=== PATIENT | male | born 1935 | race Caucasian/White ===

== ENCOUNTER 2017-02-28 10:41 | Emergency (ER) | payer MEDICARE, BC ==
--- NOTE | 2017-02-28 11:12 | EDM.PDOC ---
ED HPI Skin/Rash - General Chief Complaint: Skin Complaint Stated Complaint: COLOSTOMY Time Seen by Provider: 02/28/17 10:51 - History of Present Illness INITIAL COMMENTS - FREE TEXT/NARRATIVE: HISTORY AND PHYSICAL: History of present illness: The patient is a 81-year-old man who had a colostomy performed 15 years ago at [facility] for colorectal cancer which has since been in remission and has had no issues with his colostomy; patient presents with some concerns about discoloration of the stoma which was noticed today when home health changed his appliance. According to the patient and he has had no systemic complaints of fever chills nausea vomiting or any abdominal discomfort. He has had normal stool output from the stoma without any decrease in volume or change in character or color of the stool. The patient has no pain at the stoma and is only concerned about the way it looks. Patient follows at [facility] with Dr. Beckman and did not see him for this. Review of systems: As per history of present illness and below otherwise all systems reviewed and negative. Past medical history: As per history of present illness and as reviewed below otherwise noncontributory. Surgical history: As per history of present illness and as reviewed below otherwise noncontributory. Social history: No reported history of drug or alcohol abuse. Family history: As per history of present illness and as reviewed below otherwise noncontributory. Physical exam: General: Well-developed well-nourished male who is nontoxic and speaking clearly. Vital signs of been reviewed by me. HEENT: Atraumatic, normocephalic, negative for conjunctival pallor or scleral icterus, mucous membranes moist, throat clear, neck supple, nontender, trachea midline. Lungs: Clear to auscultation, breath sounds equal bilaterally, chest nontender. No work or breathing Heart: S1S2, regular, negative for clicks, rubs, or JVD. Abdomen: Soft, nondistended, nontender. Negative for masses or hepatosplenomegaly. Negative for costovertebral tenderness. Colostomy is seen in the left mid abdominal area with pink stoma which is small and there is no overt tenderness in the region or parastomal hernia. There is light brown stool in the vault. There are multiple abdominal scars which are well-healed on the abdomen and bowel sounds are normoactive. Active from approximate 6:00 to 11:00 position on the stoma there is granulation tissue that is seen that is not friable and cannot be removed and is nontender. The stoma is very viable pink Pelvis: Stable nontender. Genitourinary: Deferred. Rectal: Deferred. Extremities: Atraumatic, negative for cords or calf pain. Neurovascular unremarkable. Neuro: Awake, alert, oriented. Cranial nerves II through XII unremarkable. Cerebellum unremarkable. Motor and sensory unremarkable throughout. Exam nonfocal. Diagnostics: [] Therapeutics: Silver nitrate was gently placed on the area of the granulation tissue on the stoma and I advised and patient to monitor this closely and to follow up with primary care. I will attempt to notify Dr. Garrison of today's events (Please note that nursing tried to find a similar appliance for the patient so that I could do a thorough evaluation before removing the appliance. We were unable to find one on a [facility] floor or in the clinic. The has left him to go get one and was deleted in returning) Impression: Colostomy evaluation Definitive disposition and diagnosis as appropriate pending reevaluation and review of above. - Related Data Allergies Allergy/AdvReac Type Severity Reaction Status Date / Time Medication used during Allergy Hallucinati Uncoded 02/28/17 10:55 Surgery ons Home Meds: Ambulatory Orders Medication Instructions Recorded Confirmed Aspirin 81 mg PO ONETIME 01/03/17 02/28/17 QUEtiapine [SEROquel] 25 mg PO BEDTIME #20 tablet 01/03/17 02/28/17 amLODIPine [Norvasc] 5 mg PO DAILY 01/03/17 02/28/17 atorvaSTATin [Lipitor] 40 mg PO BEDTIME 01/03/17 02/28/17 Donepezil HCl [Aricept] 5 mg PO BEDTIME 02/28/17 02/28/17 Propranolol HCl [Inderal LA] 160 mg PO BEDTIME 02/28/17 02/28/17 Past Medical History HEENT History: Reports: Impaired vision Cardiovascular History: Reports: High cholesterol, Hypertension Genitourinary History: Reports: Other (see below) Other Genitourinary History: hx of prostate surgery Neurological History: Reports: Other (see below) Other Neuro History: "According to recent MRI results, 4 small areas of past stroke" and mild cognitive impairment. Psychiatric History: Reports: Dementia Social & Family History - Family History Family Medical History: Unobtainable - Tobacco Use Smoking Status *Q: Never Smoker Second Hand Smoke Exposure: No - Caffeine Use Caffeine Use: Reports: Coffee, Soda - Recreational Drug Use Recreational Drug Use: No ED ROS GENERAL - Review of Systems Review Of Systems: ROS reveals no pertinent complaints other than HPI. ED EXAM, SKIN/RASH Exam: See Below (See dictation) Course - Vital Signs Last Recorded V/S: Last Vital Signs Temp 35.9 C 02/28/17 10:52 Pulse 67 02/28/17 10:52 Resp 18 02/28/17 10:52 BP 165/81 H 02/28/17 10:52 Pulse Ox 94 L 02/28/17 10:52 Departure - Departure Time of Disposition: 12:20 Disposition: Home, Self-Care 01 Condition: good Clinical Impression: Colostomy complication, unspecified Forms: ED Department Discharge Additional Instructions: The following information is given to patients seen in the emergency department who are being discharged to home. This information is to outline your options for follow-up care. We provide all patients seen in our emergency department with a follow-up referral. The need for follow-up, as well as the timing and circumstances, are variable depending upon the specifics of your emergency department visit. If you don't have a primary care physician on staff, we will provide you with a referral. We always advise you to contact your personal physician following an emergency department visit to inform them of the circumstance of the visit and for follow-up with them and/or the need for any referrals to a consulting specialist. The emergency department will also refer you to a specialist when appropriate. This referral assures that you have the opportunity for followup care with a specialist. All of these measure are taken in an effort to provide you with optimal care, which includes your followup. Under all circumstances we always encourage you to contact your private physician who remains a resource for coordinating your care. When calling for followup care, please make the office aware that this follow-up is from your recent emergency room visit. If for any reason you are refused follow-up, please contact the [facility] emergency department at and ask to speak to the emergency department charge nurse. [address] [place] [address] Please continue with all colostomy care as previously and return to ER as needed and as discussed. Please call and followup with your provider at [facility] on Saturday.
== END 2017-02-28 12:43 | disposition home or self-care (01) ==
LOC: MW.ED 10:41
CPT/HCPCS: 99282

== ENCOUNTER → 2017-03-12 | Outpatient (CLI) | payer MEDICARE, BC | LOC: MW.CHNEURO 08:00 | PROVIDERS: ATTEND Psychiatry & Neurology Neuromuscular Medicine | DX: G31.84 Mild cognitive impairment of uncertain or unknown etiology (principal); R44.3 Hallucinations, unspecified; F22 Delusional disorders | CPT/HCPCS: 99204 ==

== ENCOUNTER 2018-06-11 18:27 | Observation (INO) | payer MEDICARE, BC ==
[~2018-06-11 18:27] MED LIST: Piperacillin/Tazobactam 3.375 GM in Sodium Chloride 0.9% 50 ML IV SCH
--- NOTE | 2018-06-11 18:51 | EDM.PDOC ---
ED HPI GENERAL MEDICAL PROBLEM - General Chief Complaint: Respiratory Problem Stated Complaint: [place] PT Time Seen by Provider: 06/11/18 19:17 Source of Information: Reports: Patient History Limitations: Reports: No Limitations - History of Present Illness INITIAL COMMENTS - FREE TEXT/NARRATIVE: HISTORY AND PHYSICAL: History of present illness: Yobani is an 83-year-old male patient of [facility] accompanied by his here for vomiting. Patient states he had 1 episode of vomiting this morning. reports that they nursing staff at [facility] was concerned about an aspiration pneumonia because his oxygen levels dropped following this to high 80s. Patient states he has had a little but of abdominal discomfort and a cough. He denies feeling short of breath, fevers, chills. Patient is making normal bowel movements via colostomy. Patient not normally on oxygen at intermediate. also notes he has a pressure ulcer that is being cared for at the intermediate. Review of systems: As per history of present illness and below otherwise all systems reviewed and negative. Past medical history: As per history of present illness and as reviewed below otherwise noncontributory. Surgical history: As per history of present illness and as reviewed below otherwise noncontributory. Social history: No reported history of drug or alcohol abuse. Family history: As per history of present illness and as reviewed below otherwise noncontributory. Physical exam: General: Patient lying comfortably in no acute distress HEENT: Atraumatic, normocephalic, pupils reactive, negative for conjunctival pallor or scleral icterus, mucous membranes moist, throat clear, neck supple, nontender, trachea midline. Lungs: Clear to auscultation, breath sounds equal bilaterally, chest nontender. Heart: S1S2, regular, negative for clicks, rubs Abdomen: Soft, nondistended, nondistended. Colostomy bag present. Negative for masses or hepatosplenomegaly. Negative for costovertebral tenderness. Pelvis: Stable nontender. Genitourinary: Deferred. Rectal: Deferred. Skin: there is a 1.5cm pressure sore to the gluteal cleft with a clean base. No purulent discharge. Extremities: Atraumatic, negative for cords or calf pain. Neurovascular unremarkable. Neuro: Awake, alert, oriented. Cranial nerves II through XII unremarkable. Cerebellum unremarkable. Motor and sensory unremarkable throughout. Exam nonfocal. Notes: 2000 - patient complaining of pain at site of pressure ulcer, toradol given for pain. Diagnostics: CBC, CMP, UA CXR Therapeutics: Oxygen 3L 500mL Normal Saline IV 30mg Toradol IV Impression: Aspiration pneumonia Pressure ulcer Plan: [address] Rivero, patient will be admitted for observation on IV antibiotics. Definitive disposition and diagnosis as appropriate pending reevaluation and review of above. - Related Data Allergies Allergy/AdvReac Type Severity Reaction Status Date / Time fentanyl Allergy Hallucinati Verified 06/11/18 18:47 ons Home Meds: Home Meds Aspirin 81 mg PO ONETIME 01/03/17 [History] QUEtiapine [SEROquel] 25 mg PO BEDTIME #20 tablet 01/03/17 [Rx] amLODIPine [Norvasc] 5 mg PO DAILY 01/03/17 [History] atorvaSTATin [Lipitor] 40 mg PO BEDTIME 01/03/17 [History] Donepezil HCl [Aricept] 5 mg PO BEDTIME 02/28/17 [History] Propranolol HCl [Inderal LA] 160 mg PO BEDTIME 02/28/17 [History] Acetaminophen [Acetaminophen 8 Hour] 650 mg PO 06/11/18 [History] Insulin Glarg,Human.Rec.Analog [Lantus] 06/11/18 [History] Insulin Lispro [Humalog] 06/11/18 [History] Levothyroxine Sodium [Levo-T] 25 mcg PO 06/11/18 [History] Prednisolone Acetate/Pf [Prednisolone Acet 1% Eye Drop] 06/11/18 [History] Propranolol HCl [Inderal LA] 06/11/18 [History] QUEtiapine Fumarate [Quetiapine Fumarate] 100 mg PO 06/11/18 [History] Rivastigmine [Exelon] 13.3 mg DAILY 06/11/18 [History] metFORMIN [Glucophage XR] 500 mg PO 06/11/18 [History] valACYclovir HCl [Valtrex] 500 mg 06/11/18 [History] Past Medical History HEENT History: Reports: Impaired Vision Cardiovascular History: Reports: High Cholesterol, Hypertension Genitourinary History: Reports: Other (See Below) Other Genitourinary History: hx of prostate surgery Neurological History: Reports: Other (See Below) Other Neuro History: "According to recent MRI results, 4 small areas of past stroke" and mild cognitive impairment. Psychiatric History: Reports: Dementia Social & Family History - Family History Family Medical History: Unobtainable - Caffeine Use Caffeine Use: Reports: Coffee, Soda ED ROS GENERAL - Review of Systems Review Of Systems: ROS reveals no pertinent complaints other than HPI. ED EXAM, GENERAL - Physical Exam Exam: See Below (see dictation) Course - Vital Signs Last Recorded V/S: Last Vital Signs Temp 37.1 C 06/11/18 18:30 Pulse 84 06/11/18 18:30 Resp 18 06/11/18 18:30 BP 112/61 06/11/18 18:30 Pulse Ox 92 L 06/11/18 18:30 - Orders/Labs/Meds Orders: Active Orders 24 hr Category Date Time Status Oxygen Therapy, ED [RC] ASDIRECTED Care 06/11/18 19:01 Active Pulse Oximetry [RC] ASDIRECTED Care 06/11/18 19:01 Active Chest 2V [CR] Stat Exams 06/11/18 20:02 Taken CULTURE BLOOD [BC] Stat Lab 06/11/18 20:59 Ordered CULTURE BLOOD [BC] Stat Lab 06/11/18 20:59 Ordered LACTATE WITH REFLEX [BG] Stat Lab 06/11/18 20:59 Ordered UA W/MICROSCOPIC [URIN] Stat Lab 06/11/18 19:01 Ordered Sodium Chloride 0.9% [Normal Saline] 500 ml Med 06/11/18 19:15 Active IV STAT Sodium Chloride 0.9% [Saline Flush] Med 06/11/18 19:01 Active 10 ml FLUSH ASDIRECTED PRN Sodium Chloride 0.9% [Saline Flush] Med 06/11/18 19:01 Active 2.5 ml FLUSH ASDIRECTED PRN Blood Culture x2 Reflex Set [OM.PC] Stat Oth 06/11/18 20:59 Ordered Saline Lock Insert [OM.PC] Stat Oth 06/11/18 19:01 Ordered Medication Orders Sodium Chloride (Normal Saline) 500 mls @ 500 mls/hr IV STAT [facility] Last Admin: 06/11/18 19:18 Dose: 500 mls/hr Sodium Chloride (Saline Flush) 10 ml FLUSH ASDIRECTED PRN PRN Reason: Keep Vein Open Sodium Chloride (Saline Flush) 2.5 ml FLUSH ASDIRECTED PRN PRN Reason: Keep Vein Open Labs: Laboratory Tests 06/11/18 06/11/18 Range/Units 19:30 19:30 WBC 17.48 H (4.0-11.0) K/uL RBC 4.24 L (4.50-5.90) M/uL Hgb 12.8 L (13.0-17.0) g/dL Hct 37.7 L (38.0-50.0) % MCV 88.9 (80.0-98.0) fL MCH 30.2 (27.0-32.0) pg MCHC 34.0 (31.0-37.0) g/dL RDW Std Deviation 46.5 (28.0-62.0) fl RDW Coeff of Danilo 14 (11.0-15.0) % Plt Count 333 (150-400) K/uL MPV 9.90 (7.40-12.00) fL Neut % (Auto) 83.1 H (48.0-80.0) % Lymph % (Auto) 7.4 L (16.0-40.0) % [place] % (Auto) 9.2 (0.0-15.0) % Eos % (Auto) 0.2 (0.0-7.0) % Baso % (Auto) 0.1 (0.0-1.5) % Neut # (Auto) 14.5 H (1.4-5.7) K/uL Lymph # (Auto) 1.3 (0.6-2.4) K/uL [place] # (Auto) 1.6 H (0.0-0.8) K/uL Eos # (Auto) 0.0 (0.0-0.7) K/uL Baso # (Auto) 0.0 (0.0-0.1) K/uL Nucleated RBC % 0.0 /100WBC Nucleated RBCs # 0 K/uL Sodium 138 (136-148) mmol/L Potassium 4.1 (3.5-5.1) mmol/L Chloride 100 (98-107) mmol/L Carbon Dioxide 28.8 (21.0-32.0) mmol/L BUN 42 H (7.0-18.0) mg/dL Creatinine 1.8 H (0.8-1.3) mg/dL Est Cr Clr Drug Dosing TNP Estimated GFR (MDRD) 36.4 ml/min Glucose 137 H (74-106) mg/dL Calcium 9.4 (8.5-10.1) mg/dL Total Bilirubin 0.6 (0.2-1.0) mg/dL AST 35 (15-37) IU/L ALT 63 (14-63) IU/L Alkaline Phosphatase 102 (46-116) U/L Troponin I < 0.050 (0.000-0.056) ng/mL Total Protein 7.1 (6.4-8.2) g/dL Albumin 2.7 L (3.4-5.0) g/dL Globulin 4.4 H (2.0-3.5) g/dL Albumin/Globulin Ratio 0.6 L (1.3-2.8) Lipase 74 (73-393) U/L Meds: Medications Generic Name Dose Route Start Last Admin Trade Name Freq PRN Reason Stop Dose Admin Sodium Chloride 500 mls @ 500 mls/hr 06/11/18 19:15 06/11/18 19:18 Normal Saline IV 500 mls/hr STAT ELVIS Administration Sodium Chloride 10 ml 06/11/18 19:01 Saline Flush FLUSH ASDIRECTED PRN Keep Vein Open Sodium Chloride 2.5 ml 06/11/18 19:01 Saline Flush FLUSH ASDIRECTED PRN Keep Vein Open Discontinued Medications Generic Name Dose Route Start Last Admin Trade Name [place] PRN Reason Stop Dose Admin Ketorolac Tromethamine 30 mg 06/11/18 20:11 06/11/18 20:18 Toradol IVPUSH 06/11/18 20:12 30 mg ONETIME ONE Administration Departure - Departure Time of Disposition: 21:15 Disposition: Refer to Observation Condition: Good Clinical Impression: Pneumonia - Discharge Information Referrals: Adama Torres MD [Primary Care Provider] - Forms: ED Department Discharge - My Orders Last 24 Hours: My Active Orders 06/11/18 19:01 Oxygen Therapy, ED [RC] ASDIRECTED Pulse Oximetry [RC] ASDIRECTED UA W/MICROSCOPIC [URIN] Stat Sodium Chloride 0.9% [Saline Flush] 10 ml FLUSH ASDIRECTED PRN Sodium Chloride 0.9% [Saline Flush] 2.5 ml FLUSH ASDIRECTED PRN Saline Lock Insert [OM.PC] Stat 06/11/18 19:15 Sodium Chloride 0.9% [Normal Saline] 500 ml IV STAT 06/11/18 20:02 Chest 2V [CR] Stat - Assessment/Plan Last 24 Hours: My Active Orders 06/11/18 19:01 Oxygen Therapy, ED [RC] ASDIRECTED Pulse Oximetry [RC] ASDIRECTED UA W/MICROSCOPIC [URIN] Stat Sodium Chloride 0.9% [Saline Flush] 10 ml FLUSH ASDIRECTED PRN Sodium Chloride 0.9% [Saline Flush] 2.5 ml FLUSH ASDIRECTED PRN Saline Lock Insert [OM.PC] Stat 06/11/18 19:15 Sodium Chloride 0.9% [Normal Saline] 500 ml IV STAT 06/11/18 20:02 Chest 2V [CR] Stat
[2018-06-11] MEDS ORDERED: Sodium Chloride 0.9% 2.5 ML Syringe FLUSH PRN (19:01)
[2018-06-11] MEDS ORDERED: Sodium Chloride 0.9% 10 ML Syringe FLUSH PRN (19:01)
[2018-06-11] MEDS ORDERED: Sodium Chloride 0.9% 500 ML IV SCH (19:15)
[2018-06-11 19:59] LABS: CHLORIDE,CL 100 mmol/L (98-107); SODIUM,NA 138 mmol/L (136-148)
[2018-06-11] MEDS ORDERED: Ketorolac 30 MG/ML SDV IVPUSH ONE (20:11)
[2018-06-11] MEDS ORDERED: Piperacillin/Tazobactam 3.375 GM in Sodium Chloride 0.9% 50 ML IV ONE (21:14)
[2018-06-11] MEDS ORDERED: Sodium Chloride 0.45% 1,000 ML IV SCH (23:00)
[2018-06-12] MEDS: Piperacillin/Tazobactam 3.375 GM in Sodium Chloride 0.9% 50 ML IV SCH ×4 (03:14→21:01)
[2018-06-12] MEDS ORDERED: Piperacillin/Tazobactam 3.375 GM in Sodium Chloride 0.9% 50 ML IV SCH (05:00)
[2018-06-12] MEDS: Insulin Aspart 100 Units/ML 3 ML Pen SUBCUT SCH ×3 (06:32→17:16)
[2018-06-12] MEDS: Levothyroxine 25 MCG Tab PO SCH (06:39)
[2018-06-12] MEDS ORDERED: Insulin Aspart 100 Units/ML 3 ML Pen SUBCUT SCH (07:30)
--- NOTE | 2018-06-12 09:45 | CR ---
EXAM DATE: 06/11/18 PATIENT'S AGE: 83 Patient: DO ELIZONDO Facility: [place], [place] Site . Site : [id number] Study: XRay Chest [id number]/18/2018 8:50:50 PM Ordering Physician: Doctor Jackson Final Report: INDICATION: Low oxygen saturation TECHNIQUE: Chest 2 views. COMPARISON: None FINDINGS: Normal cardiomediastinal silhouette. Lung volumes are low. Linear atelectasis at both lung bases. No effusion, focal consolidation, or pneumothorax. Surgical roman noted in the upper abdomen. Degenerative changes in the thoracic spine. IMPRESSION: Low lung volumes with linear atelectasis at both lung bases. Dictated by Ludivina Moss MD @ Jun 11 2018 8:54PM (Electronic Signature) Report Signed by Proxy. [facility]endall
[2018-06-12] MEDS ORDERED: Aspirin 81 MG Tab.Chew PO SCH (10:45)
[2018-06-12] MEDS ORDERED: Iopamidol 755 MG/ML 200 ML Multipack Bottle IVPUSH ONE (15:07)
[2018-06-12] MEDS: RIVASTIGMINE 13.3 MG TRDERM SCH (15:10)
--- NOTE | 2018-06-12 20:06 | PCM.HP ---
H&P History of Present Illness - General Admit Problem/Dx: Admission Diagnosis/Problem Admission Diagnosis/Problem Pneumonia - Related Data Allergies/Adverse Reactions: Allergies Allergy/AdvReac Type Severity Reaction Status Date / Time fentanyl Allergy Hallucinati Verified 06/11/18 18:47 ons Home Medications: Home Meds Aspirin 81 mg PO ONETIME 01/03/17 [History] QUEtiapine [SEROquel] 25 mg PO BEDTIME #20 tablet 01/03/17 [Rx] amLODIPine [Norvasc] 5 mg PO DAILY 01/03/17 [History] atorvaSTATin [Lipitor] 40 mg PO BEDTIME 01/03/17 [History] Donepezil HCl [Aricept] 5 mg PO BEDTIME 02/28/17 [History] Propranolol HCl [Inderal LA] 160 mg PO BEDTIME 02/28/17 [History] Acetaminophen [Acetaminophen 8 Hour] 650 mg PO 06/11/18 [History] Insulin Glarg,Human.Rec.Analog [Lantus] 15 units SQ BEDTIME 06/11/18 [History] Insulin Lispro [Humalog] 0 units SQ TIDAC 06/11/18 [History] Insulin Lispro [Humalog] 8 units SQ TIDAC 06/11/18 [History] Levothyroxine Sodium [Levo-T] 25 mcg PO ACBREAKFAST 06/11/18 [History] Prednisolone Acetate/Pf [Prednisolone Acet 1% Eye Drop] 06/11/18 [History] Propranolol HCl [Inderal LA] 06/11/18 [History] QUEtiapine Fumarate [Quetiapine Fumarate] 100 mg PO 06/11/18 [History] Rivastigmine [Exelon] 13.3 mg DAILY 06/11/18 [History] metFORMIN [Glucophage XR] 500 mg PO 06/11/18 [History] valACYclovir HCl [Valtrex] 500 mg 06/11/18 [History] Past Medical History HEENT History: Reports: Impaired Vision Cardiovascular History: Reports: High Cholesterol, Hypertension Respiratory History: Reports: None Gastrointestinal History: Reports: Other (See Below) Other Gastrointestinal History: ostomy bag Genitourinary History: Reports: Other (See Below) Other Genitourinary History: hx of prostate surgery Musculoskeletal History: Reports: None Neurological History: Reports: Other (See Below) Other Neuro History: "According to recent MRI results, 4 small areas of past stroke" and mild cognitive impairment. Psychiatric History: Reports: Dementia Other Psychiatric History: wandering disease, delusional disorder, auditory hallucinations, visual hallucinations Endocrine/Metabolic History: Reports: Diabetes, Type II Hematologic History: Reports: None Immunologic History: Reports: None Oncologic (Cancer) History: Reports: None Dermatologic History: Reports: None - Past Surgical History Head Surgeries/Procedures: Reports: None Respiratory Surgical History: Reports: None GI Surgical History: Reports: Colostomy Endocrine Surgical History: Reports: None Musculoskeletal Surgical History: Reports: None Oncologic Surgical History: Reports: None Dermatological Surgical History: Reports: None Social & Family History - Family History Family Medical History: Unobtainable - Tobacco Use Smoking Status *Q: Never Smoker Second Hand Smoke Exposure: No - Caffeine Use Caffeine Use: Reports: Coffee - Recreational Drug Use Recreational Drug Use: No Exam - Vital Signs Vital Signs: Last Vital Signs Temp 99.2 F 06/12/18 16:00 Pulse 82 06/12/18 16:00 Resp 22 H 06/12/18 16:00 BP 140/67 06/12/18 16:00 Pulse Ox 92 L 06/12/18 16:00 Weight: 213 lb 13.574 oz - Patient Data Lab Results Last 24 hrs: Laboratory Results - last 24 hr 06/11/18 06/11/18 06/11/18 Range/Units 19:30 21:08 22:31 WBC (4.0-11.0) K/uL RBC (4.50-5.90) M/uL Hgb (13.0-17.0) g/dL Hct (38.0-50.0) % MCV (80.0-98.0) fL MCH (27.0-32.0) pg MCHC (31.0-37.0) g/dL RDW Std Deviation (28.0-62.0) fl RDW Coeff of Danilo (11.0-15.0) % Plt Count (150-400) K/uL MPV (7.40-12.00) fL Neut % (Auto) (48.0-80.0) % Lymph % (Auto) (16.0-40.0) % [place] % (Auto) (0.0-15.0) % Eos % (Auto) (0.0-7.0) % Baso % (Auto) (0.0-1.5) % Neut # (Auto) (1.4-5.7) K/uL Lymph # (Auto) (0.6-2.4) K/uL [place] # (Auto) (0.0-0.8) K/uL Eos # (Auto) (0.0-0.7) K/uL Baso # (Auto) (0.0-0.1) K/uL Nucleated RBC % /100WBC Nucleated RBCs # K/uL Lactate 1.8 (0.20-2.00) mmol/L Sodium 138 (136-148) mmol/L Potassium 4.1 (3.5-5.1) mmol/L Chloride 100 (98-107) mmol/L Carbon Dioxide 28.8 (21.0-32.0) mmol/L BUN 42 H (7.0-18.0) mg/dL Creatinine 1.8 H (0.8-1.3) mg/dL Est Cr Clr Drug Dosing TNP Estimated GFR (MDRD) 36.4 ml/min Glucose 137 H (74-106) mg/dL POC Glucose 112 H (60-110) mg/dL Calcium 9.4 (8.5-10.1) mg/dL Total Bilirubin 0.6 (0.2-1.0) mg/dL AST 35 (15-37) IU/L ALT 63 (14-63) IU/L Alkaline Phosphatase 102 (46-116) U/L Troponin I < 0.050 (0.000-0.056) ng/mL Total Protein 7.1 (6.4-8.2) g/dL Albumin 2.7 L (3.4-5.0) g/dL Globulin 4.4 H (2.0-3.5) g/dL Albumin/Globulin Ratio 0.6 L (1.3-2.8) Lipase 74 (73-393) U/L 06/12/18 06/12/18 06/12/18 Range/Units 05:13 06:19 06:30 WBC 12.37 H (4.0-11.0) K/uL RBC 4.01 L (4.50-5.90) M/uL Hgb 11.8 L (13.0-17.0) g/dL Hct 35.9 L (38.0-50.0) % MCV 89.5 (80.0-98.0) fL MCH 29.4 (27.0-32.0) pg MCHC 32.9 (31.0-37.0) g/dL RDW Std Deviation 46.6 (28.0-62.0) fl RDW Coeff of Danilo 14 (11.0-15.0) % Plt Count 324 (150-400) K/uL MPV 9.80 (7.40-12.00) fL Neut % (Auto) 81.6 H (48.0-80.0) % Lymph % (Auto) 7.1 L (16.0-40.0) % [place] % (Auto) 10.1 (0.0-15.0) % Eos % (Auto) 1.0 (0.0-7.0) % Baso % (Auto) 0.2 (0.0-1.5) % Neut # (Auto) 10.1 H (1.4-5.7) K/uL Lymph # (Auto) 0.9 (0.6-2.4) K/uL [place] # (Auto) 1.3 H (0.0-0.8) K/uL Eos # (Auto) 0.1 (0.0-0.7) K/uL Baso # (Auto) 0.0 (0.0-0.1) K/uL Nucleated RBC % 0.0 /100WBC Nucleated RBCs # 0 K/uL Lactate (0.20-2.00) mmol/L Sodium (136-148) mmol/L Potassium (3.5-5.1) mmol/L Chloride (98-107) mmol/L Carbon Dioxide (21.0-32.0) mmol/L BUN (7.0-18.0) mg/dL Creatinine (0.8-1.3) mg/dL Est Cr Clr Drug Dosing Estimated GFR (MDRD) ml/min Glucose (74-106) mg/dL POC Glucose 122 H 124 H (60-110) mg/dL Calcium (8.5-10.1) mg/dL Total Bilirubin (0.2-1.0) mg/dL AST (15-37) IU/L ALT (14-63) IU/L Alkaline Phosphatase (46-116) U/L Troponin I (0.000-0.056) ng/mL Total Protein (6.4-8.2) g/dL Albumin (3.4-5.0) g/dL Globulin (2.0-3.5) g/dL Albumin/Globulin Ratio (1.3-2.8) Lipase (73-393) U/L 06/12/18 06/12/18 06/12/18 Range/Units 06:30 11:55 16:38 WBC (4.0-11.0) K/uL RBC (4.50-5.90) M/uL Hgb (13.0-17.0) g/dL Hct (38.0-50.0) % MCV (80.0-98.0) fL MCH (27.0-32.0) pg MCHC (31.0-37.0) g/dL RDW Std Deviation (28.0-62.0) fl RDW Coeff of Danilo (11.0-15.0) % Plt Count (150-400) K/uL MPV (7.40-12.00) fL Neut % (Auto) (48.0-80.0) % Lymph % (Auto) (16.0-40.0) % [place] % (Auto) (0.0-15.0) % Eos % (Auto) (0.0-7.0) % Baso % (Auto) (0.0-1.5) % Neut # (Auto) (1.4-5.7) K/uL Lymph # (Auto) (0.6-2.4) K/uL [place] # (Auto) (0.0-0.8) K/uL Eos # (Auto) (0.0-0.7) K/uL Baso # (Auto) (0.0-0.1) K/uL Nucleated RBC % /100WBC Nucleated RBCs # K/uL Lactate (0.20-2.00) mmol/L Sodium 138 (136-148) mmol/L Potassium 4.0 (3.5-5.1) mmol/L Chloride 102 (98-107) mmol/L Carbon Dioxide 28.8 (21.0-32.0) mmol/L BUN 44 H (7.0-18.0) mg/dL Creatinine 1.5 H (0.8-1.3) mg/dL Est Cr Clr Drug Dosing 42.39 Estimated GFR (MDRD) 44.9 ml/min Glucose 125 H (74-106) mg/dL POC Glucose 192 H 158 H (60-110) mg/dL Calcium 8.9 (8.5-10.1) mg/dL Total Bilirubin (0.2-1.0) mg/dL AST (15-37) IU/L ALT (14-63) IU/L Alkaline Phosphatase (46-116) U/L Troponin I (0.000-0.056) ng/mL Total Protein (6.4-8.2) g/dL Albumin (3.4-5.0) g/dL Globulin (2.0-3.5) g/dL Albumin/Globulin Ratio (1.3-2.8) Lipase (73-393) U/L Result Diagrams: 06/12/18 06:30 06/12/18 06:30 Orders Last 24hrs: Active Orders 24 hr Category Date Time Status Admission Status [Patient Status] [ADT] Stat ADT 06/11/18 21:12 Active Communication Order [RC] DAILY Care 06/12/18 17:00 Active Consult to Physical Therapy [PT Evaluation and Cons 06/12/18 13:00 Active Treatment] [CONS] Routine Consult to Wound Care Services [CONS] Routine Cons 06/12/18 12:58 Active NPO Now [Nothing per Oral Now Diet] [DIET] Diet 06/13/18 Breakfast Active Abdomen Pelvis w wo Cont [CT] Routine Exams 06/12/18 10:37 Taken BASIC METABOLIC PANEL,BMP [CHEM] DAILY Lab 06/13/18 05:00 Ordered BASIC METABOLIC PANEL,BMP [CHEM] DAILY Lab 06/14/18 05:00 Ordered BASIC METABOLIC PANEL,BMP [CHEM] DAILY Lab 06/15/18 05:00 Ordered CBC WITH AUTO DIFF [HEME] DAILY Lab 06/13/18 05:00 Ordered CBC WITH AUTO DIFF [HEME] DAILY Lab 06/14/18 05:00 Ordered CBC WITH AUTO DIFF [HEME] DAILY Lab 06/15/18 05:00 Ordered CULTURE BLOOD [BC] Stat Lab 06/11/18 21:13 Received CULTURE BLOOD [BC] Stat Lab 06/11/18 21:26 Received CULTURE WOUND [RM] Routine Lab 06/12/18 18:15 Received Aspirin Med 06/12/18 10:45 Active 81 mg PO ONETIME Donepezil [Aricept] Med 06/12/18 21:00 Active 5 mg PO BEDTIME Insulin Aspart [NovoLOG] Med 06/12/18 07:30 Active See Dose Instructions SUBCUT TIDAC Insulin Glarg,Human.Rec.Analog [LantUS Solostar] Med 06/12/18 21:00 Active 15 units SUBCUT BEDTIME Levothyroxine Med 06/12/18 07:30 Active 25 mcg PO ACBREAKFAST Patient's Own Medication [Ptom] Med 06/12/18 12:15 Active 1 each TRDERM DAILY Piperacillin/Tazobactam [Piperacil-Tazobact] 3.375 gm Med 06/12/18 04:00 Active Sodium Chloride 0.9% [Normal Saline] 50 ml IV Q6H Sodium Chloride 0.9% [Saline Flush] Med 06/11/18 19:01 Active 10 ml FLUSH ASDIRECTED PRN Sodium Chloride 0.9% [Saline Flush] Med 06/11/18 19:01 Active 2.5 ml FLUSH ASDIRECTED PRN amLODIPine [Norvasc] Med 06/13/18 09:00 Active 5 mg PO DAILY atorvaSTATin [Lipitor] Med 06/12/18 21:00 Active 40 mg PO BEDTIME Blood Culture x2 Reflex Set [OM.PC] Stat Oth 06/11/18 20:59 Ordered Saline Lock Insert [OM.PC] Stat Oth 06/11/18 19:01 Ordered Code Status [Resuscitation Status] Routine Resus Stat 06/12/18 19:50 Ordered Medication Orders Amlodipine Besylate (Norvasc) 5 mg PO DAILY [facility] Aspirin (Aspirin) 81 mg PO ONETIME [facility] Atorvastatin Calcium (Lipitor) 40 mg PO BEDTIME [facility] Donepezil HCl (Aricept) 5 mg PO BEDTIME [facility] Piperacillin Sod/Tazobactam (Sod 3.375 gm/ Sodium Chloride) 50 mls @ 100 mls/ hr IV Q6H [facility] Last Admin: 06/12/18 16:24 Dose: 100 mls/hr Infusion: 06/12/18 10:47 Dose: 100 mls/hr Admin: 06/12/18 10:17 Dose: 100 mls/hr Infusion: 06/12/18 03:44 Dose: 100 mls/hr Admin: 06/12/18 03:14 Dose: 100 mls/hr Insulin Aspart (Novolog) 0 unit SUBCUT TIDAC [facility] Last Admin: 06/12/18 17:16 Dose: 1 unit Admin: 06/12/18 12:13 Dose: 1 unit Admin: 06/12/18 06:32 Dose: Not Given Insulin Glargine (Lantus Solostar) 15 units SUBCUT BEDTIME [facility] Levothyroxine Sodium (Levothyroxine) 25 mcg PO ACBREAKFAST [facility] Last Admin: 06/12/18 06:39 Dose: 25 mcg Rivastigmine [Exelon (] 13.3 Mg) 1 each TRDERM DAILY [facility] Last Admin: 06/12/18 15:10 Dose: 1 each Sodium Chloride (Saline Flush) 10 ml FLUSH ASDIRECTED PRN PRN Reason: Keep Vein Open Sodium Chloride (Saline Flush) 2.5 ml FLUSH ASDIRECTED PRN PRN Reason: Keep Vein Open
--- NOTE | 2018-06-12 20:12 | PCM.SN ---
- Free Text/Narrative Note: [id number]
[2018-06-12] MEDS: Pantoprazole 40 MG Vial IVPUSH SCH (20:53)
[2018-06-12] MEDS: Enoxaparin 40 MG/0.4 ML Syringe SUBCUT SCH (20:53)
[2018-06-12] MEDS: atorvaSTATin 40 MG Tab PO SCH (20:54)
[2018-06-12] MEDS: Lactated Ringers 1,000 ML IV SCH (20:56)
[2018-06-12] MEDS: Donepezil 5 MG Tab PO SCH (20:56)
[2018-06-12] MEDS ORDERED: Insulin Glargine,Human Rec. Analog 100 Units/ML 3 ML Pen SUBCUT SCH (21:00)
--- NOTE | 2018-06-12 21:39 | HP ---
DATE OF : 1935 PRIMARY CARE PHYSICIAN: Adama Torres MD HISTORY OF PRESENT ILLNESS: The patient is an 83-year-old male, [facility] resident, presented to emergency room because of vomiting after he had breakfast in the morning and his O2 dropped down to 80'. Patient is not on O2 in the [facility] and there was concern of aspiration pneumonia As per the patient, he was vomiting for 2days prior to arriving to ER. He vomited after he ate the meal and the patient denies abdominal pain at rest but his abdomen is very tender to palpation He denies diarrhea or constipation. The patient has multiple abdominal surgeries. He had cholecystectomy and he has history of colon resection and he has a colostomy bag secondary to colon resection for cancer at about 16 years ago. REVIEW OF SYSTEMS: 12-point review of system is negative except as in history of present illness. ALLERGIES: The patient is allergic to fentanyl. PAST SURGICAL HISTORY: He is status post colostomy and status post partial colon resection for colon cancer. He is status post chemotherapy and radiation therapy. PAST MEDICAL HISTORY: He has impaired vision, high cholesterol, hypertension, has dementia with loose body, diabetes type 2, history of TIA three years ago, and he is status post chemotherapy and radiation therapy. SOCIAL HISTORY: He never smoked. No alcohol use. Used to work as a [employer]. FAMILY HISTORY: Noncontributory. VITAL SIGNS: At admission, the patient's temperature was 98.8, pulse rate 84, blood pressure 112/61, respiratory rate 18, pulse oxygen by oximetry is 92, on 2 L oxygen. PHYSICAL EXAMINATION: HEENT: Head is atraumatic and normocephalic. Pupils are equally reactive to light. NECK: Supple. No thyromegaly. No lymphadenopathy. HEART: S1, S2. Regular rhythm and rate. No murmur. LUNGS: Clear to auscultation bilaterally. ABDOMEN: There is a colostomy bag in the left upper quadrant, and abdomen is diffusely tender to palpation, and distended. Positive bowel sounds in all four quadrants. The patient has decubitus ulcer stage IV, sacral with tunnelling. No drainage. EXTREMITIES: No edema. NEUROLOGIC: The patient is alert and oriented x3. No gross focal neurological deficits. LABORATORY DATA: At admission, WBC 17.48, hemoglobin 12.8, hematocrit 37.7, and platelet count 333. Lactate 1.8. Sodium 138, potassium 4.1, chloride 100, CO2 of 28.8, BUN 42, creatinine 1.8, glucose 137, AST 35, ALT 63, alkaline phosphatase 102. Troponin less than 0.050. Total protein 7.1, albumin 2.7, globulin 4.4, and lipase 74. Chest x-ray show low lung volume with linear atelectasis at both lung bases. ASSESSMENT: 1. Hypoxia. 2. Possible aspiration pneumonia. 3. Nausea and vomiting. 4. Abdominal distention and tenderness to palpation r/o SBO 5. Diabetes mellitus. 6. Hypertension. 7. Dementia with Lewy body. 8. Sacral decubitus ulcers, stage IV. 9. History of colon cancer, status post colostomy. PLAN: 1. We will admit the patient to medical surgical floor and will put the patient n.p.o., and we will start the patient on Zosyn 3.375 IV q.6 hours and vancomycin as per pharmacy dosing for pneumonia, and we will do blood cultures prior to antibiotic administration. 2. For abdominal pain, nausea, vomiting, and abdominal distention, we will order CT with and without contrast of abdomen and pelvis and will continue the patient with IV fluids and will put the patient n.p.o., antinausea medications. 3. For diabetes mellitus, we will discontinue insulin with meals and we will put the patient on insulin sliding scale q6 h coverage , also will hold insulin glargine as he is not eating 4. For hypothyroidism, we will continue patient with levothyroxine 25 mcg p.o. with breakfast. 5. For dementia, we will continue the patient with Rivastigmine (Exelon) 13.3 mg transdermally daily and benazepril 5 mg p.o. at bedtime. 6. For hyperlipidemia, we will hold Lipitor and for coronary artery disease and history of stroke, we will hold aspirin right now. 7. Deep venous thrombosis prophylaxis, we will give the patient Lovenox 40 mg subcu and for gastrointestinal prophylaxis, we will give the patient Protonix 40 mg IV daily. 8. The patient's code status is DNR and DNI. 9. For sacral decubitus ulcer, we will follow up Wound Care as per [facility], and Physical Therapy consult for wound care. ANTOPET / MODL /[id number] MTDD
--- NOTE | 2018-06-12 22:22 | PCM.CONS ---
H&P History of Present Illness - General Date of Service: 06/12/18 Admit Problem/Dx: Admission Diagnosis/Problem Admission Diagnosis/Problem Pneumonia Source of Information: Patient History Limitations: Reports: Other (Not a good behavioral medical director ) - History of Present Illness Initial Comments - Free Text/Narative: Patient is an 83 year old male who was admitted with aspiration pneumonia. He was originally brought in due to two episodes of vomiting. He complained of some abdominal discomfort and nausea. He was given a clear liquid diet which he tolerated. He feels mildly bloated. He denies severe abdominal pain. 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 He has a history of colon resection for colon cancer 16 years ago. He has a stoma. He had WBC of 17K on admission. It is 12K this evening. His vitals have been stable. He had been having stools yesterday and on admission. This evening there is gas in the bag but no stool. - Related Data Allergies/Adverse Reactions: Allergies Allergy/AdvReac Type Severity Reaction Status Date / Time fentanyl Allergy Hallucinati Verified 06/11/18 18:47 ons Home Medications: Home Meds Aspirin 81 mg PO ONETIME 01/03/17 [History] QUEtiapine [SEROquel] 25 mg PO BEDTIME #20 tablet 01/03/17 [Rx] amLODIPine [Norvasc] 5 mg PO DAILY 01/03/17 [History] atorvaSTATin [Lipitor] 40 mg PO BEDTIME 01/03/17 [History] Donepezil HCl [Aricept] 5 mg PO BEDTIME 02/28/17 [History] Propranolol HCl [Inderal LA] 160 mg PO BEDTIME 02/28/17 [History] Acetaminophen [Acetaminophen 8 Hour] 650 mg PO 06/11/18 [History] Insulin Glarg,Human.Rec.Analog [Lantus] 15 units SQ BEDTIME 06/11/18 [History] Insulin Lispro [Humalog] 0 units SQ TIDAC 06/11/18 [History] Insulin Lispro [Humalog] 8 units SQ TIDAC 06/11/18 [History] Levothyroxine Sodium [Levo-T] 25 mcg PO ACBREAKFAST 06/11/18 [History] Prednisolone Acetate/Pf [Prednisolone Acet 1% Eye Drop] 06/11/18 [History] Propranolol HCl [Inderal LA] 06/11/18 [History] QUEtiapine Fumarate [Quetiapine Fumarate] 100 mg PO 06/11/18 [History] Rivastigmine [Exelon] 13.3 mg DAILY 06/11/18 [History] metFORMIN [Glucophage XR] 500 mg PO 06/11/18 [History] valACYclovir HCl [Valtrex] 500 mg 06/11/18 [History] Past Medical History HEENT History: Reports: Impaired Vision Cardiovascular History: Reports: High Cholesterol, Hypertension Respiratory History: Reports: None Gastrointestinal History: Reports: Other (See Below) Other Gastrointestinal History: ostomy bag Genitourinary History: Reports: Other (See Below) Other Genitourinary History: hx of prostate surgery Musculoskeletal History: Reports: None Neurological History: Reports: Other (See Below) Other Neuro History: "According to recent MRI results, 4 small areas of past stroke" and mild cognitive impairment. Psychiatric History: Reports: Dementia Other Psychiatric History: wandering disease, delusional disorder, auditory hallucinations, visual hallucinations Endocrine/Metabolic History: Reports: Diabetes, Type II Hematologic History: Reports: None Immunologic History: Reports: None Oncologic (Cancer) History: Reports: None Dermatologic History: Reports: None - Past Surgical History Head Surgeries/Procedures: Reports: None Respiratory Surgical History: Reports: None GI Surgical History: Reports: Colostomy Endocrine Surgical History: Reports: None Musculoskeletal Surgical History: Reports: None Oncologic Surgical History: Reports: None Dermatological Surgical History: Reports: None Social & Family History - Family History Family Medical History: Unobtainable - Tobacco Use Smoking Status *Q: Never Smoker Second Hand Smoke Exposure: No - Caffeine Use Caffeine Use: Reports: Coffee - Recreational Drug Use Recreational Drug Use: No H&P Review of Systems - Review of Systems: Review Of Systems: ROS reveals no pertinent complaints other than HPI. Exam - Exam Exam: See Below - Vital Signs Vital Signs: Last Vital Signs Temp 37.3 C 06/12/18 16:00 Pulse 82 06/12/18 16:00 Resp 22 H 06/12/18 16:00 BP 140/67 06/12/18 16:00 Pulse Ox 92 L 06/12/18 16:00 Weight: 97 kg - Exam General: Alert, Oriented, Cooperative Lungs: Normal Respiratory Effort GI/Abdominal Exam: Soft, Non-Tender, No Mass, Distended (mild distension ), Other (Stoma is pink healthy and patent through the fascia. Normal appearing stool around the stoma. No evidence of melena. Gas in bag. ). No: Guarding, Rigid, Rebound Back Exam: Other (Deep tunneling pressure sore along buttocks crease. No evidence of cellulitis or purulent drainage. ) - Patient Data Lab Results Last 24 hrs: Laboratory Results - last 24 hr 06/11/18 06/12/18 06/12/18 Range/Units 22:31 05:13 06:19 WBC (4.0-11.0) K/uL RBC (4.50-5.90) M/uL Hgb (13.0-17.0) g/dL Hct (38.0-50.0) % MCV (80.0-98.0) fL MCH (27.0-32.0) pg MCHC (31.0-37.0) g/dL RDW Std Deviation (28.0-62.0) fl RDW Coeff of Danilo (11.0-15.0) % Plt Count (150-400) K/uL MPV (7.40-12.00) fL Neut % (Auto) (48.0-80.0) % Lymph % (Auto) (16.0-40.0) % Yates % (Auto) (0.0-15.0) % Eos % (Auto) (0.0-7.0) % Baso % (Auto) (0.0-1.5) % Neut # (Auto) (1.4-5.7) K/uL Lymph # (Auto) (0.6-2.4) K/uL [place] # (Auto) (0.0-0.8) K/uL Eos # (Auto) (0.0-0.7) K/uL Baso # (Auto) (0.0-0.1) K/uL Nucleated RBC % /100WBC Nucleated RBCs # K/uL Sodium (136-148) mmol/L Potassium (3.5-5.1) mmol/L Chloride (98-107) mmol/L Carbon Dioxide (21.0-32.0) mmol/L BUN (7.0-18.0) mg/dL Creatinine (0.8-1.3) mg/dL Est Cr Clr Drug Dosing mL/min Estimated GFR (MDRD) ml/min Glucose (74-106) mg/dL POC Glucose 112 H 122 H 124 H (60-110) mg/dL Calcium (8.5-10.1) mg/dL 06/12/18 06/12/18 06/12/18 Range/Units 06:30 06:30 11:55 WBC 12.37 H (4.0-11.0) K/uL RBC 4.01 L (4.50-5.90) M/uL Hgb 11.8 L (13.0-17.0) g/dL Hct 35.9 L (38.0-50.0) % MCV 89.5 (80.0-98.0) fL MCH 29.4 (27.0-32.0) pg MCHC 32.9 (31.0-37.0) g/dL RDW Std Deviation 46.6 (28.0-62.0) fl RDW Coeff of Danilo 14 (11.0-15.0) % Plt Count 324 (150-400) K/uL MPV 9.80 (7.40-12.00) fL Neut % (Auto) 81.6 H (48.0-80.0) % Lymph % (Auto) 7.1 L (16.0-40.0) % Yates % (Auto) 10.1 (0.0-15.0) % Eos % (Auto) 1.0 (0.0-7.0) % Baso % (Auto) 0.2 (0.0-1.5) % Neut # (Auto) 10.1 H (1.4-5.7) K/uL Lymph # (Auto) 0.9 (0.6-2.4) K/uL [place]ates # (Auto) 1.3 H (0.0-0.8) K/uL Eos # (Auto) 0.1 (0.0-0.7) K/uL Baso # (Auto) 0.0 (0.0-0.1) K/uL Nucleated RBC % 0.0 /100WBC Nucleated RBCs # 0 K/uL Sodium 138 (136-148) mmol/L Potassium 4.0 (3.5-5.1) mmol/L Chloride 102 (98-107) mmol/L Carbon Dioxide 28.8 (21.0-32.0) mmol/L BUN 44 H (7.0-18.0) mg/dL Creatinine 1.5 H (0.8-1.3) mg/dL Est Cr Clr Drug Dosing 42.39 mL/min Estimated GFR (MDRD) 44.9 ml/min Glucose 125 H (74-106) mg/dL POC Glucose 192 H (60-110) mg/dL Calcium 8.9 (8.5-10.1) mg/dL 06/12/18 Range/Units 16:38 WBC (4.0-11.0) K/uL RBC (4.50-5.90) M/uL Hgb (13.0-17.0) g/dL Hct (38.0-50.0) % MCV (80.0-98.0) fL MCH (27.0-32.0) pg MCHC (31.0-37.0) g/dL RDW Std Deviation (28.0-62.0) fl RDW Coeff of Danilo (11.0-15.0) % Plt Count (150-400) K/uL MPV (7.40-12.00) fL Neut % (Auto) (48.0-80.0) % Lymph % (Auto) (16.0-40.0) % [place]ates % (Auto) (0.0-15.0) % Eos % (Auto) (0.0-7.0) % Baso % (Auto) (0.0-1.5) % Neut # (Auto) (1.4-5.7) K/uL Lymph # (Auto) (0.6-2.4) K/uL [place] # (Auto) (0.0-0.8) K/uL Eos # (Auto) (0.0-0.7) K/uL Baso # (Auto) (0.0-0.1) K/uL Nucleated RBC % /100WBC Nucleated RBCs # K/uL Sodium (136-148) mmol/L Potassium (3.5-5.1) mmol/L Chloride (98-107) mmol/L Carbon Dioxide (21.0-32.0) mmol/L BUN (7.0-18.0) mg/dL Creatinine (0.8-1.3) mg/dL Est Cr Clr Drug Dosing mL/min Estimated GFR (MDRD) ml/min Glucose (74-106) mg/dL POC Glucose 158 H (60-110) mg/dL Calcium (8.5-10.1) mg/dL Result Diagrams: 06/12/18 06:30 06/12/18 06:30 De Results Last 24 hrs: Microbiology 06/11/18 21:26 Aerobic Blood Culture - Preliminary Blood - Venous - Lab Draw NO GROWTH AFTER 1 DAY Anaerobic Blood Culture - Preliminary NO GROWTH AFTER 1 DAY 06/11/18 21:13 Aerobic Blood Culture - Preliminary Blood - Venous NO GROWTH AFTER 1 DAY Anaerobic Blood Culture - Preliminary NO GROWTH AFTER 1 DAY Consult PN Assessment/Plan Procedures: Procedures ASSAY OF MAGNESIUM (01/03/17) ASSAY THYROID STIM HORMONE (01/03/17) COMPLETE CBC W/AUTO DIFF WBC (01/03/17) COMPREHEN METABOLIC PANEL (01/03/17) CT HEAD/BRAIN W/O DYE (01/03/17) DRUG TEST PRSMV DIR OPT OBS (01/03/17) EMERGENCY DEPT VISIT (02/28/17) EMERGENCY DEPT VISIT (01/03/17) FREE ASSAY (FT-3) (01/03/17) ROUTINE VENIPUNCTURE (01/03/17) X-RAY EXAM OF SHOULDER (07/02/17) (1) Pressure sore SNOMED Code(s): 212933758 Code(s): L89.90 - PRESSURE ULCER OF UNSPECIFIED SITE, UNSPECIFIED STAGE Current Visit: Yes (2) Partial small bowel obstruction SNOMED Code(s): 748326243 Code(s): K56.600 - PARTIAL INTESTINAL OBSTRUCTION, UNSPECIFIED TO CAUSE Current Visit: Yes Problem List Initiated/Reviewed/Updated: Yes Plan: I reviewed the patient's CT. He appears to have some slightly dilated loops of small bowel along his lower abdomen and the stoma. There is no transition point. His abdomen feels relatively beneign. I would recommend NPO, IVF, and continued IV antibiotics at least overnight. If his abdomen is less distended tomorrow and his stoma is having output will revisit starting his diet again. If he progressively worsens or starts developing abdominal pain, he would need to have surgery in a larger center given his medical co-morbidities and his previous abdominal surgeries.
[2018-06-13] MEDS: Piperacillin/Tazobactam 3.375 GM in Sodium Chloride 0.9% 50 ML IV SCH ×4 (02:59→21:24)
[2018-06-13 05:47] LABS: CHLORIDE,CL 101 mmol/L (98-107); SODIUM,NA 139 mmol/L (136-148)
[2018-06-13] MEDS: Levothyroxine 25 MCG Tab PO SCH (06:53)
[2018-06-13] MEDS: Insulin Aspart 100 Units/ML 3 ML Pen SUBCUT SCH ×3 (06:54→18:00)
[2018-06-13] MEDS: Lactated Ringers 1,000 ML IV SCH ×2 (08:48→21:09)
[2018-06-13] MEDS: amLODIPine 5 MG Tab PO SCH (09:18)
[2018-06-13] MEDS: Pantoprazole 40 MG Vial IVPUSH SCH (09:18)
[2018-06-13] MEDS: RIVASTIGMINE 13.3 MG TRDERM SCH ×2 (09:19→15:52)
--- NOTE | 2018-06-13 12:03 | PCM.SN ---
- Free Text/Narrative Note: Patient is an 83-year-old male who presented from his [facility] with nausea and vomiting. He is unable aspiration pneumonia and CT scan of the abdomen suggested a possible small bowel obstruction. He was made nothing by mouth and given IV fluids overnight. This morning there is gas in his ostomy bag but no fecal output. He feels better overall. On palpation he seems less distended. Patient can have ice chips and sips with meds but I would hold off advancing his diet until he is having output from his ostomy again. Continue IV antibiotics for the aspiration pneumonia.
--- NOTE | 2018-06-13 14:21 | PCM.PN ---
- General Info Date of Service: 06/13/18 Admission Dx/Problem (Free Text): Admission Diagnosis/Problem Admission Diagnosis/Problem Pneumonia Subjective Update: Patient feels better today. No abdominal tenderness to palpation. Tolerated clear liquid diet. Surgery recommended in am to be started on clear liquid diet. O2 sat [address] of the abdomen and pelvis done last night showed sbo , patient seen by surgery , recommended bowel rest and NPO , no need for ngt last night. - Review of Systems General: Reports: No Symptoms HEENT: Reports: No Symptoms Pulmonary: Reports: No Symptoms Cardiovascular: Reports: No Symptoms Gastrointestinal: Reports: No Symptoms Genitourinary: Reports: No Symptoms Musculoskeletal: Reports: No Symptoms Skin: Reports: No Symptoms Neurological: Reports: No Symptoms Psychiatric: Reports: No Symptoms - Patient Data Vitals - Most Recent: Last Vital Signs Temp 98.7 F 06/13/18 11:33 Pulse 88 06/13/18 11:33 Resp 16 06/13/18 11:33 BP 138/72 06/13/18 11:33 Pulse Ox 92 L 06/13/18 11:33 Weight - Most Recent: 213 lb 13.574 oz I&O - Last 24 Hours: Intake & Output 06/12/18 06/13/18 06/13/18 22:59 06:59 14:59 Intake Total 370 1250 50 Output Total 805 Balance 370 445 50 Lab Results Last 24 Hours: Laboratory Results - last 24 hr 06/12/18 06/13/18 06/13/18 Range/Units 16:38 01:00 04:58 WBC 10.95 (4.0-11.0) K/uL RBC 3.96 L (4.50-5.90) M/uL Hgb 11.4 L (13.0-17.0) g/dL Hct 35.2 L (38.0-50.0) % MCV 88.9 (80.0-98.0) fL MCH 28.8 (27.0-32.0) pg MCHC 32.4 (31.0-37.0) g/dL RDW Std Deviation 46.2 (28.0-62.0) fl RDW Coeff of Danilo 14 (11.0-15.0) % Plt Count 369 (150-400) K/uL MPV 10.00 (7.40-12.00) fL Neut % (Auto) 78.3 (48.0-80.0) % Lymph % (Auto) 9.6 L (16.0-40.0) % [place] % (Auto) 10.0 (0.0-15.0) % Eos % (Auto) 1.9 (0.0-7.0) % Baso % (Auto) 0.2 (0.0-1.5) % Neut # (Auto) 8.6 H (1.4-5.7) K/uL Lymph # (Auto) 1.1 (0.6-2.4) K/uL [place] # (Auto) 1.1 H (0.0-0.8) K/uL Eos # (Auto) 0.2 (0.0-0.7) K/uL Baso # (Auto) 0.0 (0.0-0.1) K/uL Nucleated RBC % 0.0 /100WBC Nucleated RBCs # 0 K/uL Sodium (136-148) mmol/L Potassium (3.5-5.1) mmol/L Chloride (98-107) mmol/L Carbon Dioxide (21.0-32.0) mmol/L BUN (7.0-18.0) mg/dL Creatinine (0.8-1.3) mg/dL Est Cr Clr Drug Dosing mL/min Estimated GFR (MDRD) ml/min Glucose (74-106) mg/dL POC Glucose 158 H 154 H (60-110) mg/dL Calcium (8.5-10.1) mg/dL 06/13/18 06/13/18 06/13/18 Range/Units 04:58 06:42 11:44 WBC (4.0-11.0) K/uL RBC (4.50-5.90) M/uL Hgb (13.0-17.0) g/dL Hct (38.0-50.0) % MCV (80.0-98.0) fL MCH (27.0-32.0) pg MCHC (31.0-37.0) g/dL RDW Std Deviation (28.0-62.0) fl RDW Coeff of Danilo (11.0-15.0) % Plt Count (150-400) K/uL MPV (7.40-12.00) fL Neut % (Auto) (48.0-80.0) % Lymph % (Auto) (16.0-40.0) % [place] % (Auto) (0.0-15.0) % Eos % (Auto) (0.0-7.0) % Baso % (Auto) (0.0-1.5) % Neut # (Auto) (1.4-5.7) K/uL Lymph # (Auto) (0.6-2.4) K/uL [place] # (Auto) (0.0-0.8) K/uL Eos # (Auto) (0.0-0.7) K/uL Baso # (Auto) (0.0-0.1) K/uL Nucleated RBC % /100WBC Nucleated RBCs # K/uL Sodium 139 (136-148) mmol/L Potassium 3.3 L (3.5-5.1) mmol/L Chloride 101 (98-107) mmol/L Carbon Dioxide 28.7 (21.0-32.0) mmol/L BUN 27 H (7.0-18.0) mg/dL Creatinine 1.1 (0.8-1.3) mg/dL Est Cr Clr Drug Dosing 57.81 mL/min Estimated GFR (MDRD) > 60.0 ml/min Glucose 164 H (74-106) mg/dL POC Glucose 155 H 163 H (60-110) mg/dL Calcium 9.1 (8.5-10.1) mg/dL De Results Last 24 Hours: Microbiology 06/11/18 21:26 Aerobic Blood Culture - Preliminary Blood - Venous - Lab Draw NO GROWTH AFTER 1 DAY Anaerobic Blood Culture - Preliminary NO GROWTH AFTER 1 DAY 06/11/18 21:13 Aerobic Blood Culture - Preliminary Blood - Venous NO GROWTH AFTER 1 DAY Anaerobic Blood Culture - Preliminary NO GROWTH AFTER 1 DAY Med Orders - Current: Current Medications Amlodipine Besylate (Norvasc) 5 mg PO DAILY [facility] Last Admin: 06/13/18 09:18 Dose: 5 mg Aspirin (Aspirin) 81 mg PO ONETIME [facility] Atorvastatin Calcium (Lipitor) 40 mg PO BEDTIME [facility] Last Admin: 06/12/18 20:54 Dose: 40 mg Donepezil HCl (Aricept) 5 mg PO BEDTIME [facility] Last Admin: 06/12/18 20:56 Dose: 5 mg Enoxaparin Sodium (Lovenox) 40 mg SUBCUT Q24H [facility] Last Admin: 06/12/18 20:53 Dose: 40 mg Piperacillin Sod/Tazobactam (Sod 3.375 gm/ Sodium Chloride) 50 mls @ 100 mls/ hr IV Q6H [facility] Last Admin: 06/13/18 09:18 Dose: 100 mls/hr Lactated Ringer's (Ringers, Lactated) 1,000 mls @ 100 mls/hr IV ASDIRECTED [facility] Last Admin: 06/13/18 08:48 Dose: 100 mls/hr Insulin Aspart (Novolog) 0 unit SUBCUT TIDAC [facility] Last Admin: 06/13/18 12:26 Dose: 1 unit Levothyroxine Sodium (Levothyroxine) 25 mcg PO ACBREAKFAST [facility] Last Admin: 06/13/18 06:53 Dose: 25 mcg Pantoprazole Sodium (Protonix Iv) 40 mg IVPUSH DAILY [facility] Last Admin: 06/13/18 09:18 Dose: 40 mg Rivastigmine [Exelon (] 13.3 Mg) 1 each TRDERM DAILY [facility] Last Admin: 06/13/18 09:19 Dose: Not Given Sodium Chloride (Saline Flush) 10 ml FLUSH ASDIRECTED PRN PRN Reason: Keep Vein Open Sodium Chloride (Saline Flush) 2.5 ml FLUSH ASDIRECTED PRN PRN Reason: Keep Vein Open Discontinued Medications Sodium Chloride (Normal Saline) 500 mls @ 500 mls/hr IV STAT [facility] Last Admin: 06/11/18 19:18 Dose: 500 mls/hr Piperacillin Sod/Tazobactam (Sod 3.375 gm/ Sodium Chloride) 50 mls @ 100 mls/ hr IV ONETIME ONE Stop: 06/11/18 21:43 Last Admin: 06/11/18 21:47 Dose: 100 mls/hr Vancomycin HCl 1 gm/ Sodium (Chloride) 250 mls @ 250 mls/hr IV ONETIME ONE Stop: 06/11/18 22:13 Last Admin: 06/11/18 22:29 Dose: 250 mls/hr Sodium Chloride (Sodium Chloride 0.45%) 1,000 mls @ 100 mls/hr IV ASDIRECTED [facility] Last Admin: 06/12/18 00:26 Dose: 100 mls/hr Insulin Aspart (Novolog) 8 unit SUBCUT TIDAC [facility] Last Admin: 06/12/18 06:33 Dose: Not Given Insulin Glargine (Lantus Solostar) 15 units SUBCUT BEDTIME [facility] Iopamidol (Isovue Multipack-370 (76%)) 100 ml IVPUSH ONETIME ONE Stop: 06/12/18 15:08 Last Admin: 06/12/18 15:08 Dose: 100 ml Ketorolac Tromethamine (Toradol) 30 mg IVPUSH ONETIME ONE Stop: 06/11/18 20:12 Last Admin: 06/11/18 20:18 Dose: 30 mg - Exam General: Alert, Oriented HEENT: Pupils Equal Neck: Supple, No JVD, No Thyromegaly Lungs: Decreased Breath Sounds GI/Abdominal Exam: Normal Bowel Sounds, Soft, Non-Tender, Other (colostomy bag , RUQ with fecal material , gas) Extremities: Normal Inspection Skin: Warm, Dry Neurological: No New Focal Deficit Psy/Mental Status: Alert - Problem List & Annotations (1) SBO (small bowel obstruction) SNOMED Code(s): 246227415 Code(s): K56.609 - UNSP INTESTNL OBST, UNSP TO PARTIAL VERSUS COMPLETE OBST Status: Acute Current Visit: Yes (2) Lewy body disease SNOMED Code(s): 492791283 Code(s): G31.83 - DEMENTIA WITH LEWY BODIES; F02.80 - DEMENTIA IN OTH DISEASES CLASSD ELSWHR W/O BEHAVRL DISTURB Status: Acute Current Visit: Yes (3) Pneumonia SNOMED Code(s): 676843198 Code(s): J18.9 - PNEUMONIA, UNSPECIFIED ORGANISM Status: Acute Current Visit: Yes (4) Pressure sore SNOMED Code(s): 915963386 Code(s): L89.90 - PRESSURE ULCER OF UNSPECIFIED SITE, UNSPECIFIED STAGE Status: Acute Current Visit: Yes - Problem List Review Problem List Initiated/Reviewed/Updated: Yes - My Orders Last 24 Hours: My Active Orders 06/12/18 17:00 Communication Order [RC] DAILY 06/12/18 18:15 CULTURE WOUND [RM] Routine 06/12/18 19:50 Code Status [Resuscitation Status] Routine 06/12/18 20:15 Lactated Ringers [Ringers, Lactated] 1,000 ml IV ASDIRECTED Pantoprazole [ProTONIX IV] 40 mg IVPUSH DAILY 06/12/18 21:00 Donepezil [Aricept] 5 mg PO BEDTIME Enoxaparin [Lovenox] 40 mg SUBCUT Q24H atorvaSTATin [Lipitor] 40 mg PO BEDTIME 06/12/18 21:57 Consult to Physician [CONS] Urgent 06/12/18 21:58 Notify Provider Consults [RC] ASDIRECTED 06/12/18 21:59 Communication Order [RC] DAILY NG [Nasogastric Orogastric Tube Insertion] [OM.PC] Routine 06/13/18 09:00 amLODIPine [Norvasc] 5 mg PO DAILY 06/13/18 Breakfast NPO Now [Nothing per Oral Now Diet] [DIET] 06/13/18 Dinner Clear Liquid Diet [DIET] 06/14/18 05:00 BASIC METABOLIC PANEL,BMP [CHEM] DAILY CBC WITH AUTO DIFF [HEME] DAILY 06/15/18 05:00 BASIC METABOLIC PANEL,BMP [CHEM] DAILY CBC WITH AUTO DIFF [HEME] DAILY - Assessment Assessment:: Aspiration Pneumonia- improving ,saturating 92 percent at room air.Continue Zosyn 3.375 grams iv q 6 h , BC no growth day 2. SBO- resolved - started on clear liquid diet , tolerating diet well , no vomiting , no abdominal pain , advance diet. Comorbidities- will continue [facility] medications as per reconciliation. DVT prof - lovenox sq
[2018-06-13] MEDS ORDERED: Potassium Chloride 20 MEQ Tab.ER PO ONE (16:10)
[2018-06-13] MEDS: atorvaSTATin 40 MG Tab PO SCH (21:21)
[2018-06-13] MEDS: Enoxaparin 40 MG/0.4 ML Syringe SUBCUT SCH (21:21)
[2018-06-13] MEDS: Donepezil 5 MG Tab PO SCH (21:22)
[2018-06-14] MEDS: Piperacillin/Tazobactam 3.375 GM in Sodium Chloride 0.9% 50 ML IV SCH ×2 (03:32→10:03)
[2018-06-14 06:26] LABS: CHLORIDE,CL 103 mmol/L (98-107); SODIUM,NA 141 mmol/L (136-148)
[2018-06-14] MEDS: Insulin Aspart 100 Units/ML 3 ML Pen SUBCUT SCH ×2 (06:38→13:10)
[2018-06-14] MEDS: Levothyroxine 25 MCG Tab PO SCH (06:38)
[2018-06-14] MEDS: amLODIPine 5 MG Tab PO SCH (08:32)
[2018-06-14 08:33] VITALS: BP 161/75
[2018-06-14] MEDS: Pantoprazole 40 MG Vial IVPUSH SCH (08:33)
[2018-06-14] MEDS: Lactated Ringers 1,000 ML IV SCH (08:45)
[2018-06-14] MEDS ORDERED: Potassium Chloride 20 MEQ Tab.ER PO ONE (09:00)
--- NOTE | 2018-06-14 11:29 | PCM.DCSUM1 ---
Discharge Summary - Hospital Course Diagnosis: Stroke: No - Discharge Data Discharge Disposition: DC/Tfer to SNF 03 Condition: Fair - Discharge Diagnosis/Problem(s) (1) SBO (small bowel obstruction) SNOMED Code(s): 353067804 ICD Code: K56.609 - UNSP INTESTNL OBST, UNSP TO PARTIAL VERSUS COMPLETE OBST Status: Acute Current Visit: Yes (2) Lewy body disease SNOMED Code(s): 871195276 ICD Code: G31.83 - DEMENTIA WITH LEWY BODIES; F02.80 - DEMENTIA IN OTH DISEASES CLASSD ELSWHR W/O BEHAVRL DISTURB Status: Acute Current Visit: Yes (3) Pneumonia SNOMED Code(s): 312873928 ICD Code: J18.9 - PNEUMONIA, UNSPECIFIED ORGANISM Status: Acute Current Visit: Yes Qualifiers: Pneumonia type: aspiration pneumonia (4) Pressure sore SNOMED Code(s): 854178096 ICD Code: L89.90 - PRESSURE ULCER OF UNSPECIFIED SITE, UNSPECIFIED STAGE Status: Acute Current Visit: Yes - Patient Summary/Data Consults: Consultations 06/12/18 12:58 Consult to Wound Care Services [CONS] Routine 06/12/18 13:00 Consult to Physical Therapy [PT Evaluation and Treatment] [CONS] Routine 06/12/18 21:57 Consult to Physician [CONS] Urgent - Patient Instructions Diet: Usual Diet as Tolerated Activity: As Tolerated Showering/Bathing: May Shower - Discharge Plan Prescriptions/Med Rec: Amoxicillin/Clavulanate K [Augmentin 875-125 MG] 1 tab PO BID #14 tablet Home Medications: Home Meds Aspirin 81 mg PO ONETIME 01/03/17 [History] QUEtiapine [SEROquel] 25 mg PO BEDTIME #20 tablet 01/03/17 [Rx] amLODIPine [Norvasc] 5 mg PO DAILY 01/03/17 [History] atorvaSTATin [Lipitor] 40 mg PO BEDTIME 01/03/17 [History] Donepezil HCl [Aricept] 5 mg PO BEDTIME 02/28/17 [History] Propranolol HCl [Inderal LA] 160 mg PO BEDTIME 02/28/17 [History] Acetaminophen [Acetaminophen 8 Hour] 650 mg PO 06/11/18 [History] Insulin Glarg,Human.Rec.Analog [Lantus] 15 units SQ BEDTIME 06/11/18 [History] Levothyroxine Sodium [Levo-T] 25 mcg PO ACBREAKFAST 06/11/18 [History] Prednisolone Acetate/Pf [Prednisolone Acet 1% Eye Drop] 06/11/18 [History] Propranolol HCl [Inderal LA] 06/11/18 [History] QUEtiapine Fumarate [Quetiapine Fumarate] 100 mg PO 06/11/18 [History] Rivastigmine [Exelon] 13.3 mg DAILY 06/11/18 [History] metFORMIN [Glucophage XR] 500 mg PO 06/11/18 [History] valACYclovir HCl [Valtrex] 500 mg 06/11/18 [History] Amoxicillin/Clavulanate K [Augmentin 875-125 MG] 1 tab PO BID #14 tablet [Rx] Forms: ED Department Discharge Referrals: Angela Bailey MD [Physician] - Adama Torres MD [Primary Care Provider] - (Next [place] rounds.) - Patient Data Vitals - Most Recent: Last Vital Signs Temp 98.1 F 06/14/18 04:00 Pulse 83 06/14/18 04:00 Resp 20 06/14/18 04:00 BP 161/75 H 06/14/18 08:32 Pulse Ox 91 L 06/14/18 04:00 Weight - Most Recent: 213 lb 13.574 oz I&O - Last 24 hours: Intake & Output 06/13/18 06/14/18 06/14/18 22:59 06:59 14:59 Intake Total 1209 1937 Output Total 1029 Balance 1209 908 Lab Results - Last 24 hrs: Laboratory Results - last 24 hr 06/13/18 06/13/18 06/14/18 Range/Units 11:44 16:55 05:39 WBC 8.72 (4.0-11.0) K/uL RBC 4.04 L (4.50-5.90) M/uL Hgb 11.9 L (13.0-17.0) g/dL Hct 35.9 L (38.0-50.0) % MCV 88.9 (80.0-98.0) fL MCH 29.5 (27.0-32.0) pg MCHC 33.1 (31.0-37.0) g/dL RDW Std Deviation 46.1 (28.0-62.0) fl RDW Coeff of Danilo 14 (11.0-15.0) % Plt Count 342 (150-400) K/uL MPV 9.70 (7.40-12.00) fL Neut % (Auto) 73.2 (48.0-80.0) % Lymph % (Auto) 13.3 L (16.0-40.0) % [place] % (Auto) 9.9 (0.0-15.0) % Eos % (Auto) 3.0 (0.0-7.0) % Baso % (Auto) 0.6 (0.0-1.5) % Neut # (Auto) 6.4 H (1.4-5.7) K/uL Lymph # (Auto) 1.2 (0.6-2.4) K/uL [place] # (Auto) 0.9 H (0.0-0.8) K/uL Eos # (Auto) 0.3 (0.0-0.7) K/uL Baso # (Auto) 0.1 (0.0-0.1) K/uL Nucleated RBC % 0.0 /100WBC Nucleated RBCs # 0 K/uL Sodium (136-148) mmol/L Potassium (3.5-5.1) mmol/L Chloride (98-107) mmol/L Carbon Dioxide (21.0-32.0) mmol/L BUN (7.0-18.0) mg/dL Creatinine (0.8-1.3) mg/dL Est Cr Clr Drug Dosing mL/min Estimated GFR (MDRD) ml/min Glucose (74-106) mg/dL POC Glucose 163 H 131 H (60-110) mg/dL Calcium (8.5-10.1) mg/dL 06/14/18 Range/Units 05:39 WBC (4.0-11.0) K/uL RBC (4.50-5.90) M/uL Hgb (13.0-17.0) g/dL Hct (38.0-50.0) % MCV (80.0-98.0) fL MCH (27.0-32.0) pg MCHC (31.0-37.0) g/dL RDW Std Deviation (28.0-62.0) fl RDW Coeff of Danilo (11.0-15.0) % Plt Count (150-400) K/uL MPV (7.40-12.00) fL Neut % (Auto) (48.0-80.0) % Lymph % (Auto) (16.0-40.0) % [place] % (Auto) (0.0-15.0) % Eos % (Auto) (0.0-7.0) % Baso % (Auto) (0.0-1.5) % Neut # (Auto) (1.4-5.7) K/uL Lymph # (Auto) (0.6-2.4) K/uL [place] # (Auto) (0.0-0.8) K/uL Eos # (Auto) (0.0-0.7) K/uL Baso # (Auto) (0.0-0.1) K/uL Nucleated RBC % /100WBC Nucleated RBCs # K/uL Sodium 141 (136-148) mmol/L Potassium 3.4 L (3.5-5.1) mmol/L Chloride 103 (98-107) mmol/L Carbon Dioxide 30.9 (21.0-32.0) mmol/L BUN 13 (7.0-18.0) mg/dL Creatinine 0.8 (0.8-1.3) mg/dL Est Cr Clr Drug Dosing 79.49 mL/min Estimated GFR (MDRD) > 60.0 ml/min Glucose 147 H (74-106) mg/dL POC Glucose (60-110) mg/dL Calcium 8.8 (8.5-10.1) mg/dL KIARA Results - Last 24 hrs: Microbiology 06/11/18 21:26 Aerobic Blood Culture - Preliminary Blood - Venous - Lab Draw NO GROWTH AFTER 2 DAYS Anaerobic Blood Culture - Preliminary NO GROWTH AFTER 2 DAYS 06/11/18 21:13 Aerobic Blood Culture - Preliminary Blood - Venous NO GROWTH AFTER 2 DAYS Anaerobic Blood Culture - Preliminary NO GROWTH AFTER 2 DAYS Med Orders - Current: Current Medications Amlodipine Besylate (Norvasc) 5 mg PO DAILY [facility] Last Admin: 06/14/18 08:32 Dose: 5 mg Aspirin (Aspirin) 81 mg PO ONETIME [facility] Atorvastatin Calcium (Lipitor) 40 mg PO BEDTIME [facility] Last Admin: 06/13/18 21:21 Dose: 40 mg Donepezil HCl (Aricept) 5 mg PO BEDTIME [facility] Last Admin: 06/13/18 21:22 Dose: 5 mg Enoxaparin Sodium (Lovenox) 40 mg SUBCUT Q24H [facility] Last Admin: 06/13/18 21:21 Dose: 40 mg Piperacillin Sod/Tazobactam (Sod 3.375 gm/ Sodium Chloride) 50 mls @ 100 mls/ hr IV Q6H [facility] Last Admin: 06/14/18 10:03 Dose: 100 mls/hr Lactated Ringer's (Ringers, Lactated) 1,000 mls @ 100 mls/hr IV ASDIRECTED [facility] Last Admin: 06/14/18 08:45 Dose: 100 mls/hr Insulin Aspart (Novolog) 0 unit SUBCUT TIDAC [facility] Last Admin: 06/14/18 06:38 Dose: Not Given Levothyroxine Sodium (Levothyroxine) 25 mcg PO ACBREAKFAST [facility] Last Admin: 06/14/18 06:38 Dose: 25 mcg Pantoprazole Sodium (Protonix Iv) 40 mg IVPUSH DAILY [facility] Last Admin: 06/14/18 08:33 Dose: 40 mg Rivastigmine [Exelon (] 13.3 Mg) 1 each TRDERM DAILY [facility] Last Admin: 06/13/18 15:52 Dose: 1 each Sodium Chloride (Saline Flush) 10 ml FLUSH ASDIRECTED PRN PRN Reason: Keep Vein Open Sodium Chloride (Saline Flush) 2.5 ml FLUSH ASDIRECTED PRN PRN Reason: Keep Vein Open Discontinued Medications Sodium Chloride (Normal Saline) 500 mls @ 500 mls/hr IV STAT [facility] Last Admin: 06/11/18 19:18 Dose: 500 mls/hr Piperacillin Sod/Tazobactam (Sod 3.375 gm/ Sodium Chloride) 50 mls @ 100 mls/ hr IV ONETIME ONE Stop: 06/11/18 21:43 Last Admin: 06/11/18 21:47 Dose: 100 mls/hr Vancomycin HCl 1 gm/ Sodium (Chloride) 250 mls @ 250 mls/hr IV ONETIME ONE Stop: 06/11/18 22:13 Last Admin: 06/11/18 22:29 Dose: 250 mls/hr Sodium Chloride (Sodium Chloride 0.45%) 1,000 mls @ 100 mls/hr IV ASDIRECTED [facility] [place] Last Admin: 06/12/18 00:26 Dose: 100 mls/hr Insulin Aspart (Novolog) 8 unit SUBCUT TIDAC [facility] Last Admin: 06/12/18 06:33 Dose: Not Given Insulin Glargine (Lantus Solostar) 15 units SUBCUT BEDTIME [facility] Iopamidol (Isovue Multipack-370 (76%)) 100 ml IVPUSH ONETIME ONE Stop: 06/12/18 15:08 Last Admin: 06/12/18 15:08 Dose: 100 ml Ketorolac Tromethamine (Toradol) 30 mg IVPUSH ONETIME ONE Stop: 06/11/18 20:12 Last Admin: 06/11/18 20:18 Dose: 30 mg Potassium Chloride (Klor-Con M20) 40 meq PO ONETIME ONE Stop: 06/13/18 16:11 Last Admin: 06/13/18 17:56 Dose: 40 meq Potassium Chloride (Klor-Con M20) 40 meq PO ONETIME ONE Stop: 06/14/18 09:01 Last Admin: 06/14/18 10:04 Dose: 40 meq
[2018-06-14] MEDS: RIVASTIGMINE 13.3 MG TRDERM SCH (11:37)
--- NOTE | 2018-06-16 08:50 | CT ---
EXAM DATE: 06/11/18 PATIENT'S AGE: 83 Patient: DO ELIZONDO Facility: [facility] Site . Site : [id number] Study: CT-Abdomen/Pelvis W/ and W/O Cont [id number]/19/2018 4:37:33 PM Ordering Physician: Josefa Ingram Final Report: INDICATION: Abdominal pain; abdominal distention; vomiting. COMPARISON: None. TECHNIQUE: CT abdomen and pelvis without and then with intravenous contrast; no oral contrast; coronal and sagittal reformats. FINDINGS: Significant respiratory motion through the lung bases. No gross pathology through the lung bases. No evidence of pleural effusion. Normal size cardiac silhouette without any evidence of pericardial effusion. No focal hepatic or splenic pathology. No pancreatic pathology. Status post cholecystectomy. No adrenal pathology. The right kidney is normal in structure and function without any obstructive uropathy or perinephric pathology. A 30 x 27 mm cyst identified in the interpolar region anterior aspect left kidney. A 47 x 37 mm cystic area identified in the region of the left renal hilus; probably represents dilated left renal pelvis and dilated left intrarenal collecting system. No dilatation of the left ureter. Calcifications identified in the left retroperitoneum difficult to tell their location from the ureter. If clinically needed, CT urography may be needed. No pneumoperitoneum. Dilated loops of small bowel in the lower abdomen. Multiple small bowl loops identified in the pelvis in the presacral area with a relative narrowing and this is probably the zone of transition for the dilated loops of small bowel indicating partial mechanical small bowel obstruction. Repeat CT with administration of oral contrast is suggested for further assessment. Draining sinus identified in the perineal area leading into the presacral location with scar tissue. Did the patient have radiation therapy in this location?. No evidence of pneumatosis. No evidence of pneumoperitoneum. Diverting colostomy . Impression : Dilated loops of small bowel with zone of transition somewhere in the deep pelvis in the presacral location surrounded by scar tissue; this may represent partial mechanical small bowel obstruction; further assessment with repeat CT with administration of oral contrast suggested. 1. Draining sinus in the perineum leading to the scar tissue and narrowing of the small bowel loops in the deep pelvis. 2. Calcifications identified in the right lateral pelvic wall. 3. Diverting colostomy. 4. Hydronephrosis with dilatation of the left renal pelvis; further assessment the CT urogram suggested. 5. Benign cyst left kidney. 6. Status post cholecystectomy. Please note that all CT scans at this facility use dose modulation, iterative reconstruction, and/or weight-based dosing when appropriate to reduce radiation dose to as low as reasonably achievable. Dictated by Gaviota Torrez MD @ Jun 14 2018 11:23AM Signed by: Gaviota Torrez MD @06/14/2018 11:36:44 AM (Electronic Signature) Report Signed by Proxy. MTDD
== END 2018-06-14 14:00 ==
LOC: MW.ED 18:27 → MW.MS 21:12
PROVIDERS: ADMIT Internal Medicine; ATTEND Internal Medicine
DX: K56.609 Unspecified intestinal obstruction, unspecified as to partial versus complete obstruction (principal); I10 Essential (primary) hypertension; J18.9 Pneumonia, unspecified organism; L89.159 Pressure ulcer of sacral region, unspecified stage; E11.622 Type 2 diabetes mellitus with other skin ulcer; E78.00 Pure hypercholesterolemia, unspecified; G31.83 Neurocognitive disorder with Lewy bodies; F02.80 Dementia in other diseases classified elsewhere, unspecified severity, without behavioral disturbance, psychotic disturbance, mood disturbance, and anxiety; Z79.2 Long term (current) use of antibiotics; Z79.4 Long term (current) use of insulin; Z79.82 Long term (current) use of aspirin; Z79.899 Other long term (current) drug therapy; Z88.8 Allergy status to other drugs, medicaments and biological substances
CPT/HCPCS: 36415; 71046; 71046-26; 74178; 74178-26; 80048; 80053; 82962; 83605; 83690; 84484; 85025; 87040; 87070; 96361; 96365; 96366; 96372; 96374; 96375; 96376; 99284; 99285-25; A9270-GY; C9113; G0378; J1650; J1815-GY; J1885; J2543; J3370; J7030; J7040; J7050; J7120; Q9967

== ENCOUNTER 2018-12-04 12:07 | Emergency (ER) | payer MEDICARE, BC ==
[2018-12-04] MEDS ORDERED: Sodium Chloride 0.9% 2.5 ML Syringe FLUSH PRN (12:17)
[2018-12-04] MEDS ORDERED: Sodium Chloride 0.9% 10 ML Syringe FLUSH PRN (12:17)
[2018-12-04] MEDS ORDERED: Sodium Chloride 0.9% 500 ML IV ONE (12:20)
--- NOTE | 2018-12-04 12:26 | EDM.PDOC ---
ED HPI GENERAL MEDICAL PROBLEM - General Stated Complaint: FROM DR CORDOVA ? Time Seen by Provider: 12/04/18 12:17 Source of Information: Reports: Patient, Provider History Limitations: Reports: No Limitations - History of Present Illness INITIAL COMMENTS - FREE TEXT/NARRATIVE: History of present illness: []Patient was sent to the ER by Dr. Staley for a CBC check and repeat an abdominal CT scan that he had yesterday showing an appendicitis. Patient has a history of testicular cancer and dementia and is unable to give a history he is awake and alert and has no complaints on arrival. Review of systems: As per history of present illness and below otherwise all systems reviewed and negative. Past medical history: As per history of present illness and as reviewed below otherwise noncontributory. Surgical history: As per history of present illness and as reviewed below otherwise noncontributory. Social history: No reported history of drug or alcohol abuse. Family history: As per history of present illness and as reviewed below otherwise noncontributory. Physical exam: General: Well developed, well nourished in NAD HEENT: Atraumatic, normocephalic, pupils reactive, negative for conjunctival pallor or scleral icterus, mucous membranes moist, throat clear, neck supple, nontender, trachea midline. Lungs: Clear to auscultation, breath sounds equal bilaterally, chest nontender. Heart: S1S2, regular, negative for clicks, rubs, or JVD. Abdomen: NABS, Soft, nondistended, nontender. Negative for masses or hepatosplenomegaly. Negative for costovertebral tenderness. Pelvis: Stable nontender. Genitourinary: Deferred. Rectal: Deferred. Extremities: Atraumatic, negative for cords or calf pain. Neurovascular unremarkable. Neuro: Awake, alert, oriented. Cranial nerves II through XII unremarkable. Cerebellum unremarkable. Motor and sensory unremarkable throughout. Exam nonfocal. Skin:warm and dry Diagnostics: CBC, CHEM Therapeutics: IVF ED Course: Unremarkable Impression: Medical screening exam Prescriptions: None Plan: Follow-up with Dr. Staley in 2 weeks Definitive disposition and diagnosis as appropriate pending reevaluation and review of above. - Related Data Allergies Allergy/AdvReac Type Severity Reaction Status Date / Time fentanyl Allergy Hallucinati Verified 12/04/18 12:33 ons Home Meds: Home Meds Aspirin 81 mg PO DAILY 01/03/17 [History] amLODIPine [Norvasc] 5 mg PO DAILY 01/03/17 [History] atorvaSTATin [Lipitor] 40 mg PO BEDTIME 01/03/17 [History] Propranolol HCl [Inderal LA] 160 mg PO BEDTIME 02/28/17 [History] Acetaminophen [Acetaminophen 8 Hour] 650 mg PO TID 06/11/18 [History] Insulin Glarg,Human.Rec.Analog [Lantus] 15 units SQ BEDTIME 06/11/18 [History] Levothyroxine Sodium [Levo-T] 25 mcg PO ACBREAKFAST 06/11/18 [History] Prednisolone Acetate/Pf [Prednisolone Acet 1% Eye Drop] 1 drop EYELF BID [History] QUEtiapine Fumarate [Quetiapine Fumarate] 100 mg PO BID 06/11/18 [History] Rivastigmine [Exelon] 13.3 mg TRDERM DAILY 06/11/18 [History] valACYclovir HCl [Valtrex] 500 mg PO BID 06/11/18 [History] Amino Acids/Protein Hydrolys [Prosource No Carb Liquid Pkt] 30 ml PO BID [History] Bisacodyl [Dulcolax] 10 mg RC Q24H PRN 08/01/18 [History] Dextran 70/Hypromellose [Artificial Tears] 1 drop OP BID 08/01/18 [History] Insulin Lispro [Humalog] 0 unit SQ TIDAC 08/01/18 [History] Lanolin/Min Oil/Petrolatum [Artificial Tears Ointment] 1 gm OP BEDTIME 08/01/18 [History] Mag Hydrox/Al Hydrox/Simeth [Maalox Maximum Strength Susp] 30 ml PO Q1H PRN 06/11 [History] Magnesium Hydroxide [Milk of Magnesia] 30 ml PO DAILY PRN 08/01/18 [History] Multivitamin [Daily Leanne] 1 each PO DAILY 08/01/18 [History] metFORMIN HCl [Glucophage] 1,000 mg PO BID 08/01/18 [History] Tamsulosin HCl [Flomax] 0.4 mg PO BEDTIME 12/04/18 [History] Past Medical History HEENT History: Reports: Impaired Vision Cardiovascular History: Reports: High Cholesterol, Hypertension Respiratory History: Reports: Other (See Below) Other Respiratory History: pneumonitis Gastrointestinal History: Reports: Other (See Below) Other Gastrointestinal History: ostomy bag Genitourinary History: Reports: BPH, Other (See Below) Other Genitourinary History: hx of prostate surgery Musculoskeletal History: Reports: None Neurological History: Reports: TIA, Other (See Below) Other Neuro History: "According to recent MRI results, 4 small areas of past stroke" and mild cognitive impairment. Psychiatric History: Reports: Dementia Other Psychiatric History: wandering disease, delusional disorder, auditory hallucinations, visual hallucinations Endocrine/Metabolic History: Reports: Diabetes, Type II Hematologic History: Reports: None Immunologic History: Reports: None Oncologic (Cancer) History: Reports: Other (See Below) Other Oncologic History: neoplasm of large intestine Dermatologic History: Reports: None - Infectious Disease History Infectious Disease History: Reports: Other (See Below) Other Infectious Disease History: unable to obtain - Past Surgical History Head Surgeries/Procedures: Reports: None Respiratory Surgical History: Reports: None GI Surgical History: Reports: Colostomy Endocrine Surgical History: Reports: None Musculoskeletal Surgical History: Reports: None Oncologic Surgical History: Reports: None Dermatological Surgical History: Reports: None Social & Family History - Family History Family Medical History: Unobtainable - Caffeine Use Caffeine Use: Reports: Coffee ED ROS GENERAL - Review of Systems Review Of Systems: ROS reveals no pertinent complaints other than HPI. ED EXAM, GENERAL - Physical Exam Exam: See Below (See history of present illness) Course - Vital Signs Last Recorded V/S: Last Vital Signs Temp 97.8 F 12/04/18 12:28 Pulse 67 12/04/18 13:07 Resp 18 12/04/18 13:07 BP 124/68 12/04/18 13:07 Pulse Ox 98 12/04/18 13:07 - Orders/Labs/Meds Orders: Active Orders 24 hr Category Date Time Status Sodium Chloride 0.9% [Saline Flush] Med 12/04/18 12:17 Active 10 ml FLUSH ASDIRECTED PRN Sodium Chloride 0.9% [Saline Flush] Med 12/04/18 12:17 Active 2.5 ml FLUSH ASDIRECTED PRN Saline Lock Insert [OM.PC] Stat Oth 12/04/18 12:18 Ordered Medication Orders Sodium Chloride (Saline Flush) 10 ml FLUSH ASDIRECTED PRN PRN Reason: Keep Vein Open Last Admin: 12/04/18 13:06 Dose: 10 ml Sodium Chloride (Saline Flush) 2.5 ml FLUSH ASDIRECTED PRN PRN Reason: Keep Vein Open Last Admin: 12/04/18 13:07 Dose: 2.5 ml Labs: Laboratory Tests 12/04/18 12/04/18 Range/Units 12:35 12:35 WBC 8.72 (4.0-11.0) K/uL RBC 4.55 (4.50-5.90) M/uL Hgb 13.7 (13.0-17.0) g/dL Hct 41.7 (38.0-50.0) % MCV 91.6 (80.0-98.0) fL MCH 30.1 (27.0-32.0) pg MCHC 32.9 (31.0-37.0) g/dL RDW Std Deviation 47.8 (28.0-62.0) fl RDW Coeff of Danilo 14 (11.0-15.0) % Plt Count 245 (150-400) K/uL MPV 10.10 (7.40-12.00) fL Neut % (Auto) 67.9 (48.0-80.0) % Lymph % (Auto) 18.7 (16.0-40.0) % [place] % (Auto) 8.4 (0.0-15.0) % Eos % (Auto) 4.5 (0.0-7.0) % Baso % (Auto) 0.5 (0.0-1.5) % Neut # (Auto) 5.9 H (1.4-5.7) K/uL Lymph # (Auto) 1.6 (0.6-2.4) K/uL [place] # (Auto) 0.7 (0.0-0.8) K/uL Eos # (Auto) 0.4 (0.0-0.7) K/uL Baso # (Auto) 0.0 (0.0-0.1) K/uL Nucleated RBC % 0.0 /100WBC Nucleated RBCs # 0 K/uL Sodium 143 (136-148) mmol/L Potassium 3.9 (3.5-5.1) mmol/L Chloride 108 H (98-107) mmol/L Carbon Dioxide 25.1 (21.0-32.0) mmol/L BUN 22 H (7.0-18.0) mg/dL Creatinine 0.9 (0.8-1.3) mg/dL Est Cr Clr Drug Dosing 65.42 mL/min Estimated GFR (MDRD) > 60.0 ml/min Glucose 168 H (74-106) mg/dL Calcium 9.5 (8.5-10.1) mg/dL Total Bilirubin 0.3 (0.2-1.0) mg/dL AST 22 (15-37) IU/L ALT 50 (14-63) IU/L Alkaline Phosphatase 96 (46-116) U/L Total Protein 7.1 (6.4-8.2) g/dL Albumin 3.1 L (3.4-5.0) g/dL Globulin 4.0 (2.6-4.0) g/dL Albumin/Globulin Ratio 0.8 L (0.9-1.6) Meds: Medications Generic Name Dose Route Start Last Admin Trade Name Freq PRN Reason Stop Dose Admin Sodium Chloride 10 ml 12/04/18 12:17 12/04/18 13:06 Saline Flush FLUSH 10 ml ASDIRECTED PRN Administration Keep Vein Open Sodium Chloride 2.5 ml 12/04/18 12:17 12/04/18 13:07 Saline Flush FLUSH 2.5 ml ASDIRECTED PRN Administration Keep Vein Open Discontinued Medications Generic Name Dose Route Start Last Admin Trade Name Freq PRN Reason Stop Dose Admin Sodium Chloride 500 mls @ 999 mls/hr 12/04/18 12:20 12/04/18 13:06 Normal Saline IV 12/04/18 12:50 999 mls/hr .Bolus ONE Administration Departure - Departure Time of Disposition: 13:33 Disposition: Home, Self-Care 01 Condition: Good Clinical Impression: Encounter for medical screening examination - Discharge Information *PRESCRIPTION DRUG MONITORING PROGRAM REVIEWED*: Not Applicable *COPY OF PRESCRIPTION DRUG MONITORING REPORT IN PATIENT GABRIELA: Not Applicable Referrals: PCP,None [Primary Care Provider] - Angela Bailey MD [Physician] - 2 Weeks Additional Instructions: The following information is given to patients seen in the emergency department who are being discharged to home. This information is to outline your options for follow-up care. We provide all patients seen in our emergency department with a follow-up referral. The need for follow-up, as well as the timing and circumstances, are variable depending upon the specifics of your emergency department visit. If you don't have a primary care physician on staff, we will provide you with a referral. We always advise you to contact your personal physician following an emergency department visit to inform them of the circumstance of the visit and for follow-up with them and/or the need for any referrals to a consulting specialist. The emergency department will also refer you to a specialist when appropriate. This referral assures that you have the opportunity for follow-up care with a specialist. All of these measure are taken in an effort to provide you with optimal care, which includes your follow-up. Under all circumstances we always encourage you to contact your private physician who remains a resource for coordinating your care. When calling for follow-up care, please make the office aware that this follow-up is from your recent emergency room visit. If for any reason you are refused follow-up, please contact the [facility] at and asked to speak to the emergency department charge nurse. Follow-up with Dr. Bailey in 2 weeks [facility] [address] [place] [address], [address] [place] [address] - My Orders Last 24 Hours: My Active Orders 12/04/18 12:17 Sodium Chloride 0.9% [Saline Flush] 10 ml FLUSH ASDIRECTED PRN Sodium Chloride 0.9% [Saline Flush] 2.5 ml FLUSH ASDIRECTED PRN 12/04/18 12:18 Saline Lock Insert [OM.PC] Stat - Assessment/Plan Last 24 Hours: My Active Orders 12/04/18 12:17 Sodium Chloride 0.9% [Saline Flush] 10 ml FLUSH ASDIRECTED PRN Sodium Chloride 0.9% [Saline Flush] 2.5 ml FLUSH ASDIRECTED PRN 12/04/18 12:18 Saline Lock Insert [OM.PC] Stat
[2018-12-04 13:13] LABS: CHLORIDE,CL 108 mmol/L (98-107); SODIUM,NA 143 mmol/L (136-148)
[2018-12-04 13:53] VITALS: BP 122/75
--- NOTE | 2018-12-04 14:51 | PCM.CONS ---
H&P History of Present Illness - General Date of Service: 12/04/18 Source of Information: Patient History Limitations: Reports: No Limitations - History of Present Illness Initial Comments - Free Text/Narative: Patient is an 83 year old male who presents for evaluation of a possible appendicitis. He has a left testicular mass and was being staged with a CT chest abdomen and pelvis. He was noted to have a dilated appendix with mild/ minimal stranding concerning for appendicitis. The urologist called the family this morning and advised them to follow up with a general surgeon. They called my office this morning to schedule an outpatient workup however given the acute disease process of appendicitis they were advised to go to the emergency room for labs and evaluation. On presentation his vital signs are stable. He denies abdominal pain. His vitals are stable. - Related Data Allergies/Adverse Reactions: Allergies Allergy/AdvReac Type Severity Reaction Status Date / Time fentanyl Allergy Hallucinati Verified 12/04/18 12:33 ons Home Medications: Home Meds Aspirin 81 mg PO DAILY 01/03/17 [History] amLODIPine [Norvasc] 5 mg PO DAILY 01/03/17 [History] atorvaSTATin [Lipitor] 40 mg PO BEDTIME 01/03/17 [History] Propranolol HCl [Inderal LA] 160 mg PO BEDTIME 02/28/17 [History] Acetaminophen [Acetaminophen 8 Hour] 650 mg PO TID 06/11/18 [History] Insulin Glarg,Human.Rec.Analog [Lantus] 15 units SQ BEDTIME 06/11/18 [History] Levothyroxine Sodium [Levo-T] 25 mcg PO ACBREAKFAST 06/11/18 [History] Prednisolone Acetate/Pf [Prednisolone Acet 1% Eye Drop] 1 drop EYELF BID [History] QUEtiapine Fumarate [Quetiapine Fumarate] 100 mg PO BID 06/11/18 [History] Rivastigmine [Exelon] 13.3 mg TRDERM DAILY 06/11/18 [History] valACYclovir HCl [Valtrex] 500 mg PO BID 06/11/18 [History] Amino Acids/Protein Hydrolys [Prosource No Carb Liquid Pkt] 30 ml PO BID [History] Bisacodyl [Dulcolax] 10 mg RC Q24H PRN 08/01/18 [History] Dextran 70/Hypromellose [Artificial Tears] 1 drop OP BID 08/01/18 [History] Insulin Lispro [Humalog] 0 unit SQ TIDAC 08/01/18 [History] Lanolin/Min Oil/Petrolatum [Artificial Tears Ointment] 1 gm OP BEDTIME 08/01/18 [History] Mag Hydrox/Al Hydrox/Simeth [Maalox Maximum Strength Susp] 30 ml PO Q1H PRN 06/11 [History] Magnesium Hydroxide [Milk of Magnesia] 30 ml PO DAILY PRN 08/01/18 [History] Multivitamin [Daily Leanne] 1 each PO DAILY 08/01/18 [History] metFORMIN HCl [Glucophage] 1,000 mg PO BID 08/01/18 [History] Tamsulosin HCl [Flomax] 0.4 mg PO BEDTIME 12/04/18 [History] Past Medical History HEENT History: Reports: Impaired Vision Cardiovascular History: Reports: High Cholesterol, Hypertension Respiratory History: Reports: Other (See Below) Other Respiratory History: pneumonitis Gastrointestinal History: Reports: Other (See Below) Other Gastrointestinal History: ostomy bag Genitourinary History: Reports: BPH, Other (See Below) Other Genitourinary History: hx of prostate surgery Musculoskeletal History: Reports: None Neurological History: Reports: TIA, Other (See Below) Other Neuro History: "According to recent MRI results, 4 small areas of past stroke" and mild cognitive impairment. Psychiatric History: Reports: Dementia Other Psychiatric History: wandering disease, delusional disorder, auditory hallucinations, visual hallucinations Endocrine/Metabolic History: Reports: Diabetes, Type II Hematologic History: Reports: None Immunologic History: Reports: None Oncologic (Cancer) History: Reports: Other (See Below) Other Oncologic History: neoplasm of rectum, testicular mass Dermatologic History: Reports: None - Infectious Disease History Infectious Disease History: Reports: Other (See Below) Other Infectious Disease History: unable to obtain - Past Surgical History Head Surgeries/Procedures: Reports: None Respiratory Surgical History: Reports: None GI Surgical History: Reports: Colostomy Endocrine Surgical History: Reports: None Musculoskeletal Surgical History: Reports: None Oncologic Surgical History: Reports: None Dermatological Surgical History: Reports: None Social & Family History - Family History Family Medical History: Unobtainable - Tobacco Use Smoking Status *Q: Never Smoker - Caffeine Use Caffeine Use: Reports: Coffee - Recreational Drug Use Recreational Drug Use: No H&P Review of Systems - Review of Systems: Review Of Systems: ROS reveals no pertinent complaints other than HPI. Exam - Exam Exam: See Below - Vital Signs Vital Signs: Last Vital Signs Temp 36.3 C 12/04/18 13:52 Pulse 65 12/04/18 13:52 Resp 15 12/04/18 13:52 BP 122/75 12/04/18 13:52 Pulse Ox 95 12/04/18 13:52 Weight: 100.335 kg - Exam General: Alert, Oriented HEENT: Conjunctiva Clear, Mucosa Moist & [place], Posterior Pharynx Clear Lungs: Normal Respiratory Effort Cardiovascular: Regular Rate GI/Abdominal Exam: Soft, Non-Tender, No Distention, No Mass. No: Guarding, Rigid, Rebound - Patient Data Lab Results Last 24 hrs: Laboratory Results - last 24 hr 12/04/18 12/04/18 Range/Units 12:35 12:35 WBC 8.72 (4.0-11.0) K/uL RBC 4.55 (4.50-5.90) M/uL Hgb 13.7 (13.0-17.0) g/dL Hct 41.7 (38.0-50.0) % MCV 91.6 (80.0-98.0) fL MCH 30.1 (27.0-32.0) pg MCHC 32.9 (31.0-37.0) g/dL RDW Std Deviation 47.8 (28.0-62.0) fl RDW Coeff of Danilo 14 (11.0-15.0) % Plt Count 245 (150-400) K/uL MPV 10.10 (7.40-12.00) fL Neut % (Auto) 67.9 (48.0-80.0) % Lymph % (Auto) 18.7 (16.0-40.0) % [place] % (Auto) 8.4 (0.0-15.0) % Eos % (Auto) 4.5 (0.0-7.0) % Baso % (Auto) 0.5 (0.0-1.5) % Neut # (Auto) 5.9 H (1.4-5.7) K/uL Lymph # (Auto) 1.6 (0.6-2.4) K/uL [place] # (Auto) 0.7 (0.0-0.8) K/uL Eos # (Auto) 0.4 (0.0-0.7) K/uL Baso # (Auto) 0.0 (0.0-0.1) K/uL Nucleated RBC % 0.0 /100WBC Nucleated RBCs # 0 K/uL Sodium 143 (136-148) mmol/L Potassium 3.9 (3.5-5.1) mmol/L Chloride 108 H (98-107) mmol/L Carbon Dioxide 25.1 (21.0-32.0) mmol/L BUN 22 H (7.0-18.0) mg/dL Creatinine 0.9 (0.8-1.3) mg/dL Est Cr Clr Drug Dosing 65.42 mL/min Estimated GFR (MDRD) > 60.0 ml/min Glucose 168 H (74-106) mg/dL Calcium 9.5 (8.5-10.1) mg/dL Total Bilirubin 0.3 (0.2-1.0) mg/dL AST 22 (15-37) IU/L ALT 50 (14-63) IU/L Alkaline Phosphatase 96 (46-116) U/L Total Protein 7.1 (6.4-8.2) g/dL Albumin 3.1 L (3.4-5.0) g/dL Globulin 4.0 (2.6-4.0) g/dL Albumin/Globulin Ratio 0.8 L (0.9-1.6) Result Diagrams: 12/04/18 12:35 12/04/18 12:35 Consult PN Assessment/Plan Procedures: Procedures ASSAY OF CREATININE (10/14/18) ASSAY OF LACTIC ACID (06/11/18) ASSAY OF LIPASE (06/11/18) ASSAY OF MAGNESIUM (01/03/17) ASSAY OF TROPONIN QUANT (08/01/18) ASSAY OF UREA NITROGEN (10/14/18) ASSAY THYROID STIM HORMONE (08/01/18) BLOOD CULTURE FOR BACTERIA (08/01/18) COMPLETE CBC W/AUTO DIFF WBC (08/01/18) COMPREHEN METABOLIC PANEL (08/01/18) CT ABD & PELV 1/> REGNS (06/11/18) CT HEAD/BRAIN W/O DYE (08/01/18) CT PELVIS W/DYE (10/14/18) CULTURE OTHR SPECIMN AEROBIC (06/11/18) DRUG TEST PRSMV DIR OPT OBS (08/01/18) ELECTROCARDIOGRAM TRACING (08/01/18) EMERGENCY DEPT VISIT (08/01/18) EMERGENCY DEPT VISIT (02/28/17) EMERGENCY DEPT VISIT (01/03/17) FREE ASSAY (FT-3) (01/03/17) GLUCOSE BLOOD TEST (08/01/18) HYDRATE IV INFUSION ADD-ON (06/11/18) IIV NO PRSV INCREASED AG IM (08/01/18) METABOLIC PANEL TOTAL CA (08/01/18) MRI PELVIS W/O & W/DYE (10/20/18) PROTHROMBIN TIME (08/01/18) ROUTINE VENIPUNCTURE (10/14/18) THER/PROPH/DIAG INJ IV PUSH (08/01/18) THER/PROPH/DIAG INJ SC/IM (08/01/18) TX/PRO/DX INJ NEW DRUG ADDON (08/01/18) URINALYSIS AUTO W/SCOPE (08/01/18) US EXAM SCROTUM (10/20/18) VASCULAR STUDY (10/20/18) X-RAY EXAM CHEST 1 VIEW (08/01/18) X-RAY EXAM CHEST 2 VIEWS (06/11/18) X-RAY EXAM OF SHOULDER (07/02/17) (1) Mass of appendix SNOMED Code(s): 656258003 Code(s): K38.9 - DISEASE OF APPENDIX, UNSPECIFIED Problem List Initiated/Reviewed/Updated: Yes Plan: The patients CBC is completely normal. I visited with our radiologist and we reviewed his previous CT scans and MRI. His appendix appears dilated in them all. This is suggestive of an appendicile mucocele. This does not require emergency surgery. I will follow up with the patient in clinic to discuss our options for management given the complex nature of his medical co-morbidities. He can see me in clinic in 2 weeks to discuss his options with his and son who are his primary decision makers. I called his urologist to let him know my assessment and plan as well.
== END 2018-12-04 13:49 | disposition home or self-care (01) ==
LOC: MW.ED 12:07
DX: Z13.9 Encounter for screening, unspecified (principal); E78.00 Pure hypercholesterolemia, unspecified; I10 Essential (primary) hypertension; E11.9 Type 2 diabetes mellitus without complications; Z88.8 Allergy status to other drugs, medicaments and biological substances; Z79.82 Long term (current) use of aspirin; Z86.73 Personal history of transient ischemic attack (TIA), and cerebral infarction without residual deficits; Z79.899 Other long term (current) drug therapy; Z79.4 Long term (current) use of insulin
CPT/HCPCS: 36415; 80053; 85025; 96360; 99284; J7040; 99283

== ENCOUNTER 2019-11-01 08:52 | Inpatient (IN) | payer MEDICARE, BC ==
[2019-11-01] MEDS ORDERED: Sodium Chloride 0.9% 1,000 ML IV ONE (09:26)
[2019-11-01] MEDS ORDERED: Sodium Chloride 0.9% 2.5 ML Syringe FLUSH PRN (09:26)
[2019-11-01] MEDS ORDERED: Sodium Chloride 0.9% 10 ML Syringe FLUSH PRN (09:26)
--- NOTE | 2019-11-01 09:41 | EDM.PDOC ---
ED HPI GENERAL MEDICAL PROBLEM - General Chief Complaint: General Stated Complaint: BETHAL PT Time Seen by Provider: 11/01/19 09:35 - History of Present Illness INITIAL COMMENTS - FREE TEXT/NARRATIVE: HISTORY AND PHYSICAL: History of present illness: Patient's an 84-year-old male presents from custodial with a chief complaint of fever he is reportedly 101 prior to arrival he is afebrile on arrival but did receive Tylenol the custodial he was scheduled for evaluation for a chronic sacral ulcer but this appointment was canceled. Patient has a history of Lewy body disease. There is no reported nausea vomiting or other concern Review of systems: As per history of present illness and below otherwise all systems reviewed and negative. Past medical history: As per history of present illness and as reviewed below otherwise noncontributory. Surgical history: As per history of present illness and as reviewed below otherwise noncontributory. Social history: No reported history of drug or alcohol abuse. Family history: As per history of present illness and as reviewed below otherwise noncontributory. Physical exam: HEENT: Atraumatic, normocephalic, pupils reactive, negative for conjunctival pallor or scleral icterus, mucous membranes moist, throat clear, neck supple, nontender, trachea midline. Lungs: Clear to auscultation, breath sounds equal bilaterally, chest nontender. Heart: S1S2, regular, negative for clicks, rubs, or JVD. Abdomen: Soft, nondistended, nontender. Negative for masses or hepatosplenomegaly. Negative for costovertebral tenderness. Pelvis: A pack sacral ulcer is noted with dressing there is no malodor Genitourinary: Deferred. Rectal: Deferred. Extremities: Atraumatic, negative for cords or calf pain. Neurovascular unremarkable. Neuro: Awake, alert, follows commands and moves all extremities limited but grossly nonfocal exam baseline per . Diagnostics: CBC CMP blood culture [address] abdomen and pelvis with IV contrast chest x-ray UA [employer]rapeutics: Saline 1 L bolus Impression: #1 chronic sacral ulcer #2 fever #3 history Lewy body disease Definitive disposition and diagnosis as appropriate pending reevaluation and review of above. Buttock Pain Score (Numeric/FACES): 9 - Related Data Allergies Allergy/AdvReac Type Severity Reaction Status Date / Time fentanyl Allergy Hallucinati Verified 11/01/19 08:58 ons Home Meds: Home Meds Aspirin 81 mg PO DAILY 01/03/17 [History] amLODIPine [Norvasc] 5 mg PO DAILY 01/03/17 [History] atorvaSTATin [Lipitor] 40 mg PO BEDTIME 01/03/17 [History] Propranolol HCl [Inderal LA] 160 mg PO BEDTIME 02/28/17 [History] Acetaminophen [Acetaminophen 8 Hour] 650 mg PO TID 06/11/18 [History] Insulin Glarg,Human.Rec.Analog [Lantus] 15 units SQ BEDTIME 06/11/18 [History] Levothyroxine Sodium [Levo-T] 25 mcg PO ACBREAKFAST 06/11/18 [History] Prednisolone Acetate/Pf [Prednisolone Acet 1% Eye Drop] 1 drop EYELF BID [History] QUEtiapine Fumarate [Quetiapine Fumarate] 100 mg PO BID 06/11/18 [History] Rivastigmine [Exelon] 13.3 mg TRDERM DAILY 06/11/18 [History] valACYclovir HCl [Valtrex] 500 mg PO BID 06/11/18 [History] Amino Acids/Protein Hydrolys [Prosource No Carb Liquid Pkt] 30 ml PO BID [History] Bisacodyl [Dulcolax] 10 mg RC Q24H PRN 08/01/18 [History] Dextran 70/Hypromellose [Artificial Tears] 1 drop OP BID 08/01/18 [History] Insulin Lispro [Humalog] 0 unit SQ TIDAC 08/01/18 [History] Lanolin/Min Oil/Petrolatum [Artificial Tears Ointment] 1 gm OP BEDTIME 08/01/18 [History] Mag Hydrox/Al Hydrox/Simeth [Maalox Maximum Strength Susp] 30 ml PO Q1H PRN 06/11 [History] Magnesium Hydroxide [Milk of Magnesia] 30 ml PO DAILY PRN 08/01/18 [History] Multivitamin [Daily Leanne] 1 each PO DAILY 08/01/18 [History] metFORMIN HCl [Glucophage] 1,000 mg PO BID 08/01/18 [History] Tamsulosin HCl [Flomax] 0.4 mg PO BEDTIME 12/04/18 [History] Lifitegrast [Xiidra] 1 each EYERT BID 11/01/19 [History] Non-Formulary Medication [NF Drug] 1 each JIMMY BEDTIME 11/01/19 [History] Past Medical History HEENT History: Reports: Impaired Vision Cardiovascular History: Reports: High Cholesterol, Hypertension Respiratory History: Reports: Other (See Below) Other Respiratory History: pneumonitis Gastrointestinal History: Reports: Other (See Below) Other Gastrointestinal History: ostomy bag Genitourinary History: Reports: BPH, Other (See Below) Other Genitourinary History: hx of prostate surgery Musculoskeletal History: Reports: None Neurological History: Reports: TIA, Other (See Below) Other Neuro History: "According to recent MRI results, 4 small areas of past stroke" and mild cognitive impairment. Psychiatric History: Reports: Dementia Other Psychiatric History: wandering disease, delusional disorder, auditory hallucinations, visual hallucinations Endocrine/Metabolic History: Reports: Diabetes, Type II Hematologic History: Reports: None Immunologic History: Reports: None Oncologic (Cancer) History: Reports: Other (See Below) Other Oncologic History: neoplasm of rectum, testicular mass Dermatologic History: Reports: None - Infectious Disease History Infectious Disease History: Reports: None Other Infectious Disease History: unable to obtain - Past Surgical History Head Surgeries/Procedures: Reports: None Respiratory Surgical History: Reports: None GI Surgical History: Reports: Colostomy Endocrine Surgical History: Reports: None Musculoskeletal Surgical History: Reports: None Oncologic Surgical History: Reports: None Dermatological Surgical History: Reports: None Social & Family History - Family History Family Medical History: Unobtainable - Tobacco Use Smoking Status *Q: Never Smoker - Caffeine Use Caffeine Use: Reports: None - Recreational Drug Use Recreational Drug Use: No ED ROS GENERAL - Review of Systems Review Of Systems: Comprehensive ROS is negative, except as noted in HPI. ED EXAM, GENERAL - Physical Exam Exam: See Below (Dictation) Course - Vital Signs Last Recorded V/S: Last Vital Signs Temp 36.0 C 11/01/19 08:58 Pulse 91 11/01/19 08:58 Resp 20 11/01/19 08:58 BP 135/66 11/01/19 08:58 Pulse Ox 94 L 11/01/19 10:05 - Orders/Labs/Meds Orders: Active Orders 24 hr Category Date Time Status Abdomen Pelvis w Cont [CT] Stat Exams 11/01/19 09:26 Ordered CULTURE BLOOD [BC] Stat Lab 11/01/19 09:44 Received CULTURE BLOOD [BC] Stat Lab 11/01/19 10:04 Received CULTURE WOUND [RM] Stat Lab 11/01/19 10:02 Received UA RFX KIARA AND CULT IF INDIC [URIN] Stat Lab 11/01/19 09:24 Ordered Sodium Chloride 0.9% [Saline Flush] Med 11/01/19 09:26 Active 10 ml FLUSH ASDIRECTED PRN Sodium Chloride 0.9% [Saline Flush] Med 11/01/19 09:26 Active 2.5 ml FLUSH ASDIRECTED PRN Vancomycin 1 gm Med 11/01/19 10:40 Active Sodium Chloride 0.9% [Normal Saline (AdvBag)] 250 ml IV ONETIME Blood Culture x2 Reflex Set [OM.PC] Stat Oth 11/01/19 09:26 Ordered Saline Lock Insert [OM.PC] Stat Oth 11/01/19 09:26 Ordered Medication Orders Vancomycin HCl 1 gm/ Sodium (Chloride) 250 mls @ 166 mls/hr IV ONETIME ONE Stop: 11/01/19 12:10 Sodium Chloride (Saline Flush) 10 ml FLUSH ASDIRECTED PRN PRN Reason: Keep Vein Open Last Admin: 11/01/19 09:50 Dose: 10 ml Sodium Chloride (Saline Flush) 2.5 ml FLUSH ASDIRECTED PRN PRN Reason: Keep Vein Open Last Admin: 11/01/19 09:50 Dose: 2.5 ml Labs: Laboratory Tests 11/01/19 11/01/19 11/01/19 Range/Units 09:44 09:44 09:44 WBC 11.40 H (4.0-11.0) K/uL RBC 3.93 L (4.50-5.90) M/uL Hgb 11.7 L (13.0-17.0) g/dL Hct 36.1 L (38.0-50.0) % MCV 91.9 (80.0-98.0) fL MCH 29.8 (27.0-32.0) pg MCHC 32.4 (31.0-37.0) g/dL RDW Std Deviation 45.6 (28.0-62.0) fl RDW Coeff of Danilo 14 (11.0-15.0) % Plt Count 397 (150-400) K/uL MPV 9.80 (7.40-12.00) fL Neut % (Auto) 75.6 (48.0-80.0) % Lymph % (Auto) 10.9 L (16.0-40.0) % [place] % (Auto) 12.5 (0.0-15.0) % Eos % (Auto) 0.6 (0.0-7.0) % Baso % (Auto) 0.4 (0.0-1.5) % Neut # (Auto) 8.6 H (1.4-5.7) K/uL Lymph # (Auto) 1.2 (0.6-2.4) K/uL [place] # (Auto) 1.4 H (0.0-0.8) K/uL Eos # (Auto) 0.1 (0.0-0.7) K/uL Baso # (Auto) 0.0 (0.0-0.1) K/uL Nucleated RBC % 0.0 /100WBC Nucleated RBCs # 0 K/uL Lactate 0.8 (0.20-2.00) mmol/L Sodium 143 (136-148) mmol/L Potassium 3.3 L (3.5-5.1) mmol/L Chloride 104 (98-107) mmol/L Carbon Dioxide 30.0 (21.0-32.0) mmol/L BUN 22 H (7.0-18.0) mg/dL Creatinine 1.0 (0.8-1.3) mg/dL Est Cr Clr Drug Dosing TNP Estimated GFR (MDRD) > 60.0 ml/min Glucose 127 H (74-106) mg/dL Calcium 8.6 (8.5-10.1) mg/dL Total Bilirubin 0.4 (0.2-1.0) mg/dL AST 23 (15-37) IU/L ALT 42 (14-63) IU/L Alkaline Phosphatase 104 (46-116) U/L Total Protein 6.7 (6.4-8.2) g/dL Albumin 2.3 L (3.4-5.0) g/dL Globulin 4.4 H (2.6-4.0) g/dL Albumin/Globulin Ratio 0.5 L (0.9-1.6) Meds: Medications Generic Name Dose Route Start Last Admin Trade Name Freq PRN Reason Stop Dose Admin Vancomycin HCl 1 gm/ Sodium 250 mls @ 166 mls/hr 11/01/19 10:40 Chloride IV 11/01/19 12:10 ONETIME ONE Sodium Chloride 10 ml 11/01/19 09:26 11/01/19 09:50 Saline Flush FLUSH 10 ml ASDIRECTED PRN Administration Keep Vein Open Sodium Chloride 2.5 ml 11/01/19 09:26 11/01/19 09:50 Saline Flush FLUSH 2.5 ml ASDIRECTED PRN Administration Keep Vein Open Discontinued Medications Generic Name Dose Route Start Last Admin Trade Name [place] PRN Reason Stop Dose Admin Sodium Chloride 1,000 mls @ 999 mls/hr 11/01/19 09:26 11/01/19 09:50 Normal Saline IV 11/01/19 10:26 999 mls/hr .Bolus ONE Administration Departure - Departure Time of Disposition: 11:12 Disposition: Home, Self-Care 01 Condition: Good Clinical Impression: Fever, Decubitus ulcer - Discharge Information Referrals: Adama Torres MD [Primary Care Provider] - Forms: ED Department Discharge - My Orders Last 24 Hours: My Active Orders 11/01/19 09:24 UA RFX KIARA AND CULT IF INDIC [URIN] Stat 11/01/19 09:26 Abdomen Pelvis w Cont [CT] Stat Sodium Chloride 0.9% [Saline Flush] 10 ml FLUSH ASDIRECTED PRN Sodium Chloride 0.9% [Saline Flush] 2.5 ml FLUSH ASDIRECTED PRN Blood Culture x2 Reflex Set [OM.PC] Stat Saline Lock Insert [OM.PC] Stat 11/01/19 09:44 CULTURE BLOOD [BC] Stat 11/01/19 10:04 CULTURE BLOOD [BC] Stat 11/01/19 10:40 Vancomycin 1 gm Sodium Chloride 0.9% [Normal Saline (AdvBag)] 250 ml IV ONETIME - Assessment/Plan Last 24 Hours: My Active Orders 11/01/19 09:24 UA RFX KIARA AND CULT IF INDIC [URIN] Stat 11/01/19 09:26 Abdomen Pelvis w Cont [CT] Stat Sodium Chloride 0.9% [Saline Flush] 10 ml FLUSH ASDIRECTED PRN Sodium Chloride 0.9% [Saline Flush] 2.5 ml FLUSH ASDIRECTED PRN Blood Culture x2 Reflex Set [OM.PC] Stat Saline Lock Insert [OM.PC] Stat 11/01/19 09:44 CULTURE BLOOD [BC] Stat 11/01/19 10:04 CULTURE BLOOD [BC] Stat 11/01/19 10:40 Vancomycin 1 gm Sodium Chloride 0.9% [Normal Saline (AdvBag)] 250 ml IV ONETIME
--- NOTE | 2019-11-01 10:12 | PCM.CONS ---
H&P History of Present Illness - General Date of Service: 11/01/19 Source of Information: Patient History Limitations: Reports: No Limitations - History of Present Illness Initial Comments - Free Text/Narative: Patient is an 84 year old male with dementia who presents from his snf with a fever of 101. He was brought to the ER for evaluation. He was supposed to see me in clinic on Saturday for concerns regarding his sacral wound but the appointment had to be rescheduled. His states that he has been complaining of increased soreness to the area. His past medical history is significant for rectal cancer s/p chemo, radiation and an APR with end colostomy. 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 He was seen by plastics who had recommended conservative management. As a part of his work up he was found to have a left sided testicular mass as well as a small stable mass on the appendix. This has been followed up and found to be stable. Buttock Pain Score (Numeric/FACES): 9 - Related Data Allergies/Adverse Reactions: Allergies Allergy/AdvReac Type Severity Reaction Status Date / Time fentanyl Allergy Hallucinati Verified 11/01/19 08:58 ons Home Medications: Home Meds Aspirin 81 mg PO DAILY 01/03/17 [History] amLODIPine [Norvasc] 5 mg PO DAILY 01/03/17 [History] atorvaSTATin [Lipitor] 40 mg PO BEDTIME 01/03/17 [History] Propranolol HCl [Inderal LA] 160 mg PO BEDTIME 02/28/17 [History] Acetaminophen [Acetaminophen 8 Hour] 650 mg PO TID 06/11/18 [History] Insulin Glarg,Human.Rec.Analog [Lantus] 15 units SQ BEDTIME 06/11/18 [History] Levothyroxine Sodium [Levo-T] 25 mcg PO ACBREAKFAST 06/11/18 [History] Prednisolone Acetate/Pf [Prednisolone Acet 1% Eye Drop] 1 drop EYELF BID [History] QUEtiapine Fumarate [Quetiapine Fumarate] 100 mg PO BID 06/11/18 [History] Rivastigmine [Exelon] 13.3 mg TRDERM DAILY 06/11/18 [History] valACYclovir HCl [Valtrex] 500 mg PO BID 06/11/18 [History] Amino Acids/Protein Hydrolys [Prosource No Carb Liquid Pkt] 30 ml PO BID [History] Bisacodyl [Dulcolax] 10 mg RC Q24H PRN 08/01/18 [History] Dextran 70/Hypromellose [Artificial Tears] 1 drop OP BID 08/01/18 [History] Insulin Lispro [Humalog] 0 unit SQ TIDAC 08/01/18 [History] Lanolin/Min Oil/Petrolatum [Artificial Tears Ointment] 1 gm OP BEDTIME 08/01/18 [History] Mag Hydrox/Al Hydrox/Simeth [Maalox Maximum Strength Susp] 30 ml PO Q1H PRN 06/11 [History] Magnesium Hydroxide [Milk of Magnesia] 30 ml PO DAILY PRN 08/01/18 [History] Multivitamin [Daily Leanne] 1 each PO DAILY 08/01/18 [History] metFORMIN HCl [Glucophage] 1,000 mg PO BID 08/01/18 [History] Tamsulosin HCl [Flomax] 0.4 mg PO BEDTIME 12/04/18 [History] Lifitegrast [Xiidra] 1 each EYERT BID 11/01/19 [History] Non-Formulary Medication [NF Drug] 1 each JIMMY BEDTIME 11/01/19 [History] Past Medical History HEENT History: Reports: Impaired Vision Cardiovascular History: Reports: High Cholesterol, Hypertension Respiratory History: Reports: Other (See Below) Other Respiratory History: pneumonitis Gastrointestinal History: Reports: Other (See Below) Other Gastrointestinal History: ostomy bag Genitourinary History: Reports: BPH, Other (See Below) Other Genitourinary History: hx of prostate surgery Musculoskeletal History: Reports: None Neurological History: Reports: TIA, Other (See Below) Other Neuro History: "According to recent MRI results, 4 small areas of past stroke" and mild cognitive impairment. Psychiatric History: Reports: Dementia Other Psychiatric History: wandering disease, delusional disorder, auditory hallucinations, visual hallucinations Endocrine/Metabolic History: Reports: Diabetes, Type II Hematologic History: Reports: None Immunologic History: Reports: None Oncologic (Cancer) History: Reports: Other (See Below) Other Oncologic History: neoplasm of rectum, testicular mass Dermatologic History: Reports: None - Infectious Disease History Infectious Disease History: Reports: None Other Infectious Disease History: unable to obtain - Past Surgical History Head Surgeries/Procedures: Reports: None Respiratory Surgical History: Reports: None GI Surgical History: Reports: Colostomy Endocrine Surgical History: Reports: None Musculoskeletal Surgical History: Reports: None Oncologic Surgical History: Reports: None Dermatological Surgical History: Reports: None Social & Family History - Family History Family Medical History: Unobtainable - Tobacco Use Smoking Status *Q: Never Smoker - Caffeine Use Caffeine Use: Reports: None - Recreational Drug Use Recreational Drug Use: No H&P Review of Systems - Review of Systems: Review Of Systems: Comprehensive ROS is negative, except as noted in HPI. Exam - Exam Exam: See Below - Vital Signs Vital Signs: Last Vital Signs Temp 36.0 C 11/01/19 08:58 Pulse 91 11/01/19 08:58 Resp 20 11/01/19 08:58 BP 135/66 11/01/19 08:58 Pulse Ox 90 L 11/01/19 08:58 - Exam General: Alert, Oriented Lungs: Normal Respiratory Effort Cardiovascular: Regular Rate GI/Abdominal Exam: Soft, Non-Tender, No Distention, No Mass, Other (stoma appears pink and healthy) Skin: Other (There is a 2cm circular opening over the sacrum. There is some foul smelling fluid in the wound. He has an ~ 4 x 4 cm x 3 cm wound under this opening that tracts to the bone. ) - Patient Data Lab Results Last 24 hrs: Laboratory Results - last 24 hr 11/01/19 11/01/19 Range/Units 09:44 09:44 WBC 11.40 H (4.0-11.0) K/uL RBC 3.93 L (4.50-5.90) M/uL Hgb 11.7 L (13.0-17.0) g/dL Hct 36.1 L (38.0-50.0) % MCV 91.9 (80.0-98.0) fL MCH 29.8 (27.0-32.0) pg MCHC 32.4 (31.0-37.0) g/dL RDW Std Deviation 45.6 (28.0-62.0) fl RDW Coeff of Danilo 14 (11.0-15.0) % Plt Count 397 (150-400) K/uL MPV 9.80 (7.40-12.00) fL Neut % (Auto) 75.6 (48.0-80.0) % Lymph % (Auto) 10.9 L (16.0-40.0) % Perry % (Auto) 12.5 (0.0-15.0) % Eos % (Auto) 0.6 (0.0-7.0) % Baso % (Auto) 0.4 (0.0-1.5) % Neut # (Auto) 8.6 H (1.4-5.7) K/uL Lymph # (Auto) 1.2 (0.6-2.4) K/uL Perry # (Auto) 1.4 H (0.0-0.8) K/uL Eos # (Auto) 0.1 (0.0-0.7) K/uL Baso # (Auto) 0.0 (0.0-0.1) K/uL Nucleated RBC % 0.0 /100WBC Nucleated RBCs # 0 K/uL Lactate 0.8 (0.20-2.00) mmol/L Result Diagrams: 11/01/19 09:44 Consult PN Assessment/Plan Procedures: Procedures ASSAY OF CREATININE (10/14/18) ASSAY OF LACTIC ACID (06/11/18) ASSAY OF LIPASE (06/11/18) ASSAY OF MAGNESIUM (01/03/17) ASSAY OF TROPONIN QUANT (08/01/18) ASSAY OF UREA NITROGEN (10/14/18) ASSAY THYROID STIM HORMONE (08/01/18) BLOOD CULTURE FOR BACTERIA (08/01/18) COMPLETE CBC W/AUTO DIFF WBC (12/04/18) COMPREHEN METABOLIC PANEL (12/04/18) CT ABD & PELV 1/> REGNS (06/11/18) CT ABD & PELVIS W/O CONTRAST (08/03/19) CT ABDOMEN W/O DYE (12/05/18) CT HEAD/BRAIN W/O DYE (08/01/18) CT PELVIS W/DYE (10/14/18) CT THORAX W/O DYE (12/05/18) CULTURE OTHR SPECIMN AEROBIC (06/11/18) DRUG TEST PRSMV DIR OPT OBS (08/01/18) ELECTROCARDIOGRAM TRACING (08/01/18) EMERGENCY DEPT VISIT (12/04/18) EMERGENCY DEPT VISIT (08/01/18) EMERGENCY DEPT VISIT (02/28/17) EMERGENCY DEPT VISIT (01/03/17) FREE ASSAY (FT-3) (01/03/17) GLUCOSE BLOOD TEST (08/01/18) HYDRATE IV INFUSION ADD-ON (06/11/18) HYDRATION IV INFUSION INIT (12/04/18) IIV NO PRSV INCREASED AG IM (08/01/18) METABOLIC PANEL TOTAL CA (08/01/18) MRI PELVIS W/O & W/DYE (10/20/18) PROTHROMBIN TIME (08/01/18) ROUTINE VENIPUNCTURE (12/04/18) THER/PROPH/DIAG INJ IV PUSH (08/01/18) THER/PROPH/DIAG INJ SC/IM (08/01/18) TX/PRO/DX INJ NEW DRUG ADDON (08/01/18) URINALYSIS AUTO W/SCOPE (08/01/18) US EXAM SCROTUM (10/20/18) VASCULAR STUDY (10/20/18) X-RAY EXAM CHEST 1 VIEW (08/01/18) X-RAY EXAM CHEST 2 VIEWS (06/11/18) X-RAY EXAM OF SHOULDER (07/02/17) (1) Fever SNOMED Code(s): 177419247 Code(s): R50.9 - FEVER, UNSPECIFIED Current Visit: Yes (2) Pressure sore SNOMED Code(s): 017762166 Code(s): L89.90 - PRESSURE ULCER OF UNSPECIFIED SITE, UNSPECIFIED STAGE Current Visit: No Problem List Initiated/Reviewed/Updated: Yes My Orders Last 24 Hours: My Active Orders 11/01/19 10:03 CULTURE WOUND [RM] Stat Plan: Agree with CT abdomen/pelvis to assess the pelvis and look for any signs of cellulitis or deeper abscesses. Admit patient to medicine for further work up for any other source of infection. Agree with broad spectrum coverage. I packed his sacral wound with dry 1" gauze and covered with dry dressings. He should have BID dressing changes. Can be performed by nursing.
[2019-11-01 10:17] LABS: BLOOD UREA NITROGEN,BUN 22 mg/dL (7.0-18.0); CHLORIDE,CL 104 mmol/L (98-107); GLUCOSE RANDOM 127 mg/dL (74-106); POTASSIUM,K 3.3 mmol/L (3.5-5.1); SODIUM,NA 143 mmol/L (136-148)
--- NOTE | 2019-11-01 10:43 | CR ---
HISTORY: Fever. TECHNIQUE: One view of the chest. COMPARISON: No prior. FINDINGS: Shallow breath. There is no lung consolidation or pulmonary edema. Linear atelectasis or scarring within the left lateral costophrenic angle region. Cardiac size within normal limits. No pulmonary vascular congestion. Degenerative changes of the spine and shoulders. IMPRESSION: No consolidation or pulmonary edema. Dictated by Corey Funez MD @ 11/01/2019 10:41:06 AM Dictated by: Corey Funez MD @ 11/01/2019 10:41:10 (Electronically Signed)
[2019-11-01] MEDS ORDERED: Iopamidol 755 Mg/ML 100 ML Bottle IVPUSH STA (11:19)
[2019-11-01] MEDS ORDERED: cefTRIAXone 1 GM in Premix Bag 1 BAG IV ONE (12:02)
--- NOTE | 2019-11-01 12:20 | CT ---
INDICATION: wound on buttox, possible infection, pt hx of cancer (colon and kidney) Indication: Buttock wound. Possible infection. Cancer. Technique: CT of the abdomen and pelvis. 100 cc of Isovue 370 IV. Coronal/sagittal reconstruction images. Comparison: CT abdomen and pelvis, 08/03/2019. Findings: Lung bases: Bibasilar atelectasis. No pleural or pericardial effusion. Coronary artery calcifications. Linear atelectasis in the right lower lobe, superior segment, right middle lobe, and lingular segment. There is a pulmonary nodule near the minor fissure, which measures 6 millimeters on image 9, series 201. This is unchanged when compared with 08/03/2019. Abdomen/pelvis: Non cirrhotic liver morphology. No perihepatic ascites. There is a region of reduced density in segment 5 of the liver, which may represent focal fat deposition. This is seen on image 47, series 201, and measures 16 millimeters. There is no pancreatic mass, pancreatic duct dilation, glandular atrophy. Bilateral hydronephrosis. There is associated hydroureter. There is no obstructive urolith. There calcifications in the pelvis, which could be from prior radiotherapy. There is a wound in the midline, seen best on image 162, series 201, which has progressed when compared with 08/03/2019. There is evidence of chronic osteomyelitis of the sacrum/coccyx, image 156, series 201. This is also seen on sagittal reconstruction images. 2 millimeter stone in the right intrarenal collecting system, image 78. Postsurgical changes in the pelvis are likely related to a prior abdominoperineal resection, with left lower quadrant end colostomy. There is no obstruction, free air, or drainable fluid collection. The appendix is mildly dilated, but is not associated with any inflammatory changes. This is seen best on image 136, series 201, and the appendix measures 11 millimeters in luminal dimension. This is stable. No pelvic lymphadenopathy by size criteria. There are nonenlarged lymph nodes in both common femoral chains. Visceral artery branches are widely patent. Bone windows demonstrate degenerative disc disease in the thoracic and lumbar spine. Vertebral body heights are maintained on sagittal reconstruction images. Impression: 1. There is a chronic midline wound overlying the sacrum/coccyx, with evidence of chronic osteomyelitis, and associated fascial thickening in the presacral space. 2. No drainable fluid collection is seen. 3. Surgical changes in the pelvis compatible with a prior abdominoperineal resection, with end colostomy in the left lower quadrant. 4. Bilateral hydronephrosis and hydroureter. There is no obstructive urolith by CT. This should be correlated with any history of prior ureteral reimplantation. No striated nephrogram or perinephric fluid collection. 5. Report called to Dr. Deleon, emergency department, 11/01/2019, 12:15 p.m. Dictated by Meek Brown MD @ 11/01/2019 12:18:34 PM Please note that all CT scans at this facility use dose modulation, iterative reconstruction, and/or weight-based dosing when appropriate to reduce radiation dose to as low as reasonably achievable. Dictated by: Meek Brown MD @ 11/01/2019 12:18:49 (Electronically Signed)
[2019-11-01] MEDS ORDERED: Albuterol/Ipratropium 3.0-0.5 MG/3 ML Neb Soln NEB PRN (12:38)
[2019-11-01] MEDS ORDERED: SIMETH PO PRN (12:41)
[2019-11-01] MEDS ORDERED: AL HYDROX PO PRN (12:41)
[2019-11-01] MEDS ORDERED: MAG HYDROX PO PRN (12:41)
[2019-11-01] MEDS ORDERED: Magnesium Hydroxide 400 MG/5 ML Susp 30 ML Cup PO PRN (12:41)
[2019-11-01] MEDS ORDERED: Bisacodyl 10 MG Supp RECTAL PRN (12:41)
--- NOTE | 2019-11-01 12:45 | PCM.HP.2 ---
H&P History of Present Illness - General Date of Service: 11/01/19 Admit Problem/Dx: Admission Diagnosis/Problem Admission Diagnosis/Problem Fever - History of Present Illness Initial Comments - Free Text/Narative: Patient is an 84 year old male with PMH of dementia,left sided testicular mass, rectal cancer s/p chemo, radiation and an APR with end colostomy. 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 who presents from his half-way with a fever of 101, hence was bought to the ER for evaluation. Per patient has been complaining of increased soreness to the area. He was seen by plastic surgery in the past was recommended conservative management. Patient had a f/u appt with surgery on Saturday which had to be rescheduled. CT A/P showed Osteomyelitics of sacrum. Patient also has UTI evident on UA. Patient received IV vancomycin and IV Rocephin. Surgery evaluated the patient agreed with IV antibiotics for now. Patient is being admitted for further management. Buttock Pain Score (Numeric/FACES): 9 - Related Data Allergies/Adverse Reactions: Allergies Allergy/AdvReac Type Severity Reaction Status Date / Time fentanyl Allergy Hallucinati Verified 11/01/19 08:58 ons Home Medications: Home Meds Aspirin 81 mg PO DAILY 01/03/17 [History] amLODIPine [Norvasc] 5 mg PO DAILY 01/03/17 [History] atorvaSTATin [Lipitor] 40 mg PO BEDTIME 01/03/17 [History] Propranolol HCl [Inderal LA] 160 mg PO BEDTIME 02/28/17 [History] Acetaminophen [Acetaminophen 8 Hour] 650 mg PO TID 06/11/18 [History] Insulin Glarg,Human.Rec.Analog [Lantus] 15 units SQ BEDTIME 06/11/18 [History] Levothyroxine Sodium [Levo-T] 25 mcg PO ACBREAKFAST 06/11/18 [History] Prednisolone Acetate/Pf [Prednisolone Acet 1% Eye Drop] 1 drop EYELF BID [History] QUEtiapine Fumarate [Quetiapine Fumarate] 100 mg PO BID 06/11/18 [History] Rivastigmine [Exelon] 13.3 mg TRDERM DAILY 06/11/18 [History] valACYclovir HCl [Valtrex] 500 mg PO BID 06/11/18 [History] Amino Acids/Protein Hydrolys [Prosource No Carb Liquid Pkt] 30 ml PO BID [History] Bisacodyl [Dulcolax] 10 mg RC Q24H PRN 08/01/18 [History] Dextran 70/Hypromellose [Artificial Tears] 1 drop OP BID 08/01/18 [History] Insulin Lispro [Humalog] 0 unit SQ TIDAC 08/01/18 [History] Lanolin/Min Oil/Petrolatum [Artificial Tears Ointment] 1 gm OP BEDTIME 08/01/18 [History] Mag Hydrox/Al Hydrox/Simeth [Maalox Maximum Strength Susp] 30 ml PO Q1H PRN 06/11 [History] Magnesium Hydroxide [Milk of Magnesia] 30 ml PO DAILY PRN 08/01/18 [History] Multivitamin [Daily Leanne] 1 each PO DAILY 08/01/18 [History] metFORMIN HCl [Glucophage] 1,000 mg PO BID 08/01/18 [History] Tamsulosin HCl [Flomax] 0.4 mg PO BEDTIME 12/04/18 [History] Lifitegrast [Xiidra] 1 each EYERT BID 11/01/19 [History] Non-Formulary Medication [NF Drug] 1 each JIMMY BEDTIME 11/01/19 [History] Past Medical History HEENT History: Reports: Impaired Vision Cardiovascular History: Reports: High Cholesterol, Hypertension Respiratory History: Reports: Other (See Below) Other Respiratory History: pneumonitis Gastrointestinal History: Reports: Other (See Below) Other Gastrointestinal History: . Rectal CA, ostomy bag Genitourinary History: Reports: BPH, Other (See Below) Other Genitourinary History: hx of prostate surgery- polyp removal Musculoskeletal History: Reports: None Neurological History: Reports: TIA, Other (See Below) Other Neuro History: "According to recent MRI results, 4 small areas of past stroke" and mild cognitive impairment. Psychiatric History: Reports: Dementia, Other (See Below) Other Psychiatric History: wandering disease, delusional disorder, auditory hallucinations, visual hallucinations Endocrine/Metabolic History: Reports: Diabetes, Type II Hematologic History: Reports: None Immunologic History: Reports: None Oncologic (Cancer) History: Reports: Other (See Below) Other Oncologic History: neoplasm of rectum, testicular mass Dermatologic History: Reports: None - Infectious Disease History Infectious Disease History: Reports: Chicken Pox Other Infectious Disease History: unable to obtain - Past Surgical History Head Surgeries/Procedures: Reports: None Respiratory Surgical History: Reports: None GI Surgical History: Reports: Colostomy Endocrine Surgical History: Reports: None Musculoskeletal Surgical History: Reports: None Oncologic Surgical History: Reports: None Dermatological Surgical History: Reports: None Social & Family History - Family History Family Medical History: Noncontributory - Tobacco Use Smoking Status *Q: Never Smoker - Caffeine Use Caffeine Use: Reports: None - Recreational Drug Use Recreational Drug Use: No H&P Review of Systems - Review of Systems: Review Of Systems: See Below General: Reports: Fever, Weakness. Denies: Chills, Malaise Pulmonary: Denies: Shortness of Breath, Wheezing Cardiovascular: Denies: Chest Pain, Palpitations, Dyspnea on Exertion Gastrointestinal: Denies: Abdominal Pain, Anorexia Genitourinary: Denies: Dysuria, Frequency, Burning Musculoskeletal: Denies: Neck Pain, Shoulder Pain Skin: Denies: Cyanosis, Jaundice, Mottled Psychiatric: Denies: Confusion, Depression Exam - Exam Exam: See Below - Vital Signs Vital Signs: Last Vital Signs Temp 35.9 C 11/01/19 11:30 Pulse 71 11/01/19 11:30 Resp 18 11/01/19 11:30 BP 122/56 L 11/01/19 11:30 Pulse Ox 95 11/01/19 11:30 - Exam Quality Assessment: Supplemental Oxygen General: Alert, Oriented, Cooperative HEENT: Conjunctiva Clear Neck: Supple, Trachea Midline Lungs: Clear to Auscultation, Normal Respiratory Effort Cardiovascular: Regular Rate, Regular Rhythm GI/Abdominal Exam: Soft, Non-Tender Peripheral Pulses: 3+: Dorsalis Pedis (L), Dorsalis Pedis (R) Skin: Decubitis - Patient Data Lab Results Last 24 hrs: Laboratory Results - last 24 hr 11/01/19 11/01/19 11/01/19 Range/Units 09:44 09:44 09:44 WBC 11.40 H (4.0-11.0) K/uL RBC 3.93 L (4.50-5.90) M/uL Hgb 11.7 L (13.0-17.0) g/dL Hct 36.1 L (38.0-50.0) % MCV 91.9 (80.0-98.0) fL MCH 29.8 (27.0-32.0) pg MCHC 32.4 (31.0-37.0) g/dL RDW Std Deviation 45.6 (28.0-62.0) fl RDW Coeff of Danilo 14 (11.0-15.0) % Plt Count 397 (150-400) K/uL MPV 9.80 (7.40-12.00) fL Neut % (Auto) 75.6 (48.0-80.0) % Lymph % (Auto) 10.9 L (16.0-40.0) % Cavalier % (Auto) 12.5 (0.0-15.0) % Eos % (Auto) 0.6 (0.0-7.0) % Baso % (Auto) 0.4 (0.0-1.5) % Neut # (Auto) 8.6 H (1.4-5.7) K/uL Lymph # (Auto) 1.2 (0.6-2.4) K/uL [place]alier # (Auto) 1.4 H (0.0-0.8) K/uL Eos # (Auto) 0.1 (0.0-0.7) K/uL Baso # (Auto) 0.0 (0.0-0.1) K/uL Nucleated RBC % 0.0 /100WBC Nucleated RBCs # 0 K/uL Lactate 0.8 (0.20-2.00) mmol/L Sodium 143 (136-148) mmol/L Potassium 3.3 L (3.5-5.1) mmol/L Chloride 104 (98-107) mmol/L Carbon Dioxide 30.0 (21.0-32.0) mmol/L BUN 22 H (7.0-18.0) mg/dL Creatinine 1.0 (0.8-1.3) mg/dL Est Cr Clr Drug Dosing TNP Estimated GFR (MDRD) > 60.0 ml/min Glucose 127 H (74-106) mg/dL Calcium 8.6 (8.5-10.1) mg/dL Total Bilirubin 0.4 (0.2-1.0) mg/dL AST 23 (15-37) IU/L ALT 42 (14-63) IU/L Alkaline Phosphatase 104 (46-116) U/L Total Protein 6.7 (6.4-8.2) g/dL Albumin 2.3 L (3.4-5.0) g/dL Globulin 4.4 H (2.6-4.0) g/dL Albumin/Globulin Ratio 0.5 L (0.9-1.6) Urine Color Urine Appearance Urine pH (5.0-8.0) Ur Specific [place] (1.001-1.035) Urine Protein (NEGATIVE) mg/dL Urine Glucose (UA) (NEGATIVE) mg/dL Urine Ketones (NEGATIVE) mg/dL Urine Occult Blood (NEGATIVE) Urine Nitrite (NEGATIVE) Urine Bilirubin (NEGATIVE) Urine Urobilinogen (<2.0) EU/dL Ur Leukocyte Esterase (NEGATIVE) Urine RBC (0-2/HPF) Urine WBC (0-5/HPF) Ur Epithelial Cells (NONE-FEW) Urine Bacteria (NEGATIVE) 11/01/19 Range/Units 11:26 WBC (4.0-11.0) K/uL RBC (4.50-5.90) M/uL Hgb (13.0-17.0) g/dL Hct (38.0-50.0) % MCV (80.0-98.0) fL MCH (27.0-32.0) pg MCHC (31.0-37.0) g/dL RDW Std Deviation (28.0-62.0) fl RDW Coeff of Danilo (11.0-15.0) % Plt Count (150-400) K/uL MPV (7.40-12.00) fL Neut % (Auto) (48.0-80.0) % Lymph % (Auto) (16.0-40.0) % Cavalier % (Auto) (0.0-15.0) % Eos % (Auto) (0.0-7.0) % Baso % (Auto) (0.0-1.5) % Neut # (Auto) (1.4-5.7) K/uL Lymph # (Auto) (0.6-2.4) K/uL [place]ier # (Auto) (0.0-0.8) K/uL Eos # (Auto) (0.0-0.7) K/uL Baso # (Auto) (0.0-0.1) K/uL Nucleated RBC % /100WBC Nucleated RBCs # K/uL Lactate (0.20-2.00) mmol/L Sodium (136-148) mmol/L Potassium (3.5-5.1) mmol/L Chloride (98-107) mmol/L Carbon Dioxide (21.0-32.0) mmol/L BUN (7.0-18.0) mg/dL Creatinine (0.8-1.3) mg/dL Est Cr Clr Drug Dosing Estimated GFR (MDRD) ml/min Glucose (74-106) mg/dL Calcium (8.5-10.1) mg/dL Total Bilirubin (0.2-1.0) mg/dL AST (15-37) IU/L ALT (14-63) IU/L Alkaline Phosphatase (46-116) U/L Total Protein (6.4-8.2) g/dL Albumin (3.4-5.0) g/dL Globulin (2.6-4.0) g/dL Albumin/Globulin Ratio (0.9-1.6) Urine Color YELLOW Urine Appearance SLT CLOUDY Urine pH 6.0 (5.0-8.0) Ur Specific [place] 1.010 (1.001-1.035) Urine Protein NEGATIVE (NEGATIVE) mg/dL Urine Glucose (UA) NEGATIVE (NEGATIVE) mg/dL Urine Ketones NEGATIVE (NEGATIVE) mg/dL Urine Occult Blood TRACE-INTACT H (NEGATIVE) Urine Nitrite NEGATIVE (NEGATIVE) Urine Bilirubin NEGATIVE (NEGATIVE) Urine Urobilinogen 0.2 (<2.0) EU/dL Ur Leukocyte Esterase LARGE H (NEGATIVE) Urine RBC 0-3 (0-2/HPF) Urine WBC 50-60 (0-5/HPF) Ur Epithelial Cells FEW (NONE-FEW) Urine Bacteria 3+ H (NEGATIVE) Result Diagrams: 11/01/19 09:44 11/01/19 09:44 - Problem List (1) Osteomyelitis SNOMED Code(s): 57607520 ICD Code: M86.9 - OSTEOMYELITIS, UNSPECIFIED Status: Acute Current Visit : Yes (2) Pressure sore SNOMED Code(s): 922174829 ICD Code: L89.90 - PRESSURE ULCER OF UNSPECIFIED SITE, UNSPECIFIED STAGE Status: Acute Current Visit: Yes (3) Colostomy complication, unspecified SNOMED Code(s): 78965837767992 ICD Code: K94.00 - COLOSTOMY COMPLICATION, UNSPECIFIED Status: Acute Current Visit: No (4) Lewy body disease SNOMED Code(s): 311486467 ICD Code: G31.83 - DEMENTIA WITH LEWY BODIES; F02.80 - DEMENTIA IN OTH DISEASES CLASSD ELSWHR W/O BEHAVRL DISTURB Status: Acute Current Visit: No (5) UTI (urinary tract infection) SNOMED Code(s): 64028816 ICD Code: N39.0 - URINARY TRACT INFECTION, SITE NOT SPECIFIED Status: Acute Current Visit: Yes (6) Hydronephrosis SNOMED Code(s): 65405339 ICD Code: N13.30 - UNSPECIFIED HYDRONEPHROSIS Status: Acute Current Visit : Yes Problem List Initiated/Reviewed/Updated: Yes Orders Last 24hrs: Active Orders 24 hr Category Date Time Status Patient Status [ADT] Stat ADT 11/01/19 11:13 Active Notify Provider Consults [RC] ASDIRECTED Care 11/01/19 11:15 Active Oxygen Therapy [RC] PRN Care 11/01/19 12:38 Active RT Aerosol Therapy [RC] ASDIRECTED Care 11/01/19 12:39 Active VTE/DVT Education [RC] PER UNIT ROUTINE Care 11/01/19 12:38 Active Vital Signs [RC] Q4H Care 11/01/19 12:38 Active Consult to Physician [CONS] Stat Cons 11/01/19 11:15 Active CULTURE BLOOD [BC] Stat Lab 11/01/19 09:44 Received CULTURE BLOOD [BC] Stat Lab 11/01/19 10:04 Received CULTURE URINE [RM] Stat Lab 11/01/19 11:26 Received CULTURE WOUND [RM] Stat Lab 11/01/19 10:02 Received Acetaminophen Med 11/01/19 14:00 Ordered 650 mg PO TID Albuterol/Ipratropium [DuoNeb 3.0-0.5 MG/3 ML] Med 11/01/19 12:38 Active 3 ml NEB Q4HRRT PRN Amino Acids/Protein Hydrolys [Prosource No Carb Liquid Med 11/01/19 21:00 Ordered Pkt] 30 ml PO BID Aspirin Med 11/02/19 09:00 Ordered 81 mg PO DAILY Bisacodyl [Dulcolax] Med 11/01/19 12:41 Ordered 10 mg RECTAL Q24H PRN Dextran 70/Hypromellose [Artificial Tears] Med 11/01/19 21:00 Ordered 1 drop OP BID Heparin Sodium Med 11/01/19 12:45 Active 5,000 units SUBCUT Q8H Insulin Glarg,Human.Rec.Analog Med 11/01/19 21:00 Ordered 15 units SQ BEDTIME Lanolin/Min Oil/Petrolatum Med 11/01/19 21:00 Ordered 1 gm OP BEDTIME Levothyroxine Med 11/02/19 07:30 Ordered 25 mcg PO ACBREAKFAST Lifitegrast [Xiidra] Med 11/01/19 21:00 Ordered 1 each EYERT BID Mag Hydrox/Al Hydrox/Simeth [Maalox Maximum Strength Med 11/01/19 12:41 Ordered Susp] 30 ml PO Q1H PRN Magnesium Hydroxide [Milk of Magnesia] Med 11/01/19 12:41 Ordered 30 ml PO DAILY PRN Multivitamins [Tab-A-Leanne] Med 11/02/19 09:00 Ordered 1 each PO DAILY Pharmacy to Dose - Vancomycin Med 11/01/19 12:45 Ordered 1 dose .XX ASDIRECTED Prednisolone Acetate/Pf [Prednisolone Acet 1% Eye Drop] Med 11/01/19 21:00 Ordered 1 drop EYELF BID Propranolol HCl [Inderal LA] Med 11/01/19 21:00 Ordered 160 mg PO BEDTIME QUEtiapine [SEROqueL] Med 11/01/19 21:00 Ordered 100 mg PO BID Rivastigmine [Exelon] Med 11/02/19 09:00 Ordered 13.3 mg TRDERM DAILY Sodium Chloride 0.9% [Saline Flush] Med 11/01/19 09:26 Active 10 ml FLUSH ASDIRECTED PRN Sodium Chloride 0.9% [Saline Flush] Med 11/01/19 09:26 Active 2.5 ml FLUSH ASDIRECTED PRN Tamsulosin [Flomax] Med 11/01/19 21:00 Ordered 0.4 mg PO BEDTIME amLODIPine [Norvasc] Med 11/02/19 09:00 Ordered 5 mg PO DAILY atorvaSTATin [Lipitor] Med 11/01/19 21:00 Ordered 40 mg PO BEDTIME cefTRIAXone [Rocephin in Dextrose,Iso-Osm 1 GM/50 ML] 1 Med 11/02/19 12:45 Active gm Premix Bag 1 bag IV Q24H Blood Culture x2 Reflex Set [OM.PC] Stat Oth 11/01/19 09:26 Ordered Saline Lock Insert [OM.PC] Stat Oth 11/01/19 09:26 Ordered Medication Orders Albuterol/Ipratropium (Duoneb 3.0-0.5 Mg/3 Ml) 3 ml NEB Q4HRRT PRN PRN Reason: Shortness Of Breath/wheezing Heparin Sodium (Porcine) (Heparin Sodium) 5,000 units SUBCUT Q8H ELVIS Ceftriaxone Sodium/Dextrose 1 (gm/ Premix) 50 mls @ 100 mls/hr IV Q24H ELVIS Sodium Chloride (Saline Flush) 10 ml FLUSH ASDIRECTED PRN PRN Reason: Keep Vein Open Last Admin: 11/01/19 09:50 Dose: 10 ml Sodium Chloride (Saline Flush) 2.5 ml FLUSH ASDIRECTED PRN PRN Reason: Keep Vein Open Last Admin: 11/01/19 09:50 Dose: 2.5 ml Vancomycin HCl (Pharmacy To Dose - Vancomycin) 1 dose .XX ASDIRECTED [facility] Assessment/Plan Comment:: 84 y/o M comes in for evaluation of Fever, Found to have Osteomyelitis of scrum on CT A/P UA significant for UTI On appropriate IV antibiotics, will continue Surgery on-board, input appreciated Daily dressing changes, frequent repositioning f/u on blood cultures 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
[2019-11-01] MEDS: Heparin Sodium 5,000 Units/ML Vial SUBCUT SCH ×2 (13:40→22:12)
[2019-11-01] MEDS: Acetaminophen 325 MG Tab PO SCH ×2 (13:41→22:11)
[2019-11-01] MEDS ORDERED: VANCOMYCIN/WATER FOR INJ (PEG) 1.5 GM in Premix Bag 1 BAG IV SCH (14:15)
[2019-11-01] MEDS: Insulin Aspart 100 Units/ML 3 ML Pen SUBCUT SCH (18:15)
[2019-11-01] MEDS: Propranolol 80 MG Cap.ER PO SCH (22:09)
[2019-11-01] MEDS: atorvaSTATin 40 MG Tab PO SCH (22:10)
[2019-11-01] MEDS: QUEtiapine 100 MG Tab PO SCH (22:10)
[2019-11-01] MEDS: Tamsulosin 0.4 MG Cap.ER PO SCH (22:11)
[2019-11-01] MEDS: Carboxymethylcellulose Sodium 0.5% Ophth Soln 0.4 ML UD Box of 30 EYEBOTH SCH (22:12)
[2019-11-01] MEDS: Insulin Glargine,Human Rec. Analog 100 Units/ML 3 ML Pen SUBCUT SCH (22:13)
[2019-11-01] MEDS: Prednisolone Acetate/Pf [Prednisolone Acet 1% Eye Drop] EYELF SCH (22:22)
[2019-11-01] MEDS: PROTEIN HYDROLYS PO SCH (22:23)
[2019-11-01] MEDS: LANOLIN EYEBOTH SCH (22:23)
[2019-11-01] MEDS: AMINO ACIDS PO SCH (22:23)
[2019-11-01] MEDS: Lifitegrast [Xiidra] EYERT SCH (22:23)
[2019-11-01] MEDS: MIN OIL EYEBOTH SCH (22:23)
[2019-11-01] MEDS: PETROLATUM EYEBOTH SCH (22:23)
[2019-11-02] MEDS: VANCOMYCIN/WATER FOR INJ (PEG) 1.5 GM in Premix Bag 1 BAG IV SCH ×2 (00:31→11:32)
[2019-11-02] MEDS: Acetaminophen 325 MG Tab PO SCH ×3 (05:27→22:10)
[2019-11-02] MEDS: Heparin Sodium 5,000 Units/ML Vial SUBCUT SCH ×3 (05:28→22:18)
[2019-11-02 06:25] LABS: BLOOD UREA NITROGEN,BUN 14 mg/dL (7.0-18.0); CARBON DIOXIDE,CO2 29.5 mmol/L (21.0-32.0); CHLORIDE,CL 105 mmol/L (98-107); GLUCOSE RANDOM 101 mg/dL (74-106); POTASSIUM,K 3.6 mmol/L (3.5-5.1); SODIUM,NA 144 mmol/L (136-148)
[2019-11-02] MEDS: Insulin Aspart 100 Units/ML 3 ML Pen SUBCUT SCH ×3 (06:30→17:04)
[2019-11-02] MEDS: Levothyroxine 25 MCG Tab PO SCH (06:34)
[2019-11-02] MEDS ORDERED: Magnesium Sulfate/Water 4 GM in Premix Bag 1 BAG IV ONE (08:10)
--- NOTE | 2019-11-02 08:36 | PCM.CONSN ---
- General Info Date of Service: 11/02/19 Functional Status: Reports: Pain Controlled, Tolerating Diet, Ambulating - Review of Systems General: Reports: No Symptoms HEENT: Reports: No Symptoms Pulmonary: Reports: No Symptoms Cardiovascular: Reports: No Symptoms Gastrointestinal: Reports: No Symptoms Genitourinary: Reports: No Symptoms - Patient Data Vitals - Most Recent: Last Vital Signs Temp 36.8 C 11/02/19 04:00 Pulse 67 11/02/19 04:00 Resp 15 11/02/19 04:00 BP 120/59 L 11/02/19 04:00 Pulse Ox 92 L 11/02/19 04:00 Weight - Most Recent: 95.5 kg I&O - Last 24 Hours: Intake & Output 11/01/19 11/02/19 11/02/19 22:59 06:59 14:59 Intake Total 200 512 Output Total 1573 Balance 200 -1061 Lab Results Last 24 Hours: Laboratory Results - last 24 hr 11/01/19 11/01/19 11/01/19 Range/Units 09:44 09:44 09:44 WBC 11.40 H (4.0-11.0) K/uL RBC 3.93 L (4.50-5.90) M/uL Hgb 11.7 L (13.0-17.0) g/dL Hct 36.1 L (38.0-50.0) % MCV 91.9 (80.0-98.0) fL MCH 29.8 (27.0-32.0) pg MCHC 32.4 (31.0-37.0) g/dL RDW Std Deviation 45.6 (28.0-62.0) fl RDW Coeff of Danilo 14 (11.0-15.0) % Plt Count 397 (150-400) K/uL MPV 9.80 (7.40-12.00) fL Neut % (Auto) 75.6 (48.0-80.0) % Lymph % (Auto) 10.9 L (16.0-40.0) % [place] % (Auto) 12.5 (0.0-15.0) % Eos % (Auto) 0.6 (0.0-7.0) % Baso % (Auto) 0.4 (0.0-1.5) % Neut # (Auto) 8.6 H (1.4-5.7) K/uL Lymph # (Auto) 1.2 (0.6-2.4) K/uL [place] # (Auto) 1.4 H (0.0-0.8) K/uL Eos # (Auto) 0.1 (0.0-0.7) K/uL Baso # (Auto) 0.0 (0.0-0.1) K/uL Nucleated RBC % 0.0 /100WBC Nucleated RBCs # 0 K/uL Lactate 0.8 (0.20-2.00) mmol/L Sodium 143 (136-148) mmol/L Potassium 3.3 L (3.5-5.1) mmol/L Chloride 104 (98-107) mmol/L Carbon Dioxide 30.0 (21.0-32.0) mmol/L BUN 22 H (7.0-18.0) mg/dL Creatinine 1.0 (0.8-1.3) mg/dL Est Cr Clr Drug Dosing TNP Estimated GFR (MDRD) > 60.0 ml/min Glucose 127 H (74-106) mg/dL POC Glucose (60-110) mg/dL Calcium 8.6 (8.5-10.1) mg/dL Phosphorus (2.6-4.7) mg/dL Magnesium (1.8-2.4) mg/dL Total Bilirubin 0.4 (0.2-1.0) mg/dL AST 23 (15-37) IU/L ALT 42 (14-63) IU/L Alkaline Phosphatase 104 (46-116) U/L Total Protein 6.7 (6.4-8.2) g/dL Albumin 2.3 L (3.4-5.0) g/dL Globulin 4.4 H (2.6-4.0) g/dL Albumin/Globulin Ratio 0.5 L (0.9-1.6) PSA Screen (0.05-4.00) ng/mL Urine Color Urine Appearance Urine pH (5.0-8.0) Ur Specific [place] (1.001-1.035) Urine Protein (NEGATIVE) mg/dL Urine Glucose (UA) (NEGATIVE) mg/dL Urine Ketones (NEGATIVE) mg/dL Urine Occult Blood (NEGATIVE) Urine Nitrite (NEGATIVE) Urine Bilirubin (NEGATIVE) Urine Urobilinogen (<2.0) EU/dL Ur Leukocyte Esterase (NEGATIVE) Urine RBC (0-2/HPF) Urine WBC (0-5/HPF) Ur Epithelial Cells (NONE-FEW) Urine Bacteria (NEGATIVE) 11/01/19 11/01/19 11/01/19 Range/Units 11:26 17:18 22:07 WBC (4.0-11.0) K/uL RBC (4.50-5.90) M/uL Hgb (13.0-17.0) g/dL Hct (38.0-50.0) % MCV (80.0-98.0) fL MCH (27.0-32.0) pg MCHC (31.0-37.0) g/dL RDW Std Deviation (28.0-62.0) fl RDW Coeff of Danilo (11.0-15.0) % Plt Count (150-400) K/uL MPV (7.40-12.00) fL Neut % (Auto) (48.0-80.0) % Lymph % (Auto) (16.0-40.0) % [place] % (Auto) (0.0-15.0) % Eos % (Auto) (0.0-7.0) % Baso % (Auto) (0.0-1.5) % Neut # (Auto) (1.4-5.7) K/uL Lymph # (Auto) (0.6-2.4) K/uL [place] # (Auto) (0.0-0.8) K/uL Eos # (Auto) (0.0-0.7) K/uL Baso # (Auto) (0.0-0.1) K/uL Nucleated RBC % /100WBC Nucleated RBCs # K/uL Lactate (0.20-2.00) mmol/L Sodium (136-148) mmol/L Potassium (3.5-5.1) mmol/L Chloride (98-107) mmol/L Carbon Dioxide (21.0-32.0) mmol/L BUN (7.0-18.0) mg/dL Creatinine (0.8-1.3) mg/dL Est Cr Clr Drug Dosing Estimated GFR (MDRD) ml/min Glucose (74-106) mg/dL POC Glucose 80 99 (60-110) mg/dL Calcium (8.5-10.1) mg/dL Phosphorus (2.6-4.7) mg/dL Magnesium (1.8-2.4) mg/dL Total Bilirubin (0.2-1.0) mg/dL AST (15-37) IU/L ALT (14-63) IU/L Alkaline Phosphatase (46-116) U/L Total Protein (6.4-8.2) g/dL Albumin (3.4-5.0) g/dL Globulin (2.6-4.0) g/dL Albumin/Globulin Ratio (0.9-1.6) PSA Screen (0.05-4.00) ng/mL Urine Color YELLOW Urine Appearance SLT CLOUDY Urine pH 6.0 (5.0-8.0) Ur Specific [place] 1.010 (1.001-1.035) Urine Protein NEGATIVE (NEGATIVE) mg/dL Urine Glucose (UA) NEGATIVE (NEGATIVE) mg/dL Urine Ketones NEGATIVE (NEGATIVE) mg/dL Urine Occult Blood TRACE-INTACT H (NEGATIVE) Urine Nitrite NEGATIVE (NEGATIVE) Urine Bilirubin NEGATIVE (NEGATIVE) Urine Urobilinogen 0.2 (<2.0) EU/dL Ur Leukocyte Esterase LARGE H (NEGATIVE) Urine RBC 0-3 (0-2/HPF) Urine WBC 50-60 (0-5/HPF) Ur Epithelial Cells FEW (NONE-FEW) Urine Bacteria 3+ H (NEGATIVE) 11/02/19 11/02/19 11/02/19 Range/Units 06:00 06:00 06:00 WBC 11.25 H (4.0-11.0) K/uL RBC 3.78 L (4.50-5.90) M/uL Hgb 11.2 L (13.0-17.0) g/dL Hct 35.5 L (38.0-50.0) % MCV 93.9 (80.0-98.0) fL MCH 29.6 (27.0-32.0) pg MCHC 31.5 (31.0-37.0) g/dL RDW Std Deviation 47.3 (28.0-62.0) fl RDW Coeff of Danilo 14 (11.0-15.0) % Plt Count 378 (150-400) K/uL MPV 9.80 (7.40-12.00) fL Neut % (Auto) 74.8 (48.0-80.0) % Lymph % (Auto) 11.6 L (16.0-40.0) % [place] % (Auto) 11.7 (0.0-15.0) % Eos % (Auto) 1.5 (0.0-7.0) % Baso % (Auto) 0.4 (0.0-1.5) % Neut # (Auto) 8.4 H (1.4-5.7) K/uL Lymph # (Auto) 1.3 (0.6-2.4) K/uL [place] # (Auto) 1.3 H (0.0-0.8) K/uL Eos # (Auto) 0.2 (0.0-0.7) K/uL Baso # (Auto) 0.0 (0.0-0.1) K/uL Nucleated RBC % 0.0 /100WBC Nucleated RBCs # 0 K/uL Lactate (0.20-2.00) mmol/L Sodium 144 (136-148) mmol/L Potassium 3.6 (3.5-5.1) mmol/L Chloride 105 (98-107) mmol/L Carbon Dioxide 29.5 (21.0-32.0) mmol/L BUN 14 (7.0-18.0) mg/dL Creatinine 0.9 (0.8-1.3) mg/dL Est Cr Clr Drug Dosing 69.46 Estimated GFR (MDRD) > 60.0 ml/min Glucose 101 (74-106) mg/dL POC Glucose (60-110) mg/dL Calcium 8.5 (8.5-10.1) mg/dL Phosphorus 3.3 (2.6-4.7) mg/dL Magnesium 1.5 L (1.8-2.4) mg/dL Total Bilirubin (0.2-1.0) mg/dL AST (15-37) IU/L ALT (14-63) IU/L Alkaline Phosphatase (46-116) U/L Total Protein (6.4-8.2) g/dL Albumin (3.4-5.0) g/dL Globulin (2.6-4.0) g/dL Albumin/Globulin Ratio (0.9-1.6) PSA Screen 1.81 (0.05-4.00) ng/mL Urine Color Urine Appearance Urine pH (5.0-8.0) Ur Specific [place] (1.001-1.035) Urine Protein (NEGATIVE) mg/dL Urine Glucose (UA) (NEGATIVE) mg/dL Urine Ketones (NEGATIVE) mg/dL Urine Occult Blood (NEGATIVE) Urine Nitrite (NEGATIVE) Urine Bilirubin (NEGATIVE) Urine Urobilinogen (<2.0) EU/dL Ur Leukocyte Esterase (NEGATIVE) Urine RBC (0-2/HPF) Urine WBC (0-5/HPF) Ur Epithelial Cells (NONE-FEW) Urine Bacteria (NEGATIVE) 11/02/19 Range/Units 06:04 WBC (4.0-11.0) K/uL RBC (4.50-5.90) M/uL Hgb (13.0-17.0) g/dL Hct (38.0-50.0) % MCV (80.0-98.0) fL MCH (27.0-32.0) pg MCHC (31.0-37.0) g/dL RDW Std Deviation (28.0-62.0) fl RDW Coeff of Danilo (11.0-15.0) % Plt Count (150-400) K/uL MPV (7.40-12.00) fL Neut % (Auto) (48.0-80.0) % Lymph % (Auto) (16.0-40.0) % [place] % (Auto) (0.0-15.0) % Eos % (Auto) (0.0-7.0) % Baso % (Auto) (0.0-1.5) % Neut # (Auto) (1.4-5.7) K/uL Lymph # (Auto) (0.6-2.4) K/uL [place] # (Auto) (0.0-0.8) K/uL Eos # (Auto) (0.0-0.7) K/uL Baso # (Auto) (0.0-0.1) K/uL Nucleated RBC % /100WBC Nucleated RBCs # K/uL Lactate (0.20-2.00) mmol/L Sodium (136-148) mmol/L Potassium (3.5-5.1) mmol/L Chloride (98-107) mmol/L Carbon Dioxide (21.0-32.0) mmol/L BUN (7.0-18.0) mg/dL Creatinine (0.8-1.3) mg/dL Est Cr Clr Drug Dosing Estimated GFR (MDRD) ml/min Glucose (74-106) mg/dL POC Glucose 91 (60-110) mg/dL Calcium (8.5-10.1) mg/dL Phosphorus (2.6-4.7) mg/dL Magnesium (1.8-2.4) mg/dL Total Bilirubin (0.2-1.0) mg/dL AST (15-37) IU/L ALT (14-63) IU/L Alkaline Phosphatase (46-116) U/L Total Protein (6.4-8.2) g/dL Albumin (3.4-5.0) g/dL Globulin (2.6-4.0) g/dL Albumin/Globulin Ratio (0.9-1.6) PSA Screen (0.05-4.00) ng/mL Urine Color Urine Appearance Urine pH (5.0-8.0) Ur Specific [place] (1.001-1.035) Urine Protein (NEGATIVE) mg/dL Urine Glucose (UA) (NEGATIVE) mg/dL Urine Ketones (NEGATIVE) mg/dL Urine Occult Blood (NEGATIVE) Urine Nitrite (NEGATIVE) Urine Bilirubin (NEGATIVE) Urine Urobilinogen (<2.0) EU/dL Ur Leukocyte Esterase (NEGATIVE) Urine RBC (0-2/HPF) Urine WBC (0-5/HPF) Ur Epithelial Cells (NONE-FEW) Urine Bacteria (NEGATIVE) Med Orders - Current: Current Medications Acetaminophen (Tylenol) 650 mg PO TID [facility] Last Admin: 11/02/19 05:27 Dose: 650 mg Al Hydroxide/Mg Hydroxide (Mag-Al Plus) 30 ml PO Q1H PRN PRN Reason: Heartburn Albuterol/Ipratropium (Duoneb 3.0-0.5 Mg/3 Ml) 3 ml NEB Q4HRRT PRN PRN Reason: Shortness Of Breath/wheezing Amlodipine Besylate (Norvasc) 5 mg PO DAILY [facility] Artificial Tears (Refresh Plus 0.5%) 1 each EYEBOTH BID [facility] Last Admin: 11/01/19 22:12 Dose: 1 drop Aspirin (Aspirin) 81 mg PO DAILY [facility] Atorvastatin Calcium (Lipitor) 40 mg PO BEDTIME [facility] Last Admin: 11/01/19 22:10 Dose: 40 mg Bisacodyl (Dulcolax) 10 mg RECTAL Q24H PRN PRN Reason: Constipation Heparin Sodium (Porcine) (Heparin Sodium) 5,000 units SUBCUT Q8H [facility] Last Admin: 11/02/19 05:28 Dose: 5,000 units Vancomycin HCl 1.5 gm/ Premix 300 mls @ 200 mls/hr IV Q12H [facility] Last Admin: 11/02/19 00:31 Dose: 200 mls/hr Magnesium Sulfate 4 gm/ Premix 100 mls @ 50 mls/hr IV ONETIME ONE Stop: 11/02/19 10:09 Ceftriaxone Sodium/Dextrose 2 (gm/ Premix) 50 mls @ 100 mls/hr IV Q24H [facility] Insulin Aspart (Novolog) 0 unit SUBCUT TIDAC [facility]; Protocol Last Admin: 11/02/19 06:30 Dose: Not Given Insulin Glargine (Lantus Solostar) 15 units SUBCUT BEDTIME [facility] Last Admin: 11/01/19 22:13 Dose: 15 units Levothyroxine Sodium (Levothyroxine) 25 mcg PO ACBREAKFAST [facility] Last Admin: 11/02/19 06:34 Dose: 25 mcg Magnesium Hydroxide (Milk Of Magnesia) 30 ml PO DAILY PRN PRN Reason: Constipation Multivitamins/Minerals/Vitamin C (Tab-A-Leanne) 1 tab PO DAILY [facility] Amino Acids/Protein (Hydrolys 30ml) 1 each PO BID [facility] Last Admin: 11/01/19 22:23 Dose: Not Given Lanolin/Min Oil/ (Petrolatum) 1 each EYEBOTH BEDTIME [facility] Last Admin: 11/01/19 22:23 Dose: Not Given Lifitegrast [Xiidra] 1 each EYERT BID [facility] Last Admin: 11/01/19 22:23 Dose: Not Given Prednisolone Acetate /Pf [Prednisolone Acet 1% Eye Drop] 1 each EYELF BID [facility] Last Admin: 11/01/19 22:22 Dose: Not Given Rivastigmine [Exelon (] 13.3 Mg) 1 each TRDERM DAILY [facility] Propranolol HCl (Inderal La) 160 mg PO BEDTIME [facility] Last Admin: 11/01/19 22:09 Dose: 160 mg Quetiapine Fumarate (Seroquel) 100 mg PO BID [facility] Last Admin: 11/01/19 22:10 Dose: 100 mg Sodium Chloride (Saline Flush) 10 ml FLUSH ASDIRECTED PRN PRN Reason: Keep Vein Open Last Admin: 11/01/19 09:50 Dose: 10 ml Sodium Chloride (Saline Flush) 2.5 ml FLUSH ASDIRECTED PRN PRN Reason: Keep Vein Open Last Admin: 11/01/19 09:50 Dose: 2.5 ml Tamsulosin HCl (Flomax) 0.4 mg PO BEDTIME [facility] Last Admin: 11/01/19 22:11 Dose: 0.4 mg Vancomycin HCl (Pharmacy To Dose - Vancomycin) 1 dose .XX ASDIRECTED [facility] Discontinued Medications Sodium Chloride (Normal Saline) 1,000 mls @ 999 mls/hr IV .Bolus ONE Stop: 11/01/19 10:26 Last Infusion: 11/01/19 11:38 Dose: Infused Vancomycin HCl 1 gm/ Sodium (Chloride) 250 mls @ 166 mls/hr IV ONETIME ONE Stop: 11/01/19 12:10 Last Admin: 11/01/19 11:28 Dose: 166 mls/hr Ceftriaxone Sodium/Dextrose 1 (gm/ Premix) 50 mls @ 100 mls/hr IV ONETIME ONE Stop: 11/01/19 12:31 Last Admin: 11/01/19 13:09 Dose: 100 mls/hr Ceftriaxone Sodium/Dextrose (Rocephin In Dextrose,Iso-Osm 1 Gm/50 Ml) Confirm Administered Dose 50 mls @ as directed .ROUTE .STK-MED ONE Stop: 11/01/19 12:04 Last Admin: 11/01/19 13:11 Dose: Not Given Ceftriaxone Sodium/Dextrose 1 (gm/ Premix) 50 mls @ 100 mls/hr IV Q24H [facility] Vancomycin HCl 1.5 gm/ Premix 300 mls @ 200 mls/hr IV Q12H [facility] Last Admin: 11/01/19 14:41 Dose: Not Given Potassium Chloride 40 meq/ (Sodium Chloride) 270 mls @ 67.5 mls/hr IV ONETIME ONE Stop: 11/01/19 18:29 Last Admin: 11/01/19 14:53 Dose: 67.5 mls/hr Iopamidol (Isovue-370 (76%)) 100 ml IVPUSH ONETIME STA Stop: 11/01/19 11:20 Last Admin: 11/01/19 11:22 Dose: 100 ml - Exam General: Alert, Oriented, Cooperative HEENT: Pupils Equal, Pupils Reactive Lungs: Normal Respiratory Effort Cardiovascular: Regular Rate GI/Abdominal Exam: Soft, Non-Tender, No Distention, No Mass Back Exam: Other (Dressing change performed bedside. Dressings have serosanguinous fluid. Faint odor. Wound appears rope cleaner today with no purulent fluid. Size unchanged. No evidence of cellulitis. ) Extremities: Normal Inspection Consult PN Assessment/Plan Procedures: Procedures ASSAY OF CREATININE (10/14/18) ASSAY OF LACTIC ACID (06/11/18) ASSAY OF LIPASE (06/11/18) ASSAY OF MAGNESIUM (01/03/17) ASSAY OF TROPONIN QUANT (08/01/18) ASSAY OF UREA NITROGEN (10/14/18) ASSAY THYROID STIM HORMONE (08/01/18) BLOOD CULTURE FOR BACTERIA (08/01/18) COMPLETE CBC W/AUTO DIFF WBC (12/04/18) COMPREHEN METABOLIC PANEL (12/04/18) CT ABD & PELV 1/> REGNS (06/11/18) CT ABD & PELVIS W/O CONTRAST (08/03/19) CT ABDOMEN W/O DYE (12/05/18) CT HEAD/BRAIN W/O DYE (08/01/18) CT PELVIS W/DYE (10/14/18) CT THORAX W/O DYE (12/05/18) CULTURE OTHR SPECIMN AEROBIC (06/11/18) DRUG TEST PRSMV DIR OPT OBS (08/01/18) ELECTROCARDIOGRAM TRACING (08/01/18) EMERGENCY DEPT VISIT (12/04/18) EMERGENCY DEPT VISIT (08/01/18) EMERGENCY DEPT VISIT (02/28/17) EMERGENCY DEPT VISIT (01/03/17) FREE ASSAY (FT-3) (01/03/17) GLUCOSE BLOOD TEST (08/01/18) HYDRATE IV INFUSION ADD-ON (06/11/18) HYDRATION IV INFUSION INIT (12/04/18) IIV NO PRSV INCREASED AG IM (08/01/18) METABOLIC PANEL TOTAL CA (08/01/18) MRI PELVIS W/O & W/DYE (10/20/18) PROTHROMBIN TIME (08/01/18) ROUTINE VENIPUNCTURE (12/04/18) THER/PROPH/DIAG INJ IV PUSH (08/01/18) THER/PROPH/DIAG INJ SC/IM (08/01/18) TX/PRO/DX INJ NEW DRUG ADDON (08/01/18) URINALYSIS AUTO W/SCOPE (08/01/18) US EXAM SCROTUM (10/20/18) VASCULAR STUDY (10/20/18) X-RAY EXAM CHEST 1 VIEW (08/01/18) X-RAY EXAM CHEST 2 VIEWS (06/11/18) X-RAY EXAM OF SHOULDER (07/02/17) (1) Fever SNOMED Code(s): 674251294 Code(s): R50.9 - FEVER, UNSPECIFIED Current Visit: Yes (2) Pressure sore SNOMED Code(s): 052706991 Code(s): L89.90 - PRESSURE ULCER OF UNSPECIFIED SITE, UNSPECIFIED STAGE Current Visit: Yes (3) Chronic osteomyelitis SNOMED Code(s): 99780801 Code(s): M86.60 - OTHER CHRONIC OSTEOMYELITIS, UNSPECIFIED SITE Current Visit: Yes Problem List Initiated/Reviewed/Updated: Yes My Orders Last 24 Hours: My Active Orders 11/01/19 10:02 CULTURE WOUND [RM] Stat 11/01/19 20:00 Dressing Change [Wound Care] [RC] Q12H Plan: 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 The ulcer has clearly gotten larger and is now caused chronic osteomyelitis. This unhealing wound is likely due to the fact that the area has been radiated in the past, his diabetes, prolonged sitting, as well as decreased protein intake. He has seen a plastic surgeon in the past who recommended conservative therapy given his medical comorbidities making him a high risk surgical candidate. I explained to the patient's family that we will continue wound cares as these appear to be helping. The patient states he is more comfortable this morning and the wound appears to be rope cleaner with some granulation tissue. When it comes to his antibiotic course (type, route, duration) I will leave that up to the medicine team. Will continue packing the wound with dry 1 inch iodoform gauze and covering with dry 4 x 4's. We will change this twice a day. Upon discharge I will have close follow-up with the patient to keep an eye on this wound and ensure that it is becoming smaller. Will continue to follow patient while in house. Please call with questions or concerns.
[2019-11-02] MEDS ORDERED: Magnesium Sulfate/Water 100 ML ONE (09:03)
--- NOTE | 2019-11-02 09:20 | PCM.PN ---
- General Info Date of Service: 11/02/19 Admission Dx/Problem (Free Text): Admission Diagnosis/Problem Admission Diagnosis/Problem Stage 4 sacral ulcer with osteomyelitis. Subjective Update: Reports pain to bottom is better, especially if he doesn't sit on it. No chest pain or SOB. No other concerns. Functional Status: Reports: Pain Controlled, Tolerating Diet, Urinating - Review of Systems HEENT: Reports: No Symptoms. Denies: Headaches, Sore Throat Pulmonary: Reports: No Symptoms. Denies: Shortness of Breath Cardiovascular: Reports: No Symptoms. Denies: Chest Pain Gastrointestinal: Reports: No Symptoms. Denies: Abdominal Pain, Nausea, Vomiting Genitourinary: Reports: No Symptoms Musculoskeletal: Reports: Other (sacral pain from wound) Skin: Reports: No Symptoms Neurological: Reports: No Symptoms Psychiatric: Reports: No Symptoms - Patient Data Vitals - Most Recent: Last Vital Signs Temp 98.3 F 11/02/19 04:00 Pulse 67 11/02/19 04:00 Resp 15 11/02/19 04:00 BP 120/59 L 11/02/19 04:00 Pulse Ox 92 L 11/02/19 04:00 Weight - Most Recent: 95.5 kg I&O - Last 24 Hours: Intake & Output 11/01/19 11/02/19 11/02/19 22:59 06:59 14:59 Intake Total 200 512 Output Total 1573 Balance 200 -1061 Lab Results Last 24 Hours: Laboratory Results - last 24 hr 11/01/19 11/01/19 11/01/19 Range/Units 09:44 09:44 09:44 WBC 11.40 H (4.0-11.0) K/uL RBC 3.93 L (4.50-5.90) M/uL Hgb 11.7 L (13.0-17.0) g/dL Hct 36.1 L (38.0-50.0) % MCV 91.9 (80.0-98.0) fL MCH 29.8 (27.0-32.0) pg MCHC 32.4 (31.0-37.0) g/dL RDW Std Deviation 45.6 (28.0-62.0) fl RDW Coeff of Danilo 14 (11.0-15.0) % Plt Count 397 (150-400) K/uL MPV 9.80 (7.40-12.00) fL Neut % (Auto) 75.6 (48.0-80.0) % Lymph % (Auto) 10.9 L (16.0-40.0) % [place] % (Auto) 12.5 (0.0-15.0) % Eos % (Auto) 0.6 (0.0-7.0) % Baso % (Auto) 0.4 (0.0-1.5) % Neut # (Auto) 8.6 H (1.4-5.7) K/uL Lymph # (Auto) 1.2 (0.6-2.4) K/uL [place] # (Auto) 1.4 H (0.0-0.8) K/uL Eos # (Auto) 0.1 (0.0-0.7) K/uL Baso # (Auto) 0.0 (0.0-0.1) K/uL Nucleated RBC % 0.0 /100WBC Nucleated RBCs # 0 K/uL Lactate 0.8 (0.20-2.00) mmol/L Sodium 143 (136-148) mmol/L Potassium 3.3 L (3.5-5.1) mmol/L Chloride 104 (98-107) mmol/L Carbon Dioxide 30.0 (21.0-32.0) mmol/L BUN 22 H (7.0-18.0) mg/dL Creatinine 1.0 (0.8-1.3) mg/dL Est Cr Clr Drug Dosing TNP Estimated GFR (MDRD) > 60.0 ml/min Glucose 127 H (74-106) mg/dL POC Glucose (60-110) mg/dL Calcium 8.6 (8.5-10.1) mg/dL Phosphorus (2.6-4.7) mg/dL Magnesium (1.8-2.4) mg/dL Total Bilirubin 0.4 (0.2-1.0) mg/dL AST 23 (15-37) IU/L ALT 42 (14-63) IU/L Alkaline Phosphatase 104 (46-116) U/L Total Protein 6.7 (6.4-8.2) g/dL Albumin 2.3 L (3.4-5.0) g/dL Globulin 4.4 H (2.6-4.0) g/dL Albumin/Globulin Ratio 0.5 L (0.9-1.6) PSA Screen (0.05-4.00) ng/mL Urine Color Urine Appearance Urine pH (5.0-8.0) Ur Specific [place] (1.001-1.035) Urine Protein (NEGATIVE) mg/dL Urine Glucose (UA) (NEGATIVE) mg/dL Urine Ketones (NEGATIVE) mg/dL Urine Occult Blood (NEGATIVE) Urine Nitrite (NEGATIVE) Urine Bilirubin (NEGATIVE) Urine Urobilinogen (<2.0) EU/dL Ur Leukocyte Esterase (NEGATIVE) Urine RBC (0-2/HPF) Urine WBC (0-5/HPF) Ur Epithelial Cells (NONE-FEW) Urine Bacteria (NEGATIVE) 11/01/19 11/01/19 11/01/19 Range/Units 11:26 17:18 22:07 WBC (4.0-11.0) K/uL RBC (4.50-5.90) M/uL Hgb (13.0-17.0) g/dL Hct (38.0-50.0) % MCV (80.0-98.0) fL MCH (27.0-32.0) pg MCHC (31.0-37.0) g/dL RDW Std Deviation (28.0-62.0) fl RDW Coeff of Danilo (11.0-15.0) % Plt Count (150-400) K/uL MPV (7.40-12.00) fL Neut % (Auto) (48.0-80.0) % Lymph % (Auto) (16.0-40.0) % [place] % (Auto) (0.0-15.0) % Eos % (Auto) (0.0-7.0) % Baso % (Auto) (0.0-1.5) % Neut # (Auto) (1.4-5.7) K/uL Lymph # (Auto) (0.6-2.4) K/uL [place] # (Auto) (0.0-0.8) K/uL Eos # (Auto) (0.0-0.7) K/uL Baso # (Auto) (0.0-0.1) K/uL Nucleated RBC % /100WBC Nucleated RBCs # K/uL Lactate (0.20-2.00) mmol/L Sodium (136-148) mmol/L Potassium (3.5-5.1) mmol/L Chloride (98-107) mmol/L Carbon Dioxide (21.0-32.0) mmol/L BUN (7.0-18.0) mg/dL Creatinine (0.8-1.3) mg/dL Est Cr Clr Drug Dosing Estimated GFR (MDRD) ml/min Glucose (74-106) mg/dL POC Glucose 80 99 (60-110) mg/dL Calcium (8.5-10.1) mg/dL Phosphorus (2.6-4.7) mg/dL Magnesium (1.8-2.4) mg/dL Total Bilirubin (0.2-1.0) mg/dL AST (15-37) IU/L ALT (14-63) IU/L Alkaline Phosphatase (46-116) U/L Total Protein (6.4-8.2) g/dL Albumin (3.4-5.0) g/dL Globulin (2.6-4.0) g/dL Albumin/Globulin Ratio (0.9-1.6) PSA Screen (0.05-4.00) ng/mL Urine Color YELLOW Urine Appearance SLT CLOUDY Urine pH 6.0 (5.0-8.0) Ur Specific [place] 1.010 (1.001-1.035) Urine Protein NEGATIVE (NEGATIVE) mg/dL Urine Glucose (UA) NEGATIVE (NEGATIVE) mg/dL Urine Ketones NEGATIVE (NEGATIVE) mg/dL Urine Occult Blood TRACE-INTACT H (NEGATIVE) Urine Nitrite NEGATIVE (NEGATIVE) Urine Bilirubin NEGATIVE (NEGATIVE) Urine Urobilinogen 0.2 (<2.0) EU/dL Ur Leukocyte Esterase LARGE H (NEGATIVE) Urine RBC 0-3 (0-2/HPF) Urine WBC 50-60 (0-5/HPF) Ur Epithelial Cells FEW (NONE-FEW) Urine Bacteria 3+ H (NEGATIVE) 11/02/19 11/02/19 11/02/19 Range/Units 06:00 06:00 06:00 WBC 11.25 H (4.0-11.0) K/uL RBC 3.78 L (4.50-5.90) M/uL Hgb 11.2 L (13.0-17.0) g/dL Hct 35.5 L (38.0-50.0) % MCV 93.9 (80.0-98.0) fL MCH 29.6 (27.0-32.0) pg MCHC 31.5 (31.0-37.0) g/dL RDW Std Deviation 47.3 (28.0-62.0) fl RDW Coeff of Danilo 14 (11.0-15.0) % Plt Count 378 (150-400) K/uL MPV 9.80 (7.40-12.00) fL Neut % (Auto) 74.8 (48.0-80.0) % Lymph % (Auto) 11.6 L (16.0-40.0) % [place] % (Auto) 11.7 (0.0-15.0) % Eos % (Auto) 1.5 (0.0-7.0) % Baso % (Auto) 0.4 (0.0-1.5) % Neut # (Auto) 8.4 H (1.4-5.7) K/uL Lymph # (Auto) 1.3 (0.6-2.4) K/uL [place] # (Auto) 1.3 H (0.0-0.8) K/uL Eos # (Auto) 0.2 (0.0-0.7) K/uL Baso # (Auto) 0.0 (0.0-0.1) K/uL Nucleated RBC % 0.0 /100WBC Nucleated RBCs # 0 K/uL Lactate (0.20-2.00) mmol/L Sodium 144 (136-148) mmol/L Potassium 3.6 (3.5-5.1) mmol/L Chloride 105 (98-107) mmol/L Carbon Dioxide 29.5 (21.0-32.0) mmol/L BUN 14 (7.0-18.0) mg/dL Creatinine 0.9 (0.8-1.3) mg/dL Est Cr Clr Drug Dosing 69.46 Estimated GFR (MDRD) > 60.0 ml/min Glucose 101 (74-106) mg/dL POC Glucose (60-110) mg/dL Calcium 8.5 (8.5-10.1) mg/dL Phosphorus 3.3 (2.6-4.7) mg/dL Magnesium 1.5 L (1.8-2.4) mg/dL Total Bilirubin (0.2-1.0) mg/dL AST (15-37) IU/L ALT (14-63) IU/L Alkaline Phosphatase (46-116) U/L Total Protein (6.4-8.2) g/dL Albumin (3.4-5.0) g/dL Globulin (2.6-4.0) g/dL Albumin/Globulin Ratio (0.9-1.6) PSA Screen 1.81 (0.05-4.00) ng/mL Urine Color Urine Appearance Urine pH (5.0-8.0) Ur Specific [place] (1.001-1.035) Urine Protein (NEGATIVE) mg/dL Urine Glucose (UA) (NEGATIVE) mg/dL Urine Ketones (NEGATIVE) mg/dL Urine Occult Blood (NEGATIVE) Urine Nitrite (NEGATIVE) Urine Bilirubin (NEGATIVE) Urine Urobilinogen (<2.0) EU/dL Ur Leukocyte Esterase (NEGATIVE) Urine RBC (0-2/HPF) Urine WBC (0-5/HPF) Ur Epithelial Cells (NONE-FEW) Urine Bacteria (NEGATIVE) 11/02/19 Range/Units 06:04 WBC (4.0-11.0) K/uL RBC (4.50-5.90) M/uL Hgb (13.0-17.0) g/dL Hct (38.0-50.0) % MCV (80.0-98.0) fL MCH (27.0-32.0) pg MCHC (31.0-37.0) g/dL RDW Std Deviation (28.0-62.0) fl RDW Coeff of Danilo (11.0-15.0) % Plt Count (150-400) K/uL MPV (7.40-12.00) fL Neut % (Auto) (48.0-80.0) % Lymph % (Auto) (16.0-40.0) % [place] % (Auto) (0.0-15.0) % Eos % (Auto) (0.0-7.0) % Baso % (Auto) (0.0-1.5) % Neut # (Auto) (1.4-5.7) K/uL Lymph # (Auto) (0.6-2.4) K/uL [place] # (Auto) (0.0-0.8) K/uL Eos # (Auto) (0.0-0.7) K/uL Baso # (Auto) (0.0-0.1) K/uL Nucleated RBC % /100WBC Nucleated RBCs # K/uL Lactate (0.20-2.00) mmol/L Sodium (136-148) mmol/L Potassium (3.5-5.1) mmol/L Chloride (98-107) mmol/L Carbon Dioxide (21.0-32.0) mmol/L BUN (7.0-18.0) mg/dL Creatinine (0.8-1.3) mg/dL Est Cr Clr Drug Dosing Estimated GFR (MDRD) ml/min Glucose (74-106) mg/dL POC Glucose 91 (60-110) mg/dL Calcium (8.5-10.1) mg/dL Phosphorus (2.6-4.7) mg/dL Magnesium (1.8-2.4) mg/dL Total Bilirubin (0.2-1.0) mg/dL AST (15-37) IU/L ALT (14-63) IU/L Alkaline Phosphatase (46-116) U/L Total Protein (6.4-8.2) g/dL Albumin (3.4-5.0) g/dL Globulin (2.6-4.0) g/dL Albumin/Globulin Ratio (0.9-1.6) PSA Screen (0.05-4.00) ng/mL Urine Color Urine Appearance Urine pH (5.0-8.0) Ur Specific [place] (1.001-1.035) Urine Protein (NEGATIVE) mg/dL Urine Glucose (UA) (NEGATIVE) mg/dL Urine Ketones (NEGATIVE) mg/dL Urine Occult Blood (NEGATIVE) Urine Nitrite (NEGATIVE) Urine Bilirubin (NEGATIVE) Urine Urobilinogen (<2.0) EU/dL Ur Leukocyte Esterase (NEGATIVE) Urine RBC (0-2/HPF) Urine WBC (0-5/HPF) Ur Epithelial Cells (NONE-FEW) Urine Bacteria (NEGATIVE) Med Orders - Current: Current Medications Acetaminophen (Tylenol) 650 mg PO TID [facility] Last Admin: 11/02/19 05:27 Dose: 650 mg Al Hydroxide/Mg Hydroxide (Mag-Al Plus) 30 ml PO Q1H PRN PRN Reason: Heartburn Albuterol/Ipratropium (Duoneb 3.0-0.5 Mg/3 Ml) 3 ml NEB Q4HRRT PRN PRN Reason: Shortness Of Breath/wheezing Amlodipine Besylate (Norvasc) 5 mg PO DAILY [facility] Artificial Tears (Refresh Plus 0.5%) 1 each EYEBOTH BID [facility] Last Admin: 11/01/19 22:12 Dose: 1 drop Aspirin (Aspirin) 81 mg PO DAILY [facility] Atorvastatin Calcium (Lipitor) 40 mg PO BEDTIME [facility] Last Admin: 11/01/19 22:10 Dose: 40 mg Bisacodyl (Dulcolax) 10 mg RECTAL Q24H PRN PRN Reason: Constipation Heparin Sodium (Porcine) (Heparin Sodium) 5,000 units SUBCUT Q8H [facility] Last Admin: 11/02/19 05:28 Dose: 5,000 units Vancomycin HCl 1.5 gm/ Premix 300 mls @ 200 mls/hr IV Q12H [facility] Last Admin: 11/02/19 00:31 Dose: 200 mls/hr Magnesium Sulfate 4 gm/ Premix 100 mls @ 50 mls/hr IV ONETIME ONE Stop: 11/02/19 10:09 Last Admin: 11/02/19 09:08 Dose: 50 mls/hr Ceftriaxone Sodium/Dextrose 2 (gm/ Premix) 50 mls @ 100 mls/hr IV Q24H [facility] Insulin Aspart (Novolog) 0 unit SUBCUT TIDAC [facility]; Protocol Last Admin: 11/02/19 06:30 Dose: Not Given Insulin Glargine (Lantus Solostar) 15 units SUBCUT BEDTIME [facility] Last Admin: 11/01/19 22:13 Dose: 15 units Levothyroxine Sodium (Levothyroxine) 25 mcg PO ACBREAKFAST [facility] Last Admin: 11/02/19 06:34 Dose: 25 mcg Magnesium Hydroxide (Milk Of Magnesia) 30 ml PO DAILY PRN PRN Reason: Constipation Multivitamins/Minerals/Vitamin C (Tab-A-Leanne) 1 tab PO DAILY [facility] Amino Acids/Protein (Hydrolys 30ml) 1 each PO BID [facility] Last Admin: 11/01/19 22:23 Dose: Not Given Lanolin/Min Oil/ (Petrolatum) 1 each EYEBOTH BEDTIME [facility] Last Admin: 11/01/19 22:23 Dose: Not Given Lifitegrast [Xiidra] 1 each EYERT BID [facility] Last Admin: 11/01/19 22:23 Dose: Not Given Prednisolone Acetate /Pf [Prednisolone Acet 1% Eye Drop] 1 each EYELF BID [facility] Last Admin: 11/01/19 22:22 Dose: Not Given Rivastigmine [Exelon (] 13.3 Mg) 1 each TRDERM DAILY [facility] Propranolol HCl (Inderal La) 160 mg PO BEDTIME [facility] Last Admin: 11/01/19 22:09 Dose: 160 mg Quetiapine Fumarate (Seroquel) 100 mg PO BID [facility] Last Admin: 11/01/19 22:10 Dose: 100 mg Sodium Chloride (Saline Flush) 10 ml FLUSH ASDIRECTED PRN PRN Reason: Keep Vein Open Last Admin: 11/01/19 09:50 Dose: 10 ml Sodium Chloride (Saline Flush) 2.5 ml FLUSH ASDIRECTED PRN PRN Reason: Keep Vein Open Last Admin: 11/01/19 09:50 Dose: 2.5 ml Tamsulosin HCl (Flomax) 0.4 mg PO BEDTIME [facility] Last Admin: 11/01/19 22:11 Dose: 0.4 mg Vancomycin HCl (Pharmacy To Dose - Vancomycin) 1 dose .XX ASDIRECTED [facility] Discontinued Medications Sodium Chloride (Normal Saline) 1,000 mls @ 999 mls/hr IV .Bolus ONE Stop: 11/01/19 10:26 Last Infusion: 11/01/19 11:38 Dose: Infused Vancomycin HCl 1 gm/ Sodium (Chloride) 250 mls @ 166 mls/hr IV ONETIME ONE Stop: 11/01/19 12:10 Last Admin: 11/01/19 11:28 Dose: 166 mls/hr Ceftriaxone Sodium/Dextrose 1 (gm/ Premix) 50 mls @ 100 mls/hr IV ONETIME ONE Stop: 11/01/19 12:31 Last Admin: 11/01/19 13:09 Dose: 100 mls/hr Ceftriaxone Sodium/Dextrose (Rocephin In Dextrose,Iso-Osm 1 Gm/50 Ml) Confirm Administered Dose 50 mls @ as directed .ROUTE .STK-MED ONE Stop: 11/01/19 12:04 Last Admin: 11/01/19 13:11 Dose: Not Given Ceftriaxone Sodium/Dextrose 1 (gm/ Premix) 50 mls @ 100 mls/hr IV Q24H [facility] Vancomycin HCl 1.5 gm/ Premix 300 mls @ 200 mls/hr IV Q12H [facility] Last Admin: 11/01/19 14:41 Dose: Not Given Potassium Chloride 40 meq/ (Sodium Chloride) 270 mls @ 67.5 mls/hr IV ONETIME ONE Stop: 11/01/19 18:29 Last Admin: 11/01/19 14:53 Dose: 67.5 mls/hr Magnesium Sulfate (Magnesium Sulfate In Water Premix) Confirm Administered Dose 100 mls @ as directed .ROUTE .STK-MED ONE Stop: 11/02/19 09:04 Iopamidol (Isovue-370 (76%)) 100 ml IVPUSH ONETIME STA Stop: 11/01/19 11:20 Last Admin: 11/01/19 11:22 Dose: 100 ml - Exam General: Alert, Oriented, Cooperative, No Acute Distress Lungs: Clear to Auscultation, Normal Respiratory Effort Cardiovascular: Regular Rate, Regular Rhythm GI/Abdominal Exam: Normal Bowel Sounds, Soft, Non-Tender (Male) Exam: Testicular Mass Extremities: Normal Inspection, Normal Range of Motion, Non-Tender, No Pedal Edema Wound/Incisions: Dressing Dry and Intact (Dressing to sacral wound recently changed by Dr bailey. ) Neurological: No New Focal Deficit Psy/Mental Status: Alert, Normal Affect, Normal Mood - Problem List & Annotations (1) Chronic osteomyelitis SNOMED Code(s): 02066050 Code(s): M86.60 - OTHER CHRONIC OSTEOMYELITIS, UNSPECIFIED SITE Status: Acute Current Visit: Yes (2) Fever SNOMED Code(s): 596613493 Code(s): R50.9 - FEVER, UNSPECIFIED Status: Acute Current Visit: Yes (3) Hydronephrosis SNOMED Code(s): 82459823 Code(s): N13.30 - UNSPECIFIED HYDRONEPHROSIS Status: Acute Current Visit : Yes (4) Pressure sore SNOMED Code(s): 682483914 Code(s): L89.90 - PRESSURE ULCER OF UNSPECIFIED SITE, UNSPECIFIED STAGE Status: Acute Current Visit: Yes Qualifiers: Pressure injury location: sacral region Pressure injury stage: stage 4 Qualified Code(s): L89.154 - Pressure ulcer of sacral region, stage 4 (5) UTI (urinary tract infection) SNOMED Code(s): 58825685 Code(s): N39.0 - URINARY TRACT INFECTION, SITE NOT SPECIFIED Status: Acute Current Visit: Yes (6) Lewy body disease SNOMED Code(s): 354031116 Code(s): G31.83 - DEMENTIA WITH LEWY BODIES; F02.80 - DEMENTIA IN OTH DISEASES CLASSD ELSWHR W/O BEHAVRL DISTURB Status: Chronic Current Visit: No (7) Colostomy in place SNOMED Code(s): 319528491, 075844729 Code(s): Z93.3 - COLOSTOMY STATUS Status: Chronic Current Visit: Yes - Problem List Review Problem List Initiated/Reviewed/Updated: Yes - My Orders Last 24 Hours: My Active Orders 11/02/19 08:10 Magnesium Sulfate/Water [Magnesium Sulfate in Water Premix] 4 gm Premix Bag 1 bag IV ONETIME 11/02/19 12:30 [id number] [Rocephin in Dextrose,Iso-Osm 2 GM/50 ML] 2 gm Premix Bag 1 bag IV Q24H - Plan Plan:: This 84 year old male, admitted with stage 4 pressure ulcer, fevers and leukocytosis 1. Osteomyelitis of sacrum: Likely secondary to stage 4 decubitus. Continue with consult to Dr Bailey for wound management. Continue Broad spectrum antibiotics with Rocephin and Vancomycin. Cultures pending. May need care home IV antibiotics. Every 2 hour repositioning and brief change. Up to chair TID with meals. Consult delphi programmer for improved diet changes with decubitus. 2. UTI: Continue Rocephin. UC pending. Monitoring for retention os hydronephrosis noted on CT. Consider consult to Dr Guardado for recommendations. may need sung placement. Continue on Flomax 3. DM Type 2: Stable, continue insulin pre meal and at bedtime. 4. Hx CVA: Continue statin and ASA. Monitor. 5. HTN: Stable. Continue Amlodipine VTE prophylaxis: Heparin Dipos: will change to inpatient status, will need longer than 2 midnights.
[2019-11-02] MEDS: Aspirin 81 MG Tab.Chew PO SCH (10:13)
[2019-11-02] MEDS: amLODIPine 5 MG Tab PO SCH (10:13)
[2019-11-02] MEDS: Multivitamin Tab PO SCH (10:13)
[2019-11-02] MEDS: QUEtiapine 100 MG Tab PO SCH ×2 (10:13→22:09)
[2019-11-02] MEDS: PROTEIN HYDROLYS PO SCH ×2 (10:15→22:18)
[2019-11-02] MEDS: AMINO ACIDS PO SCH ×2 (10:15→22:18)
[2019-11-02] MEDS: Lifitegrast [Xiidra] EYERT SCH ×2 (10:15→22:19)
[2019-11-02] MEDS: RIVASTIGMINE 13.3 MG TRDERM SCH (10:16)
[2019-11-02] MEDS: Prednisolone Acetate/Pf [Prednisolone Acet 1% Eye Drop] EYELF SCH ×2 (10:16→22:20)
[2019-11-02] MEDS: Carboxymethylcellulose Sodium 0.5% Ophth Soln 0.4 ML UD Box of 30 EYEBOTH SCH ×2 (10:16→22:20)
[2019-11-02] MEDS ORDERED: cefTRIAXone 1 GM in Premix Bag 1 BAG IV SCH (12:45)
[2019-11-02] MEDS: cefTRIAXone 2 GM in Premix Bag 1 BAG IV SCH (14:16)
[2019-11-02] MEDS: atorvaSTATin 40 MG Tab PO SCH (22:09)
[2019-11-02] MEDS: Propranolol 80 MG Cap.ER PO SCH (22:09)
[2019-11-02] MEDS: Tamsulosin 0.4 MG Cap.ER PO SCH (22:09)
[2019-11-02] MEDS: LANOLIN EYEBOTH SCH (22:18)
[2019-11-02] MEDS: PETROLATUM EYEBOTH SCH (22:18)
[2019-11-02] MEDS: MIN OIL EYEBOTH SCH (22:18)
[2019-11-03] MEDS: VANCOMYCIN/WATER FOR INJ (PEG) 1.5 GM in Premix Bag 1 BAG IV SCH ×3 (00:14→23:05)
[2019-11-03] MEDS: Insulin Glargine,Human Rec. Analog 100 Units/ML 3 ML Pen SUBCUT SCH ×2 (01:00→21:17)
[2019-11-03] MEDS: Heparin Sodium 5,000 Units/ML Vial SUBCUT SCH ×3 (03:51→20:55)
[2019-11-03] MEDS: Acetaminophen 325 MG Tab PO SCH ×3 (07:24→21:06)
[2019-11-03] MEDS: Levothyroxine 25 MCG Tab PO SCH (07:25)
[2019-11-03 08:03] LABS: BLOOD UREA NITROGEN,BUN 10 mg/dL (7.0-18.0); CARBON DIOXIDE,CO2 29.7 mmol/L (21.0-32.0); CHLORIDE,CL 103 mmol/L (98-107); GLUCOSE RANDOM 171 mg/dL (74-106); POTASSIUM,K 3.4 mmol/L (3.5-5.1); SODIUM,NA 140 mmol/L (136-148)
--- NOTE | 2019-11-03 08:52 | PCM.PN ---
- General Info Date of Service: 11/03/19 Admission Dx/Problem (Free Text): Admission Diagnosis/Problem Admission Diagnosis/Problem Stage 4 sacral ulcer with osteomyelitis. Subjective Update: Pain continues to be improved. Feeling better, no chest pain or SOB. No other concerns. No fevers. Tolerating sung overnight Functional Status: Reports: Pain Controlled, Tolerating Diet, Ambulating - Review of Systems General: Reports: No Symptoms. Denies: Fever Pulmonary: Reports: No Symptoms. Denies: Shortness of Breath Cardiovascular: Reports: No Symptoms. Denies: Chest Pain Gastrointestinal: Reports: No Symptoms. Denies: Abdominal Pain, Nausea, Vomiting Genitourinary: Reports: No Symptoms Neurological: Reports: No Symptoms Psychiatric: Reports: No Symptoms - Patient Data Vitals - Most Recent: Last Vital Signs Temp 98.4 F 11/03/19 07:41 Pulse 68 11/03/19 07:41 Resp 17 11/03/19 07:41 BP 145/71 H 11/03/19 07:41 Pulse Ox 92 L 11/03/19 07:41 Weight - Most Recent: 95.5 kg I&O - Last 24 Hours: Intake & Output 11/02/19 11/03/19 11/03/19 22:59 06:59 14:59 Intake Total 610 900 Output Total 968 1000 400 Balance -358 -100 -400 Lab Results Last 24 Hours: Laboratory Results - last 24 hr 11/02/19 11/02/19 11/02/19 Range/Units 12:33 16:23 22:11 WBC (4.0-11.0) K/uL RBC (4.50-5.90) M/uL Hgb (13.0-17.0) g/dL Hct (38.0-50.0) % MCV (80.0-98.0) fL MCH (27.0-32.0) pg MCHC (31.0-37.0) g/dL RDW Std Deviation (28.0-62.0) fl RDW Coeff of Danilo (11.0-15.0) % Plt Count (150-400) K/uL MPV (7.40-12.00) fL Neut % (Auto) (48.0-80.0) % Lymph % (Auto) (16.0-40.0) % [place] % (Auto) (0.0-15.0) % Eos % (Auto) (0.0-7.0) % Baso % (Auto) (0.0-1.5) % Neut # (Auto) (1.4-5.7) K/uL Lymph # (Auto) (0.6-2.4) K/uL [place] # (Auto) (0.0-0.8) K/uL Eos # (Auto) (0.0-0.7) K/uL Baso # (Auto) (0.0-0.1) K/uL Nucleated RBC % /100WBC Nucleated RBCs # K/uL Sodium (136-148) mmol/L Potassium (3.5-5.1) mmol/L Chloride (98-107) mmol/L Carbon Dioxide (21.0-32.0) mmol/L BUN (7.0-18.0) mg/dL Creatinine (0.8-1.3) mg/dL Est Cr Clr Drug Dosing mL/min Estimated GFR (MDRD) ml/min Glucose (74-106) mg/dL POC Glucose 141 H 128 H 244 H (60-110) mg/dL Calcium (8.5-10.1) mg/dL Phosphorus (2.6-4.7) mg/dL Magnesium (1.8-2.4) mg/dL 11/03/19 11/03/19 11/03/19 Range/Units 06:21 07:35 07:35 WBC 11.26 H (4.0-11.0) K/uL RBC 3.79 L (4.50-5.90) M/uL Hgb 11.4 L (13.0-17.0) g/dL Hct 34.9 L (38.0-50.0) % MCV 92.1 (80.0-98.0) fL MCH 30.1 (27.0-32.0) pg MCHC 32.7 (31.0-37.0) g/dL RDW Std Deviation 45.7 (28.0-62.0) fl RDW Coeff of Danilo 14 (11.0-15.0) % Plt Count 363 (150-400) K/uL MPV 9.80 (7.40-12.00) fL Neut % (Auto) 76.5 (48.0-80.0) % Lymph % (Auto) 10.6 L (16.0-40.0) % [place] % (Auto) 11.3 (0.0-15.0) % Eos % (Auto) 1.3 (0.0-7.0) % Baso % (Auto) 0.3 (0.0-1.5) % Neut # (Auto) 8.6 H (1.4-5.7) K/uL Lymph # (Auto) 1.2 (0.6-2.4) K/uL [place] # (Auto) 1.3 H (0.0-0.8) K/uL Eos # (Auto) 0.2 (0.0-0.7) K/uL Baso # (Auto) 0.0 (0.0-0.1) K/uL Nucleated RBC % 0.0 /100WBC Nucleated RBCs # 0 K/uL Sodium 140 (136-148) mmol/L Potassium 3.4 L (3.5-5.1) mmol/L Chloride 103 (98-107) mmol/L Carbon Dioxide 29.7 (21.0-32.0) mmol/L BUN 10 (7.0-18.0) mg/dL Creatinine 0.8 (0.8-1.3) mg/dL Est Cr Clr Drug Dosing 78.14 mL/min Estimated GFR (MDRD) > 60.0 ml/min Glucose 171 H (74-106) mg/dL POC Glucose 154 H (60-110) mg/dL Calcium 8.1 L (8.5-10.1) mg/dL Phosphorus 3.0 (2.6-4.7) mg/dL Magnesium 1.6 L (1.8-2.4) mg/dL De Results Last 24 Hours: Microbiology 11/01/19 10:04 Aerobic Blood Culture - Preliminary Blood - Venous - Lab Draw NO GROWTH AFTER 1 DAY Anaerobic Blood Culture - Preliminary NO GROWTH AFTER 1 DAY 11/01/19 09:44 Aerobic Blood Culture - Preliminary Blood - Venous NO GROWTH AFTER 1 DAY Anaerobic Blood Culture - Preliminary NO GROWTH AFTER 1 DAY Med Orders - Current: Current Medications Acetaminophen (Tylenol) 650 mg PO TID [facility] Last Admin: 11/03/19 07:24 Dose: 650 mg Al Hydroxide/Mg Hydroxide (Mag-Al Plus) 30 ml PO Q1H PRN PRN Reason: Heartburn Albuterol/Ipratropium (Duoneb 3.0-0.5 Mg/3 Ml) 3 ml NEB Q4HRRT PRN PRN Reason: Shortness Of Breath/wheezing Amlodipine Besylate (Norvasc) 5 mg PO DAILY [facility] Last Admin: 11/02/19 10:13 Dose: 5 mg Artificial Tears (Refresh Plus 0.5%) 1 each EYEBOTH BID [facility] Last Admin: 11/02/19 22:20 Dose: Not Given Aspirin (Aspirin) 81 mg PO DAILY [facility] Last Admin: 11/02/19 10:13 Dose: 81 mg Atorvastatin Calcium (Lipitor) 40 mg PO BEDTIME [facility] Last Admin: 11/02/19 22:09 Dose: 40 mg Bisacodyl (Dulcolax) 10 mg RECTAL Q24H PRN PRN Reason: Constipation Heparin Sodium (Porcine) (Heparin Sodium) 5,000 units SUBCUT Q8H [facility] Last Admin: 11/03/19 03:51 Dose: 5,000 units Vancomycin HCl 1.5 gm/ Premix 300 mls @ 200 mls/hr IV Q12H [facility] Last Admin: 11/03/19 00:14 Dose: 200 mls/hr Ceftriaxone Sodium/Dextrose 2 (gm/ Premix) 50 mls @ 100 mls/hr IV Q24H [facility] Last Admin: 11/02/19 14:16 Dose: 100 mls/hr Insulin Aspart (Novolog) 0 unit SUBCUT TIDAC [facility]; Protocol Last Admin: 11/02/19 17:04 Dose: Not Given Insulin Glargine (Lantus Solostar) 15 units SUBCUT BEDTIME [facility] Last Admin: 11/03/19 01:00 Dose: Not Given Levothyroxine Sodium (Levothyroxine) 25 mcg PO ACBREAKFAST [facility] Last Admin: 11/03/19 07:25 Dose: 25 mcg Magnesium Hydroxide (Milk Of Magnesia) 30 ml PO DAILY PRN PRN Reason: Constipation Multivitamins/Minerals/Vitamin C (Tab-A-Leanne) 1 tab PO DAILY [facility] Last Admin: 11/02/19 10:13 Dose: 1 tab Amino Acids/Protein (Hydrolys 30ml) 1 each PO BID [facility] Last Admin: 11/02/19 22:18 Dose: Not Given Lanolin/Min Oil/ (Petrolatum) 1 each EYEBOTH BEDTIME [facility] Last Admin: 11/02/19 22:18 Dose: Not Given Lifitegrast [Xiidra] 1 each EYERT BID [facility] Last Admin: 11/02/19 22:19 Dose: Not Given Prednisolone Acetate /Pf [Prednisolone Acet 1% Eye Drop] 1 each EYELF BID [facility] Last Admin: 11/02/19 22:20 Dose: Not Given Rivastigmine [Exelon (] 13.3 Mg) 1 each TRDERM DAILY [facility] Last Admin: 11/02/19 10:16 Dose: Not Given Propranolol HCl (Inderal La) 160 mg PO BEDTIME [facility] Last Admin: 11/02/19 22:09 Dose: 160 mg Quetiapine Fumarate (Seroquel) 100 mg PO BID [facility] Last Admin: 11/02/19 22:09 Dose: 100 mg Sodium Chloride (Saline Flush) 10 ml FLUSH ASDIRECTED PRN PRN Reason: Keep Vein Open Last Admin: 11/01/19 09:50 Dose: 10 ml Sodium Chloride (Saline Flush) 2.5 ml FLUSH ASDIRECTED PRN PRN Reason: Keep Vein Open Last Admin: 11/01/19 09:50 Dose: 2.5 ml Tamsulosin HCl (Flomax) 0.4 mg PO BEDTIME [facility] Last Admin: 11/02/19 22:09 Dose: 0.4 mg Vancomycin HCl (Pharmacy To Dose - Vancomycin) 1 dose .XX ASDIRECTED [facility] Discontinued Medications Sodium Chloride (Normal Saline) 1,000 mls @ 999 mls/hr IV .Bolus ONE Stop: 11/01/19 10:26 Last Infusion: 11/01/19 11:38 Dose: Infused Vancomycin HCl 1 gm/ Sodium (Chloride) 250 mls @ 166 mls/hr IV ONETIME ONE Stop: 11/01/19 12:10 Last Admin: 11/01/19 11:28 Dose: 166 mls/hr Ceftriaxone Sodium/Dextrose 1 (gm/ Premix) 50 mls @ 100 mls/hr IV ONETIME ONE Stop: 11/01/19 12:31 Last Admin: 11/01/19 13:09 Dose: 100 mls/hr Ceftriaxone Sodium/Dextrose (Rocephin In Dextrose,Iso-Osm 1 Gm/50 Ml) Confirm Administered Dose 50 mls @ as directed .ROUTE .STK-MED ONE Stop: 11/01/19 12:04 Last Admin: 11/01/19 13:11 Dose: Not Given Ceftriaxone Sodium/Dextrose 1 (gm/ Premix) 50 mls @ 100 mls/hr IV Q24H [facility] Vancomycin HCl 1.5 gm/ Premix 300 mls @ 200 mls/hr IV Q12H [facility] Last Admin: 11/01/19 14:41 Dose: Not Given Potassium Chloride 40 meq/ (Sodium Chloride) 270 mls @ 67.5 mls/hr IV ONETIME ONE Stop: 11/01/19 18:29 Last Admin: 11/01/19 14:53 Dose: 67.5 mls/hr Magnesium Sulfate 4 gm/ Premix 100 mls @ 50 mls/hr IV ONETIME ONE Stop: 11/02/19 10:09 Last Admin: 11/02/19 09:08 Dose: 50 mls/hr Magnesium Sulfate (Magnesium Sulfate In Water Premix) Confirm Administered Dose 100 mls @ as directed .ROUTE .STK-MED ONE Stop: 11/02/19 09:04 Last Admin: 11/02/19 10:17 Dose: Not Given Iopamidol (Isovue-370 (76%)) 100 ml IVPUSH ONETIME STA Stop: 11/01/19 11:20 Last Admin: 11/01/19 11:22 Dose: 100 ml - Exam General: Alert, Oriented, No Acute Distress Lungs: Clear to Auscultation, Normal Respiratory Effort Cardiovascular: Regular Rate, Regular Rhythm GI/Abdominal Exam: Normal Bowel Sounds, Soft, Non-Tender, Other (colostomy) (Male) Exam: Scrotal Swelling (testicular mass) Extremities: Normal Inspection, Normal Range of Motion, Non-Tender Wound/Incisions: Dressing Dry and Intact (pain improving) Psy/Mental Status: Alert, Normal Affect, Normal Mood - Problem List & Annotations (1) Chronic osteomyelitis SNOMED Code(s): 24323817 Code(s): M86.60 - OTHER CHRONIC OSTEOMYELITIS, UNSPECIFIED SITE Status: Acute Current Visit: Yes (2) Fever SNOMED Code(s): 070361631 Code(s): R50.9 - FEVER, UNSPECIFIED Status: Acute Current Visit: Yes (3) Hydronephrosis SNOMED Code(s): 45675035 Code(s): N13.30 - UNSPECIFIED HYDRONEPHROSIS Status: Acute Current Visit : Yes (4) Pressure sore SNOMED Code(s): 952642016 Code(s): L89.90 - PRESSURE ULCER OF UNSPECIFIED SITE, UNSPECIFIED STAGE Status: Acute Current Visit: Yes Qualifiers: Pressure injury location: sacral region Pressure injury stage: stage 4 Qualified Code(s): L89.154 - Pressure ulcer of sacral region, stage 4 (5) UTI (urinary tract infection) SNOMED Code(s): 48401231 Code(s): N39.0 - URINARY TRACT INFECTION, SITE NOT SPECIFIED Status: Acute Current Visit: Yes (6) Lewy body disease SNOMED Code(s): 504389136 Code(s): G31.83 - DEMENTIA WITH LEWY BODIES; F02.80 - DEMENTIA IN OTH DISEASES CLASSD ELSWHR W/O BEHAVRL DISTURB Status: Chronic Current Visit: No (7) Colostomy in place SNOMED Code(s): 785606346, 988889422 Code(s): Z93.3 - COLOSTOMY STATUS Status: Chronic Current Visit: Yes - Problem List Review Problem List Initiated/Reviewed/Updated: Yes - My Orders Last 24 Hours: My Active Orders 11/02/19 09:31 Bladder Scan [RC] ASDIRECTED 11/02/19 11:49 Patient Status [ADT] Stat 11/02/19 11:50 Consult to Railroad Crane Operator [CONS] Routine 11/02/19 12:30 [id number] [Rocephin in Dextrose,Iso-Osm 2 GM/50 ML] 2 gm Premix Bag 1 bag IV Q24H 11/02/19 12:54 Consult to Physical Therapy [PT Evaluation and Treatment] [CONS] Routine 11/02/19 13:04 Urinary Catheter Assessment [RC] Q4H 11/02/19 13:05 Turn and Reposition [RC] Q2H 11/02/19 13:15 Insert Sung Catheter [Insert Urinary Catheter] [OM.PC] Q24H 11/02/19 Dinner Regular Diet [DIET] 11/04/19 05:11 BASIC METABOLIC PANEL,BMP [CHEM] AM CBC WITH AUTO DIFF [HEME] AM MAGNESIUM [CHEM] AM PHOSPHORUS [CHEM] AM 11/05/19 05:11 BASIC METABOLIC PANEL,BMP [CHEM] AM CBC WITH AUTO DIFF [HEME] AM MAGNESIUM [CHEM] AM PHOSPHORUS [CHEM] AM 11/06/19 05:11 BASIC METABOLIC PANEL,BMP [CHEM] AM CBC WITH AUTO DIFF [HEME] AM MAGNESIUM [CHEM] AM PHOSPHORUS [CHEM] AM - Plan Plan:: This 84 year old male, admitted with stage 4 pressure ulcer, fevers and leukocytosis 1. Osteomyelitis of sacrum: Likely secondary to stage 4 decubitus. Continue with consult to Dr Bailey for wound management. Continue antibiotics with Rocephin and Vancomycin. Cultures pending. Need to arrange PICC line placement for roasterman IV antibiotics. Every 2 hour repositioning. Sung in place to help keep wound dry. Up to chair TID with meals. Consult supervisor bindery for improved diet changes with decubitus. 2. UTI: Continue Rocephin. UC pending. Continue sung, placed for retention. Arrange follow up with Urology. Continue on Flomax 3. DM Type 2: Stable, continue insulin pre meal and at bedtime. 4. Hx CVA: Continue statin and ASA. Monitor. 5. HTN: Stable. Continue Amlodipine VTE prophylaxis: Heparin Dispo: 2 days
[2019-11-03] MEDS: Multivitamin Tab PO SCH (09:11)
[2019-11-03] MEDS: QUEtiapine 100 MG Tab PO SCH ×2 (09:11→21:05)
[2019-11-03] MEDS: Aspirin 81 MG Tab.Chew PO SCH (09:12)
[2019-11-03] MEDS: amLODIPine 5 MG Tab PO SCH (09:12)
[2019-11-03] MEDS: Carboxymethylcellulose Sodium 0.5% Ophth Soln 0.4 ML UD Box of 30 EYEBOTH SCH ×2 (09:13→21:11)
[2019-11-03] MEDS: Lifitegrast [Xiidra] EYERT SCH ×2 (09:15→21:09)
[2019-11-03] MEDS: Prednisolone Acetate/Pf [Prednisolone Acet 1% Eye Drop] EYELF SCH ×2 (09:18→21:01)
[2019-11-03] MEDS: PROTEIN HYDROLYS PO SCH ×2 (09:21→20:59)
[2019-11-03] MEDS: AMINO ACIDS PO SCH ×2 (09:21→20:59)
[2019-11-03] MEDS: Insulin Aspart 100 Units/ML 3 ML Pen SUBCUT SCH ×3 (09:28→17:10)
[2019-11-03] MEDS: RIVASTIGMINE 13.3 MG TRDERM SCH (10:30)
[2019-11-03] MEDS: cefTRIAXone 2 GM in Premix Bag 1 BAG IV SCH (11:57)
--- NOTE | 2019-11-03 13:11 | PCM.CONSN ---
- General Info Date of Service: 11/03/19 Functional Status: Reports: Pain Controlled, Tolerating Diet, Other (Boone catheter placed due to large residuals after urination. Wound growing proteus which is likely due to incontinence. Boone in place for hyronephrosis and to keep wound dry. ) - Review of Systems General: Reports: No Symptoms HEENT: Reports: No Symptoms Pulmonary: Reports: No Symptoms Cardiovascular: Reports: No Symptoms Gastrointestinal: Reports: No Symptoms Genitourinary: Reports: No Symptoms Musculoskeletal: Reports: No Symptoms - Patient Data Vitals - Most Recent: Last Vital Signs Temp 36.7 C 11/03/19 11:56 Pulse 68 11/03/19 07:41 Resp 17 11/03/19 11:56 BP 126/57 L 11/03/19 11:56 Pulse Ox 90 L 11/03/19 11:56 Weight - Most Recent: 95.5 kg I&O - Last 24 Hours: Intake & Output 11/02/19 11/03/19 11/03/19 22:59 06:59 14:59 Intake Total 610 900 Output Total 968 1000 400 Balance -358 -100 -400 Lab Results Last 24 Hours: Laboratory Results - last 24 hr 11/02/19 11/02/19 11/03/19 Range/Units 16:23 22:11 06:21 WBC (4.0-11.0) K/uL RBC (4.50-5.90) M/uL Hgb (13.0-17.0) g/dL Hct (38.0-50.0) % MCV (80.0-98.0) fL MCH (27.0-32.0) pg MCHC (31.0-37.0) g/dL RDW Std Deviation (28.0-62.0) fl RDW Coeff of Danilo (11.0-15.0) % Plt Count (150-400) K/uL MPV (7.40-12.00) fL Neut % (Auto) (48.0-80.0) % Lymph % (Auto) (16.0-40.0) % Sierra % (Auto) (0.0-15.0) % Eos % (Auto) (0.0-7.0) % Baso % (Auto) (0.0-1.5) % Neut # (Auto) (1.4-5.7) K/uL Lymph # (Auto) (0.6-2.4) K/uL Sierra # (Auto) (0.0-0.8) K/uL Eos # (Auto) (0.0-0.7) K/uL Baso # (Auto) (0.0-0.1) K/uL Nucleated RBC % /100WBC Nucleated RBCs # K/uL Sodium (136-148) mmol/L Potassium (3.5-5.1) mmol/L Chloride (98-107) mmol/L Carbon Dioxide (21.0-32.0) mmol/L BUN (7.0-18.0) mg/dL Creatinine (0.8-1.3) mg/dL Est Cr Clr Drug Dosing mL/min Estimated GFR (MDRD) ml/min Glucose (74-106) mg/dL POC Glucose 128 H 244 H 154 H (60-110) mg/dL Calcium (8.5-10.1) mg/dL Phosphorus (2.6-4.7) mg/dL Magnesium (1.8-2.4) mg/dL Vancomycin Trough (5.0-10.0) ug/mL 11/03/19 11/03/19 11/03/19 Range/Units 07:35 07:35 10:55 WBC 11.26 H (4.0-11.0) K/uL RBC 3.79 L (4.50-5.90) M/uL Hgb 11.4 L (13.0-17.0) g/dL Hct 34.9 L (38.0-50.0) % MCV 92.1 (80.0-98.0) fL MCH 30.1 (27.0-32.0) pg MCHC 32.7 (31.0-37.0) g/dL RDW Std Deviation 45.7 (28.0-62.0) fl RDW Coeff of Danilo 14 (11.0-15.0) % Plt Count 363 (150-400) K/uL MPV 9.80 (7.40-12.00) fL Neut % (Auto) 76.5 (48.0-80.0) % Lymph % (Auto) 10.6 L (16.0-40.0) % Sierra % (Auto) 11.3 (0.0-15.0) % Eos % (Auto) 1.3 (0.0-7.0) % Baso % (Auto) 0.3 (0.0-1.5) % Neut # (Auto) 8.6 H (1.4-5.7) K/uL Lymph # (Auto) 1.2 (0.6-2.4) K/uL Sierra # (Auto) 1.3 H (0.0-0.8) K/uL Eos # (Auto) 0.2 (0.0-0.7) K/uL Baso # (Auto) 0.0 (0.0-0.1) K/uL Nucleated RBC % 0.0 /100WBC Nucleated RBCs # 0 K/uL Sodium 140 (136-148) mmol/L Potassium 3.4 L (3.5-5.1) mmol/L Chloride 103 (98-107) mmol/L Carbon Dioxide 29.7 (21.0-32.0) mmol/L BUN 10 (7.0-18.0) mg/dL Creatinine 0.8 (0.8-1.3) mg/dL Est Cr Clr Drug Dosing 78.14 mL/min Estimated GFR (MDRD) > 60.0 ml/min Glucose 171 H (74-106) mg/dL POC Glucose (60-110) mg/dL Calcium 8.1 L (8.5-10.1) mg/dL Phosphorus 3.0 (2.6-4.7) mg/dL Magnesium 1.6 L (1.8-2.4) mg/dL Vancomycin Trough 15.3 H (5.0-10.0) ug/mL 11/03/19 Range/Units 12:45 WBC (4.0-11.0) K/uL RBC (4.50-5.90) M/uL Hgb (13.0-17.0) g/dL Hct (38.0-50.0) % MCV (80.0-98.0) fL MCH (27.0-32.0) pg MCHC (31.0-37.0) g/dL RDW Std Deviation (28.0-62.0) fl RDW Coeff of Danilo (11.0-15.0) % Plt Count (150-400) K/uL MPV (7.40-12.00) fL Neut % (Auto) (48.0-80.0) % Lymph % (Auto) (16.0-40.0) % Sierra % (Auto) (0.0-15.0) % Eos % (Auto) (0.0-7.0) % Baso % (Auto) (0.0-1.5) % Neut # (Auto) (1.4-5.7) K/uL Lymph # (Auto) (0.6-2.4) K/uL Sierra # (Auto) (0.0-0.8) K/uL Eos # (Auto) (0.0-0.7) K/uL Baso # (Auto) (0.0-0.1) K/uL Nucleated RBC % /100WBC Nucleated RBCs # K/uL Sodium (136-148) mmol/L Potassium (3.5-5.1) mmol/L Chloride (98-107) mmol/L Carbon Dioxide (21.0-32.0) mmol/L BUN (7.0-18.0) mg/dL Creatinine (0.8-1.3) mg/dL Est Cr Clr Drug Dosing mL/min Estimated GFR (MDRD) ml/min Glucose (74-106) mg/dL POC Glucose 239 H (60-110) mg/dL Calcium (8.5-10.1) mg/dL Phosphorus (2.6-4.7) mg/dL Magnesium (1.8-2.4) mg/dL Vancomycin Trough (5.0-10.0) ug/mL De Results Last 24 Hours: Microbiology 11/01/19 10:02 Wound Culture - Final Buttock, Unspecified Proteus Mirabilis Skin Kim 11/01/19 10:04 Aerobic Blood Culture - Preliminary Blood - Venous - Lab Draw NO GROWTH AFTER 2 DAYS Anaerobic Blood Culture - Preliminary NO GROWTH AFTER 2 DAYS 11/01/19 09:44 Aerobic Blood Culture - Preliminary Blood - Venous NO GROWTH AFTER 2 DAYS Anaerobic Blood Culture - Preliminary NO GROWTH AFTER 2 DAYS Med Orders - Current: Current Medications Acetaminophen (Tylenol) 650 mg PO TID [facility] Last Admin: 11/03/19 07:24 Dose: 650 mg Al Hydroxide/Mg Hydroxide (Mag-Al Plus) 30 ml PO Q1H PRN PRN Reason: Heartburn Albuterol/Ipratropium (Duoneb 3.0-0.5 Mg/3 Ml) 3 ml NEB Q4HRRT PRN PRN Reason: Shortness Of Breath/wheezing Amlodipine Besylate (Norvasc) 5 mg PO DAILY [facility] Last Admin: 11/03/19 09:12 Dose: 5 mg Artificial Tears (Refresh Plus 0.5%) 1 each EYEBOTH BID [facility] Last Admin: 11/03/19 09:13 Dose: 1 drop Aspirin (Aspirin) 81 mg PO DAILY [facility] Last Admin: 11/03/19 09:12 Dose: 81 mg Atorvastatin Calcium (Lipitor) 40 mg PO BEDTIME [facility] Last Admin: 11/02/19 22:09 Dose: 40 mg Bisacodyl (Dulcolax) 10 mg RECTAL Q24H PRN PRN Reason: Constipation Heparin Sodium (Porcine) (Heparin Sodium) 5,000 units SUBCUT Q8H [facility] Last Admin: 11/03/19 12:39 Dose: 5,000 units Vancomycin HCl 1.5 gm/ Premix 300 mls @ 200 mls/hr IV Q12H [facility] Last Admin: 11/03/19 12:36 Dose: 200 mls/hr Ceftriaxone Sodium/Dextrose 2 (gm/ Premix) 50 mls @ 100 mls/hr IV Q24H [facility] Last Admin: 11/03/19 11:57 Dose: 100 mls/hr Insulin Aspart (Novolog) 0 unit SUBCUT TIDAC [facility]; Protocol Last Admin: 11/03/19 09:28 Dose: 1 unit Insulin Glargine (Lantus Solostar) 15 units SUBCUT BEDTIME [facility] Last Admin: 11/03/19 01:00 Dose: Not Given Levothyroxine Sodium (Levothyroxine) 25 mcg PO ACBREAKFAST [facility] Last Admin: 11/03/19 07:25 Dose: 25 mcg Magnesium Hydroxide (Milk Of Magnesia) 30 ml PO DAILY PRN PRN Reason: Constipation Multivitamins/Minerals/Vitamin C (Tab-A-Leanne) 1 tab PO DAILY [facility] Last Admin: 11/03/19 09:11 Dose: 1 tab Amino Acids/Protein (Hydrolys 30ml) 1 each PO BID [facility] Last Admin: 11/03/19 09:21 Dose: 1 each Lanolin/Min Oil/ (Petrolatum) 1 each EYEBOTH BEDTIME [facility] Last Admin: 11/02/19 22:18 Dose: Not Given Lifitegrast [Xiidra] 1 each EYERT BID [facility] Last Admin: 11/03/19 09:15 Dose: 1 each Prednisolone Acetate /Pf [Prednisolone Acet 1% Eye Drop] 1 each EYELF BID [facility] Last Admin: 11/03/19 09:18 Dose: 1 each Rivastigmine [Exelon (] 13.3 Mg) 1 each TRDERM DAILY [facility] Last Admin: 11/03/19 10:30 Dose: Not Given Propranolol HCl (Inderal La) 160 mg PO BEDTIME [facility] Last Admin: 11/02/19 22:09 Dose: 160 mg Quetiapine Fumarate (Seroquel) 100 mg PO BID [facility] Last Admin: 11/03/19 09:11 Dose: 100 mg Sodium Chloride (Saline Flush) 10 ml FLUSH ASDIRECTED PRN PRN Reason: Keep Vein Open Last Admin: 11/01/19 09:50 Dose: 10 ml Sodium Chloride (Saline Flush) 2.5 ml FLUSH ASDIRECTED PRN PRN Reason: Keep Vein Open Last Admin: 11/01/19 09:50 Dose: 2.5 ml Tamsulosin HCl (Flomax) 0.4 mg PO BEDTIME [facility] Last Admin: 11/02/19 22:09 Dose: 0.4 mg Vancomycin HCl (Pharmacy To Dose - Vancomycin) 1 dose .XX ASDIRECTED ELVIS Discontinued Medications Sodium Chloride (Normal Saline) 1,000 mls @ 999 mls/hr IV .Bolus ONE Stop: 11/01/19 10:26 Last Infusion: 11/01/19 11:38 Dose: Infused Vancomycin HCl 1 gm/ Sodium (Chloride) 250 mls @ 166 mls/hr IV ONETIME ONE Stop: 11/01/19 12:10 Last Admin: 11/01/19 11:28 Dose: 166 mls/hr Ceftriaxone Sodium/Dextrose 1 (gm/ Premix) 50 mls @ 100 mls/hr IV ONETIME ONE Stop: 11/01/19 12:31 Last Admin: 11/01/19 13:09 Dose: 100 mls/hr Ceftriaxone Sodium/Dextrose (Rocephin In Dextrose,Iso-Osm 1 Gm/50 Ml) Confirm Administered Dose 50 mls @ as directed .ROUTE .STK-MED ONE Stop: 12/08/19 12:04 Last Admin: 11/01/19 13:11 Dose: Not Given Ceftriaxone Sodium/Dextrose 1 (gm/ Premix) 50 mls @ 100 mls/hr IV Q24H [facility] Vancomycin HCl 1.5 gm/ Premix 300 mls @ 200 mls/hr IV Q12H [facility] Last Admin: 11/01/19 14:41 Dose: Not Given Potassium Chloride 40 meq/ (Sodium Chloride) 270 mls @ 67.5 mls/hr IV ONETIME ONE Stop: 11/01/19 18:29 Last Admin: 11/01/19 14:53 Dose: 67.5 mls/hr Magnesium Sulfate 4 gm/ Premix 100 mls @ 50 mls/hr IV ONETIME ONE Stop: 11/02/19 10:09 Last Admin: 11/02/19 09:08 Dose: 50 mls/hr Magnesium Sulfate (Magnesium Sulfate In Water Premix) Confirm Administered Dose 100 mls @ as directed .ROUTE .STK-MED ONE Stop: 11/02/19 09:04 Last Admin: 11/02/19 10:17 Dose: Not Given Iopamidol (Isovue-370 (76%)) 100 ml IVPUSH ONETIME STA Stop: 11/01/19 11:20 Last Admin: 11/01/19 11:22 Dose: 100 ml - Exam General: Alert, Oriented, Cooperative HEENT: Pupils Equal, Pupils Reactive Lungs: Normal Respiratory Effort Cardiovascular: Regular Rate GI/Abdominal Exam: Soft, Non-Tender Physical Findings Comments:: Boone catheter with yellow urine containing sediment. Sepsis Event Note - Evaluation Sepsis Screening Result: No Definite Risk - Focused Exam Vital Signs: Vital Signs Temp Pulse Resp BP BP Pulse Ox Pulse Ox 11/03/19 11:56 36.7 C 17 126/57 L 90 L 11/03/19 11:55 90 L 11/03/19 10:51 92 L 11/03/19 09:12 158/92 H 11/03/19 07:41 36.9 C 68 17 145/71 H 92 L 11/03/19 04:00 36.9 C 67 15 122/62 93 L Date Exam was Performed: 11/03/19 Time Exam was Performed: 13:08 Consult PN Assessment/Plan Procedures: Procedures ASSAY OF CREATININE (10/14/18) ASSAY OF LACTIC ACID (06/11/18) ASSAY OF LIPASE (06/11/18) ASSAY OF MAGNESIUM (01/03/17) ASSAY OF TROPONIN QUANT (08/01/18) ASSAY OF UREA NITROGEN (10/14/18) ASSAY THYROID STIM HORMONE (08/01/18) BLOOD CULTURE FOR BACTERIA (08/01/18) COMPLETE CBC W/AUTO DIFF WBC (12/04/18) COMPREHEN METABOLIC PANEL (12/04/18) CT ABD & PELV 1/> REGNS (06/11/18) CT ABD & PELVIS W/O CONTRAST (08/03/19) CT ABDOMEN W/O DYE (12/05/18) CT HEAD/BRAIN W/O DYE (08/01/18) CT PELVIS W/DYE (10/14/18) CT THORAX W/O DYE (12/05/18) CULTURE OTHR SPECIMN AEROBIC (06/11/18) DRUG TEST PRSMV DIR OPT OBS (08/01/18) ELECTROCARDIOGRAM TRACING (08/01/18) EMERGENCY DEPT VISIT (12/04/18) EMERGENCY DEPT VISIT (08/01/18) EMERGENCY DEPT VISIT (02/28/17) EMERGENCY DEPT VISIT (01/03/17) FREE ASSAY (FT-3) (01/03/17) GLUCOSE BLOOD TEST (08/01/18) HYDRATE IV INFUSION ADD-ON (06/11/18) HYDRATION IV INFUSION INIT (12/04/18) IIV NO PRSV INCREASED AG IM (08/01/18) METABOLIC PANEL TOTAL CA (08/01/18) MRI PELVIS W/O & W/DYE (10/20/18) PROTHROMBIN TIME (08/01/18) ROUTINE VENIPUNCTURE (12/04/18) THER/PROPH/DIAG INJ IV PUSH (08/01/18) THER/PROPH/DIAG INJ SC/IM (08/01/18) TX/PRO/DX INJ NEW DRUG ADDON (08/01/18) URINALYSIS AUTO W/SCOPE (08/01/18) US EXAM SCROTUM (10/20/18) VASCULAR STUDY (10/20/18) X-RAY EXAM CHEST 1 VIEW (08/01/18) X-RAY EXAM CHEST 2 VIEWS (06/11/18) X-RAY EXAM OF SHOULDER (07/02/17) (1) Fever SNOMED Code(s): 340616283 Code(s): R50.9 - FEVER, UNSPECIFIED Current Visit: Yes (2) Pressure sore SNOMED Code(s): 381602507 Code(s): L89.90 - PRESSURE ULCER OF UNSPECIFIED SITE, UNSPECIFIED STAGE Current Visit: Yes Qualifiers: Pressure injury location: sacral region Pressure injury stage: stage 4 Qualified Code(s): L89.154 - Pressure ulcer of sacral region, stage 4 (3) Chronic osteomyelitis SNOMED Code(s): 74025784 Code(s): M86.60 - OTHER CHRONIC OSTEOMYELITIS, UNSPECIFIED SITE Current Visit: Yes Problem List Initiated/Reviewed/Updated: Yes Plan: Continue dressing changes BID as previously outlined. Agree with ana lilia for wound care and to help with hydronephrosis. IV antibiotics chcf will be needed. Medicine team arranging PICC line placement.
[2019-11-03] MEDS: Propranolol 80 MG Cap.ER PO SCH (21:05)
[2019-11-03] MEDS: atorvaSTATin 40 MG Tab PO SCH (21:06)
[2019-11-03] MEDS: Tamsulosin 0.4 MG Cap.ER PO SCH (21:06)
[2019-11-03] MEDS: LANOLIN EYEBOTH SCH (21:15)
[2019-11-03] MEDS: MIN OIL EYEBOTH SCH (21:15)
[2019-11-03] MEDS: PETROLATUM EYEBOTH SCH (21:15)
[2019-11-04] MEDS: Heparin Sodium 5,000 Units/ML Vial SUBCUT SCH ×2 (04:24→12:46)
[2019-11-04 06:27] LABS: BLOOD UREA NITROGEN,BUN 11 mg/dL (7.0-18.0); CARBON DIOXIDE,CO2 32.4 mmol/L (21.0-32.0); CHLORIDE,CL 103 mmol/L (98-107); GLUCOSE RANDOM 137 mg/dL (74-106); POTASSIUM,K 3.3 mmol/L (3.5-5.1); SODIUM,NA 141 mmol/L (136-148)
[2019-11-04] MEDS: Acetaminophen 325 MG Tab PO SCH ×3 (06:42→21:24)
[2019-11-04] MEDS: Levothyroxine 25 MCG Tab PO SCH (06:42)
[2019-11-04] MEDS: Insulin Aspart 100 Units/ML 3 ML Pen SUBCUT SCH ×3 (06:45→17:50)
[2019-11-04] MEDS ORDERED: Magnesium Sulfate/Water 2 GM in Premix Bag 1 BAG IV ONE (08:25)
[2019-11-04] MEDS ORDERED: Potassium Chloride 20 MEQ Tab.ER PO ONE (08:25)
--- NOTE | 2019-11-04 08:26 | PCM.PN ---
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 Subjective Update: DOing well this morning, no complaints Spoke with and son. Updated on plans for discharge in am and to [facility] for outpatient placement of PICC line. Functional Status: Reports: Pain Controlled, Tolerating Diet, Ambulating - Review of Systems General: Reports: No Symptoms HEENT: Reports: No Symptoms Pulmonary: Reports: No Symptoms. Denies: Shortness of Breath Cardiovascular: Reports: No Symptoms. Denies: Chest Pain Gastrointestinal: Reports: No Symptoms. Denies: Abdominal Pain, Nausea, Vomiting Genitourinary: Reports: No Symptoms Musculoskeletal: Reports: Other (sacral pain, but much improved since admission) Neurological: Reports: No Symptoms Psychiatric: Reports: No Symptoms - Patient Data Vitals - Most Recent: Last Vital Signs Temp 98.3 F 11/04/19 07:57 Pulse 73 11/04/19 07:57 Resp 17 11/04/19 07:57 BP 129/61 11/04/19 07:57 Pulse Ox 96 11/04/19 07:57 Weight - Most Recent: 95.5 kg I&O - Last 24 Hours: Intake & Output 11/03/19 11/04/19 11/04/19 22:59 06:59 14:59 Intake Total 820 900 Output Total 800 1350 Balance 20 -450 Lab Results Last 24 Hours: Laboratory Results - last 24 hr 11/03/19 11/03/19 11/03/19 Range/Units 10:55 12:45 16:36 WBC (4.0-11.0) K/uL RBC (4.50-5.90) M/uL Hgb (13.0-17.0) g/dL Hct (38.0-50.0) % MCV (80.0-98.0) fL MCH (27.0-32.0) pg MCHC (31.0-37.0) g/dL RDW Std Deviation (28.0-62.0) fl RDW Coeff of Danilo (11.0-15.0) % Plt Count (150-400) K/uL MPV (7.40-12.00) fL Neut % (Auto) (48.0-80.0) % Lymph % (Auto) (16.0-40.0) % Mingo % (Auto) (0.0-15.0) % Eos % (Auto) (0.0-7.0) % Baso % (Auto) (0.0-1.5) % Neut # (Auto) (1.4-5.7) K/uL Lymph # (Auto) (0.6-2.4) K/uL Mingo # (Auto) (0.0-0.8) K/uL Eos # (Auto) (0.0-0.7) K/uL Baso # (Auto) (0.0-0.1) K/uL Nucleated RBC % /100WBC Nucleated RBCs # K/uL Sodium (136-148) mmol/L Potassium (3.5-5.1) mmol/L Chloride (98-107) mmol/L Carbon Dioxide (21.0-32.0) mmol/L BUN (7.0-18.0) mg/dL Creatinine (0.8-1.3) mg/dL Est Cr Clr Drug Dosing mL/min Estimated GFR (MDRD) ml/min Glucose (74-106) mg/dL POC Glucose 239 H 183 H (60-110) mg/dL Calcium (8.5-10.1) mg/dL Phosphorus (2.6-4.7) mg/dL Magnesium (1.8-2.4) mg/dL Vancomycin Trough 15.3 H (5.0-10.0) ug/mL 11/03/19 11/04/19 11/04/19 Range/Units 21:24 05:52 05:52 WBC 9.64 (4.0-11.0) K/uL RBC 3.84 L (4.50-5.90) M/uL Hgb 11.4 L (13.0-17.0) g/dL Hct 35.4 L (38.0-50.0) % MCV 92.2 (80.0-98.0) fL MCH 29.7 (27.0-32.0) pg MCHC 32.2 (31.0-37.0) g/dL RDW Std Deviation 46.0 (28.0-62.0) fl RDW Coeff of Danilo 14 (11.0-15.0) % Plt Count 375 (150-400) K/uL MPV 9.80 (7.40-12.00) fL Neut % (Auto) 69.3 (48.0-80.0) % Lymph % (Auto) 14.9 L (16.0-40.0) % Mingo % (Auto) 12.1 (0.0-15.0) % Eos % (Auto) 3.2 (0.0-7.0) % Baso % (Auto) 0.5 (0.0-1.5) % Neut # (Auto) 6.7 H (1.4-5.7) K/uL Lymph # (Auto) 1.4 (0.6-2.4) K/uL Mingo # (Auto) 1.2 H (0.0-0.8) K/uL Eos # (Auto) 0.3 (0.0-0.7) K/uL Baso # (Auto) 0.1 (0.0-0.1) K/uL Nucleated RBC % 0.0 /100WBC Nucleated RBCs # 0 K/uL Sodium 141 (136-148) mmol/L Potassium 3.3 L (3.5-5.1) mmol/L Chloride 103 (98-107) mmol/L Carbon Dioxide 32.4 H (21.0-32.0) mmol/L BUN 11 (7.0-18.0) mg/dL Creatinine 0.8 (0.8-1.3) mg/dL Est Cr Clr Drug Dosing 78.14 mL/min Estimated GFR (MDRD) > 60.0 ml/min Glucose 137 H (74-106) mg/dL POC Glucose 210 H (60-110) mg/dL Calcium 8.2 L (8.5-10.1) mg/dL Phosphorus 2.9 (2.6-4.7) mg/dL Magnesium 1.6 L (1.8-2.4) mg/dL Vancomycin Trough (5.0-10.0) ug/mL 11/04/19 Range/Units 06:18 WBC (4.0-11.0) K/uL RBC (4.50-5.90) M/uL Hgb (13.0-17.0) g/dL Hct (38.0-50.0) % MCV (80.0-98.0) fL MCH (27.0-32.0) pg MCHC (31.0-37.0) g/dL RDW Std Deviation (28.0-62.0) fl RDW Coeff of Danilo (11.0-15.0) % Plt Count (150-400) K/uL MPV (7.40-12.00) fL Neut % (Auto) (48.0-80.0) % Lymph % (Auto) (16.0-40.0) % Mingo % (Auto) (0.0-15.0) % Eos % (Auto) (0.0-7.0) % Baso % (Auto) (0.0-1.5) % Neut # (Auto) (1.4-5.7) K/uL Lymph # (Auto) (0.6-2.4) K/uL Mingo # (Auto) (0.0-0.8) K/uL Eos # (Auto) (0.0-0.7) K/uL Baso # (Auto) (0.0-0.1) K/uL Nucleated RBC % /100WBC Nucleated RBCs # K/uL Sodium (136-148) mmol/L Potassium (3.5-5.1) mmol/L Chloride (98-107) mmol/L Carbon Dioxide (21.0-32.0) mmol/L BUN (7.0-18.0) mg/dL Creatinine (0.8-1.3) mg/dL Est Cr Clr Drug Dosing mL/min Estimated GFR (MDRD) ml/min Glucose (74-106) mg/dL POC Glucose 119 H (60-110) mg/dL Calcium (8.5-10.1) mg/dL Phosphorus (2.6-4.7) mg/dL Magnesium (1.8-2.4) mg/dL Vancomycin Trough (5.0-10.0) ug/mL De Results Last 24 Hours: Microbiology 11/01/19 11:26 Urine Culture - Preliminary Urine, Clean Catch Enterococcus Faecalis 11/01/19 10:02 Wound Culture - Final Buttock, Unspecified Proteus Mirabilis Skin Kim 11/01/19 10:04 Aerobic Blood Culture - Preliminary Blood - Venous - Lab Draw NO GROWTH AFTER 2 DAYS Anaerobic Blood Culture - Preliminary NO GROWTH AFTER 2 DAYS 11/01/19 09:44 Aerobic Blood Culture - Preliminary Blood - Venous NO GROWTH AFTER 2 DAYS Anaerobic Blood Culture - Preliminary NO GROWTH AFTER 2 DAYS Med Orders - Current: Current Medications Acetaminophen (Tylenol) 650 mg PO TID [facility] Last Admin: 11/04/19 06:42 Dose: 650 mg Al Hydroxide/Mg Hydroxide (Mag-Al Plus) 30 ml PO Q1H PRN PRN Reason: Heartburn Albuterol/Ipratropium (Duoneb 3.0-0.5 Mg/3 Ml) 3 ml NEB Q4HRRT PRN PRN Reason: Shortness Of Breath/wheezing Amlodipine Besylate (Norvasc) 5 mg PO DAILY [facility] Last Admin: 11/03/19 09:12 Dose: 5 mg Artificial Tears (Refresh Plus 0.5%) 1 each EYEBOTH BID [facility] Last Admin: 11/03/19 21:11 Dose: 1 drop Aspirin (Aspirin) 81 mg PO DAILY [facility] Last Admin: 11/03/19 09:12 Dose: 81 mg Atorvastatin Calcium (Lipitor) 40 mg PO BEDTIME [facility] Last Admin: 11/03/19 21:06 Dose: 40 mg Bisacodyl (Dulcolax) 10 mg RECTAL Q24H PRN PRN Reason: Constipation Heparin Sodium (Porcine) (Heparin Sodium) 5,000 units SUBCUT Q8H [facility] Last Admin: 11/04/19 04:24 Dose: 5,000 units Vancomycin HCl 1.5 gm/ Premix 300 mls @ 200 mls/hr IV Q12H [facility] Last Admin: 11/03/19 23:05 Dose: 200 mls/hr Ceftriaxone Sodium/Dextrose 2 (gm/ Premix) 50 mls @ 100 mls/hr IV Q24H [facility] Last Admin: 11/03/19 11:57 Dose: 100 mls/hr Insulin Aspart (Novolog) 0 unit SUBCUT TIDAC [facility]; Protocol Last Admin: 11/04/19 06:45 Dose: Not Given Insulin Glargine (Lantus Solostar) 15 units SUBCUT BEDTIME [facility] Last Admin: 11/03/19 21:17 Dose: 15 units Levothyroxine Sodium (Levothyroxine) 25 mcg PO ACBREAKFAST [facility] Last Admin: 11/04/19 06:42 Dose: 25 mcg Magnesium Hydroxide (Milk Of Magnesia) 30 ml PO DAILY PRN PRN Reason: Constipation Multivitamins/Minerals/Vitamin C (Tab-A-Leanne) 1 tab PO DAILY [facility] Last Admin: 11/03/19 09:11 Dose: 1 tab Amino Acids/Protein (Hydrolys 30ml) 1 each PO BID [facility] Last Admin: 11/03/19 20:59 Dose: 1 each Lanolin/Min Oil/ (Petrolatum) 1 each EYEBOTH BEDTIME [facility] Last Admin: 11/03/19 21:15 Dose: 1 each Lifitegrast [Xiidra] 1 each EYERT BID [facility] Last Admin: 11/03/19 21:09 Dose: 1 each Prednisolone Acetate /Pf [Prednisolone Acet 1% Eye Drop] 1 each EYELF BID [facility] Last Admin: 11/03/19 21:01 Dose: 1 each Rivastigmine [Exelon (] 13.3 Mg) 1 each TRDERM DAILY [facility] Last Admin: 11/03/19 10:30 Dose: Not Given Propranolol HCl (Inderal La) 160 mg PO BEDTIME [facility] Last Admin: 11/03/19 21:05 Dose: 160 mg Quetiapine Fumarate (Seroquel) 100 mg PO BID [facility] Last Admin: 11/03/19 21:05 Dose: 100 mg Sodium Chloride (Saline Flush) 10 ml FLUSH ASDIRECTED PRN PRN Reason: Keep Vein Open Last Admin: 11/01/19 09:50 Dose: 10 ml Sodium Chloride (Saline Flush) 2.5 ml FLUSH ASDIRECTED PRN PRN Reason: Keep Vein Open Last Admin: 11/01/19 09:50 Dose: 2.5 ml Tamsulosin HCl (Flomax) 0.4 mg PO BEDTIME [facility] Last Admin: 11/03/19 21:06 Dose: 0.4 mg Vancomycin HCl (Pharmacy To Dose - Vancomycin) 1 dose .XX ASDIRECTED [facility] Discontinued Medications Sodium Chloride (Normal Saline) 1,000 mls @ 999 mls/hr IV .Bolus ONE Stop: 11/01/19 10:26 Last Infusion: 11/01/19 11:38 Dose: Infused Vancomycin HCl 1 gm/ Sodium (Chloride) 250 mls @ 166 mls/hr IV ONETIME ONE Stop: 11/01/19 12:10 Last Admin: 11/01/19 11:28 Dose: 166 mls/hr Ceftriaxone Sodium/Dextrose 1 (gm/ Premix) 50 mls @ 100 mls/hr IV ONETIME ONE Stop: 11/01/19 12:31 Last Admin: 11/01/19 13:09 Dose: 100 mls/hr Ceftriaxone Sodium/Dextrose (Rocephin In Dextrose,Iso-Osm 1 Gm/50 Ml) Confirm Administered Dose 50 mls @ as directed .ROUTE .STK-MED ONE Stop: 11/01/19 12:04 Last Admin: 11/01/19 13:11 Dose: Not Given Ceftriaxone Sodium/Dextrose 1 (gm/ Premix) 50 mls @ 100 mls/hr IV Q24H [facility] Vancomycin HCl 1.5 gm/ Premix 300 mls @ 200 mls/hr IV Q12H [facility] Last Admin: 11/01/19 14:41 Dose: Not Given Potassium Chloride 40 meq/ (Sodium Chloride) 270 mls @ 67.5 mls/hr IV ONETIME ONE Stop: 11/01/19 18:29 Last Admin: 11/01/19 14:53 Dose: 67.5 mls/hr Magnesium Sulfate 4 gm/ Premix 100 mls @ 50 mls/hr IV ONETIME ONE Stop: 11/02/19 10:09 Last Admin: 11/02/19 09:08 Dose: 50 mls/hr Magnesium Sulfate (Magnesium Sulfate In Water Premix) Confirm Administered Dose 100 mls @ as directed .ROUTE .STK-MED ONE Stop: 11/02/19 09:04 Last Admin: 11/02/19 10:17 Dose: Not Given Iopamidol (Isovue-370 (76%)) 100 ml IVPUSH ONETIME STA Stop: 11/01/19 11:20 Last Admin: 11/01/19 11:22 Dose: 100 ml - Exam General: Alert, Oriented, Cooperative, No Acute Distress Lungs: Clear to Auscultation, Normal Respiratory Effort Cardiovascular: Regular Rate, Regular Rhythm GI/Abdominal Exam: Normal Bowel Sounds, Soft, Non-Tender, Other (colostomy) (Male) Exam: Scrotal Swelling (no erythema or pain. Mass noted) Back Exam: Normal Inspection, Full Range of Motion Extremities: Normal Inspection, Normal Range of Motion, Non-Tender, No Pedal Edema Neurological: No New Focal Deficit Psy/Mental Status: Alert, Normal Affect, Normal Mood Sepsis Event Note - Evaluation Sepsis Screening Result: No Definite Risk - Focused Exam Vital Signs: Vital Signs Temp Pulse Resp BP Pulse Ox 11/04/19 07:57 98.3 F 73 17 129/61 96 11/04/19 04:00 98 F 70 18 120/59 L 94 L 11/04/19 00:15 98 F 70 18 128/62 93 L Date Exam was Performed: 11/04/19 Time Exam was Performed: 11:38 - Problem List & Annotations (1) Chronic osteomyelitis SNOMED Code(s): 17114683 Code(s): M86.60 - OTHER CHRONIC OSTEOMYELITIS, UNSPECIFIED SITE Status: Acute Current Visit: Yes (2) Fever SNOMED Code(s): 770181787 Code(s): R50.9 - FEVER, UNSPECIFIED Status: Acute Current Visit: Yes (3) Hydronephrosis SNOMED Code(s): 90114428 Code(s): N13.30 - UNSPECIFIED HYDRONEPHROSIS Status: Acute Current Visit : Yes (4) Pressure sore SNOMED Code(s): 578359232 Code(s): L89.90 - PRESSURE ULCER OF UNSPECIFIED SITE, UNSPECIFIED STAGE Status: Acute Current Visit: Yes Qualifiers: Pressure injury location: sacral region Pressure injury stage: stage 4 Qualified Code(s): L89.154 - Pressure ulcer of sacral region, stage 4 (5) UTI (urinary tract infection) SNOMED Code(s): 47201003 Code(s): N39.0 - URINARY TRACT INFECTION, SITE NOT SPECIFIED Status: Acute Current Visit: Yes (6) Lewy body disease SNOMED Code(s): 224053348 Code(s): G31.83 - DEMENTIA WITH LEWY BODIES; F02.80 - DEMENTIA IN OTH DISEASES CLASSD ELSWHR W/O BEHAVRL DISTURB Status: Chronic Current Visit: No (7) Colostomy in place SNOMED Code(s): 474649738, 387787379 Code(s): Z93.3 - COLOSTOMY STATUS Status: Chronic Current Visit: Yes - Problem List Review Problem List Initiated/Reviewed/Updated: Yes - My Orders Last 24 Hours: My Active Orders 11/03/19 10:07 Up to Chair [RC] ASDIRECTED 11/04/19 08:25 Magnesium Sulfate/Water [Magnesium Sulfate in Water Premix] 2 gm Premix Bag 1 bag IV ONETIME Potassium Chloride [Klor-Con M20] 40 meq PO ONETIME ONE 11/05/19 05:11 BASIC METABOLIC PANEL,BMP [CHEM] AM CBC WITH AUTO DIFF [HEME] AM MAGNESIUM [CHEM] AM PHOSPHORUS [CHEM] AM 11/06/19 05:11 BASIC METABOLIC PANEL,BMP [CHEM] AM CBC WITH AUTO DIFF [HEME] AM MAGNESIUM [CHEM] AM PHOSPHORUS [CHEM] AM - Plan Plan:: This 84 year old male, admitted with stage 4 pressure ulcer, fevers and leukocytosis 1. Osteomyelitis of sacrum: Likely secondary to stage 4 decubitus. Continue with consult to Dr Bailey for wound management. Continue antibiotics with Rocephin with cultures of Proteus mirabilis and Enterococcus faecalis, will add Daptomycin. Cultures pending. [facility]ICC line placement [facility]scheduled in [facility] as [facility] tomorrow. Every 2 hour repositioning. [place] in place to help keep wound dry. Up to chair TID with meals. Consult delphi programmer for improved diet changes with decubitus. 2. UTI: Daptomycin switched from Vancomycin. 3. DM Type 2: Stable, continue insulin pre meal and at bedtime. 4. Hx CVA: Continue statin and ASA. Monitor. 5. HTN: Stable. Continue Amlodipine VTE prophylaxis: Heparin Dispo: dc in am to [facility].
[2019-11-04] MEDS: Aspirin 81 MG Tab.Chew PO SCH (08:42)
[2019-11-04] MEDS: amLODIPine 5 MG Tab PO SCH (08:42)
[2019-11-04] MEDS: QUEtiapine 100 MG Tab PO SCH ×2 (08:43→21:22)
[2019-11-04] MEDS: Multivitamin Tab PO SCH (08:43)
[2019-11-04] MEDS: Carboxymethylcellulose Sodium 0.5% Ophth Soln 0.4 ML UD Box of 30 EYEBOTH SCH ×2 (08:50→21:12)
[2019-11-04] MEDS: PROTEIN HYDROLYS PO SCH ×2 (08:52→21:30)
[2019-11-04] MEDS: Prednisolone Acetate/Pf [Prednisolone Acet 1% Eye Drop] EYELF SCH ×2 (08:52→21:26)
[2019-11-04] MEDS: Lifitegrast [Xiidra] EYERT SCH ×2 (08:52→21:27)
[2019-11-04] MEDS: AMINO ACIDS PO SCH ×2 (08:52→21:30)
[2019-11-04] MEDS: RIVASTIGMINE 13.3 MG TRDERM SCH (08:52)
[2019-11-04] MEDS ORDERED: DAPTOmycin 500 MG Vial IV SCH (09:30)
[2019-11-04] MEDS ORDERED: DAPTOMYCIN IV SCH (09:45)
[2019-11-04] MEDS ORDERED: SODIUM CHLORIDE 0.9% IV SCH (09:45)
[2019-11-04] MEDS: cefTRIAXone 2 GM in Premix Bag 1 BAG IV SCH (12:46)
--- NOTE | 2019-11-04 17:20 | PCM.SN ---
- Free Text/Narrative Note: Patient met at bedside this morning. Dressing change performed. There is more serous drainage on the dressings and the wound edges appear to be janeen. Continue with BID dressings changes as instructed below: 1) Remove old packing. If normal saline is available wash out wound at bedside. Ok to remove all dressings for bathing. Can get soap and water into wound. Pat area dry afterwards. 2) Pack dry 1" iodoform gauze into wound until it fills the cavity. 3) Cover this with dry 4 x [address] with tape. 4) Ok to change more frequently to keep area dry. Follow up in my clinic for wound cares next saturday. Patient should be following up with a PCP or medicine physician to manage IV antibiotics. Follow up with urology for sung management.
[2019-11-04] MEDS: Insulin Glargine,Human Rec. Analog 100 Units/ML 3 ML Pen SUBCUT SCH (21:13)
[2019-11-04] MEDS: Propranolol 80 MG Cap.ER PO SCH (21:21)
[2019-11-04] MEDS: Tamsulosin 0.4 MG Cap.ER PO SCH (21:22)
[2019-11-04] MEDS: atorvaSTATin 40 MG Tab PO SCH (21:23)
[2019-11-04] MEDS: MIN OIL EYEBOTH SCH (21:30)
[2019-11-04] MEDS: LANOLIN EYEBOTH SCH (21:30)
[2019-11-04] MEDS: PETROLATUM EYEBOTH SCH (21:30)
[2019-11-05] MEDS: Acetaminophen 325 MG Tab PO SCH (05:53)
[2019-11-05] MEDS: Levothyroxine 25 MCG Tab PO SCH ×2 (05:54→08:22)
[2019-11-05 06:40] LABS: BLOOD UREA NITROGEN,BUN 11 mg/dL (7.0-18.0); CARBON DIOXIDE,CO2 30.4 mmol/L (21.0-32.0); CHLORIDE,CL 103 mmol/L (98-107); GLUCOSE RANDOM 158 mg/dL (74-106); POTASSIUM,K 3.8 mmol/L (3.5-5.1); SODIUM,NA 140 mmol/L (136-148)
--- NOTE | 2019-11-05 08:20 | PCM.DCSUM1 ---
Discharge Summary - Hospital Course Brief History: Patient is an 84 year old male with PMH of dementia,left sided testicular mass, rectal cancer s/p chemo, radiation and an APR with end colostomy. 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 [facility] 101, hence was bought to the ER for evaluation. Per patient has been complaining of increased soreness to the area. He was seen by plastic surgery in the past was recommended conservative management. Patient had a f/u appt with surgery on Saturday which had to be rescheduled. CT A/P showed Osteomyelitics of sacrum. Patient also has UTI evident on UA. Patient received IV vancomycin and IV Rocephin. Surgery evaluated the patient agreed with IV antibiotics for now. Patient is being admitted for further management. Diagnosis: Stroke: No - Discharge Data Discharge Date: 11/05/19 Discharge Disposition: DC/Tfer to SNF 03 Condition: Good - Referral to Home Health Primary Care Physician: Adama Torres MD - Discharge Diagnosis/Problem(s) (1) Chronic osteomyelitis SNOMED Code(s): 59521285 ICD Code: M86.60 - OTHER CHRONIC OSTEOMYELITIS, UNSPECIFIED SITE Status: Acute Current Visit: Yes (2) Fever SNOMED Code(s): 846975143 ICD Code: R50.9 - FEVER, UNSPECIFIED Status: Acute Current Visit: Yes (3) Hydronephrosis SNOMED Code(s): 31397756 ICD Code: N13.30 - UNSPECIFIED HYDRONEPHROSIS Status: Acute Current Visit : Yes (4) Pressure sore SNOMED Code(s): 782604798 ICD Code: L89.90 - PRESSURE ULCER OF UNSPECIFIED SITE, UNSPECIFIED STAGE Status: Acute Current Visit: Yes Qualifiers: Pressure injury location: sacral region Pressure injury stage: stage 4 Qualified Code(s): L89.154 - Pressure ulcer of sacral region, stage 4 (5) UTI (urinary tract infection) SNOMED Code(s): 04200377 ICD Code: N39.0 - URINARY TRACT INFECTION, SITE NOT SPECIFIED Status: Acute Current Visit: Yes (6) Lewy body disease SNOMED Code(s): 671561758 ICD Code: G31.83 - DEMENTIA WITH LEWY BODIES; F02.80 - DEMENTIA IN OTH DISEASES CLASSD ELSWHR W/O BEHAVRL DISTURB Status: Chronic Current Visit: No (7) Colostomy in place SNOMED Code(s): 021414142, 105976678 ICD Code: Z93.3 - COLOSTOMY STATUS Status: Chronic Current Visit: Yes - Patient Summary/Data Consults: Consultations 11/01/19 11:15 Consult to Physician [CONS] Stat 11/02/19 11:50 Consult to Communications Superintendent [CONS] Routine 11/02/19 12:54 Consult to Physical Therapy [PT Evaluation and Treatment] [CONS] Routine - Patient Instructions Diet: Diabetic Diet Activity: As Tolerated Activity, Other: Frequent repositioning every 2 hours due to decubitus. Showering/Bathing: No Tub Bathing/Swimming Notify Provider of: Fever, Increased Pain, Swelling and Redness, Drainage, Nausea and/or Vomiting Other/Special Instructions: Sung cares, with monthly sung change out. PT/OT/ ST evaulation and treatment. Wound care per Dr Bailey orders: Idoform packing to sacral wound, cover with dry gauze and keep in place with tape. Change every 12 hours. Blood sugar checks before meals, three times daily. Colostomy cares per routine. PICC line cares, change dressing every [address] Torres to write for discontinuation of PICC line once antibiotic regimen complete. - Discharge Plan *PRESCRIPTION DRUG MONITORING PROGRAM REVIEWED*: Not Applicable *COPY OF PRESCRIPTION DRUG MONITORING REPORT IN PATIENT GABRIELA: Not Applicable Prescriptions/Med Rec: Ampicillin 2 gm IV Q4H #252 vial cefTRIAXone [Rocephin in Dextrose,Iso-Osm 2 GM/50 ML] 2 gm IV Q24H #37 bag Home Medications: Home Meds Aspirin 81 mg PO DAILY 01/03/17 [History] amLODIPine [Norvasc] 5 mg PO DAILY 01/03/17 [History] atorvaSTATin [Lipitor] 40 mg PO BEDTIME 01/03/17 [History] Propranolol HCl [Inderal LA] 160 mg PO BEDTIME 02/28/17 [History] Acetaminophen [Acetaminophen 8 Hour] 650 mg PO TID 06/11/18 [History] Insulin Glarg,Human.Rec.Analog [Lantus] 15 units SQ BEDTIME 06/11/18 [History] Levothyroxine Sodium [Levo-T] 25 mcg PO ACBREAKFAST 06/11/18 [History] Prednisolone Acetate/Pf [Prednisolone Acet 1% Eye Drop] 1 drop EYELF BID [History] QUEtiapine Fumarate [Quetiapine Fumarate] 100 mg PO BID 06/11/18 [History] Rivastigmine [Exelon] 13.3 mg TRDERM DAILY 06/11/18 [History] valACYclovir HCl [Valtrex] 500 mg PO BID 06/11/18 [History] Bisacodyl [Dulcolax] 10 mg RC Q24H PRN 08/01/18 [History] Dextran 70/Hypromellose [Artificial Tears] 1 drop OP QID 08/01/18 [History] Insulin Lispro [Humalog] 0 unit SQ TIDAC 08/01/18 [History] Lanolin/Min Oil/Petrolatum [Artificial Tears Ointment] 1 gm OP BEDTIME 08/01/18 [History] Mag Hydrox/Al Hydrox/Simeth [Maalox Maximum Strength Susp] 30 ml PO Q1H PRN 06/11 [History] Magnesium Hydroxide [Milk of Magnesia] 30 ml PO DAILY PRN 08/01/18 [History] Multivitamin [Daily Leanne] 1 each PO DAILY 08/01/18 [History] metFORMIN HCl [Glucophage] 1,000 mg PO BID 08/01/18 [History] Tamsulosin HCl [Flomax] 0.4 mg PO BEDTIME 12/04/18 [History] Lifitegrast [Xiidra] 1 each EYERT BID 11/01/19 [History] Sertraline [Zoloft] 25 mg PO DAILY 11/01/19 [History] Ampicillin 2 gm IV Q4H #252 vial 11/04/19 [Rx] cefTRIAXone [Rocephin in Dextrose,Iso-Osm 2 GM/50 ML] 2 gm IV Q24H #37 bag 11/04 [Rx] Oxygen Therapy Mode: Room Air Patient Handouts: Ceftriaxone injection, Preventing Pressure Injuries, Ampicillin capsules Referrals: Angela Bailey MD [Physician] - 11/09/19 1:45 pm Gilma Guardado MD [Physician] - 11/06/19 10:45 am Adama Torres MD [Primary Care Provider] - 11/09/19 - Discharge Summary/Plan Comment DC Time >30 min.: No Discharge Summary/Plan Comment: Admitting Diagnoses: Fever Stage IV sacral decubitus UTI Discharge Diagnoses: Osteomyelitis of sacrum Stage IV decubitus infection- improving. cultured Proteus mirabilis UTI- enterococcus faecalis Hydronephrosis secondary to BPH with retention with sung placement Other PMH: HTN dyslipidemia HX CVA Hx rectal ca with chemo, radiation and colostomy placement DM TYpe 2 Lewy body dementia Delusional disorder Testicular mass- conservative management requested per family. Yobani was admitted secondary to fevers, UTI and suspected infected sacral decubitus ulcer. CT of pelvis obtained, which revealed ulcer with chronic osteomyelitis of sacrum. He was treated with Vancomycin and Rocephin. Cultures obtained from wound returned with Proteus mirabilis. He has been incontinent of urine which was soiling the dressings. Dr Bailey was consulted for wound management. Dressing changes have been twice daily. He was feeling much improved over the next following days. Also noted on admission CT was bilateral hydronephrosis, BUN and Cr WNL. But he was then noted to be retaining urine, 400 -500 mls after urinating. Sung catheter was placed for this reason along with keep wound bed dry and clean to promote healing. He has done well with sung catheter. UC revealed Enterococcus faecalis, at this time antibiotics were changed to Rocephin and Daptomycin to make once daily dosing easy for SNF. Ultimately medications were changed to Ampicillin 2 gm every 4 hours IV and Rocephin 2 gm every day for 6 weeks for Osteomyelitis. Leukocytosis has resolved. He is afebrile. BC negative. He will be discharged back to [facility] today. PICC line placement arranged with [facility] as an outpatient today as well. [facility] aware of this. I spoke with Dr Torres regarding treatment plan and he is aware of 6 weeks of antibiotics. He will follow with care at [facility]. He will also follow up ith Dr Guardado regarding sung management and hydronephrosis. He will see Dr Bailey for wound care management as well. and son were updated on treatment plan and are in agreement. - General Info Date of Service: 11/05/19 Admission Dx/Problem (Free Text: Admission Diagnosis/Problem Admission Diagnosis/Problem Stage 4 sacral ulcer with sacral osteomyelitis. Subjective Update: Doing well this morning. No chest pain or SOB. reports mild pain to sacrum. No other concerns. getting dressed and ready to be discharged to SNF. Functional Status: Reports: Pain Controlled, Tolerating Diet, Ambulating - Review of Systems General: Reports: No Symptoms. Denies: Weakness, Fatigue Pulmonary: Reports: No Symptoms. Denies: Shortness of Breath Cardiovascular: Reports: No Symptoms. Denies: Chest Pain Gastrointestinal: Reports: No Symptoms. Denies: Abdominal Pain, Nausea, Vomiting Genitourinary: Reports: No Symptoms. Denies: Flank Pain Musculoskeletal: Reports: Other (mild pain to sacrum) Neurological: Reports: No Symptoms Psychiatric: Reports: No Symptoms - Patient Data Vitals - Most Recent: Last Vital Signs Temp 98.1 F 11/05/19 03:39 Pulse 68 11/05/19 03:39 Resp 18 11/05/19 03:39 BP 120/56 L 11/05/19 03:39 Pulse Ox 93 L 11/05/19 05:00 Weight - Most Recent: 95.5 kg I&O - Last 24 hours: Intake & Output 11/04/19 11/05/19 11/05/19 22:59 06:59 14:59 Intake Total 1100 820 Output Total 1800 900 Balance -700 -80 Lab Results - Last 24 hrs: Laboratory Results - last 24 hr 11/04/19 11/04/19 11/05/19 Range/Units 11:21 17:48 06:12 WBC (4.0-11.0) K/uL RBC (4.50-5.90) M/uL Hgb (13.0-17.0) g/dL Hct (38.0-50.0) % MCV (80.0-98.0) fL MCH (27.0-32.0) pg MCHC (31.0-37.0) g/dL RDW Std Deviation (28.0-62.0) fl RDW Coeff of Danilo (11.0-15.0) % Plt Count (150-400) K/uL MPV (7.40-12.00) fL Neut % (Auto) (48.0-80.0) % Lymph % (Auto) (16.0-40.0) % Pinal % (Auto) (0.0-15.0) % Eos % (Auto) (0.0-7.0) % Baso % (Auto) (0.0-1.5) % Neut # (Auto) (1.4-5.7) K/uL Lymph # (Auto) (0.6-2.4) K/uL Pinal # (Auto) (0.0-0.8) K/uL Eos # (Auto) (0.0-0.7) K/uL Baso # (Auto) (0.0-0.1) K/uL Nucleated RBC % /100WBC Nucleated RBCs # K/uL Sodium (136-148) mmol/L Potassium (3.5-5.1) mmol/L Chloride (98-107) mmol/L Carbon Dioxide (21.0-32.0) mmol/L BUN (7.0-18.0) mg/dL Creatinine (0.8-1.3) mg/dL Est Cr Clr Drug Dosing mL/min Estimated GFR (MDRD) ml/min Glucose (74-106) mg/dL POC Glucose 146 H 156 H 143 H (60-110) mg/dL Calcium (8.5-10.1) mg/dL Phosphorus (2.6-4.7) mg/dL Magnesium (1.8-2.4) mg/dL 11/05/19 11/05/19 Range/Units 06:15 06:15 WBC 9.84 (4.0-11.0) K/uL RBC 3.92 L (4.50-5.90) M/uL Hgb 11.6 L (13.0-17.0) g/dL Hct 36.2 L (38.0-50.0) % MCV 92.3 (80.0-98.0) fL MCH 29.6 (27.0-32.0) pg MCHC 32.0 (31.0-37.0) g/dL RDW Std Deviation 46.4 (28.0-62.0) fl RDW Coeff of Danilo 14 (11.0-15.0) % Plt Count 349 (150-400) K/uL MPV 9.60 (7.40-12.00) fL Neut % (Auto) 76.7 (48.0-80.0) % Lymph % (Auto) 9.9 L (16.0-40.0) % Pinal % (Auto) 10.2 (0.0-15.0) % Eos % (Auto) 2.8 (0.0-7.0) % Baso % (Auto) 0.4 (0.0-1.5) % Neut # (Auto) 7.6 H (1.4-5.7) K/uL Lymph # (Auto) 1.0 (0.6-2.4) K/uL Pinal # (Auto) 1.0 H (0.0-0.8) K/uL Eos # (Auto) 0.3 (0.0-0.7) K/uL Baso # (Auto) 0.0 (0.0-0.1) K/uL Nucleated RBC % 0.0 /100WBC Nucleated RBCs # 0 K/uL Sodium 140 (136-148) mmol/L Potassium 3.8 (3.5-5.1) mmol/L Chloride 103 (98-107) mmol/L Carbon Dioxide 30.4 (21.0-32.0) mmol/L BUN 11 (7.0-18.0) mg/dL Creatinine 0.7 L (0.8-1.3) mg/dL Est Cr Clr Drug Dosing 89.30 mL/min Estimated GFR (MDRD) > 60.0 ml/min Glucose 158 H (74-106) mg/dL POC Glucose (60-110) mg/dL Calcium 8.4 L (8.5-10.1) mg/dL Phosphorus 2.8 (2.6-4.7) mg/dL Magnesium 1.9 (1.8-2.4) mg/dL KIARA Results - Last 24 hrs: Microbiology 11/01/19 10:04 Aerobic Blood Culture - Preliminary Blood - Venous - Lab Draw NO GROWTH AFTER 3 DAYS Anaerobic Blood Culture - Preliminary NO GROWTH AFTER 3 DAYS 11/01/19 09:44 Aerobic Blood Culture - Preliminary Blood - Venous NO GROWTH AFTER 3 DAYS Anaerobic Blood Culture - Preliminary NO GROWTH AFTER 3 DAYS 11/01/19 11:26 Urine Culture - Final Urine, Clean Catch Enterococcus Faecalis Normal Urogenital Kim Med Orders - Current: Current Medications Acetaminophen (Tylenol) 650 mg PO TID [facility] Last Admin: 11/05/19 05:53 Dose: 650 mg Al Hydroxide/Mg Hydroxide (Mag-Al Plus) 30 ml PO Q1H PRN PRN Reason: Heartburn Albuterol/Ipratropium (Duoneb 3.0-0.5 Mg/3 Ml) 3 ml NEB Q4HRRT PRN PRN Reason: Shortness Of Breath/wheezing Amlodipine Besylate (Norvasc) 5 mg PO DAILY [facility] Last Admin: 11/04/19 08:42 Dose: 5 mg Artificial Tears (Refresh Plus 0.5%) 1 each EYEBOTH BID [facility] Last Admin: 11/04/19 21:12 Dose: 1 drop Aspirin (Aspirin) 81 mg PO DAILY [facility] Last Admin: 11/04/19 08:42 Dose: 81 mg Atorvastatin Calcium (Lipitor) 40 mg PO BEDTIME [facility] Last Admin: 11/04/19 21:23 Dose: 40 mg Bisacodyl (Dulcolax) 10 mg RECTAL Q24H PRN PRN Reason: Constipation Ceftriaxone Sodium/Dextrose 2 (gm/ Premix) 50 mls @ 100 mls/hr IV Q24H [facility] Stop: 11/05/19 08:59 Last Admin: 11/05/19 07:49 Dose: 100 mls/hr Daptomycin 955 mg/ Sodium (Chloride) 19.1 mls @ 573 mls/hr IV Q24H [facility] Stop: 11/05/19 08:31 Insulin Aspart (Novolog) 0 unit SUBCUT TIDAC [facility]; Protocol Last Admin: 11/04/19 17:50 Dose: 1 unit Insulin Glargine (Lantus Solostar) 15 units SUBCUT BEDTIME [facility] Last Admin: 11/04/19 21:13 Dose: 15 units Levothyroxine Sodium (Levothyroxine) 25 mcg PO ACBREAKFAST [facility] Last Admin: 11/05/19 05:54 Dose: 25 mcg Magnesium Hydroxide (Milk Of Magnesia) 30 ml PO DAILY PRN PRN Reason: Constipation Multivitamins/Minerals/Vitamin C (Tab-A-Leanne) 1 tab PO DAILY [facility] Last Admin: 11/04/19 08:43 Dose: 1 tab Amino Acids/Protein (Hydrolys 30ml) 1 each PO BID [facility] Last Admin: 11/04/19 21:30 Dose: 1 each Lanolin/Min Oil/ (Petrolatum) 1 each EYEBOTH BEDTIME [facility] Last Admin: 11/04/19 21:30 Dose: 1 each Lifitegrast [Xiidra] 1 each EYERT BID [facility] Last Admin: 11/04/19 21:27 Dose: 1 each Prednisolone Acetate /Pf [Prednisolone Acet 1% Eye Drop] 1 each EYELF BID [facility] Last Admin: 11/04/19 21:26 Dose: 1 each Rivastigmine [Exelon (] 13.3 Mg) 1 each TRDERM DAILY [facility] Last Admin: 11/04/19 08:52 Dose: 1 each Propranolol HCl (Inderal La) 160 mg PO BEDTIME [facility] Last Admin: 11/04/19 21:21 Dose: 160 mg Quetiapine Fumarate (Seroquel) 100 mg PO BID [facility] Last Admin: 11/04/19 21:22 Dose: 100 mg Sodium Chloride (Saline Flush) 10 ml FLUSH ASDIRECTED PRN PRN Reason: Keep Vein Open Last Admin: 11/01/19 09:50 Dose: 10 ml Sodium Chloride (Saline Flush) 2.5 ml FLUSH ASDIRECTED PRN PRN Reason: Keep Vein Open Last Admin: 11/01/19 09:50 Dose: 2.5 ml Tamsulosin HCl (Flomax) 0.4 mg PO BEDTIME [facility] Last Admin: 11/04/19 21:22 Dose: 0.4 mg Discontinued Medications Heparin Sodium (Porcine) (Heparin Sodium) 5,000 units SUBCUT Q8H [facility] Stop: 11/04/19 15:00 Last Admin: 11/04/19 12:46 Dose: 5,000 units Sodium Chloride (Normal Saline) 1,000 mls @ 999 mls/hr IV .Bolus ONE Stop: 11/01/19 10:26 Last Infusion: 11/01/19 11:38 Dose: Infused Vancomycin HCl 1 gm/ Sodium (Chloride) 250 mls @ 166 mls/hr IV ONETIME ONE Stop: 11/01/19 12:10 Last Admin: 11/01/19 11:28 Dose: 166 mls/hr Ceftriaxone Sodium/Dextrose 1 (gm/ Premix) 50 mls @ 100 mls/hr IV ONETIME ONE Stop: 11/01/19 12:31 Last Admin: 11/01/19 13:09 Dose: 100 mls/hr Ceftriaxone Sodium/Dextrose (Rocephin In Dextrose,Iso-Osm 1 Gm/50 Ml) Confirm Administered Dose 50 mls @ as directed .ROUTE .STK-MED ONE Stop: 11/01/19 12:04 Last Admin: 11/01/19 13:11 Dose: Not Given Ceftriaxone Sodium/Dextrose 1 (gm/ Premix) 50 mls @ 100 mls/hr IV Q24H [facility] Vancomycin HCl 1.5 gm/ Premix 300 mls @ 200 mls/hr IV Q12H [facility] Last Admin: 11/01/19 14:41 Dose: Not Given Potassium Chloride 40 meq/ (Sodium Chloride) 270 mls @ 67.5 mls/hr IV ONETIME ONE Stop: 11/01/19 18:29 Last Admin: 11/01/19 14:53 Dose: 67.5 mls/hr Vancomycin HCl 1.5 gm/ Premix 300 mls @ 200 mls/hr IV Q12H [facility] Last Admin: 11/03/19 23:05 Dose: 200 mls/hr Magnesium Sulfate 4 gm/ Premix 100 mls @ 50 mls/hr IV ONETIME ONE Stop: 11/02/19 10:09 Last Admin: 11/02/19 09:08 Dose: 50 mls/hr Ceftriaxone Sodium/Dextrose 2 (gm/ Premix) 50 mls @ 100 mls/hr IV Q24H [facility] Last Admin: 11/04/19 12:46 Dose: 100 mls/hr Magnesium Sulfate (Magnesium Sulfate In Water Premix) Confirm Administered Dose 100 mls @ as directed .ROUTE .STK-MED ONE Stop: 11/02/19 09:04 Last Admin: 11/02/19 10:17 Dose: Not Given Magnesium Sulfate 2 gm/ Premix 50 mls @ 50 mls/hr IV ONETIME ONE Stop: 11/04/19 09:24 Last Admin: 11/04/19 08:44 Dose: 50 mls/hr Daptomycin 955 mg/ Sodium (Chloride) 19.1 mls @ 573 mls/hr IV Q24H [facility] Last Admin: 11/04/19 10:48 Dose: 573 mls/hr Iopamidol (Isovue-370 (76%)) 100 ml IVPUSH ONETIME STA Stop: 11/01/19 11:20 Last Admin: 11/01/19 11:22 Dose: 100 ml Potassium Chloride (Klor-Con M20) 40 meq PO ONETIME ONE Stop: 11/04/19 08:26 Last Admin: 11/04/19 08:41 Dose: 40 meq Vancomycin HCl (Pharmacy To Dose - Vancomycin) 1 dose .XX ASDIRECTED [facility] - Exam General: Reports: Alert, Cooperative, No Acute Distress. Denies: Oriented Lungs: Reports: Clear to Auscultation, Normal Respiratory Effort Cardiovascular: Reports: Regular Rate, Regular Rhythm GI/Abdominal Exam: Normal Bowel Sounds, Soft, Non-Tender, Other (colostomy) (Male) Exam: Scrotal Swelling (no pain or erythema), Testicular Mass, Other ( sung catheter in place, draining) Extremities: Normal Inspection, Normal Range of Motion, Non-Tender, No Pedal Edema Wound/Incisions: Reports: Decubitis (sacral, dressing C/D/I) Neurological: Reports: No New Focal Deficit Psy/Mental Status: Reports: Alert, Normal Affect, Normal Mood
[2019-11-05] MEDS: Insulin Aspart 100 Units/ML 3 ML Pen SUBCUT SCH (08:21)
[2019-11-05] MEDS: amLODIPine 5 MG Tab PO SCH (08:22)
[2019-11-05] MEDS: Multivitamin Tab PO SCH (08:22)
[2019-11-05] MEDS: Aspirin 81 MG Tab.Chew PO SCH (08:22)
[2019-11-05] MEDS: QUEtiapine 100 MG Tab PO SCH (08:22)
[2019-11-05] MEDS: AMINO ACIDS PO SCH (08:23)
[2019-11-05] MEDS: Prednisolone Acetate/Pf [Prednisolone Acet 1% Eye Drop] EYELF SCH (08:23)
[2019-11-05] MEDS: PROTEIN HYDROLYS PO SCH (08:23)
[2019-11-05] MEDS: Lifitegrast [Xiidra] EYERT SCH (08:23)
[2019-11-05] MEDS: RIVASTIGMINE 13.3 MG TRDERM SCH (08:24)
[2019-11-05 08:25] VITALS: BP 126/78
[2019-11-05] MEDS: Carboxymethylcellulose Sodium 0.5% Ophth Soln 0.4 ML UD Box of 30 EYEBOTH SCH (08:25)
[2019-11-05] MEDS ORDERED: DAPTOMYCIN IV SCH (08:30)
[2019-11-05] MEDS ORDERED: cefTRIAXone 2 GM in Premix Bag 1 BAG IV SCH (08:30)
[2019-11-05] MEDS ORDERED: SODIUM CHLORIDE 0.9% IV SCH (08:30)
[2019-11-05 09:43] VITALS: PULSE 86
== END 2019-11-05 08:50 | DRG 539 ==
LOC: MW.ED 08:52 → MW.MS 11:12 → OBSVTOIN 11:49
PROVIDERS: ADMIT Student in an Organized Health Care Education/Training Program; ATTEND Student in an Organized Health Care Education/Training Program
PROC: 0T9B70Z Drainage of Bladder with Drainage Device, Via Natural or Artificial Opening (ICD-10-PCS; principal; 2019-11-02)
DX: R50.9 Fever, unspecified (principal); L89.159 Pressure ulcer of sacral region, unspecified stage; M46.28 Osteomyelitis of vertebra, sacral and sacrococcygeal region; L89.154 Pressure ulcer of sacral region, stage 4; N13.6 Pyonephrosis; G31.83 Neurocognitive disorder with Lewy bodies; F02.80 Dementia in other diseases classified elsewhere, unspecified severity, without behavioral disturbance, psychotic disturbance, mood disturbance, and anxiety; N40.0 Benign prostatic hyperplasia without lower urinary tract symptoms; B96.4 Proteus (mirabilis) (morganii) as the cause of diseases classified elsewhere; Z88.6 Allergy status to analgesic agent; B95.2 Enterococcus as the cause of diseases classified elsewhere; N40.1 Benign prostatic hyperplasia with lower urinary tract symptoms; R33.8 Other retention of urine; I10 Essential (primary) hypertension; E78.5 Hyperlipidemia, unspecified; E11.9 Type 2 diabetes mellitus without complications; F22 Delusional disorders; N50.9 Disorder of male genital organs, unspecified; R32 Unspecified urinary incontinence; H54.7 Unspecified visual loss; E78.00 Pure hypercholesterolemia, unspecified; Z93.3 Colostomy status; Z79.899 Other long term (current) drug therapy; Z79.52 Long term (current) use of systemic steroids; Z79.82 Long term (current) use of aspirin; Z79.4 Long term (current) use of insulin; Z79.890 Hormone replacement therapy; Z86.73 Personal history of transient ischemic attack (TIA), and cerebral infarction without residual deficits; Z85.048 Personal history of other malignant neoplasm of rectum, rectosigmoid junction, and anus; Z88.8 Allergy status to other drugs, medicaments and biological substances; Z92.21 Personal history of antineoplastic chemotherapy; Z92.3 Personal history of irradiation
CPT/HCPCS: 36415; 51702; 51798; 71045; 71045-26; 74177; 74177-26; 80048; 80053; 80202; 81001; 82962; 83605; 83735; 84100; 85025; 87040; 87070; 87077; 87086; 87088; 87186; 97161-GP; 99283; 99285-25; A9270-GY; G0103; J0696; J0878; J1644; J1815-GY; J3370; J3475; J3480; J7030; J7050; Q9967

== ENCOUNTER 2019-12-16 17:28 | Inpatient (IN) | payer MEDICARE, BC ==
--- NOTE | 2019-12-16 18:09 | EDM.PDOC ---
ED HPI GENERAL MEDICAL PROBLEM - General Chief Complaint: General Stated Complaint: FEVER Time Seen by Provider: 12/16/19 17:41 - History of Present Illness INITIAL COMMENTS - FREE TEXT/NARRATIVE: History of dementia getting treated with dual antibiotic for persistent urinary tract infection also has indwelling [place] and history of colon cancer with colostomy. Found to have fever today of101 and sent in by [facility] for further evaluation, productive cough. Chest pain or shortness of breath patient is a poor historian because of dementia. Denies any nausea vomiting or abdominal pain. Unable to give precise history regarding PICC line and what antibiotic patient is on. Onset: Today - Related Data Allergies Allergy/AdvReac Type Severity Reaction Status Date / Time fentanyl Allergy Hallucinati Verified 12/16/19 23:18 ons Home Meds: Home Meds Aspirin 81 mg PO DAILY 01/03/17 [History] amLODIPine [Norvasc] 5 mg PO DAILY 01/03/17 [History] atorvaSTATin [Lipitor] 40 mg PO BEDTIME 01/03/17 [History] Propranolol HCl [Inderal LA] 160 mg PO BEDTIME 02/28/17 [History] Acetaminophen [Acetaminophen 8 Hour] 650 mg PO TID PRN 06/11/18 [History] Insulin Glarg,Human.Rec.Analog [Lantus] 15 units SQ BEDTIME 06/11/18 [History] Levothyroxine Sodium [Levo-T] 25 mcg PO ACBREAKFAST 06/11/18 [History] Prednisolone Acetate/Pf [Prednisolone Acet 1% Eye Drop] 1 drop EYELF BID [History] QUEtiapine Fumarate [Quetiapine Fumarate] 100 mg PO BID 06/11/18 [History] Rivastigmine [Exelon] 13.3 mg TRDERM DAILY 06/11/18 [History] valACYclovir HCl [Valtrex] 500 mg PO BID 06/11/18 [History] Dextran 70/Hypromellose [Artificial Tears] 1 drop OP QID 08/01/18 [History] Insulin Lispro [Humalog] 0 unit SQ TIDAC 08/01/18 [History] Lanolin/Min Oil/Petrolatum [Artificial Tears Ointment] 1 gm OP BEDTIME 08/01/18 [History] Mag Hydrox/Al Hydrox/Simeth [Maalox Maximum Strength Susp] 30 ml PO Q1H PRN 06/11 [History] Magnesium Hydroxide [Milk of Magnesia] 30 ml PO DAILY PRN 08/01/18 [History] Multivitamin [Daily Leanne] 1 each PO DAILY 08/01/18 [History] bisacodyL [Dulcolax] 10 mg RC Q24H PRN 08/01/18 [History] metFORMIN HCl [Glucophage] 1,000 mg PO BID 08/01/18 [History] Tamsulosin HCl [Flomax] 0.4 mg PO BEDTIME 12/04/18 [History] Lifitegrast [Xiidra] 1 each EYERT BID 11/01/19 [History] Sertraline [Zoloft] 25 mg PO DAILY 11/01/19 [History] Ampicillin 2 gm IV Q4H #252 vial 11/04/19 [Rx] cefTRIAXone [Rocephin in Dextrose,Iso-Osm 2 GM/50 ML] 2 gm IV Q24H #37 bag 11/04 [Rx] Hydrocodone/Acetaminophen [Hydrocodon-Acetaminophen 5-325] 1 tab PO TID PRN [History] Past Medical History HEENT History: Reports: Impaired Vision Cardiovascular History: Reports: High Cholesterol, Hypertension Respiratory History: Reports: Other (See Below) Other Respiratory History: pneumonitis Gastrointestinal History: Reports: Other (See Below) Other Gastrointestinal History: . Rectal CA, ostomy bag Genitourinary History: Reports: BPH, Other (See Below) Other Genitourinary History: hx of prostate surgery- polyp removal Musculoskeletal History: Reports: None Neurological History: Reports: TIA, Other (See Below) Other Neuro History: "According to recent MRI results, 4 small areas of past stroke" and mild cognitive impairment. Psychiatric History: Reports: Dementia, Other (See Below) Other Psychiatric History: wandering disease, delusional disorder, auditory hallucinations, visual hallucinations Endocrine/Metabolic History: Reports: Diabetes, Type II Hematologic History: Reports: None Immunologic History: Reports: None Oncologic (Cancer) History: Reports: Other (See Below) Other Oncologic History: neoplasm of rectum, testicular mass Dermatologic History: Reports: None - Infectious Disease History Infectious Disease History: Reports: Chicken Pox Other Infectious Disease History: unable to obtain - Past Surgical History Head Surgeries/Procedures: Reports: None Respiratory Surgical History: Reports: None GI Surgical History: Reports: Colostomy Endocrine Surgical History: Reports: None Musculoskeletal Surgical History: Reports: None Oncologic Surgical History: Reports: None Dermatological Surgical History: Reports: None Social & Family History - Family History Family Medical History: Noncontributory - Caffeine Use Caffeine Use: Reports: None ED ROS GENERAL - Review of Systems Review Of Systems: See Below Constitutional: Reports: Fever, Chills, Malaise, Weakness HEENT: Reports: No Symptoms Respiratory: Reports: Cough Cardiovascular: Reports: No Symptoms GI/Abdominal: Reports: No Symptoms Musculoskeletal: Reports: No Symptoms Skin: Reports: No Symptoms Immunologic: Reports: No Symptoms ED EXAM, GENERAL - Physical Exam Exam: See Below Exam Limited By: Other (Dementia) General Appearance: Mild Distress Eye Exam: Bilateral Eye: EOMI, Normal Inspection Ears: Normal External Exam, Normal Canal, Hearing Grossly Normal, Normal TMs Ear Exam: Bilateral Ear: Auricle Normal, Canal Normal, TM normal Nose: Normal Inspection, Normal Mucosa, No Blood Throat/Mouth: Normal Inspection, Normal Lips, Normal Teeth, Normal Gums, Normal Oropharynx, Normal Voice, No Airway Compromise Head: Atraumatic, Normocephalic Neck: Normal Inspection, Supple, Non-Tender, Full Range of Motion Respiratory/Chest: Rhonchi Cardiovascular: Normal Peripheral Pulses, Regular Rate, Rhythm GI/Abdominal: Normal Bowel Sounds, Soft, Non-Tender, No Organomegaly, No Distention, No Abnormal Bruit, No Mass Back Exam: Normal Inspection, Full Range of Motion, NT Extremities: Normal Inspection, Normal Range of Motion, Non-Tender, Normal Capillary Refill, No Pedal Edema Neurological: Alert, Oriented, CN II-XII Intact, Normal Cognition, Normal Gait, Normal Reflexes, No Motor/Sensory Deficits Psychiatric: Normal Affect, Normal Mood Skin Exam: Warm, Dry, Intact, Normal Color, No Rash Lymphatic: No Adenopathy Course - Vital Signs Last Recorded V/S: Last Vital Signs Temp 98.2 F 12/17/19 04:00 Pulse 79 12/17/19 04:00 Resp 18 12/17/19 04:00 BP 128/60 12/17/19 04:00 Pulse Ox 92 L 12/17/19 04:00 - Orders/Labs/Meds Orders: Active Orders 24 hr Category Date Time Status Admission Status [Patient Status] [ADT] Stat ADT 12/16/19 18:57 Active Change Admitting Physician [ADT] Stat ADT 12/16/19 18:53 Ordered CULTURE BLOOD [BC] Stat Lab 12/16/19 17:54 Received Medication Orders Acetaminophen (Tylenol) 650 mg PO Q4H PRN PRN Reason: Pain/Fever Albuterol/Ipratropium (Duoneb 3.0-0.5 Mg/3 Ml) 3 ml NEB Q4HRRT PRN PRN Reason: Shortness of Breath Amlodipine Besylate (Norvasc) 5 mg PO DAILY [facility] Artificial Tears (Refresh Plus 0.5%) 1 each EYEBOTH QID [facility] Aspirin (Aspirin) 81 mg PO DAILY [facility] Atorvastatin Calcium (Lipitor) 40 mg PO BEDTIME [facility] Last Admin: 12/16/19 20:46 Dose: 40 mg Heparin Sodium (Porcine) (Heparin Sodium) 5,000 units SUBCUT Q12H [facility] Last Admin: 12/17/19 06:53 Dose: 5,000 units Admin: 12/16/19 20:46 Dose: 5,000 units Levofloxacin/Dextrose 750 mg/ (Premix) 150 mls @ 100 mls/hr IV Q24H [facility] Last Admin: 12/16/19 20:43 Dose: 100 mls/hr Piperacillin Sod/Tazobactam (Sod 4.5 gm/ Sodium Chloride) 100 mls @ 100 mls/hr IV Q6H [facility] Last Admin: 12/17/19 06:54 Dose: 100 mls/hr Infusion: 12/17/19 02:15 Dose: 100 mls/hr Admin: 12/17/19 01:15 Dose: 100 mls/hr Admin: 12/16/19 20:45 Dose: Sodium Chloride (Normal Saline) 1,000 mls @ 100 mls/hr IV ASDIRECTED [facility] Last Admin: 12/16/19 20:40 Dose: 100 mls/hr Vancomycin HCl 1.25 gm/ Sodium (Chloride) 250 mls @ 166.667 mls/hr IV Q12H [facility] Insulin Aspart (Novolog) 0 unit SUBCUT TIDAC [facility]; Protocol Last Admin: 12/17/19 06:47 Dose: Not Given Insulin Glargine (Lantus Solostar) 15 units SUBCUT BEDTIME [facility] Last Admin: 12/16/19 21:03 Dose: 15 units Levothyroxine Sodium (Levothyroxine) 25 mcg PO ACBREAKFAST [facility] Last Admin: 12/17/19 06:53 Dose: 25 mcg Mineral Oil/White Petrolatum (Lacri-Lube S.O.P Oint) 1 gm EYEBOTH BEDTIME [facility] Multivitamins/Minerals/Vitamin C (Tab-A-Leanne) 1 tab PO DAILY [facility] Ondansetron HCl (Zofran) 4 mg IVPUSH Q4H PRN PRN Reason: Nausea/Vomiting Rivastigmine [Exelon (] 13.3 Mg) 1 each TRDERM DAILY [facility] Lifitegrast [Xiidra 1 each EYERT BID [facility] Prednisolone Acetate (Pred Forte 1% Ophth Susp) 1 ml EYELF BID [facility] Propranolol HCl (Inderal La) 160 mg PO BEDTIME [facility] Quetiapine Fumarate (Seroquel) 100 mg PO BID [facility] Last Admin: 12/16/19 20:46 Dose: 100 mg Sertraline HCl (Zoloft) 25 mg PO DAILY [facility] Tamsulosin HCl (Flomax) 0.4 mg PO BEDTIME [facility] Last Admin: 12/16/19 20:46 Dose: 0.4 mg Valacyclovir HCl (Valtrex) 500 mg PO BID [facility] Last Admin: 12/16/19 20:46 Dose: 500 mg Vancomycin HCl (Pharmacy To Dose - Vancomycin) 1 dose .XX ASDIRECTED [facility] Labs: Laboratory Tests 12/16/19 12/16/19 12/16/19 Range/Units 17:54 17:54 18:31 WBC 15.68 H (4.0-11.0) K/uL RBC 4.03 L (4.50-5.90) M/uL Hgb 11.5 L (13.0-17.0) g/dL Hct 36.7 L (38.0-50.0) % MCV 91.1 (80.0-98.0) fL MCH 28.5 (27.0-32.0) pg MCHC 31.3 (31.0-37.0) g/dL RDW Std Deviation 49.5 (28.0-62.0) fl RDW Coeff of Danilo 15 (11.0-15.0) % Plt Count 371 (150-400) K/uL MPV 9.50 (7.40-12.00) fL Neut % (Auto) 83.3 H (48.0-80.0) % Lymph % (Auto) 7.8 L (16.0-40.0) % [place] % (Auto) 7.8 (0.0-15.0) % Eos % (Auto) 0.8 (0.0-7.0) % Baso % (Auto) 0.3 (0.0-1.5) % Neut # (Auto) 13.1 H (1.4-5.7) K/uL Lymph # (Auto) 1.2 (0.6-2.4) K/uL [place] # (Auto) 1.2 H (0.0-0.8) K/uL Eos # (Auto) 0.1 (0.0-0.7) K/uL Baso # (Auto) 0.0 (0.0-0.1) K/uL Nucleated RBC % 0.0 /100WBC Nucleated RBCs # 0 K/uL Sodium 142 (136-148) mmol/L Potassium 3.6 (3.5-5.1) mmol/L Chloride 103 (98-107) mmol/L Carbon Dioxide 28.9 (21.0-32.0) mmol/L BUN 14 (7.0-18.0) mg/dL Creatinine 0.8 (0.8-1.3) mg/dL Est Cr Clr Drug Dosing 78.14 mL/min Estimated GFR (MDRD) > 60.0 ml/min Glucose 130 H (74-106) mg/dL Calcium 8.6 (8.5-10.1) mg/dL Total Bilirubin 0.2 (0.2-1.0) mg/dL AST 22 (15-37) IU/L ALT 26 (14-63) IU/L Alkaline Phosphatase 84 (46-116) U/L Total Protein 6.4 (6.4-8.2) g/dL Albumin 2.2 L (3.4-5.0) g/dL Globulin 4.2 H (2.6-4.0) g/dL Albumin/Globulin Ratio 0.5 L (0.9-1.6) Urine Color YELLOW Urine Appearance SLT CLOUDY Urine pH 6.5 (5.0-8.0) Ur Specific [place] 1.020 (1.001-1.035) Urine Protein TRACE H (NEGATIVE) mg/dL Urine Glucose (UA) NEGATIVE (NEGATIVE) mg/dL Urine Ketones NEGATIVE (NEGATIVE) mg/dL Urine Occult Blood LARGE H (NEGATIVE) Urine Nitrite NEGATIVE (NEGATIVE) Urine Bilirubin NEGATIVE (NEGATIVE) Urine Urobilinogen 0.2 (<2.0) EU/dL Ur Leukocyte Esterase MODERATE H (NEGATIVE) Urine RBC 30-50 (0-2/HPF) Urine WBC 80-113 (0-5/HPF) Ur Epithelial Cells FEW (NONE-FEW) Amorphous Sediment FEW (NEGATIVE) Urine Bacteria FEW (NEGATIVE) Urine Mucus FEW (NONE-MOD) Urine Yeast MODERATE Meds: Medications Generic Name Dose Route Start Last Admin Trade Name Freq PRN Reason Stop Dose Admin Acetaminophen 650 mg 12/16/19 19:20 Tylenol PO Q4H PRN Pain/Fever Albuterol/Ipratropium 3 ml 12/16/19 19:20 Duoneb 3.0-0.5 Mg/3 Ml NEB Q4HRRT PRN Shortness of Breath Amlodipine Besylate 5 mg 12/17/19 09:00 Norvasc PO DAILY [facility] Artificial Tears 1 each 12/17/19 07:13 Refresh Plus 0.5% EYEBOTH QID [facility] Aspirin 81 mg 12/17/19 09:00 Aspirin PO DAILY [facility] Atorvastatin Calcium 40 mg 12/16/19 21:00 12/16/19 20:46 Lipitor PO 40 mg BEDTIME [facility] Administration Heparin Sodium (Porcine) 5,000 units 12/16/19 19:30 12/17/19 06:53 Heparin Sodium SUBCUT 5,000 units Q12H [facility] Administration Levofloxacin/Dextrose 750 mg/ 150 mls @ 100 mls/hr 12/16/19 19:30 12/16/19 20 :43 Premix IV 100 mls/hr Q24H [facility] Administration Piperacillin Sod/Tazobactam 100 mls @ 100 mls/hr 12/16/19 19:30 12/17/19 06: 54 Sod 4.5 gm/ Sodium Chloride IV 100 mls/hr Q6H [facility] Administration Sodium Chloride 1,000 mls @ 100 mls/hr 12/16/19 19:30 12/16/19 20:40 Normal Saline IV 100 mls/hr ASDIRECTED [facility] Administration Vancomycin HCl 1.25 gm/ Sodium 250 mls @ 166.667 mls/hr 12/17/19 08:00 Chloride IV Q12H [facility] Insulin Aspart 0 unit 12/17/19 07:30 12/17/19 06:47 Novolog SUBCUT Not Given TIDAC [facility] Protocol Insulin Glargine 15 units 12/16/19 21:00 12/16/19 21:03 Lantus Solostar SUBCUT 15 units BEDTIME [facility] Administration Levothyroxine Sodium 25 mcg 12/17/19 07:30 12/17/19 06:53 Levothyroxine PO 25 mcg ACBREAKFAST [facility] Administration Mineral Oil/White Petrolatum 1 gm 12/17/19 21:00 Lacri-Lube S.O.P Oint EYEBOTH BEDTIME [facility] Multivitamins/Minerals/Vitamin C 1 tab 12/17/19 09:00 Tab-A-Leanne PO DAILY [facility] Ondansetron HCl 4 mg 12/16/19 19:20 Zofran IVPUSH Q4H PRN Nausea/Vomiting Rivastigmine [Exelon 1 each 12/17/19 09:00 ] 13.3 Mg TRDERM DAILY [facility] Lifitegrast [Xiidra 1 each 12/17/19 09:00 EYERT BID [facility] Prednisolone Acetate 1 ml 12/17/19 09:00 Pred Forte 1% Ophth Susp EYELF BID [facility] Propranolol HCl 160 mg 12/17/19 09:00 Inderal La PO BEDTIME [facility] Quetiapine Fumarate 100 mg 12/16/19 21:00 12/16/19 20:46 Seroquel PO 100 mg BID [facility] Administration Sertraline HCl 25 mg 12/17/19 09:00 Zoloft PO DAILY [facility] Tamsulosin HCl 0.4 mg 12/16/19 21:00 12/16/19 20:46 Flomax PO 0.4 mg BEDTIME [facility] Administration Valacyclovir HCl 500 mg 12/16/19 21:00 12/16/19 20:46 Valtrex PO 500 mg BID [facility] Administration Vancomycin HCl 1 dose 12/16/19 19:30 Pharmacy To Dose - Vancomycin .XX ASDIRECTED [facility] Discontinued Medications Generic Name Dose Route Start Last Admin Trade Name Freq PRN Reason Stop Dose Admin Piperacillin Sod/Tazobactam 100 mls @ 100 mls/hr 12/16/19 18:51 12/16/19 19: 10 Sod 4.5 gm/ Sodium Chloride IV 12/16/19 19:50 100 mls/hr ONETIME ONE Administration Vancomycin HCl 1 gm/ Sodium 250 mls @ 166 mls/hr 12/16/19 18:52 12/17/19 05: 32 Chloride IV 12/16/19 20:22 Not Given ONETIME ONE Vancomycin HCl 2 gm/ Sodium 500 mls @ 250 mls/hr 12/16/19 20:00 12/16/19 22: 39 Chloride IV 250 mls/hr Q24H [facility] Administration Influenza Virus Vaccine 1 each 12/17/19 10:00 Pharmacy To Dose - Influenza Vaccine IM 12/17/19 10:01 ONETIME ONE Influenza Virus Vaccine 180 mcg 12/16/19 22:00 Fluzone High-Dose 2019-20 Syringe IM 12/16/19 22:01 .ONCE ONE Non-Formulary Medication 1 drop 12/17/19 00:00 12/17/19 05:16 Dextran 70/Hypromellose [Artificial Tears] OP Not Given QID [facility] Non-Formulary Medication 15 units 12/16/19 21:00 Insulin Glarg,Human.Rec.Analog SQ BEDTIME [facility] Non-Formulary Medication 1 gm 12/16/19 21:00 12/16/19 20:56 Lanolin/Min Oil/Petrolatum OP Not Given BEDTIME [facility] Non-Formulary Medication 1 each 12/16/19 21:00 12/16/19 20:56 Lifitegrast [Xiidra] EYERT Not Given BID [facility] Non-Formulary Medication 1 drop 12/16/19 21:00 12/16/19 20:57 Prednisolone Acetate/Pf [Prednisolone Acet 1% Eye Drop] EYELF Not Given BID [facility] Non-Formulary Medication 160 mg 12/16/19 21:00 Propranolol Hcl [Inderal La] PO BEDTIME [facility] Departure - Departure Time of Disposition: 19:00 Disposition: Admitted As Inpatient 68 Condition: Fair Clinical Impression: Pneumonia - Discharge Information Sepsis Event Note - Focused Exam Date Exam was Performed: 12/17/19 Time Exam was Performed: 07:36 - My Orders Last 24 Hours: My Active Orders 12/16/19 17:54 CULTURE BLOOD [BC] Stat 12/16/19 18:53 Change Admitting Physician [ADT] Stat 12/16/19 18:57 Admission Status [Patient Status] [ADT] Stat - Assessment/Plan Last 24 Hours: My Active Orders 12/16/19 17:54 CULTURE BLOOD [BC] Stat 12/16/19 18:53 Change Admitting Physician [ADT] Stat 12/16/19 18:57 Admission Status [Patient Status] [ADT] Stat
--- NOTE | 2019-12-16 18:24 | CR ---
Chest: Portable view of the chest was obtained. Comparison: Prior chest x-ray of 11/01/19. Equivocal density within the left retrocardiac region. Lungs otherwise are clear. Right-sided catheter is present presumably due to PICC line. Tip of PICC line difficult to see but most likely ends within the right atrium. Degenerative change is noted with the left shoulder. Mild degenerative change is scattered within the spine. Impression: 1. Questionable density within the left retrocardiac region. Difficult to exclude pneumonia or change from aspiration. 2. Lungs otherwise are clear. 3. Catheter presumably due to PICC line with tip difficult to see but likely lies within the right atria. Diagnostic code #3 This report was dictated in [place] Standard Time
[2019-12-16 18:29] LABS: BLOOD UREA NITROGEN,BUN 14 mg/dL (7.0-18.0); CARBON DIOXIDE,CO2 28.9 mmol/L (21.0-32.0); CHLORIDE,CL 103 mmol/L (98-107); GLUCOSE RANDOM 130 mg/dL (74-106); POTASSIUM,K 3.6 mmol/L (3.5-5.1); SODIUM,NA 142 mmol/L (136-148)
[2019-12-16] MEDS ORDERED: Piperacillin/Tazobactam 4.5 GM in Sodium Chloride 0.9% 100 ML IV ONE (18:51)
--- NOTE | 2019-12-16 19:05 | PCM.HP.2 ---
H&P History of Present Illness - General Date of Service: 12/16/19 - History of Present Illness Initial Comments - Free Text/Narative: The patient is a 84 year old [facility] resident with pmh of dementia, pressure ulcer, chronic osteomyelitis of the scarum, colon cancer, HTN who presented to the ER with fever. Patient denies nasal congestion, chills, sore throat, shortness of breath, cough, chest pain, abdominal pain, constipation/ diarrhea, lower extremity edema. Was discharged from the hospital on 11/05/19 for the pressure ulcer, osteo and UTI. Sent home with Sung and 6 weeks of IV antibiotics via PICC (ampicillin and Rocephin). His Wound culture was grew out Proteus Mirabilis and urine grew out enterococcus caecalis. In the ER, work up included labs which showed leukocytosis, WBC 15, chronic anemia at baseline, hemoglobin 11.5, CMP wnl, influenza negative. CXR showed questionable density left retrocardiac region. He was hypoxic in the ER, satting 88% on RA, it improved to 95% on 2 L - Related Data Allergies/Adverse Reactions: Allergies Allergy/AdvReac Type Severity Reaction Status Date / Time fentanyl Allergy Hallucinati Verified 12/16/19 17:55 ons Home Medications: Home Meds Aspirin 81 mg PO DAILY 01/03/17 [History] amLODIPine [Norvasc] 5 mg PO DAILY 01/03/17 [History] atorvaSTATin [Lipitor] 40 mg PO BEDTIME 01/03/17 [History] Propranolol HCl [Inderal LA] 160 mg PO BEDTIME 02/28/17 [History] Acetaminophen [Acetaminophen 8 Hour] 650 mg PO TID 06/11/18 [History] Insulin Glarg,Human.Rec.Analog [Lantus] 15 units SQ BEDTIME 06/11/18 [History] Levothyroxine Sodium [Levo-T] 25 mcg PO ACBREAKFAST 06/11/18 [History] Prednisolone Acetate/Pf [Prednisolone Acet 1% Eye Drop] 1 drop EYELF BID [History] QUEtiapine Fumarate [Quetiapine Fumarate] 100 mg PO BID 06/11/18 [History] Rivastigmine [Exelon] 13.3 mg TRDERM DAILY 06/11/18 [History] valACYclovir HCl [Valtrex] 500 mg PO BID 06/11/18 [History] Dextran 70/Hypromellose [Artificial Tears] 1 drop OP QID 08/01/18 [History] Insulin Lispro [Humalog] 0 unit SQ TIDAC 08/01/18 [History] Lanolin/Min Oil/Petrolatum [Artificial Tears Ointment] 1 gm OP BEDTIME 08/01/18 [History] Mag Hydrox/Al Hydrox/Simeth [Maalox Maximum Strength Susp] 30 ml PO Q1H PRN 06/11 [History] Magnesium Hydroxide [Milk of Magnesia] 30 ml PO DAILY PRN 08/01/18 [History] Multivitamin [Daily Leanne] 1 each PO DAILY 08/01/18 [History] bisacodyL [Dulcolax] 10 mg RC Q24H PRN 08/01/18 [History] metFORMIN HCl [Glucophage] 1,000 mg PO BID 08/01/18 [History] Tamsulosin HCl [Flomax] 0.4 mg PO BEDTIME 12/04/18 [History] Lifitegrast [Xiidra] 1 each EYERT BID 11/01/19 [History] Sertraline [Zoloft] 25 mg PO DAILY 11/01/19 [History] Ampicillin 2 gm IV Q4H #252 vial 11/04/19 [Rx] cefTRIAXone [Rocephin in Dextrose,Iso-Osm 2 GM/50 ML] 2 gm IV Q24H #37 bag 11/04 [Rx] Past Medical History HEENT History: Reports: Impaired Vision Cardiovascular History: Reports: High Cholesterol, Hypertension Respiratory History: Reports: Other (See Below) Other Respiratory History: pneumonitis Gastrointestinal History: Reports: Other (See Below) Other Gastrointestinal History: . Rectal CA, ostomy bag Genitourinary History: Reports: BPH, Other (See Below) Other Genitourinary History: hx of prostate surgery- polyp removal Musculoskeletal History: Reports: None Neurological History: Reports: TIA, Other (See Below) Other Neuro History: "According to recent MRI results, 4 small areas of past stroke" and mild cognitive impairment. Psychiatric History: Reports: Dementia, Other (See Below) Other Psychiatric History: wandering disease, delusional disorder, auditory hallucinations, visual hallucinations Endocrine/Metabolic History: Reports: Diabetes, Type II Hematologic History: Reports: None Immunologic History: Reports: None Oncologic (Cancer) History: Reports: Other (See Below) Other Oncologic History: neoplasm of rectum, testicular mass Dermatologic History: Reports: None - Infectious Disease History Infectious Disease History: Reports: Chicken Pox Other Infectious Disease History: unable to obtain - Past Surgical History Head Surgeries/Procedures: Reports: None Respiratory Surgical History: Reports: None GI Surgical History: Reports: Colostomy Endocrine Surgical History: Reports: None Musculoskeletal Surgical History: Reports: None Oncologic Surgical History: Reports: None Dermatological Surgical History: Reports: None Social & Family History - Family History Family Medical History: Noncontributory - Tobacco Use Smoking Status *Q: Unknown Ever Smoked - Caffeine Use Caffeine Use: Reports: None H&P Review of Systems - Review of Systems: Review Of Systems: See Below General: Reports: Fever HEENT: Reports: No Symptoms Pulmonary: Reports: No Symptoms Cardiovascular: Reports: No Symptoms Gastrointestinal: Reports: No Symptoms Genitourinary: Reports: No Symptoms Musculoskeletal: Reports: No Symptoms Skin: Reports: Wound Psychiatric: Reports: No Symptoms Exam - Exam Exam: See Below - Vital Signs Vital Signs: Last Vital Signs Temp 98.9 F 12/16/19 18:08 Pulse 88 12/16/19 18:08 Resp 16 12/16/19 18:08 BP 136/62 12/16/19 18:08 Pulse Ox 88 L 12/16/19 18:08 Weight: 104.326 kg - Exam Quality Assessment: Supplemental Oxygen General: Alert, Cooperative HEENT: Conjunctiva Clear, EOMI, Mucosa Moist & [place], Posterior Pharynx Clear, Pupils Equal, Pupils Reactive Neck: Supple Lungs: Normal Respiratory Effort, Crackles (left base) Cardiovascular: Regular Rate, Regular Rhythm GI/Abdominal Exam: Normal Bowel Sounds, Soft, Non-Tender, No Distention, Other ( osteomy) Extremities: No Pedal Edema, Other (PICC right UE) Skin: Warm, Dry, Decubitis (sacrum-packed- no significant drainage noted) Psychiatric: Alert, Normal Affect, Normal Mood - Patient Data Lab Results Last 24 hrs: Laboratory Results - last 24 hr 12/16/19 12/16/19 12/16/19 Range/Units 17:54 17:54 18:31 WBC 15.68 H (4.0-11.0) K/uL RBC 4.03 L (4.50-5.90) M/uL Hgb 11.5 L (13.0-17.0) g/dL Hct 36.7 L (38.0-50.0) % MCV 91.1 (80.0-98.0) fL MCH 28.5 (27.0-32.0) pg MCHC 31.3 (31.0-37.0) g/dL RDW Std Deviation 49.5 (28.0-62.0) fl RDW Coeff of Danilo 15 (11.0-15.0) % Plt Count 371 (150-400) K/uL MPV 9.50 (7.40-12.00) fL Neut % (Auto) 83.3 H (48.0-80.0) % Lymph % (Auto) 7.8 L (16.0-40.0) % [place] % (Auto) 7.8 (0.0-15.0) % Eos % (Auto) 0.8 (0.0-7.0) % Baso % (Auto) 0.3 (0.0-1.5) % Neut # (Auto) 13.1 H (1.4-5.7) K/uL Lymph # (Auto) 1.2 (0.6-2.4) K/uL [place] # (Auto) 1.2 H (0.0-0.8) K/uL Eos # (Auto) 0.1 (0.0-0.7) K/uL Baso # (Auto) 0.0 (0.0-0.1) K/uL Nucleated RBC % 0.0 /100WBC Nucleated RBCs # 0 K/uL Sodium 142 (136-148) mmol/L Potassium 3.6 (3.5-5.1) mmol/L Chloride 103 (98-107) mmol/L Carbon Dioxide 28.9 (21.0-32.0) mmol/L BUN 14 (7.0-18.0) mg/dL Creatinine 0.8 (0.8-1.3) mg/dL Est Cr Clr Drug Dosing 78.14 mL/min Estimated GFR (MDRD) > 60.0 ml/min Glucose 130 H (74-106) mg/dL Calcium 8.6 (8.5-10.1) mg/dL Total Bilirubin 0.2 (0.2-1.0) mg/dL AST 22 (15-37) IU/L ALT 26 (14-63) IU/L Alkaline Phosphatase 84 (46-116) U/L Total Protein 6.4 (6.4-8.2) g/dL Albumin 2.2 L (3.4-5.0) g/dL Globulin 4.2 H (2.6-4.0) g/dL Albumin/Globulin Ratio 0.5 L (0.9-1.6) Urine Color YELLOW Urine Appearance SLT CLOUDY Urine pH 6.5 (5.0-8.0) Ur Specific [place] 1.020 (1.001-1.035) Urine Protein TRACE H (NEGATIVE) mg/dL Urine Glucose (UA) NEGATIVE (NEGATIVE) mg/dL Urine Ketones NEGATIVE (NEGATIVE) mg/dL Urine Occult Blood LARGE H (NEGATIVE) Urine Nitrite NEGATIVE (NEGATIVE) Urine Bilirubin NEGATIVE (NEGATIVE) Urine Urobilinogen 0.2 (<2.0) EU/dL Ur Leukocyte Esterase MODERATE H (NEGATIVE) Urine RBC 30-50 (0-2/HPF) Urine WBC 80-113 (0-5/HPF) Ur Epithelial Cells FEW (NONE-FEW) Amorphous Sediment FEW (NEGATIVE) Urine Bacteria FEW (NEGATIVE) Urine Mucus FEW (NONE-MOD) Urine Yeast MODERATE Result Diagrams: 12/16/19 17:54 12/16/19 17:54 De Results Last 24 hrs: Microbiology 12/16/19 17:54 Influenza Type A Antigen Screen - Final Nasopharyngeal Swab NEGATIVE INFLUENZA A VIRUS AG REFERENCE RANGE: NEGATIVE Influenza Type B Antigen Screen - Final NEGATIVE INFLUENZA B VIRUS AG REFERENCE RANGE: NEGATIVE Sepsis Event Note - Evaluation Sepsis Screening Result: No Definite Risk - Focused Exam Vital Signs: Vital Signs Temp Pulse Resp BP Pulse Ox 12/16/19 18:08 98.9 F 88 16 136/62 88 L Date Exam was Performed: 12/16/19 Time Exam was Performed: 19:06 Problem List Initiated/Reviewed/Updated: Yes Orders Last 24hrs: Active Orders 24 hr Category Date Time Status Change Admitting Physician [ADT] Stat ADT 12/16/19 18:53 Ordered CULTURE BLOOD [BC] Stat Lab 12/16/19 17:51 Ordered Piperacillin/Tazobactam [Piperacil-Tazobact] 4.5 gm Med 12/16/19 18:51 Active Sodium Chloride 0.9% [Normal Saline] 100 ml IV ONETIME Vancomycin 1 gm Med 12/16/19 18:52 Active Sodium Chloride 0.9% [Normal Saline (AdvBag)] 250 ml IV ONETIME Medication Orders Piperacillin Sod/Tazobactam (Sod 4.5 gm/ Sodium Chloride) 100 mls @ 100 mls/hr IV ONETIME ONE Stop: 12/16/19 19:50 Vancomycin HCl 1 gm/ Sodium (Chloride) 250 mls @ 166 mls/hr IV ONETIME ONE Stop: 12/16/19 20:22 Assessment/Plan Comment:: 1. Admit to inpatient 2. Code Status- DNR/DNI 3. Vitals per routine 4. I/Os per routine 5. DVT prophylaxis with heparin 6. Diet- diabetic 7. Acute hypoxic respiratory infection with suspected gram negative respiratory infection- Order lactate and sputum culture. Start on Vanco, Zosyn, and Levaquin. Start IVF. Blood cultures pending. Encourage IS. 8. Pressure ulcer with sacral osteomyelitis- grew out Proteus MIrabilis during last admission- antibiotics above should cover 9. UTI- change sung and get UC culture, on antibiotics 10. Chronic anemia- at baseline, continue to monitor 11. Chronic conditions- dementia, hyperlipidemia, HTN, DMII, hypothyroidism- continue home meds but place on accuchecks, long acting, and sliding scale for DMII
[2019-12-16] MEDS ORDERED: Albuterol/Ipratropium 3.0-0.5 MG/3 ML Neb Soln NEB PRN (19:20)
[2019-12-16] MEDS ORDERED: Ondansetron 4 MG/2 ML SDV IVPUSH PRN (19:20)
[2019-12-16] MEDS ORDERED: Acetaminophen 325 MG Tab PO PRN (19:20)
[2019-12-16] MEDS ORDERED: Sodium Chloride 0.9% 1,000 ML IV SCH (19:30)
[2019-12-16] MEDS ORDERED: Vancomycin 2 GM in Sodium Chloride 0.9% 500 ML IV SCH (20:00)
[2019-12-16] MEDS: Levofloxacin/Dextrose 5%-Water 750 MG in Premix Bag 1 BAG IV SCH (20:43)
[2019-12-16] MEDS: Piperacillin/Tazobactam 4.5 GM in Sodium Chloride 0.9% 100 ML IV SCH (20:45)
[2019-12-16] MEDS: QUEtiapine 100 MG Tab PO SCH (20:46)
[2019-12-16] MEDS: valACYclovir 500 MG Tab PO SCH (20:46)
[2019-12-16] MEDS: atorvaSTATin 40 MG Tab PO SCH (20:46)
[2019-12-16] MEDS: Tamsulosin 0.4 MG Cap.ER PO SCH (20:46)
[2019-12-16] MEDS: Heparin Sodium 5,000 Units/ML Vial SUBCUT SCH (20:46)
[2019-12-16] MEDS ORDERED: LANOLIN OP SCH (21:00)
[2019-12-16] MEDS ORDERED: Non-Formulary Medication 1 Each (Prednisolone Acetate/Pf [Prednisolone Acet 1% Eye Drop] 1 EYELF SCH (21:00)
[2019-12-16] MEDS ORDERED: PROPRANOLOL HCL 160 MG PO SCH (21:00)
[2019-12-16] MEDS ORDERED: LIFITEGRAST EYERT SCH (21:00)
[2019-12-16] MEDS ORDERED: INSULIN GLARG HUMAN REC ANALOG 15 UNIT SQ SCH (21:00)
[2019-12-16] MEDS ORDERED: MINERAL OIL OP SCH (21:00)
[2019-12-16] MEDS ORDERED: PETROLATUM OP SCH (21:00)
[2019-12-16] MEDS: Insulin Glargine,Human Rec. Analog 100 Units/ML 3 ML Pen SUBCUT SCH (21:03)
[2019-12-17] MEDS: Piperacillin/Tazobactam 4.5 GM in Sodium Chloride 0.9% 100 ML IV SCH ×4 (01:15→18:51)
[2019-12-17] MEDS: Non-Formulary Medication 1 Each (Dextran 70/Hypromellose [Artificial Tears] 1 DROP) OP SCH ×2 (01:15→05:16)
[2019-12-17] MEDS: Insulin Aspart 100 Units/ML 3 ML Pen SUBCUT SCH ×3 (06:47→17:10)
[2019-12-17] MEDS: Heparin Sodium 5,000 Units/ML Vial SUBCUT SCH ×2 (06:53→18:52)
[2019-12-17] MEDS: Levothyroxine 25 MCG Tab PO SCH (06:53)
[2019-12-17 07:37] LABS: BLOOD UREA NITROGEN,BUN 11 mg/dL (7.0-18.0); CARBON DIOXIDE,CO2 30.6 mmol/L (21.0-32.0); CHLORIDE,CL 103 mmol/L (98-107); GLUCOSE RANDOM 97 mg/dL (74-106); POTASSIUM,K 3.3 mmol/L (3.5-5.1); SODIUM,NA 142 mmol/L (136-148)
--- NOTE | 2019-12-17 08:09 | PCM.PN ---
- General Info Date of Service: 12/17/19 Subjective Update: Patient reports that he feels fine. No temp overnight, weaned down to 1 L and lactate resolved. Denies chest pain, shortness of breath, or abdominal pain. - Review of Systems General: Reports: No Symptoms HEENT: Reports: No Symptoms Pulmonary: Reports: No Symptoms Cardiovascular: Reports: No Symptoms Gastrointestinal: Reports: No Symptoms Genitourinary: Reports: No Symptoms Musculoskeletal: Reports: No Symptoms Skin: Reports: Other (ulcer) Neurological: Reports: No Symptoms Psychiatric: Reports: No Symptoms - Patient Data Vitals - Most Recent: Last Vital Signs Temp 98.2 F 12/17/19 04:00 Pulse 79 12/17/19 04:00 Resp 18 12/17/19 04:00 BP 128/60 12/17/19 04:00 Pulse Ox 92 L 12/17/19 04:00 Weight - Most Recent: 87.09 kg I&O - Last 24 Hours: Intake & Output 12/16/19 12/17/19 12/17/19 22:59 06:59 14:59 Intake Total 150 1075 Output Total 615 Balance 150 460 Lab Results Last 24 Hours: Laboratory Results - last 24 hr 12/16/19 12/16/19 12/16/19 Range/Units 17:54 17:54 18:31 WBC 15.68 H (4.0-11.0) K/uL RBC 4.03 L (4.50-5.90) M/uL Hgb 11.5 L (13.0-17.0) g/dL Hct 36.7 L (38.0-50.0) % MCV 91.1 (80.0-98.0) fL MCH 28.5 (27.0-32.0) pg MCHC 31.3 (31.0-37.0) g/dL RDW Std Deviation 49.5 (28.0-62.0) fl RDW Coeff of Adnilo 15 (11.0-15.0) % Plt Count 371 (150-400) K/uL MPV 9.50 (7.40-12.00) fL Neut % (Auto) 83.3 H (48.0-80.0) % Lymph % (Auto) 7.8 L (16.0-40.0) % Sawyer % (Auto) 7.8 (0.0-15.0) % Eos % (Auto) 0.8 (0.0-7.0) % Baso % (Auto) 0.3 (0.0-1.5) % Neut # (Auto) 13.1 H (1.4-5.7) K/uL Lymph # (Auto) 1.2 (0.6-2.4) K/uL Sawyer # (Auto) 1.2 H (0.0-0.8) K/uL Eos # (Auto) 0.1 (0.0-0.7) K/uL Baso # (Auto) 0.0 (0.0-0.1) K/uL Nucleated RBC % 0.0 /100WBC Nucleated RBCs # 0 K/uL Lactate (0.20-2.00) mmol/L Sodium 142 (136-148) mmol/L Potassium 3.6 (3.5-5.1) mmol/L Chloride 103 (98-107) mmol/L Carbon Dioxide 28.9 (21.0-32.0) mmol/L BUN 14 (7.0-18.0) mg/dL Creatinine 0.8 (0.8-1.3) mg/dL Est Cr Clr Drug Dosing 78.14 mL/min Estimated GFR (MDRD) > 60.0 ml/min Glucose 130 H (74-106) mg/dL POC Glucose (60-110) mg/dL Calcium 8.6 (8.5-10.1) mg/dL Total Bilirubin 0.2 (0.2-1.0) mg/dL AST 22 (15-37) IU/L ALT 26 (14-63) IU/L Alkaline Phosphatase 84 (46-116) U/L Total Protein 6.4 (6.4-8.2) g/dL Albumin 2.2 L (3.4-5.0) g/dL Globulin 4.2 H (2.6-4.0) g/dL Albumin/Globulin Ratio 0.5 L (0.9-1.6) Urine Color YELLOW Urine Appearance SLT CLOUDY Urine pH 6.5 (5.0-8.0) Ur Specific Onia 1.020 (1.001-1.035) Urine Protein TRACE H (NEGATIVE) mg/dL Urine Glucose (UA) NEGATIVE (NEGATIVE) mg/dL Urine Ketones NEGATIVE (NEGATIVE) mg/dL Urine Occult Blood LARGE H (NEGATIVE) Urine Nitrite NEGATIVE (NEGATIVE) Urine Bilirubin NEGATIVE (NEGATIVE) Urine Urobilinogen 0.2 (<2.0) EU/dL Ur Leukocyte Esterase MODERATE H (NEGATIVE) Urine RBC 30-50 (0-2/HPF) Urine WBC 80-113 (0-5/HPF) Ur Epithelial Cells FEW (NONE-FEW) Amorphous Sediment FEW (NEGATIVE) Urine Bacteria FEW (NEGATIVE) Urine Mucus FEW (NONE-MOD) Urine Yeast MODERATE 12/16/19 12/16/19 12/17/19 Range/Units 19:56 20:53 01:13 WBC (4.0-11.0) K/uL RBC (4.50-5.90) M/uL Hgb (13.0-17.0) g/dL Hct (38.0-50.0) % MCV (80.0-98.0) fL MCH (27.0-32.0) pg MCHC (31.0-37.0) g/dL RDW Std Deviation (28.0-62.0) fl RDW Coeff of Danilo (11.0-15.0) % Plt Count (150-400) K/uL MPV (7.40-12.00) fL Neut % (Auto) (48.0-80.0) % Lymph % (Auto) (16.0-40.0) % Sawyer % (Auto) (0.0-15.0) % Eos % (Auto) (0.0-7.0) % Baso % (Auto) (0.0-1.5) % Neut # (Auto) (1.4-5.7) K/uL Lymph # (Auto) (0.6-2.4) K/uL Sawyer # (Auto) (0.0-0.8) K/uL Eos # (Auto) (0.0-0.7) K/uL Baso # (Auto) (0.0-0.1) K/uL Nucleated RBC % /100WBC Nucleated RBCs # K/uL Lactate 3.7 H* 2.3 H* (0.20-2.00) mmol/L Sodium (136-148) mmol/L Potassium (3.5-5.1) mmol/L Chloride (98-107) mmol/L Carbon Dioxide (21.0-32.0) mmol/L BUN (7.0-18.0) mg/dL Creatinine (0.8-1.3) mg/dL Est Cr Clr Drug Dosing mL/min Estimated GFR (MDRD) ml/min Glucose (74-106) mg/dL POC Glucose 103 (60-110) mg/dL Calcium (8.5-10.1) mg/dL Total Bilirubin (0.2-1.0) mg/dL AST (15-37) IU/L ALT (14-63) IU/L Alkaline Phosphatase (46-116) U/L Total Protein (6.4-8.2) g/dL Albumin (3.4-5.0) g/dL Globulin (2.6-4.0) g/dL Albumin/Globulin Ratio (0.9-1.6) Urine Color Urine Appearance Urine pH (5.0-8.0) Ur Specific Onia (1.001-1.035) Urine Protein (NEGATIVE) mg/dL Urine Glucose (UA) (NEGATIVE) mg/dL Urine Ketones (NEGATIVE) mg/dL Urine Occult Blood (NEGATIVE) Urine Nitrite (NEGATIVE) Urine Bilirubin (NEGATIVE) Urine Urobilinogen (<2.0) EU/dL Ur Leukocyte Esterase (NEGATIVE) Urine RBC (0-2/HPF) Urine WBC (0-5/HPF) Ur Epithelial Cells (NONE-FEW) Amorphous Sediment (NEGATIVE) Urine Bacteria (NEGATIVE) Urine Mucus (NONE-MOD) Urine Yeast 12/17/19 12/17/19 12/17/19 Range/Units 05:57 07:13 07:16 WBC 12.55 H (4.0-11.0) K/uL RBC 3.73 L (4.50-5.90) M/uL Hgb 10.6 L (13.0-17.0) g/dL Hct 33.6 L (38.0-50.0) % MCV 90.1 (80.0-98.0) fL MCH 28.4 (27.0-32.0) pg MCHC 31.5 (31.0-37.0) g/dL RDW Std Deviation 48.9 (28.0-62.0) fl RDW Coeff of Danilo 15 (11.0-15.0) % Plt Count 316 (150-400) K/uL MPV 9.10 (7.40-12.00) fL Neut % (Auto) 79.0 (48.0-80.0) % Lymph % (Auto) 9.3 L (16.0-40.0) % Sawyer % (Auto) 8.6 (0.0-15.0) % Eos % (Auto) 2.8 (0.0-7.0) % Baso % (Auto) 0.3 (0.0-1.5) % Neut # (Auto) 9.9 H (1.4-5.7) K/uL Lymph # (Auto) 1.2 (0.6-2.4) K/uL Sawyer # (Auto) 1.1 H (0.0-0.8) K/uL Eos # (Auto) 0.4 (0.0-0.7) K/uL Baso # (Auto) 0.0 (0.0-0.1) K/uL Nucleated RBC % 0.0 /100WBC Nucleated RBCs # 0 K/uL Lactate 1.1 (0.20-2.00) mmol/L Sodium (136-148) mmol/L Potassium (3.5-5.1) mmol/L Chloride (98-107) mmol/L Carbon Dioxide (21.0-32.0) mmol/L BUN (7.0-18.0) mg/dL Creatinine (0.8-1.3) mg/dL Est Cr Clr Drug Dosing mL/min Estimated GFR (MDRD) ml/min Glucose (74-106) mg/dL POC Glucose 73 (60-110) mg/dL Calcium (8.5-10.1) mg/dL Total Bilirubin (0.2-1.0) mg/dL AST (15-37) IU/L ALT (14-63) IU/L Alkaline Phosphatase (46-116) U/L Total Protein (6.4-8.2) g/dL Albumin (3.4-5.0) g/dL Globulin (2.6-4.0) g/dL Albumin/Globulin Ratio (0.9-1.6) Urine Color Urine Appearance Urine pH (5.0-8.0) Ur Specific Onia (1.001-1.035) Urine Protein (NEGATIVE) mg/dL Urine Glucose (UA) (NEGATIVE) mg/dL Urine Ketones (NEGATIVE) mg/dL Urine Occult Blood (NEGATIVE) Urine Nitrite (NEGATIVE) Urine Bilirubin (NEGATIVE) Urine Urobilinogen (<2.0) EU/dL Ur Leukocyte Esterase (NEGATIVE) Urine RBC (0-2/HPF) Urine WBC (0-5/HPF) Ur Epithelial Cells (NONE-FEW) Amorphous Sediment (NEGATIVE) Urine Bacteria (NEGATIVE) Urine Mucus (NONE-MOD) Urine Yeast 12/17/19 Range/Units 07:16 WBC (4.0-11.0) K/uL RBC (4.50-5.90) M/uL Hgb (13.0-17.0) g/dL Hct (38.0-50.0) % MCV (80.0-98.0) fL MCH (27.0-32.0) pg MCHC (31.0-37.0) g/dL RDW Std Deviation (28.0-62.0) fl RDW Coeff of Danilo (11.0-15.0) % Plt Count (150-400) K/uL MPV (7.40-12.00) fL Neut % (Auto) (48.0-80.0) % Lymph % (Auto) (16.0-40.0) % Sawyer % (Auto) (0.0-15.0) % Eos % (Auto) (0.0-7.0) % Baso % (Auto) (0.0-1.5) % Neut # (Auto) (1.4-5.7) K/uL Lymph # (Auto) (0.6-2.4) K/uL Sawyer # (Auto) (0.0-0.8) K/uL Eos # (Auto) (0.0-0.7) K/uL Baso # (Auto) (0.0-0.1) K/uL Nucleated RBC % /100WBC Nucleated RBCs # K/uL Lactate (0.20-2.00) mmol/L Sodium 142 (136-148) mmol/L Potassium 3.3 L (3.5-5.1) mmol/L Chloride 103 (98-107) mmol/L Carbon Dioxide 30.6 (21.0-32.0) mmol/L BUN 11 (7.0-18.0) mg/dL Creatinine 0.7 L (0.8-1.3) mg/dL Est Cr Clr Drug Dosing 89.43 mL/min Estimated GFR (MDRD) > 60.0 ml/min Glucose 97 (74-106) mg/dL POC Glucose (60-110) mg/dL Calcium 8.2 L (8.5-10.1) mg/dL Total Bilirubin (0.2-1.0) mg/dL AST (15-37) IU/L ALT (14-63) IU/L Alkaline Phosphatase (46-116) U/L Total Protein (6.4-8.2) g/dL Albumin (3.4-5.0) g/dL Globulin (2.6-4.0) g/dL Albumin/Globulin Ratio (0.9-1.6) Urine Color Urine Appearance Urine pH (5.0-8.0) Ur Specific Onia (1.001-1.035) Urine Protein (NEGATIVE) mg/dL Urine Glucose (UA) (NEGATIVE) mg/dL Urine Ketones (NEGATIVE) mg/dL Urine Occult Blood (NEGATIVE) Urine Nitrite (NEGATIVE) Urine Bilirubin (NEGATIVE) Urine Urobilinogen (<2.0) EU/dL Ur Leukocyte Esterase (NEGATIVE) Urine RBC (0-2/HPF) Urine WBC (0-5/HPF) Ur Epithelial Cells (NONE-FEW) Amorphous Sediment (NEGATIVE) Urine Bacteria (NEGATIVE) Urine Mucus (NONE-MOD) Urine Yeast De Results Last 24 Hours: Microbiology 12/16/19 17:54 Influenza Type A Antigen Screen - Final Nasopharyngeal Swab NEGATIVE INFLUENZA A VIRUS AG REFERENCE RANGE: NEGATIVE Influenza Type B Antigen Screen - Final NEGATIVE INFLUENZA B VIRUS AG REFERENCE RANGE: NEGATIVE Med Orders - Current: Current Medications Acetaminophen (Tylenol) 650 mg PO Q4H PRN PRN Reason: Pain/Fever Albuterol/Ipratropium (Duoneb 3.0-0.5 Mg/3 Ml) 3 ml NEB Q4HRRT PRN PRN Reason: Shortness of Breath Amlodipine Besylate (Norvasc) 5 mg PO DAILY [facility] Artificial Tears (Refresh Plus 0.5%) 1 each EYEBOTH QID [facility] Aspirin (Aspirin) 81 mg PO DAILY [facility] Atorvastatin Calcium (Lipitor) 40 mg PO BEDTIME [facility] Last Admin: 12/16/19 20:46 Dose: 40 mg Heparin Sodium (Porcine) (Heparin Sodium) 5,000 units SUBCUT Q12H [facility] Last Admin: 12/17/19 06:53 Dose: 5,000 units Levofloxacin/Dextrose 750 mg/ (Premix) 150 mls @ 100 mls/hr IV Q24H [facility] Last Admin: 12/16/19 20:43 Dose: 100 mls/hr Piperacillin Sod/Tazobactam (Sod 4.5 gm/ Sodium Chloride) 100 mls @ 100 mls/hr IV Q6H [facility] Last Admin: 12/17/19 06:54 Dose: 100 mls/hr Sodium Chloride (Normal Saline) 1,000 mls @ 100 mls/hr IV ASDIRECTED [facility] Last Admin: 12/16/19 20:40 Dose: 100 mls/hr Vancomycin HCl 1.25 gm/ Sodium (Chloride) 250 mls @ 166.667 mls/hr IV Q12H [facility] Insulin Aspart (Novolog) 0 unit SUBCUT TIDAC [facility]; Protocol Last Admin: 12/17/19 06:47 Dose: Not Given Insulin Glargine (Lantus Solostar) 15 units SUBCUT BEDTIME [facility] Last Admin: 12/16/19 21:03 Dose: 15 units Levothyroxine Sodium (Levothyroxine) 25 mcg PO ACBREAKFAST [facility] Last Admin: 12/17/19 06:53 Dose: 25 mcg Mineral Oil/White Petrolatum (Lacri-Lube S.O.P Oint) 1 gm EYEBOTH BEDTIME [facility] Multivitamins/Minerals/Vitamin C (Tab-A-Leanne) 1 tab PO DAILY [facility] Ondansetron HCl (Zofran) 4 mg IVPUSH Q4H PRN PRN Reason: Nausea/Vomiting Rivastigmine [Exelon (] 13.3 Mg) 1 each TRDERM DAILY [facility] Lifitegrast [Xiidra 1 each EYERT BID [facility] Prednisolone Acetate (Pred Forte 1% Ophth Susp) 1 ml EYELF BID [facility] Propranolol HCl (Inderal La) 160 mg PO BEDTIME [facility] Quetiapine Fumarate (Seroquel) 100 mg PO BID [facility] Last Admin: 12/16/19 20:46 Dose: 100 mg Sertraline HCl (Zoloft) 25 mg PO DAILY [facility] Tamsulosin HCl (Flomax) 0.4 mg PO BEDTIME [facility] Last Admin: 12/16/19 20:46 Dose: 0.4 mg Valacyclovir HCl (Valtrex) 500 mg PO BID [facility] Last Admin: 12/16/19 20:46 Dose: 500 mg Vancomycin HCl (Pharmacy To Dose - Vancomycin) 1 dose .XX ASDIRECTED [facility] Discontinued Medications Piperacillin Sod/Tazobactam (Sod 4.5 gm/ Sodium Chloride) 100 mls @ 100 mls/hr IV ONETIME ONE Stop: 12/16/19 19:50 Last Admin: 12/16/19 19:10 Dose: 100 mls/hr Vancomycin HCl 1 gm/ Sodium (Chloride) 250 mls @ 166 mls/hr IV ONETIME ONE Stop: 12/16/19 20:22 Last Admin: 12/17/19 05:32 Dose: Not Given Vancomycin HCl 2 gm/ Sodium (Chloride) 500 mls @ 250 mls/hr IV Q24H [facility] Last Admin: 12/16/19 22:39 Dose: 250 mls/hr Influenza Virus Vaccine (Pharmacy To Dose - Influenza Vaccine) 1 each IM ONETIME ONE Stop: 12/17/19 10:01 Influenza Virus Vaccine (Fluzone High-Dose Syringe) 180 mcg IM .ONCE ONE Stop: 12/16/19 22:01 Non-Formulary Medication (Dextran 70/Hypromellose [Artificial Tears]) 1 drop OP QID [facility] Last Admin: 12/17/19 05:16 Dose: Not Given Non-Formulary Medication (Insulin Glarg,Human.Rec.Analog) 15 units SQ BEDTIME [facility] Non-Formulary Medication (Lanolin/Min Oil/Petrolatum) 1 gm OP BEDTIME [facility] Last Admin: 12/16/19 20:56 Dose: Not Given Non-Formulary Medication (Lifitegrast [Xiidra]) 1 each EYERT BID [facility] Last Admin: 12/16/19 20:56 Dose: Not Given Non-Formulary Medication (Prednisolone Acetate/Pf [Prednisolone Acet 1% Eye Drop ]) 1 drop EYELF BID [facility] Last Admin: 12/16/19 20:57 Dose: Not Given Non-Formulary Medication (Propranolol Hcl [Inderal La]) 160 mg PO BEDTIME [facility] - Exam Quality Assessment: Supplemental Oxygen General: Alert Lungs: Normal Respiratory Effort, Rhonchi (left base) Cardiovascular: Regular Rate, Regular Rhythm GI/Abdominal Exam: Normal Bowel Sounds, Soft, Non-Tender, No Distention Extremities: No Pedal Edema Neurological: No New Focal Deficit Psy/Mental Status: Alert, Normal Affect, Normal Mood Sepsis Event Note - Evaluation Sepsis Screening Result: No Definite Risk - Focused Exam Vital Signs: Vital Signs Temp Pulse Resp BP Pulse Ox 12/17/19 04:00 98.2 F 79 18 128/60 92 L 12/17/19 00:00 97.8 F 79 16 108/76 94 L Date Exam was Performed: 12/17/19 Time Exam was Performed: 08:05 - Problem List Review Problem List Initiated/Reviewed/Updated: Yes - My Orders Last 24 Hours: My Active Orders 12/16/19 19:19 CULTURE SPUTUM + SMEAR [RM] Stat 12/16/19 19:20 Blood Glucose Check, Bedside [RC] TIDMEALS CULTURE URINE [RM] Stat Acetaminophen [Tylenol] 650 mg PO Q4H PRN Albuterol/Ipratropium [DuoNeb 3.0-0.5 MG/3 ML] 3 ml NEB Q4HRRT PRN Ondansetron [Zofran] 4 mg IVPUSH Q4H PRN Resuscitation Status Stat 12/16/19 19:21 RT Aerosol Therapy [RC] ASDIRECTED 12/16/19 19:24 Incentive Spirometry [RT Incentive Spirometry] [RC] Q2HWA Insert Urinary Catheter [OM.PC] Stat 12/16/19 19:25 Urinary Catheter Assessment [RC] Q4H 12/16/19 19:30 Heparin Sodium 5,000 units SUBCUT Q12H Levofloxacin/Dextrose 5%-Water [Levaquin in D5W 750 MG/150 ML] 750 mg Premix Bag 1 bag IV Q24H Pharmacy to Dose - Vancomycin 1 dose .XX ASDIRECTED Piperacillin/Tazobactam [Piperacil-Tazobact] 4.5 gm Sodium Chloride 0.9% [ Normal Saline] 100 ml IV Q6H Sodium Chloride 0.9% [Normal Saline] 1,000 ml IV ASDIRECTED 12/16/19 21:00 Insulin Glarg,Human.Rec.Analog [LantUS Solostar] 15 units SUBCUT BEDTIME QUEtiapine [SEROqueL] 100 mg PO BID Tamsulosin [Flomax] 0.4 mg PO BEDTIME atorvaSTATin [Lipitor] 40 mg PO BEDTIME valACYclovir [Valtrex] 500 mg PO BID 12/17/19 07:13 Carboxymethylcellulose Sodium [Refresh Plus 0.5%] 1 each EYEBOTH QID 12/17/19 07:30 Insulin Aspart [NovoLOG] See Protocol SUBCUT TIDAC Levothyroxine 25 mcg PO ACBREAKFAST 12/17/19 08:00 Vancomycin 1.25 gm Sodium Chloride 0.9% [Normal Saline] 250 ml IV Q12H 12/17/19 09:00 Aspirin 81 mg PO DAILY Multivitamins [Tab-A-Leanne] 1 tab PO DAILY Patient's Own Medication [Ptom] 1 each EYERT BID Patient's Own Medication [Ptom] 1 each TRDERM DAILY Propranolol [Inderal LA] 160 mg PO BEDTIME Sertraline [Zoloft] 25 mg PO DAILY amLODIPine [Norvasc] 5 mg PO DAILY prednisoLONE acetate [Pred Forte 1% Ophth Susp] 1 ml EYELF BID 12/17/19 21:00 Mineral Oil/Petrolatum Oint [Lacri-Lube S.O.P Oint] 1 gm EYEBOTH BEDTIME 12/17/19 Breakfast [employer] [place] [employer] Diet [DIET] - Plan Plan:: 1. Acute hypoxic respiratory infection with suspected gram negative respiratory infection- Improving, oxygen requirement down to 1 L, elevated lactate resolved , white count improving 15-12. Sputum culture and blood culture pending. Continue on Vanco, Zosyn, and Levaquin. Continue IVF. Encourage IS. 2. Pressure ulcer with sacral osteomyelitis- grew out Proteus MIrabilis during last admission- antibiotics above should cover 3. UTI- changed sung and get UC culture, on antibiotics 4. Chronic anemia- stable continue to monitor 5. Chronic conditions- dementia, hyperlipidemia, HTN, DMII, hypothyroidism- continue home meds but place on accuchecks, long acting, and sliding scale for DMII
[2019-12-17] MEDS: QUEtiapine 100 MG Tab PO SCH ×2 (08:10→20:23)
[2019-12-17] MEDS: amLODIPine 5 MG Tab PO SCH (08:10)
[2019-12-17] MEDS: valACYclovir 500 MG Tab PO SCH ×2 (08:10→20:23)
[2019-12-17] MEDS: Aspirin 81 MG Tab.Chew PO SCH (08:10)
[2019-12-17] MEDS: Sertraline 25 MG Tab PO SCH (08:11)
[2019-12-17] MEDS: Multivitamin Tab PO SCH (08:13)
[2019-12-17] MEDS: RIVASTIGMINE 13.3 MG TRDERM SCH (08:15)
[2019-12-17] MEDS ORDERED: prednisoLONE Acetate 1% Ophth Susp 5 ML Bottle EYELF SCH (09:00)
[2019-12-17] MEDS ORDERED: Propranolol 80 MG Cap.ER PO SCH (09:00)
[2019-12-17] MEDS ORDERED: Sodium Chloride 0.9% 1,000 ML IV SCH (10:00)
[2019-12-17] MEDS: LIFITEGRAST EYERT SCH ×2 (10:25→21:27)
[2019-12-17] MEDS ORDERED: Potassium Chloride 20 MEQ Tab.ER PO ONE (11:05)
[2019-12-17] MEDS: Carboxymethylcellulose Sodium 0.5% Ophth Soln 0.4 ML UD Box of 30 EYEBOTH SCH ×3 (11:41→23:15)
[2019-12-17] MEDS: Levofloxacin/Dextrose 5%-Water 750 MG in Premix Bag 1 BAG IV SCH (20:17)
[2019-12-17] MEDS: Tamsulosin 0.4 MG Cap.ER PO SCH (20:23)
[2019-12-17] MEDS: atorvaSTATin 40 MG Tab PO SCH (20:23)
[2019-12-17] MEDS: prednisoLONE Acetate 1% Ophth Susp 5 ML Bottle EYELF SCH (20:26)
[2019-12-17] MEDS ORDERED: Mineral Oil/Petrolatum Ophth Oint 3.5 GM Tube EYEBOTH SCH (21:00)
[2019-12-17] MEDS: Insulin Glargine,Human Rec. Analog 100 Units/ML 3 ML Pen SUBCUT SCH (21:35)
[2019-12-18] MEDS: Piperacillin/Tazobactam 4.5 GM in Sodium Chloride 0.9% 100 ML IV SCH ×2 (00:40→06:35)
[2019-12-18] MEDS: Levothyroxine 25 MCG Tab PO SCH (06:34)
[2019-12-18] MEDS: Heparin Sodium 5,000 Units/ML Vial SUBCUT SCH (06:34)
[2019-12-18] MEDS: Insulin Aspart 100 Units/ML 3 ML Pen SUBCUT SCH ×2 (06:35→12:11)
[2019-12-18] MEDS: Carboxymethylcellulose Sodium 0.5% Ophth Soln 0.4 ML UD Box of 30 EYEBOTH SCH ×2 (06:36→12:22)
[2019-12-18 08:05] LABS: BLOOD UREA NITROGEN,BUN 9 mg/dL (7.0-18.0); CARBON DIOXIDE,CO2 30.6 mmol/L (21.0-32.0); CHLORIDE,CL 105 mmol/L (98-107); GLUCOSE RANDOM 98 mg/dL (74-106); POTASSIUM,K 3.5 mmol/L (3.5-5.1); SODIUM,NA 143 mmol/L (136-148)
[2019-12-18] MEDS: valACYclovir 500 MG Tab PO SCH (08:36)
[2019-12-18] MEDS: amLODIPine 5 MG Tab PO SCH (08:37)
[2019-12-18] MEDS: Multivitamin Tab PO SCH (08:38)
[2019-12-18] MEDS: Sertraline 25 MG Tab PO SCH (08:38)
[2019-12-18] MEDS: QUEtiapine 100 MG Tab PO SCH (08:41)
[2019-12-18] MEDS: Aspirin 81 MG Tab.Chew PO SCH (08:41)
[2019-12-18] MEDS: RIVASTIGMINE 13.3 MG TRDERM SCH (08:45)
[2019-12-18] MEDS: LIFITEGRAST EYERT SCH (08:45)
--- NOTE | 2019-12-18 08:45 | PCM.PN ---
- General Info Date of Service: 12/18/19 Subjective Update: Patient reports he feels better. He is off oxygen now and has been afebrile. Eating and drinking ok. - Review of Systems General: Reports: No Symptoms HEENT: Reports: No Symptoms Pulmonary: Reports: No Symptoms Cardiovascular: Reports: No Symptoms Gastrointestinal: Reports: No Symptoms Genitourinary: Reports: No Symptoms Musculoskeletal: Reports: No Symptoms Skin: Reports: No Symptoms Neurological: Reports: No Symptoms Psychiatric: Reports: No Symptoms - Patient Data Vitals - Most Recent: Last Vital Signs Temp 97.6 F 12/18/19 04:00 Pulse 86 12/18/19 04:00 Resp 16 12/18/19 04:00 BP 123/66 12/18/19 08:37 Pulse Ox 94 L 12/18/19 04:00 Weight - Most Recent: 87.09 kg I&O - Last 24 Hours: Intake & Output 12/17/19 12/18/19 12/18/19 22:59 06:59 14:59 Intake Total 150 1235 100 Output Total 1500 Balance 150 -265 100 Lab Results Last 24 Hours: Laboratory Results - last 24 hr 12/17/19 12/17/19 12/17/19 Range/Units 11:17 16:47 20:42 WBC (4.0-11.0) K/uL RBC (4.50-5.90) M/uL Hgb (13.0-17.0) g/dL Hct (38.0-50.0) % MCV (80.0-98.0) fL MCH (27.0-32.0) pg MCHC (31.0-37.0) g/dL RDW Std Deviation (28.0-62.0) fl RDW Coeff of Danilo (11.0-15.0) % Plt Count (150-400) K/uL MPV (7.40-12.00) fL Neut % (Auto) (48.0-80.0) % Lymph % (Auto) (16.0-40.0) % [place] % (Auto) (0.0-15.0) % Eos % (Auto) (0.0-7.0) % Baso % (Auto) (0.0-1.5) % Neut # (Auto) (1.4-5.7) K/uL Lymph # (Auto) (0.6-2.4) K/uL [place] # (Auto) (0.0-0.8) K/uL Eos # (Auto) (0.0-0.7) K/uL Baso # (Auto) (0.0-0.1) K/uL Nucleated RBC % /100WBC Nucleated RBCs # K/uL Sodium (136-148) mmol/L Potassium (3.5-5.1) mmol/L Chloride (98-107) mmol/L Carbon Dioxide (21.0-32.0) mmol/L BUN (7.0-18.0) mg/dL Creatinine (0.8-1.3) mg/dL Est Cr Clr Drug Dosing mL/min Estimated GFR (MDRD) ml/min Glucose (74-106) mg/dL POC Glucose 157 H 135 H 187 H (60-110) mg/dL Calcium (8.5-10.1) mg/dL Vancomycin Trough (5.0-10.0) ug/mL 12/18/19 12/18/19 12/18/19 Range/Units 06:04 07:38 07:38 WBC 10.33 (4.0-11.0) K/uL RBC 3.65 L (4.50-5.90) M/uL Hgb 10.4 L (13.0-17.0) g/dL Hct 32.5 L (38.0-50.0) % MCV 89.0 (80.0-98.0) fL MCH 28.5 (27.0-32.0) pg MCHC 32.0 (31.0-37.0) g/dL RDW Std Deviation 48.2 (28.0-62.0) fl RDW Coeff of Danilo 15 (11.0-15.0) % Plt Count 330 (150-400) K/uL MPV 9.20 (7.40-12.00) fL Neut % (Auto) 73.3 (48.0-80.0) % Lymph % (Auto) 11.1 L (16.0-40.0) % [place] % (Auto) 10.8 (0.0-15.0) % Eos % (Auto) 4.4 (0.0-7.0) % Baso % (Auto) 0.4 (0.0-1.5) % Neut # (Auto) 7.6 H (1.4-5.7) K/uL Lymph # (Auto) 1.2 (0.6-2.4) K/uL [place] # (Auto) 1.1 H (0.0-0.8) K/uL Eos # (Auto) 0.5 (0.0-0.7) K/uL Baso # (Auto) 0.0 (0.0-0.1) K/uL Nucleated RBC % 0.0 /100WBC Nucleated RBCs # 0 K/uL Sodium (136-148) mmol/L Potassium (3.5-5.1) mmol/L Chloride (98-107) mmol/L Carbon Dioxide (21.0-32.0) mmol/L BUN (7.0-18.0) mg/dL Creatinine (0.8-1.3) mg/dL Est Cr Clr Drug Dosing mL/min Estimated GFR (MDRD) ml/min Glucose (74-106) mg/dL POC Glucose 88 (60-110) mg/dL Calcium (8.5-10.1) mg/dL Vancomycin Trough 15.7 H (5.0-10.0) ug/mL 12/18/19 Range/Units 07:38 WBC (4.0-11.0) K/uL RBC (4.50-5.90) M/uL Hgb (13.0-17.0) g/dL Hct (38.0-50.0) % MCV (80.0-98.0) fL MCH (27.0-32.0) pg MCHC (31.0-37.0) g/dL RDW Std Deviation (28.0-62.0) fl RDW Coeff of Danilo (11.0-15.0) % Plt Count (150-400) K/uL MPV (7.40-12.00) fL Neut % (Auto) (48.0-80.0) % Lymph % (Auto) (16.0-40.0) % [place] % (Auto) (0.0-15.0) % Eos % (Auto) (0.0-7.0) % Baso % (Auto) (0.0-1.5) % Neut # (Auto) (1.4-5.7) K/uL Lymph # (Auto) (0.6-2.4) K/uL [place] # (Auto) (0.0-0.8) K/uL Eos # (Auto) (0.0-0.7) K/uL Baso # (Auto) (0.0-0.1) K/uL Nucleated RBC % /100WBC Nucleated RBCs # K/uL Sodium 143 (136-148) mmol/L Potassium 3.5 (3.5-5.1) mmol/L Chloride 105 (98-107) mmol/L Carbon Dioxide 30.6 (21.0-32.0) mmol/L BUN 9 (7.0-18.0) mg/dL Creatinine 0.7 L (0.8-1.3) mg/dL Est Cr Clr Drug Dosing 89.43 mL/min Estimated GFR (MDRD) > 60.0 ml/min Glucose 98 (74-106) mg/dL POC Glucose (60-110) mg/dL Calcium 8.3 L (8.5-10.1) mg/dL Vancomycin Trough (5.0-10.0) ug/mL De Results Last 24 Hours: Microbiology 12/16/19 17:54 Aerobic Blood Culture - Preliminary Blood NO GROWTH AFTER 1 DAY Anaerobic Blood Culture - Preliminary NO GROWTH AFTER 1 DAY Med Orders - Current: Current Medications Acetaminophen (Tylenol) 650 mg PO Q4H PRN PRN Reason: Pain/Fever Albuterol/Ipratropium (Duoneb 3.0-0.5 Mg/3 Ml) 3 ml NEB Q4HRRT PRN PRN Reason: Shortness of Breath Amlodipine Besylate (Norvasc) 5 mg PO DAILY [facility] Last Admin: 12/18/19 08:37 Dose: 5 mg Artificial Tears (Refresh Plus 0.5%) 1 each EYEBOTH QID [facility] Last Admin: 12/18/19 06:36 Dose: 1 drop Aspirin (Aspirin) 81 mg PO DAILY [facility] Last Admin: 12/17/19 08:10 Dose: 81 mg Atorvastatin Calcium (Lipitor) 40 mg PO BEDTIME [facility] Last Admin: 12/17/19 20:23 Dose: 40 mg Heparin Sodium (Porcine) (Heparin Sodium) 5,000 units SUBCUT Q12H [facility] Last Admin: 12/18/19 06:34 Dose: 5,000 units Levofloxacin/Dextrose 750 mg/ (Premix) 150 mls @ 100 mls/hr IV Q24H [facility] Last Admin: 12/17/19 20:17 Dose: 100 mls/hr Piperacillin Sod/Tazobactam (Sod 4.5 gm/ Sodium Chloride) 100 mls @ 100 mls/hr IV Q6H [facility] Last Admin: 12/18/19 06:35 Dose: 100 mls/hr Vancomycin HCl 1.25 gm/ Sodium (Chloride) 250 mls @ 166.667 mls/hr IV Q12H [facility] Last Admin: 12/18/19 08:30 Dose: 166.667 mls/hr Sodium Chloride (Normal Saline) 1,000 mls @ 50 mls/hr IV Q20H [facility] Last Admin: 12/17/19 10:25 Dose: 50 mls/hr Insulin Aspart (Novolog) 0 unit SUBCUT TIDAC [facility]; Protocol Last Admin: 12/18/19 06:35 Dose: Not Given Insulin Glargine (Lantus Solostar) 15 units SUBCUT BEDTIME [facility] Last Admin: 12/17/19 21:35 Dose: 15 units Levothyroxine Sodium (Levothyroxine) 25 mcg PO ACBREAKFAST [facility] Last Admin: 12/18/19 06:34 Dose: 25 mcg Mineral Oil/White Petrolatum (Lacri-Lube S.O.P Oint) 1 gm EYEBOTH BEDTIME [facility] Last Admin: 12/17/19 20:25 Dose: 1 gm Multivitamins/Minerals/Vitamin C (Tab-A-Leanne) 1 tab PO DAILY [facility] Last Admin: 12/17/19 08:13 Dose: 1 tab Ondansetron HCl (Zofran) 4 mg IVPUSH Q4H PRN PRN Reason: Nausea/Vomiting Rivastigmine [Exelon (] 13.3 Mg) 1 each TRDERM DAILY [facility] Last Admin: 12/17/19 08:15 Dose: Not Given Lifitegrast [Xiidra 1 each EYERT BID [facility] Last Admin: 12/17/19 21:27 Dose: Not Given Prednisolone Acetate (Pred Forte 1% Ophth Susp) 0 ml EYELF BID [facility] Last Admin: 12/17/19 20:26 Dose: 1 drop Propranolol HCl (Inderal La) 160 mg PO BEDTIME [facility] Last Admin: 12/17/19 20:23 Dose: 160 mg Quetiapine Fumarate (Seroquel) 100 mg PO BID [facility] Last Admin: 12/17/19 20:23 Dose: 100 mg Sertraline HCl (Zoloft) 25 mg PO DAILY [facility] Last Admin: 12/18/19 08:38 Dose: 25 mg Tamsulosin HCl (Flomax) 0.4 mg PO BEDTIME [facility] Last Admin: 12/17/19 20:23 Dose: 0.4 mg Valacyclovir HCl (Valtrex) 500 mg PO BID [facility] Last Admin: 12/18/19 08:36 Dose: 500 mg Vancomycin HCl (Pharmacy To Dose - Vancomycin) 1 dose .XX ASDIRECTED [facility] Discontinued Medications Piperacillin Sod/Tazobactam (Sod 4.5 gm/ Sodium Chloride) 100 mls @ 100 mls/hr IV ONETIME ONE Stop: 12/16/19 19:50 Last Admin: 12/16/19 19:10 Dose: 100 mls/hr Vancomycin HCl 1 gm/ Sodium (Chloride) 250 mls @ 166 mls/hr IV ONETIME ONE Stop: 12/16/19 20:22 Last Admin: 12/17/19 05:32 Dose: Not Given Sodium Chloride (Normal Saline) 1,000 mls @ 100 mls/hr IV ASDIRECTED [facility] Last Admin: 12/16/19 20:40 Dose: 100 mls/hr Vancomycin HCl 2 gm/ Sodium (Chloride) 500 mls @ 250 mls/hr IV Q24H [facility] Last Admin: 12/16/19 22:39 Dose: 250 mls/hr Vancomycin HCl 1.25 gm/ Sodium (Chloride) 250 mls @ 166.667 mls/hr IV Q12H [facility] Last Admin: 12/17/19 10:29 Dose: Not Given Influenza Virus Vaccine (Pharmacy To Dose - Influenza Vaccine) 1 each IM ONETIME ONE Stop: 12/17/19 10:01 Influenza Virus Vaccine (Fluzone High-Dose Syringe) 180 mcg IM .ONCE ONE Stop: 12/16/19 22:01 Non-Formulary Medication (Dextran 70/Hypromellose [Artificial Tears]) 1 drop OP QID [facility] Last Admin: 12/17/19 05:16 Dose: Not Given Non-Formulary Medication (Insulin Glarg,Human.Rec.Analog) 15 units SQ BEDTIME [facility] Non-Formulary Medication (Lanolin/Min Oil/Petrolatum) 1 gm OP BEDTIME [facility] Last Admin: 12/16/19 20:56 Dose: Not Given Non-Formulary Medication (Lifitegrast [Xiidra]) 1 each EYERT BID [facility] Last Admin: 12/16/19 20:56 Dose: Not Given Non-Formulary Medication (Prednisolone Acetate/Pf [Prednisolone Acet 1% Eye Drop ]) 1 drop EYELF BID [facility] Last Admin: 12/16/19 20:57 Dose: Not Given Non-Formulary Medication (Propranolol Hcl [Inderal La]) 160 mg PO BEDTIME [facility] Potassium Chloride (Klor-Con M20) 40 meq PO ONETIME ONE Stop: 12/17/19 11:06 Last Admin: 12/17/19 11:40 Dose: 40 meq Prednisolone Acetate (Pred Forte 1% Ophth Susp) 1 ml EYELF BID [facility] Last Admin: 12/17/19 10:30 Dose: Not Given - Exam Quality Assessment: No: Supplemental Oxygen General: Alert, Oriented, Cooperative Lungs: Clear to Auscultation, Normal Respiratory Effort Cardiovascular: Regular Rate, Regular Rhythm GI/Abdominal Exam: Normal Bowel Sounds, Soft, Non-Tender, No Distention Extremities: No Pedal Edema Skin: Warm, Dry Neurological: No New Focal Deficit Psy/Mental Status: Alert, Normal Affect, Normal Mood Sepsis Event Note - Evaluation Sepsis Screening Result: No Definite Risk - Focused Exam Vital Signs: Vital Signs Temp Pulse Resp BP BP Pulse Ox 12/18/19 08:37 123/66 12/18/19 04:00 97.6 F 86 16 124/67 94 L 12/18/19 00:00 98.3 F 96 17 123/67 96 Date Exam was Performed: 12/18/19 Time Exam was Performed: 08:47 - Problem List Review Problem List Initiated/Reviewed/Updated: Yes - My Orders Last 24 Hours: My Active Orders 12/17/19 08:24 Vancomycin 1.25 gm Sodium Chloride 0.9% [Normal Saline (AdvBag)] 250 ml IV Q12H 12/17/19 09:00 Aspirin 81 mg PO DAILY Multivitamins [Tab-A-Leanne] 1 tab PO DAILY Patient's Own Medication [Ptom] 1 each EYERT BID Patient's Own Medication [Ptom] 1 each TRDERM DAILY Propranolol [Inderal LA] 160 mg PO BEDTIME Sertraline [Zoloft] 25 mg PO DAILY amLODIPine [Norvasc] 5 mg PO DAILY 12/17/19 10:23 prednisoLONE acetate [Pred Forte 1% Ophth Susp] 0 ml EYELF BID 12/17/19 21:00 Mineral Oil/Petrolatum Oint [Lacri-Lube S.O.P Oint] 1 gm EYEBOTH BEDTIME 12/19/19 05:11 BASIC METABOLIC PANEL,BMP [CHEM] AM CBC WITH AUTO DIFF [HEME] AM 12/20/19 05:11 BASIC METABOLIC PANEL,BMP [CHEM] AM CBC WITH AUTO DIFF [HEME] AM - Plan Plan:: 1. Acute hypoxic respiratory infection with suspected gram negative respiratory infection- Off oxygen, white count resolved. Sputum culture pending. Blood cultures negative thus far. Continue on Vanco, Zosyn, and Levaquin. Continue IVF. Encourage IS. 2. Pressure ulcer with sacral osteomyelitis- grew out Proteus Mirabilis during last admission- antibiotics above should cover. Change dressing twice daily with packing. 3. UTI- changed sung, urine culture pending, on antibiotics 4. Chronic anemia- stable continue to monitor 5. Chronic conditions- dementia, hyperlipidemia, HTN, DMII, hypothyroidism- continue home meds but place on accuchecks, long acting, and sliding scale for DMII
[2019-12-18] MEDS: prednisoLONE Acetate 1% Ophth Susp 5 ML Bottle EYELF SCH (08:46)
--- NOTE | 2019-12-18 10:25 | PCM.DCSUM1 ---
<Audrey Albert - Last Filed: 12/18/19 11:09> Discharge Summary - Hospital Course HPI Initial Comments: Admission Date: 12/16/19 Discharge Date: 12/18/19 Admission Diagnosis: 1. Acute hypoxic respiratory infection with suspected gram negative respiratory infection 2. Pressure ulcer with sacral osteomyelitis 3. UTI 4. Chronic anemia 5. Chronic conditions- dementia, hyperlipidemia, HTN, DMII, hypothyroidism Discharge Diagnosis: 1. Acute hypoxic respiratory infection with suspected gram negative respiratory infection- resolved 2. Pressure ulcer with sacral osteomyelitis-stable 3. UTI 4. Chronic anemia- stable 5. Chronic conditions- dementia, hyperlipidemia, HTN, DMII, hypothyroidism Procedures: None Consults: None Hospital Course: The patient is a 84 year old [facility] resident with pmh of dementia, pressure ulcer, chronic osteomyelitis of the scarum, colon cancer, HTN who presented to the ER with fever but denied any symptoms. Was discharged from the hospital on 11/05/19 for the pressure ulcer, osteo and UTI. Sent home with Sung and 6 weeks of IV antibiotics via PICC (ampicillin and Rocephin). His Wound culture was grew out Proteus Mirabilis and urine grew out enterococcus caecalis. In the ER, work up included labs which showed leukocytosis, WBC 15, chronic anemia at baseline, hemoglobin 11.5, CMP wnl, influenza negative. CXR showed questionable density left retrocardiac region. He was hypoxic in the ER, satting 88% on RA, it improved to 95% on 2 L. He was admitted to the medical floor. He was started on Vancomycin, Zosyn, and Levaquin for suspected gram negative respiratory infection. Over the course of his stay, his lung sounds improved, his white count resolved and he was weaned off oxygen. He was unable to give us a sputum culture but blood cultures were negative. For his chronic pressures ulcer and osteomyelitis, twice packing/ dressing changes were continued. For his UTI, his sung catheter was changed and he was treated with antibiotics. His chronic anemia was monitored and stable. He was continued on his home medications for chronic conditions. Disposition: [facility] Discharge Condition: vitals stable, tolerating oral diet, ambulating without difficulty, symptom improvement Discharge Instructions: diabeticc diet as tolerated, activity as tolerated, take medications as prescribed. Symptoms to report to physician include fever/ chills, chest pain, shortness of breath, abdominal pain, erythema, drainage/ discharge, or not improving as expected. Routine Sung care. Twice daily packing/dressing changes. Discharge Medications: Aspirin 81 mg PO DAILY amLODIPine [Norvasc] 5 mg PO DAILY atorvaSTATin [Lipitor] 40 mg PO BEDTIME Propranolol HCl [Inderal LA] 160 mg PO BEDTIME Acetaminophen [Acetaminophen 8 Hour] 650 mg PO TID PRN Insulin Glarg,Human.Rec.Analog [Lantus] 15 units SQ BEDTIME Levothyroxine Sodium [Levo-T] 25 mcg PO ACBREAKFAST Prednisolone Acetate/Pf [Prednisolone Acet 1% Eye Drop] 1 drop EYELF BID QUEtiapine Fumarate [Quetiapine Fumarate] 100 mg PO BID Rivastigmine [Exelon] 13.3 mg TRDERM DAILY valACYclovir HCl [Valtrex] 500 mg PO BID Dextran 70/Hypromellose [Artificial Tears] 1 drop OP QID Insulin Lispro [Humalog] 0 unit SQ TIDAC Lanolin/Min Oil/Petrolatum [Artificial Tears Ointment] 1 gm OP BEDTIME Mag Hydrox/Al Hydrox/Simeth [Maalox Maximum Strength Susp] 30 ml PO Q1H PRN Magnesium Hydroxide [Milk of Magnesia] 30 ml PO DAILY PRN Multivitamin [Daily Leanne] 1 each PO DAILY bisacodyL [Dulcolax] 10 mg RC Q24H PRN metFORMIN HCl [Glucophage] 1,000 mg PO BID Tamsulosin HCl [Flomax] 0.4 mg PO BEDTIME Lifitegrast [Xiidra] 1 each EYERT BID Sertraline [Zoloft] 25 mg PO DAILY Ampicillin 2 gm IV Q4H #252 vial cefTRIAXone [Rocephin in Dextrose,Iso-Osm 2 GM/50 ML] 2 gm IV Q24H #37 bag Hydrocodone/Acetaminophen [Hydrocodon-Acetaminophen 5-325] 1 tab PO TID PRN Levofloxacin 750 mg PO DAILY Follow-up: Will be followed by PCP in [place] - Discharge Data Discharge Date: 12/18/19 Discharge Disposition: DC/Tfer to [facility] 03 Condition: Stable - Referral to Home Health Primary Care Physician: PCP None - Patient Summary/Data Consults: Consultations 12/17/19 10:05 Consult to Wound Care Services [CONS] Routine - Patient Instructions Diet: Diabetic Diet Activity: As Tolerated Showering/Bathing: May Shower Notify Provider of: Fever, Increased Pain, Swelling and Redness, Drainage, Nausea and/or Vomiting Other/Special Instructions: Additional symptoms include chest pain, shortness of breath, or abdominal pain. - Discharge Plan *PRESCRIPTION DRUG MONITORING PROGRAM REVIEWED*: No *COPY OF PRESCRIPTION DRUG MONITORING REPORT IN PATIENT GABRIELA: No Prescriptions/Med Rec: Levofloxacin 750 mg PO DAILY 5 Days #5 tablet Home Medications: Home Meds Aspirin 81 mg PO DAILY 01/03/17 [History] amLODIPine [Norvasc] 5 mg PO DAILY 01/03/17 [History] atorvaSTATin [Lipitor] 40 mg PO BEDTIME 01/03/17 [History] Propranolol HCl [Inderal LA] 160 mg PO BEDTIME 02/28/17 [History] Acetaminophen [Acetaminophen 8 Hour] 650 mg PO TID PRN 06/11/18 [History] Insulin Glarg,Human.Rec.Analog [Lantus] 15 units SQ BEDTIME 06/11/18 [History] Levothyroxine Sodium [Levo-T] 25 mcg PO ACBREAKFAST 06/11/18 [History] Prednisolone Acetate/Pf [Prednisolone Acet 1% Eye Drop] 1 drop EYELF BID [History] QUEtiapine Fumarate [Quetiapine Fumarate] 100 mg PO BID 06/11/18 [History] Rivastigmine [Exelon] 13.3 mg TRDERM DAILY 06/11/18 [History] valACYclovir HCl [Valtrex] 500 mg PO BID 06/11/18 [History] Dextran 70/Hypromellose [Artificial Tears] 1 drop OP QID 08/01/18 [History] Insulin Lispro [Humalog] 0 unit SQ TIDAC 08/01/18 [History] Lanolin/Min Oil/Petrolatum [Artificial Tears Ointment] 1 gm OP BEDTIME 08/01/18 [History] Mag Hydrox/Al Hydrox/Simeth [Maalox Maximum Strength Susp] 30 ml PO Q1H PRN 06/11 [History] Magnesium Hydroxide [Milk of Magnesia] 30 ml PO DAILY PRN 08/01/18 [History] Multivitamin [Daily Leanne] 1 each PO DAILY 08/01/18 [History] bisacodyL [Dulcolax] 10 mg RC Q24H PRN 08/01/18 [History] metFORMIN HCl [Glucophage] 1,000 mg PO BID 08/01/18 [History] Tamsulosin HCl [Flomax] 0.4 mg PO BEDTIME 12/04/18 [History] Lifitegrast [Xiidra] 1 each EYERT BID 11/01/19 [History] Sertraline [Zoloft] 25 mg PO DAILY 11/01/19 [History] Ampicillin 2 gm IV Q4H #252 vial 11/04/19 [Rx] cefTRIAXone [Rocephin in Dextrose,Iso-Osm 2 GM/50 ML] 2 gm IV Q24H #37 bag 11/04 [Rx] Hydrocodone/Acetaminophen [Hydrocodon-Acetaminophen 5-325] 1 tab PO TID PRN [History] Levofloxacin 750 mg PO DAILY 5 Days #5 tablet 12/18/19 [Rx] Oxygen Therapy Mode: Room Air Referrals: Adama Torres MD [Physician] - - Discharge Summary/Plan Comment DC Time >30 min.: No - Patient Data Vitals - Most Recent: Last Vital Signs Temp 97.6 F 12/18/19 04:00 Pulse 86 12/18/19 04:00 Resp 16 12/18/19 04:00 BP 123/66 12/18/19 08:37 Pulse Ox 94 L 12/18/19 04:00 Weight - Most Recent: 87.09 kg I&O - Last 24 hours: Intake & Output 12/17/19 12/18/19 12/18/19 22:59 06:59 14:59 Intake Total 150 1235 100 Output Total 1500 Balance 150 -265 100 Lab Results - Last 24 hrs: Laboratory Results - last 24 hr 12/17/19 12/17/19 12/17/19 Range/Units 11:17 16:47 20:42 WBC (4.0-11.0) K/uL RBC (4.50-5.90) M/uL Hgb (13.0-17.0) g/dL Hct (38.0-50.0) % MCV (80.0-98.0) fL MCH (27.0-32.0) pg MCHC (31.0-37.0) g/dL RDW Std Deviation (28.0-62.0) fl RDW Coeff of Danilo (11.0-15.0) % Plt Count (150-400) K/uL MPV (7.40-12.00) fL Neut % (Auto) (48.0-80.0) % Lymph % (Auto) (16.0-40.0) % Duval % (Auto) (0.0-15.0) % Eos % (Auto) (0.0-7.0) % Baso % (Auto) (0.0-1.5) % Neut # (Auto) (1.4-5.7) K/uL Lymph # (Auto) (0.6-2.4) K/uL Duval # (Auto) (0.0-0.8) K/uL Eos # (Auto) (0.0-0.7) K/uL Baso # (Auto) (0.0-0.1) K/uL Nucleated RBC % /100WBC Nucleated RBCs # K/uL Sodium (136-148) mmol/L Potassium (3.5-5.1) mmol/L Chloride (98-107) mmol/L Carbon Dioxide (21.0-32.0) mmol/L BUN (7.0-18.0) mg/dL Creatinine (0.8-1.3) mg/dL Est Cr Clr Drug Dosing mL/min Estimated GFR (MDRD) ml/min Glucose (74-106) mg/dL POC Glucose 157 H 135 H 187 H (60-110) mg/dL Calcium (8.5-10.1) mg/dL Vancomycin Trough (5.0-10.0) ug/mL 12/18/19 12/18/19 12/18/19 Range/Units 06:04 07:38 07:38 WBC 10.33 (4.0-11.0) K/uL RBC 3.65 L (4.50-5.90) M/uL Hgb 10.4 L (13.0-17.0) g/dL Hct 32.5 L (38.0-50.0) % MCV 89.0 (80.0-98.0) fL MCH 28.5 (27.0-32.0) pg MCHC 32.0 (31.0-37.0) g/dL RDW Std Deviation 48.2 (28.0-62.0) fl RDW Coeff of Danilo 15 (11.0-15.0) % Plt Count 330 (150-400) K/uL MPV 9.20 (7.40-12.00) fL Neut % (Auto) 73.3 (48.0-80.0) % Lymph % (Auto) 11.1 L (16.0-40.0) % Duval % (Auto) 10.8 (0.0-15.0) % Eos % (Auto) 4.4 (0.0-7.0) % Baso % (Auto) 0.4 (0.0-1.5) % Neut # (Auto) 7.6 H (1.4-5.7) K/uL Lymph # (Auto) 1.2 (0.6-2.4) K/uL Duval # (Auto) 1.1 H (0.0-0.8) K/uL Eos # (Auto) 0.5 (0.0-0.7) K/uL Baso # (Auto) 0.0 (0.0-0.1) K/uL Nucleated RBC % 0.0 /100WBC Nucleated RBCs # 0 K/uL Sodium (136-148) mmol/L Potassium (3.5-5.1) mmol/L Chloride (98-107) mmol/L Carbon Dioxide (21.0-32.0) mmol/L BUN (7.0-18.0) mg/dL Creatinine (0.8-1.3) mg/dL Est Cr Clr Drug Dosing mL/min Estimated GFR (MDRD) ml/min Glucose (74-106) mg/dL POC Glucose 88 (60-110) mg/dL Calcium (8.5-10.1) mg/dL Vancomycin Trough 15.7 H (5.0-10.0) ug/mL 12/18/19 Range/Units 07:38 WBC (4.0-11.0) K/uL RBC (4.50-5.90) M/uL Hgb (13.0-17.0) g/dL Hct (38.0-50.0) % MCV (80.0-98.0) fL MCH (27.0-32.0) pg MCHC (31.0-37.0) g/dL RDW Std Deviation (28.0-62.0) fl RDW Coeff of Danilo (11.0-15.0) % Plt Count (150-400) K/uL MPV (7.40-12.00) fL Neut % (Auto) (48.0-80.0) % Lymph % (Auto) (16.0-40.0) % Duval % (Auto) (0.0-15.0) % Eos % (Auto) (0.0-7.0) % Baso % (Auto) (0.0-1.5) % Neut # (Auto) (1.4-5.7) K/uL Lymph # (Auto) (0.6-2.4) K/uL Duval # (Auto) (0.0-0.8) K/uL Eos # (Auto) (0.0-0.7) K/uL Baso # (Auto) (0.0-0.1) K/uL Nucleated RBC % /100WBC Nucleated RBCs # K/uL Sodium 143 (136-148) mmol/L Potassium 3.5 (3.5-5.1) mmol/L Chloride 105 (98-107) mmol/L Carbon Dioxide 30.6 (21.0-32.0) mmol/L BUN 9 (7.0-18.0) mg/dL Creatinine 0.7 L (0.8-1.3) mg/dL Est Cr Clr Drug Dosing 89.43 mL/min Estimated GFR (MDRD) > 60.0 ml/min Glucose 98 (74-106) mg/dL POC Glucose (60-110) mg/dL Calcium 8.3 L (8.5-10.1) mg/dL Vancomycin Trough (5.0-10.0) ug/mL KIARA Results - Last 24 hrs: Microbiology 12/16/19 17:54 Aerobic Blood Culture - Preliminary Blood NO GROWTH AFTER 1 DAY Anaerobic Blood Culture - Preliminary NO GROWTH AFTER 1 DAY Med Orders - Current: Current Medications Acetaminophen (Tylenol) 650 mg PO Q4H PRN PRN Reason: Pain/Fever Albuterol/Ipratropium (Duoneb 3.0-0.5 Mg/3 Ml) 3 ml NEB Q4HRRT PRN PRN Reason: Shortness of Breath Amlodipine Besylate (Norvasc) 5 mg PO DAILY [facility] Last Admin: 12/18/19 08:37 Dose: 5 mg Artificial Tears (Refresh Plus 0.5%) 1 each EYEBOTH QID [facility] Last Admin: 12/18/19 06:36 Dose: 1 drop Aspirin (Aspirin) 81 mg PO DAILY [facility] Last Admin: 12/18/19 08:41 Dose: 81 mg Atorvastatin Calcium (Lipitor) 40 mg PO BEDTIME [facility] Last Admin: 12/17/19 20:23 Dose: 40 mg Heparin Sodium (Porcine) (Heparin Sodium) 5,000 units SUBCUT Q12H [facility] Last Admin: 12/18/19 06:34 Dose: 5,000 units Levofloxacin/Dextrose 750 mg/ (Premix) 150 mls @ 100 mls/hr IV Q24H [facility] Last Admin: 12/17/19 20:17 Dose: 100 mls/hr Piperacillin Sod/Tazobactam (Sod 4.5 gm/ Sodium Chloride) 100 mls @ 100 mls/hr IV Q6H [facility] Last Admin: 12/18/19 06:35 Dose: 100 mls/hr Vancomycin HCl 1.25 gm/ Sodium (Chloride) 250 mls @ 166.667 mls/hr IV Q12H [facility] Last Admin: 12/18/19 08:30 Dose: 166.667 mls/hr Sodium Chloride (Normal Saline) 1,000 mls @ 50 mls/hr IV Q20H [facility] Last Admin: 12/17/19 10:25 Dose: 50 mls/hr Insulin Aspart (Novolog) 0 unit SUBCUT TIDAC [facility]; Protocol Last Admin: 12/18/19 06:35 Dose: Not Given Insulin Glargine (Lantus Solostar) 15 units SUBCUT BEDTIME [facility] Last Admin: 12/17/19 21:35 Dose: 15 units Levothyroxine Sodium (Levothyroxine) 25 mcg PO ACBREAKFAST [facility] Last Admin: 12/18/19 06:34 Dose: 25 mcg Mineral Oil/White Petrolatum (Lacri-Lube S.O.P Oint) 1 gm EYEBOTH BEDTIME [facility] Last Admin: 12/17/19 20:25 Dose: 1 gm Multivitamins/Minerals/Vitamin C (Tab-A-Leanne) 1 tab PO DAILY [facility] Last Admin: 12/18/19 08:38 Dose: 1 tab Ondansetron HCl (Zofran) 4 mg IVPUSH Q4H PRN PRN Reason: Nausea/Vomiting Rivastigmine [Exelon (] 13.3 Mg) 1 each TRDERM DAILY [facility] Last Admin: 12/18/19 08:45 Dose: Not Given Lifitegrast [Xiidra 1 each EYERT BID [facility] Last Admin: 12/18/19 08:45 Dose: Not Given Prednisolone Acetate (Pred Forte 1% Ophth Susp) 0 ml EYELF BID [facility] Last Admin: 12/18/19 08:46 Dose: 1 drop Propranolol HCl (Inderal La) 160 mg PO BEDTIME [facility] Last Admin: 12/17/19 20:23 Dose: 160 mg Quetiapine Fumarate (Seroquel) 100 mg PO BID [facility] Last Admin: 12/18/19 08:41 Dose: 100 mg Sertraline HCl (Zoloft) 25 mg PO DAILY [facility] Last Admin: 12/18/19 08:38 Dose: 25 mg Tamsulosin HCl (Flomax) 0.4 mg PO BEDTIME [facility] Last Admin: 12/17/19 20:23 Dose: 0.4 mg Valacyclovir HCl (Valtrex) 500 mg PO BID [facility] Last Admin: 12/18/19 08:36 Dose: 500 mg Vancomycin HCl (Pharmacy To Dose - Vancomycin) 1 dose .XX ASDIRECTED [facility] Discontinued Medications Piperacillin Sod/Tazobactam (Sod 4.5 gm/ Sodium Chloride) 100 mls @ 100 mls/hr IV ONETIME ONE Stop: 12/16/19 19:50 Last Admin: 12/16/19 19:10 Dose: 100 mls/hr Vancomycin HCl 1 gm/ Sodium (Chloride) 250 mls @ 166 mls/hr IV ONETIME ONE Stop: 12/16/19 20:22 Last Admin: 12/17/19 05:32 Dose: Not Given Sodium Chloride (Normal Saline) 1,000 mls @ 100 mls/hr IV ASDIRECTED [facility] Last Admin: 12/16/19 20:40 Dose: 100 mls/hr Vancomycin HCl 2 gm/ Sodium (Chloride) 500 mls @ 250 mls/hr IV Q24H [facility] Last Admin: 12/16/19 22:39 Dose: 250 mls/hr Vancomycin HCl 1.25 gm/ Sodium (Chloride) 250 mls @ 166.667 mls/hr IV Q12H [facility] Last Admin: 12/17/19 10:29 Dose: Not Given Influenza Virus Vaccine (Pharmacy To Dose - Influenza Vaccine) 1 each IM ONETIME ONE Stop: 12/17/19 10:01 Influenza Virus Vaccine (Fluzone High-Dose Syringe) 180 mcg IM .ONCE ONE Stop: 12/16/19 22:01 Non-Formulary Medication (Dextran 70/Hypromellose [Artificial Tears]) 1 drop OP QID [facility] Last Admin: 12/17/19 05:16 Dose: Not Given Non-Formulary Medication (Insulin Glarg,Human.Rec.Analog) 15 units SQ BEDTIME [facility] Non-Formulary Medication (Lanolin/Min Oil/Petrolatum) 1 gm OP BEDTIME [facility] Last Admin: 12/16/19 20:56 Dose: Not Given Non-Formulary Medication (Lifitegrast [Xiidra]) 1 each EYERT BID [facility] Last Admin: 12/16/19 20:56 Dose: Not Given Non-Formulary Medication (Prednisolone Acetate/Pf [Prednisolone Acet 1% Eye Drop ]) 1 drop EYELF BID [facility] Last Admin: 12/16/19 20:57 Dose: Not Given Non-Formulary Medication (Propranolol Hcl [Inderal La]) 160 mg PO BEDTIME [facility] Potassium Chloride (Klor-Con M20) 40 meq PO ONETIME ONE Stop: 12/17/19 11:06 Last Admin: 12/17/19 11:40 Dose: 40 meq Prednisolone Acetate (Pred Forte 1% Ophth Susp) 1 ml EYELF BID [facility] Last Admin: 12/17/19 10:30 Dose: Not Given <Leland Valdez J - Last Filed: 12/20/19 19:34> Discharge Summary - Referral to Home Health Primary Care Physician: PCP None - Patient Summary/Data Consults: Consultations 12/17/19 10:05 Consult to Wound Care Services [CONS] Routine - Patient Data Vitals - Most Recent: Last Vital Signs Temp 36.7 C 12/18/19 11:25 Pulse 82 12/18/19 11:25 Resp 18 12/18/19 11:25 BP 116/60 12/18/19 11:25 Pulse Ox 91 L 12/18/19 11:25 KIARA Results - Last 24 hrs: Microbiology 12/16/19 17:54 Aerobic Blood Culture - Preliminary Blood NO GROWTH AFTER 3 DAYS Anaerobic Blood Culture - Preliminary NO GROWTH AFTER 3 DAYS Med Orders - Current: Current Medications Discontinued Medications Acetaminophen (Tylenol) 650 mg PO Q4H PRN PRN Reason: Pain/Fever Albuterol/Ipratropium (Duoneb 3.0-0.5 Mg/3 Ml) 3 ml NEB Q4HRRT PRN PRN Reason: Shortness of Breath Amlodipine Besylate (Norvasc) 5 mg PO DAILY [facility] Last Admin: 12/18/19 08:37 Dose: 5 mg Artificial Tears (Refresh Plus 0.5%) 1 each EYEBOTH QID [facility] Last Admin: 12/18/19 12:22 Dose: 1 drop Aspirin (Aspirin) 81 mg PO DAILY [facility] Last Admin: 12/18/19 08:41 Dose: 81 mg Atorvastatin Calcium (Lipitor) 40 mg PO BEDTIME [facility] Last Admin: 12/17/19 20:23 Dose: 40 mg Heparin Sodium (Porcine) (Heparin Sodium) 5,000 units SUBCUT Q12H [facility] Last Admin: 12/18/19 06:34 Dose: 5,000 units Piperacillin Sod/Tazobactam (Sod 4.5 gm/ Sodium Chloride) 100 mls @ 100 mls/hr IV ONETIME ONE Stop: 12/16/19 19:50 Last Admin: 12/16/19 19:10 Dose: 100 mls/hr Vancomycin HCl 1 gm/ Sodium (Chloride) 250 mls @ 166 mls/hr IV ONETIME ONE Stop: 12/16/19 20:22 Last Admin: 12/17/19 05:32 Dose: Not Given Levofloxacin/Dextrose 750 mg/ (Premix) 150 mls @ 100 mls/hr IV Q24H [facility] Last Admin: 12/17/19 20:17 Dose: 100 mls/hr Piperacillin Sod/Tazobactam (Sod 4.5 gm/ Sodium Chloride) 100 mls @ 100 mls/hr IV Q6H [facility] Last Admin: 12/18/19 06:35 Dose: 100 mls/hr Sodium Chloride (Normal Saline) 1,000 mls @ 100 mls/hr IV ASDIRECTED [facility] Last Admin: 12/16/19 20:40 Dose: 100 mls/hr Vancomycin HCl 2 gm/ Sodium (Chloride) 500 mls @ 250 mls/hr IV Q24H [facility] Last Admin: 12/16/19 22:39 Dose: 250 mls/hr Vancomycin HCl 1.25 gm/ Sodium (Chloride) 250 mls @ 166.667 mls/hr IV Q12H [facility] Last Admin: 12/17/19 10:29 Dose: Not Given Vancomycin HCl 1.25 gm/ Sodium (Chloride) 250 mls @ 166.667 mls/hr IV Q12H [facility] Last Admin: 12/18/19 08:30 Dose: 166.667 mls/hr Sodium Chloride (Normal Saline) 1,000 mls @ 50 mls/hr IV Q20H [facility] Last Admin: 12/17/19 10:25 Dose: 50 mls/hr Influenza Virus Vaccine (Pharmacy To Dose - Influenza Vaccine) 1 each IM ONETIME ONE Stop: 12/17/19 10:01 Influenza Virus Vaccine (Fluzone High-Dose Syringe) 180 mcg IM .ONCE ONE Stop: 12/16/19 22:01 Insulin Aspart (Novolog) 0 unit SUBCUT TIDAC [facility]; Protocol Last Admin: 12/18/19 12:11 Dose: 2 units Insulin Glargine (Lantus Solostar) 15 units SUBCUT BEDTIME [facility] Last Admin: 12/17/19 21:35 Dose: 15 units Levothyroxine Sodium (Levothyroxine) 25 mcg PO ACBREAKFAST [facility] Last Admin: 12/18/19 06:34 Dose: 25 mcg Mineral Oil/White Petrolatum (Lacri-Lube S.O.P Oint) 1 gm EYEBOTH BEDTIME [facility] Last Admin: 12/17/19 20:25 Dose: 1 gm Multivitamins/Minerals/Vitamin C (Tab-A-Leanne) 1 tab PO DAILY [facility] Last Admin: 12/18/19 08:38 Dose: 1 tab Non-Formulary Medication (Dextran 70/Hypromellose [Artificial Tears]) 1 drop OP QID [facility] Last Admin: 12/17/19 05:16 Dose: Not Given Non-Formulary Medication (Insulin Glarg,Human.Rec.Analog) 15 units SQ BEDTIME [facility] Non-Formulary Medication (Lanolin/Min Oil/Petrolatum) 1 gm OP BEDTIME [facility] Last Admin: 12/16/19 20:56 Dose: Not Given Non-Formulary Medication (Lifitegrast [Xiidra]) 1 each EYERT BID [facility] Last Admin: 12/16/19 20:56 Dose: Not Given Non-Formulary Medication (Prednisolone Acetate/Pf [Prednisolone Acet 1% Eye Drop ]) 1 drop EYELF BID [facility] Last Admin: 12/16/19 20:57 Dose: Not Given Non-Formulary Medication (Propranolol Hcl [Inderal La]) 160 mg PO BEDTIME [facility] Ondansetron HCl (Zofran) 4 mg IVPUSH Q4H PRN PRN Reason: Nausea/Vomiting Rivastigmine [Exelon (] 13.3 Mg) 1 each TRDERM DAILY [facility] Last Admin: 12/18/19 08:45 Dose: Not Given Lifitegrast [Xiidra 1 each EYERT BID [facility] Last Admin: 12/18/19 08:45 Dose: Not Given Potassium Chloride (Klor-Con M20) 40 meq PO ONETIME ONE Stop: 12/17/19 11:06 Last Admin: 12/17/19 11:40 Dose: 40 meq Prednisolone Acetate (Pred Forte 1% Ophth Susp) 1 ml EYELF BID [facility] Last Admin: 12/17/19 10:30 Dose: Not Given Prednisolone Acetate (Pred Forte 1% Ophth Susp) 0 ml EYELF BID [facility] Last Admin: 12/18/19 08:46 Dose: 1 drop Propranolol HCl (Inderal La) 160 mg PO BEDTIME [facility] Last Admin: 12/17/19 20:23 Dose: 160 mg Quetiapine Fumarate (Seroquel) 100 mg PO BID [facility] Last Admin: 12/18/19 08:41 Dose: 100 mg Sertraline HCl (Zoloft) 25 mg PO DAILY [facility] Last Admin: 12/18/19 08:38 Dose: 25 mg Tamsulosin HCl (Flomax) 0.4 mg PO BEDTIME [facility] Last Admin: 12/17/19 20:23 Dose: 0.4 mg Valacyclovir HCl (Valtrex) 500 mg PO BID [facility] Last Admin: 12/18/19 08:36 Dose: 500 mg Vancomycin HCl (Pharmacy To Dose - Vancomycin) 1 dose .XX ASDIRECTED [facility] - Free Text/Narrative Note: I have seen and evaluated the patient with the resident. I have discussed findings and treatment plan with the resident. I agree with the assessment and plan in the following note.
[2019-12-18 11:30] VITALS: BP 116/60; PULSE 82
== END 2019-12-18 15:13 | DRG 206 ==
LOC: MW.ED 17:28 → MW.MS 19:06
PROVIDERS: ADMIT Internal Medicine; ATTEND Internal Medicine
DX: J22 Unspecified acute lower respiratory infection (principal); N39.0 Urinary tract infection, site not specified; M86.9 Osteomyelitis, unspecified; E11.69 Type 2 diabetes mellitus with other specified complication; B96.4 Proteus (mirabilis) (morganii) as the cause of diseases classified elsewhere; Z66 Do not resuscitate; L89.159 Pressure ulcer of sacral region, unspecified stage; D64.9 Anemia, unspecified; J18.9 Pneumonia, unspecified organism; E78.5 Hyperlipidemia, unspecified; H54.7 Unspecified visual loss; E03.9 Hypothyroidism, unspecified; E78.00 Pure hypercholesterolemia, unspecified; B96.20 Unspecified Escherichia coli [E. coli] as the cause of diseases classified elsewhere; I10 Essential (primary) hypertension; Z85.038 Personal history of other malignant neoplasm of large intestine; N40.0 Benign prostatic hyperplasia without lower urinary tract symptoms; Z86.73 Personal history of transient ischemic attack (TIA), and cerebral infarction without residual deficits; F03.90 Unspecified dementia, unspecified severity, without behavioral disturbance, psychotic disturbance, mood disturbance, and anxiety; E11.9 Type 2 diabetes mellitus without complications; Z85.048 Personal history of other malignant neoplasm of rectum, rectosigmoid junction, and anus; Z93.3 Colostomy status; Z88.8 Allergy status to other drugs, medicaments and biological substances; Z79.82 Long term (current) use of aspirin; Z79.890 Hormone replacement therapy; Z79.4 Long term (current) use of insulin; Z79.899 Other long term (current) drug therapy
CPT/HCPCS: 36415; 51702; 71045; 71045-26; 80048; 80053; 80202; 81001; 82962; 83605; 85025; 87040; 87804; 99284; 99285-25; A9270-GY; J1644; J1815-GY; J1956; J2543; J3370; J7030; J7040; J7050

== ENCOUNTER 2019-12-22 10:17 | Inpatient (IN) | payer MEDICARE, BC ==
[2019-12-22] MEDS ORDERED: Sodium Chloride 0.9% 10 ML Syringe FLUSH PRN (10:38)
[2019-12-22] MEDS ORDERED: Sodium Chloride 0.9% 2.5 ML Syringe FLUSH PRN (10:38)
[2019-12-22] MEDS ORDERED: Sodium Chloride 0.9% 500 ML IV SCH (10:45)
--- NOTE | 2019-12-22 10:52 | EDM.PDOC ---
ED HPI GENERAL MEDICAL PROBLEM - General Chief Complaint: General Stated Complaint: PT BROUGHT IN VIA AMBULANCE FROM [facility] Time Seen by Provider: 12/22/19 10:49 Source of Information: Reports: Family History Limitations: Reports: No Limitations - History of Present Illness INITIAL COMMENTS - FREE TEXT/NARRATIVE: HISTORY AND PHYSICAL: History of present illness: Patient is an 84-year-old male presents to the ED from [facility] with concern of low oxygen. Per [facility] report, patient had oxygen saturation of 80%. Oxygen is 97% on arrival. Patient was admitted 1 week ago for pneumonia. states for the past couple of days patient hasn't been eating or drinking and he has had a few episodes of vomiting. Patient has a baseline history of lewy body dementia. states he normally recognizes her but today he does not and he is staring off in space. Denies any falls or head injury. History of dementia, pressure ulcer with chronic osteomyelitis of the sacrum, colon cancer with colostomy, HTN. Review of systems: As per history of present illness and below otherwise all systems reviewed and negative. Past medical history: As per history of present illness and as reviewed below otherwise noncontributory. Surgical history: As per history of present illness and as reviewed below otherwise noncontributory. Social history: No reported history of drug or alcohol abuse. Family history: As per history of present illness and as reviewed below otherwise noncontributory. Physical exam: General: Patient sitting comfortably in no acute distress and nontoxic appearing HEENT: Atraumatic, normocephalic, pupils reactive, negative for conjunctival pallor or scleral icterus, mucous membranes moist, throat clear, neck supple, nontender, trachea midline. No meningeal signs. Lungs: Clear to auscultation, breath sounds equal bilaterally, chest nontender. Heart: S1S2, regular, negative for clicks, rubs, or overt murmur. Abdomen: Soft, nondistended, nontender. Negative for masses or hepatosplenomegaly. Negative for costovertebral tenderness. No rigidity, rebound , guarding. Pelvis: Stable nontender. Genitourinary: Deferred. Rectal: Deferred. Extremities: Atraumatic, negative for cords or calf pain. Neurovascular unremarkable. Neuro: Awake, alert, oriented. Cranial nerves II through XII unremarkable. Cerebellum unremarkable. Motor and sensory unremarkable throughout. Exam nonfocal. Notes: Discussed with and son (both are POA) at length about patient's condition including sepsis and kidney failure. We discussed transfer to [place] for dialysis vs admitting here for IV fluids, antibiotics and hospice and the risks and benefits of either choice. Family agrees to admitting here. Patient is code status 3. Dr. Ashton involved in care or patient. Diagnostics: CBC, CMP, UA, CXR, blood culture x 2, Negative hemoccult from colostomy Therapeutics: 500mL Bolus Normal Saline IV 1g Vanc IV 2g Zosyn IV 1g calcium gluconate 5U insulin subcutaneous 1/2amp D50 Prescriptions: Impression: Urosepsis, kidney failure, hypotension, hyperkalemia Plan: Discussed with Maria Eugenia Pelaez, hospitalist [employer]ING [employer]PER[employer] HELPER, patient will be admitted to inpatient med/surg for further care and evaluation. Definitive disposition and diagnosis as appropriate pending reevaluation and review of above. - Related Data Allergies Allergy/AdvReac Type Severity Reaction Status Date / Time fentanyl Allergy Hallucinati Verified 12/22/19 10:27 ons Home Meds: Home Meds Aspirin 81 mg PO DAILY 01/03/17 [History] amLODIPine [Norvasc] 5 mg PO DAILY 01/03/17 [History] atorvaSTATin [Lipitor] 40 mg PO BEDTIME 01/03/17 [History] Acetaminophen [Acetaminophen 8 Hour] 650 mg PO Q8H PRN 06/11/18 [History] QUEtiapine Fumarate [Quetiapine Fumarate] 100 mg PO BID 06/11/18 [History] Rivastigmine [Exelon] 13.3 mg TRDERM DAILY 06/11/18 [History] valACYclovir HCl [Valtrex] 500 mg PO BID 06/11/18 [History] Dextran 70/Hypromellose [Artificial Tears] 1 drop OP QID 08/01/18 [History] Insulin Lispro [Humalog] 0 unit SQ TIDAC 08/01/18 [History] bisacodyL [Dulcolax] 10 mg RC Q24H PRN 08/01/18 [History] Tamsulosin HCl [Flomax] 0.4 mg PO BEDTIME 12/04/18 [History] Lifitegrast [Xiidra] 1 each EYERT BID 11/01/19 [History] Sertraline [Zoloft] 25 mg PO DAILY 11/01/19 [History] Past Medical History HEENT History: Reports: Impaired Vision Other HEENT History: wears glasses Cardiovascular History: Reports: High Cholesterol, Hypertension Respiratory History: Reports: Other (See Below) Other Respiratory History: pneumonitis Gastrointestinal History: Reports: Other (See Below) Other Gastrointestinal History: . Rectal CA, ostomy bag Genitourinary History: Reports: BPH, Other (See Below) Other Genitourinary History: hx of prostate surgery- polyp removal Musculoskeletal History: Reports: None Neurological History: Reports: TIA, Other (See Below) Other Neuro History: "According to recent MRI results, 4 small areas of past stroke" and mild cognitive impairment. Psychiatric History: Reports: Dementia, Other (See Below) Other Psychiatric History: wandering disease, delusional disorder, auditory hallucinations, visual hallucinations Endocrine/Metabolic History: Reports: Diabetes, Type II Hematologic History: Reports: None Immunologic History: Reports: None Oncologic (Cancer) History: Reports: Other (See Below) Other Oncologic History: neoplasm of rectum, testicular mass Dermatologic History: Reports: None - Infectious Disease History Infectious Disease History: Reports: Chicken Pox, Measles Other Infectious Disease History: unable to obtain - Past Surgical History Head Surgeries/Procedures: Reports: None Respiratory Surgical History: Reports: None GI Surgical History: Reports: Colostomy Endocrine Surgical History: Reports: None Musculoskeletal Surgical History: Reports: None Oncologic Surgical History: Reports: None Dermatological Surgical History: Reports: None Social & Family History - Family History Family Medical History: Noncontributory - Tobacco Use Smoking Status *Q: Unknown Ever Smoked - Caffeine Use Caffeine Use: Reports: None ED ROS GENERAL - Review of Systems Review Of Systems: Comprehensive ROS is negative, except as noted in HPI. ED EXAM, GENERAL - Physical Exam Exam: See Below (see dictation) Course - Vital Signs Last Recorded V/S: Last Vital Signs Temp 97.2 F 12/22/19 10:27 Pulse 73 12/22/19 13:30 Resp 18 12/22/19 13:30 BP 90/42 L 12/22/19 13:30 Pulse Ox 97 12/22/19 13:30 - Orders/Labs/Meds Orders: Active Orders 24 hr Category Date Time Status EKG Documentation Completion [RC] STAT Care 12/22/19 10:38 Active CULTURE BLOOD [BC] Stat Lab 12/22/19 11:55 Received CULTURE BLOOD [BC] Stat Lab 12/22/19 12:10 Results CULTURE URINE [RM] Stat Lab 12/22/19 10:42 Received MAGNESIUM [CHEM] Stat Lab 12/22/19 13:18 Received POTASSIUM,K [CHEM] Stat Lab 12/22/19 13:18 Received Sodium Chloride 0.9% [Normal Saline] 1,000 ml Med 12/22/19 13:08 Active IV STAT Sodium Chloride 0.9% [Normal Saline] 500 ml Med 12/22/19 10:45 Active IV STAT Sodium Chloride 0.9% [Saline Flush] Med 12/22/19 10:38 Active 10 ml FLUSH ASDIRECTED PRN Sodium Chloride 0.9% [Saline Flush] Med 12/22/19 10:38 Active 2.5 ml FLUSH ASDIRECTED PRN Blood Culture x2 Reflex Set [OM.PC] Stat Oth 12/22/19 11:39 Ordered Saline Lock Insert [OM.PC] Stat Oth 12/22/19 10:38 Ordered Medication Orders Sodium Chloride (Normal Saline) 500 mls @ 999 mls/hr IV STAT ELVIS Last Admin: 12/22/19 11:05 Dose: 999 mls/hr Sodium Chloride (Normal Saline) 1,000 mls @ 125 mls/hr IV STAT ONE Stop: 12/22/19 21:07 Last Admin: 12/22/19 13:48 Dose: 125 mls/hr Sodium Chloride (Saline Flush) 10 ml FLUSH ASDIRECTED PRN PRN Reason: Keep Vein Open Last Admin: 12/22/19 11:05 Dose: 10 ml Sodium Chloride (Saline Flush) 2.5 ml FLUSH ASDIRECTED PRN PRN Reason: Keep Vein Open Last Admin: 12/22/19 12:36 Dose: 2.5 ml Labs: Laboratory Tests 12/22/19 12/22/19 12/22/19 Range/Units 10:42 11:03 11:55 WBC 21.12 H (4.0-11.0) K/uL RBC 4.04 L (4.50-5.90) M/uL Hgb 11.6 L (13.0-17.0) g/dL Hct 37.5 L (38.0-50.0) % MCV 92.8 (80.0-98.0) fL MCH 28.7 (27.0-32.0) pg MCHC 30.9 L (31.0-37.0) g/dL RDW Std Deviation 53.1 (28.0-62.0) fl RDW Coeff of Danilo 16 H (11.0-15.0) % Plt Count 480 H (150-400) K/uL MPV 9.50 (7.40-12.00) fL Neut % (Auto) 86.7 H (48.0-80.0) % Lymph % (Auto) 8.5 L (16.0-40.0) % [place] % (Auto) 4.7 (0.0-15.0) % Eos % (Auto) 0.0 (0.0-7.0) % Baso % (Auto) 0.1 (0.0-1.5) % Neut # (Auto) 18.3 H (1.4-5.7) K/uL Lymph # (Auto) 1.8 (0.6-2.4) K/uL [place] # (Auto) 1.0 H (0.0-0.8) K/uL Eos # (Auto) 0.0 (0.0-0.7) K/uL Baso # (Auto) 0.0 (0.0-0.1) K/uL Nucleated RBC % 0.0 /100WBC Nucleated RBCs # 0 K/uL Lactate (0.20-2.00) mmol/L Sodium 144 (136-148) mmol/L Potassium 6.2 H (3.5-5.1) mmol/L Chloride 101 (98-107) mmol/L Carbon Dioxide 7.1 L (21.0-32.0) mmol/L BUN 69 H (7.0-18.0) mg/dL Creatinine 6.2 H (0.8-1.3) mg/dL Est Cr Clr Drug Dosing 10.08 mL/min Estimated GFR (MDRD) 8.7 ml/min Glucose 72 L (74-106) mg/dL Calcium 8.6 (8.5-10.1) mg/dL Total Bilirubin 0.4 (0.2-1.0) mg/dL AST 23 (15-37) IU/L ALT 26 (14-63) IU/L Alkaline Phosphatase 69 (46-116) U/L Total Protein 6.1 L (6.4-8.2) g/dL Albumin 2.1 L (3.4-5.0) g/dL Globulin 4.0 (2.6-4.0) g/dL Albumin/Globulin Ratio 0.5 L (0.9-1.6) Urine Color YELLOW Urine Appearance CLOUDY Urine pH 6.0 (5.0-8.0) Ur Specific [place] 1.025 (1.001-1.035) Urine Protein 100 H (NEGATIVE) mg/dL Urine Glucose (UA) NEGATIVE (NEGATIVE) mg/dL Urine Ketones TRACE H (NEGATIVE) mg/dL Urine Occult Blood MODERATE H (NEGATIVE) Urine Nitrite NEGATIVE (NEGATIVE) Urine Bilirubin NEGATIVE (NEGATIVE) Urine Urobilinogen 0.2 (<2.0) EU/dL Ur Leukocyte Esterase LARGE H (NEGATIVE) Urine RBC 3-5 (0-2/HPF) Urine WBC 80-100 (0-5/HPF) Ur Epithelial Cells FEW (NONE-FEW) Urine Bacteria FEW (NEGATIVE) Urine Yeast MODERATE 12/22/19 Range/Units 11:55 WBC (4.0-11.0) K/uL RBC (4.50-5.90) M/uL Hgb (13.0-17.0) g/dL Hct (38.0-50.0) % MCV (80.0-98.0) fL MCH (27.0-32.0) pg MCHC (31.0-37.0) g/dL RDW Std Deviation (28.0-62.0) fl RDW Coeff of Danilo (11.0-15.0) % Plt Count (150-400) K/uL MPV (7.40-12.00) fL Neut % (Auto) (48.0-80.0) % Lymph % (Auto) (16.0-40.0) % Lincoln % (Auto) (0.0-15.0) % Eos % (Auto) (0.0-7.0) % Baso % (Auto) (0.0-1.5) % Neut # (Auto) (1.4-5.7) K/uL Lymph # (Auto) (0.6-2.4) K/uL [place] # (Auto) (0.0-0.8) K/uL Eos # (Auto) (0.0-0.7) K/uL Baso # (Auto) (0.0-0.1) K/uL Nucleated RBC % /100WBC Nucleated RBCs # K/uL Lactate 12.6 H* (0.20-2.00) mmol/L Sodium (136-148) mmol/L Potassium (3.5-5.1) mmol/L Chloride (98-107) mmol/L Carbon Dioxide (21.0-32.0) mmol/L BUN (7.0-18.0) mg/dL Creatinine (0.8-1.3) mg/dL Est Cr Clr Drug Dosing mL/min Estimated GFR (MDRD) ml/min Glucose (74-106) mg/dL Calcium (8.5-10.1) mg/dL Total Bilirubin (0.2-1.0) mg/dL AST (15-37) IU/L ALT (14-63) IU/L Alkaline Phosphatase (46-116) U/L Total Protein (6.4-8.2) g/dL Albumin (3.4-5.0) g/dL Globulin (2.6-4.0) g/dL Albumin/Globulin Ratio (0.9-1.6) Urine Color Urine Appearance Urine pH (5.0-8.0) Ur Specific [place] (1.001-1.035) Urine Protein (NEGATIVE) mg/dL Urine Glucose (UA) (NEGATIVE) mg/dL Urine Ketones (NEGATIVE) mg/dL Urine Occult Blood (NEGATIVE) Urine Nitrite (NEGATIVE) Urine Bilirubin (NEGATIVE) Urine Urobilinogen (<2.0) EU/dL Ur Leukocyte Esterase (NEGATIVE) Urine RBC (0-2/HPF) Urine WBC (0-5/HPF) Ur Epithelial Cells (NONE-FEW) Urine Bacteria (NEGATIVE) Urine Yeast Meds: Medications Generic Name Dose Route Start Last Admin Trade Name Freq PRN Reason Stop Dose Admin Sodium Chloride 500 mls @ 999 mls/hr 12/22/19 10:45 12/22/19 11:05 Normal Saline IV 999 mls/hr STAT ELVIS Administration Sodium Chloride 1,000 mls @ 125 mls/hr 12/22/19 13:08 12/22/19 13:48 Normal Saline IV 12/22/19 21:07 125 mls/hr STAT ONE Administration Sodium Chloride 10 ml 12/22/19 10:38 12/22/19 11:05 Saline Flush FLUSH 10 ml ASDIRECTED PRN Administration Keep Vein Open Sodium Chloride 2.5 ml 12/22/19 10:38 12/22/19 12:36 Saline Flush FLUSH 2.5 ml ASDIRECTED PRN Administration Keep Vein Open Discontinued Medications Generic Name Dose Route Start Last Admin Trade Name Freq PRN Reason Stop Dose Admin Calcium Gluconate 1 gm 12/22/19 12:56 12/22/19 13:48 Calcium Gluconate IVPUSH 12/22/19 12:57 1 gm ONETIME ONE Administration Dextrose/Water 50 ml 12/22/19 13:06 12/22/19 13:48 Dextrose 50% In Water IVPUSH 12/22/19 13:07 50 ml ONETIME ONE Administration Vancomycin HCl 1.25 gm/ Sodium 250 mls @ 167 mls/hr 12/22/19 12:25 12/22/19 13:18 Chloride IV 12/22/19 13:49 167 mls/hr ONETIME ONE Infusion Piperacillin Sod/Tazobactam 50 mls @ 100 mls/hr 12/22/19 13:06 Sod 2.25 gm/ Sodium Chloride IV 12/22/19 13:35 ONETIME ONE Insulin Human Regular 5 unit 12/22/19 12:57 12/22/19 13:48 Novolin R SUBCUT 12/22/19 12:58 5 unit NOW STA Administration Protocol Departure - Departure Time of Disposition: 13:56 Disposition: Admitted As Inpatient 68 Condition: Good Clinical Impression: Sepsis, Hyperkalemia, Kidney failure, UTI (urinary tract infection) - Discharge Information Referrals: Adama Torres MD [Primary Care Provider] - Forms: ED Department Discharge Sepsis Event Note - Evaluation Sepsis Screening Result: No Definite Risk - Focused Exam Vital Signs: Vital Signs Temp Pulse Resp BP Pulse Ox 12/22/19 13:30 73 18 90/42 L 97 12/22/19 13:00 73 17 97/48 L 96 12/22/19 12:00 74 18 98/42 L 97 12/22/19 11:30 71 17 89/38 L 96 12/22/19 10:27 97.2 F 73 16 89/44 L 97 Date Exam was Performed: 01/28/20 Time Exam was Performed: 13:52 - My Orders Last 24 Hours: My Active Orders 12/22/19 10:38 EKG Documentation Completion [RC] STAT Sodium Chloride 0.9% [Saline Flush] 10 ml FLUSH ASDIRECTED PRN Sodium Chloride 0.9% [Saline Flush] 2.5 ml FLUSH ASDIRECTED PRN Saline Lock Insert [OM.PC] Stat 12/22/19 10:42 CULTURE URINE [RM] Stat 12/22/19 10:45 Sodium Chloride 0.9% [Normal Saline] 500 ml IV STAT 12/22/19 11:39 Blood Culture x2 Reflex Set [OM.PC] Stat 12/22/19 11:55 CULTURE BLOOD [BC] Stat 12/22/19 12:10 CULTURE BLOOD [BC] Stat 12/22/19 13:08 Sodium Chloride 0.9% [Normal Saline] 1,000 ml IV STAT 12/22/19 13:18 MAGNESIUM [CHEM] Stat POTASSIUM,K [CHEM] Stat - Assessment/Plan Last 24 Hours: My Active Orders 12/22/19 10:38 EKG Documentation Completion [RC] STAT Sodium Chloride 0.9% [Saline Flush] 10 ml FLUSH ASDIRECTED PRN Sodium Chloride 0.9% [Saline Flush] 2.5 ml FLUSH ASDIRECTED PRN Saline Lock Insert [OM.PC] Stat 12/22/19 10:42 CULTURE URINE [RM] Stat 12/22/19 10:45 Sodium Chloride 0.9% [Normal Saline] 500 ml IV STAT 12/22/19 11:39 Blood Culture x2 Reflex Set [OM.PC] Stat 12/22/19 11:55 CULTURE BLOOD [BC] Stat 12/22/19 12:10 CULTURE BLOOD [BC] Stat 12/22/19 13:08 Sodium Chloride 0.9% [Normal Saline] 1,000 ml IV STAT 12/22/19 13:18 MAGNESIUM [CHEM] Stat POTASSIUM,K [CHEM] Stat
[2019-12-22 12:38] LABS: CARBON DIOXIDE,CO2 7.1 mmol/L (21.0-32.0); POTASSIUM,K 6.2 mmol/L (3.5-5.1)
[2019-12-22] MEDS ORDERED: Calcium Gluconate 10% 1 GM/10 ML SDV IVPUSH ONE (12:56)
[2019-12-22] MEDS ORDERED: Insulin Regular, Human 100 Units/ML 10 ML Vial SUBCUT STA (12:57)
[2019-12-22] MEDS ORDERED: 50% Dextrose in Water 50 ML Syringe IVPUSH ONE (13:06)
[2019-12-22] MEDS ORDERED: Piperacillin/Tazobactam 2.25 GM in Sodium Chloride 0.9% 50 ML IV ONE (13:06)
[2019-12-22] MEDS ORDERED: Sodium Chloride 0.9% 1,000 ML IV ONE ×2 (13:08→15:13)
--- NOTE | 2019-12-22 13:13 | CR ---
Chest: Portable view of the chest was obtained. Comparison: Prior chest x-ray of 12/16/19. Heart size and mediastinum are within normal limits for portable technique. Patient is rotated for this exam. Right-sided PICC line is seen with tip lying within the region of the right atria. Lungs show no acute parenchymal change. Bony structures shows scattered disc space narrowing within the spine with endplate spurring. Impression: 1. Patient rotated for the study. 2. Right-sided PICC line with tip lying within the right atria. 3. Nothing acute is otherwise seen on portable chest x-ray. Diagnostic code #2 This report was dictated in [place] Standard Time
[2019-12-22 14:03] LABS: POTASSIUM,K 6.3 mmol/L (3.5-5.1)
--- NOTE | 2019-12-22 14:09 | PCM.HP.2 ---
H&P History of Present Illness - General Date of Service: 12/22/19 Admit Problem/Dx: Admission Diagnosis/Problem Admission Diagnosis/Problem Sepsis Source of Information: Patient History Limitations: Reports: No Limitations - History of Present Illness Initial Comments - Free Text/Narative: This 84 year male with pmh of dementia, sacral pressure ulcer with chronic osteomyelitis of the sacrum, colon cancer, testicular ca, and HTN presented to the ED today with complaints of being unresponsive not eating or drinking at [place] as well as altered mental status. reports he was nauseated and vomited yesterday and overall didn't feel well, but he was alert. She reports this morning she got there and he was completely out of it. She denies he complained of pain and no fevers noted He was recently discharged from the hospital after being treated for pneumonia, he remained on Rocephin for sacral osteomyelitis as well as Levaquin for pneumonia. In the ED leukocytosis noted at 21,000, lactic acid 12.6, Bi carb 7.1 BUN 69, Cr 6.2. Nakia MILLS discussed transfer with in ED due to Urosepsis with multiorgan failure. At this time and family declined transfer and wanted patient to have antibiotics and IVFs for palliative care. Code status is DNR/ DNI. He was given Vancomycin and IVFs in the ED along with D50 and insulin for hyperkalemia. - Related Data Allergies/Adverse Reactions: Allergies Allergy/AdvReac Type Severity Reaction Status Date / Time fentanyl Allergy Hallucinati Verified 12/22/19 10:27 ons Home Medications: Home Meds Aspirin 81 mg PO DAILY 01/03/17 [History] amLODIPine [Norvasc] 5 mg PO DAILY 01/03/17 [History] atorvaSTATin [Lipitor] 40 mg PO BEDTIME 01/03/17 [History] Acetaminophen [Acetaminophen 8 Hour] 650 mg PO Q8H PRN 06/11/18 [History] QUEtiapine Fumarate [Quetiapine Fumarate] 100 mg PO BID 06/11/18 [History] Rivastigmine [Exelon] 13.3 mg TRDERM DAILY 06/11/18 [History] valACYclovir HCl [Valtrex] 500 mg PO BID 06/11/18 [History] Dextran 70/Hypromellose [Artificial Tears] 1 drop OP QID 08/01/18 [History] Insulin Lispro [Humalog] 0 unit SQ TIDAC 08/01/18 [History] bisacodyL [Dulcolax] 10 mg RC Q24H PRN 08/01/18 [History] Tamsulosin HCl [Flomax] 0.4 mg PO BEDTIME 12/04/18 [History] Lifitegrast [Xiidra] 1 each EYERT BID 11/01/19 [History] Sertraline [Zoloft] 25 mg PO DAILY 11/01/19 [History] Past Medical History HEENT History: Reports: Impaired Vision Other HEENT History: wears glasses Cardiovascular History: Reports: High Cholesterol, Hypertension Respiratory History: Reports: Other (See Below) Other Respiratory History: pneumonitis Gastrointestinal History: Reports: Other (See Below) Other Gastrointestinal History: . Rectal CA, ostomy bag Genitourinary History: Reports: BPH, Other (See Below) Other Genitourinary History: hx of prostate surgery- polyp removal Musculoskeletal History: Reports: None Neurological History: Reports: TIA, Other (See Below) Other Neuro History: "According to recent MRI results, 4 small areas of past stroke" and mild cognitive impairment. Psychiatric History: Reports: Dementia, Other (See Below) Other Psychiatric History: wandering disease, delusional disorder, auditory hallucinations, visual hallucinations Endocrine/Metabolic History: Reports: Diabetes, Type II Hematologic History: Reports: None Immunologic History: Reports: None Oncologic (Cancer) History: Reports: Other (See Below) Other Oncologic History: neoplasm of rectum, testicular mass Dermatologic History: Reports: None - Infectious Disease History Infectious Disease History: Reports: Chicken Pox, Measles Other Infectious Disease History: unable to obtain - Past Surgical History Head Surgeries/Procedures: Reports: None Respiratory Surgical History: Reports: None GI Surgical History: Reports: Colostomy Endocrine Surgical History: Reports: None Musculoskeletal Surgical History: Reports: None Oncologic Surgical History: Reports: None Dermatological Surgical History: Reports: None Social & Family History - Family History Family Medical History: Noncontributory - Tobacco Use Smoking Status *Q: Unknown Ever Smoked - Caffeine Use Caffeine Use: Reports: None H&P Review of Systems - Review of Systems: Review Of Systems: Unable To Obtain Reason Not Obtained: obtunded Exam - Exam Exam: See Below - Vital Signs Vital Signs: Last Vital Signs Temp 97.2 F 01/28/20 13:30 Pulse 73 12/22/19 13:30 Resp 18 12/22/19 13:30 BP 90/42 L 12/22/19 13:30 Pulse Ox 97 12/22/19 13:30 Weight: 81.647 kg - Exam Quality Assessment: Urinary Catheter General: Obtunded HEENT: Conjunctiva Clear, Mucosa Moist & [place] Lungs: Clear to Auscultation, Normal Respiratory Effort Cardiovascular: Regular Rate, Regular Rhythm GI/Abdominal Exam: Normal Bowel Sounds, Soft, Other (colostomy with green loose stool) Back Exam: Normal Inspection, Full Range of Motion Extremities: Normal Inspection, Normal Range of Motion, Non-Tender Skin: Decubitis (sacral decubitis tunneling noted, clean, no erythema noted.) Neuro Extensive - Mental Status: Withdraws to Pain - Patient Data Lab Results Last 24 hrs: Laboratory Results - last 24 hr 12/22/19 12/22/19 12/22/19 Range/Units 10:42 11:03 11:55 WBC 21.12 H (4.0-11.0) K/uL RBC 4.04 L (4.50-5.90) M/uL Hgb 11.6 L (13.0-17.0) g/dL Hct 37.5 L (38.0-50.0) % MCV 92.8 (80.0-98.0) fL MCH 28.7 (27.0-32.0) pg MCHC 30.9 L (31.0-37.0) g/dL RDW Std Deviation 53.1 (28.0-62.0) fl RDW Coeff of Danilo 16 H (11.0-15.0) % Plt Count 480 H (150-400) K/uL MPV 9.50 (7.40-12.00) fL Neut % (Auto) 86.7 H (48.0-80.0) % Lymph % (Auto) 8.5 L (16.0-40.0) % [place] % (Auto) 4.7 (0.0-15.0) % Eos % (Auto) 0.0 (0.0-7.0) % Baso % (Auto) 0.1 (0.0-1.5) % Neut # (Auto) 18.3 H (1.4-5.7) K/uL Lymph # (Auto) 1.8 (0.6-2.4) K/uL [place] # (Auto) 1.0 H (0.0-0.8) K/uL Eos # (Auto) 0.0 (0.0-0.7) K/uL Baso # (Auto) 0.0 (0.0-0.1) K/uL Nucleated RBC % 0.0 /100WBC Nucleated RBCs # 0 K/uL Lactate (0.20-2.00) mmol/L Sodium 144 (136-148) mmol/L Potassium 6.2 H (3.5-5.1) mmol/L Chloride 101 (98-107) mmol/L Carbon Dioxide 7.1 L (21.0-32.0) mmol/L BUN 69 H (7.0-18.0) mg/dL Creatinine 6.2 H (0.8-1.3) mg/dL Est Cr Clr Drug Dosing 10.08 mL/min Estimated GFR (MDRD) 8.7 ml/min Glucose 72 L (74-106) mg/dL Calcium 8.6 (8.5-10.1) mg/dL Total Bilirubin 0.4 (0.2-1.0) mg/dL AST 23 (15-37) IU/L ALT 26 (14-63) IU/L Alkaline Phosphatase 69 (46-116) U/L Total Protein 6.1 L (6.4-8.2) g/dL Albumin 2.1 L (3.4-5.0) g/dL Globulin 4.0 (2.6-4.0) g/dL Albumin/Globulin Ratio 0.5 L (0.9-1.6) Urine Color YELLOW Urine Appearance CLOUDY Urine pH 6.0 (5.0-8.0) Ur Specific Dana 1.025 (1.001-1.035) Urine Protein 100 H (NEGATIVE) mg/dL Urine Glucose (UA) NEGATIVE (NEGATIVE) mg/dL Urine Ketones TRACE H (NEGATIVE) mg/dL Urine Occult Blood MODERATE H (NEGATIVE) Urine Nitrite NEGATIVE (NEGATIVE) Urine Bilirubin NEGATIVE (NEGATIVE) Urine Urobilinogen 0.2 (<2.0) EU/dL Ur Leukocyte Esterase LARGE H (NEGATIVE) Urine RBC 3-5 (0-2/HPF) Urine WBC 80-100 (0-5/HPF) Ur Epithelial Cells FEW (NONE-FEW) Urine Bacteria FEW (NEGATIVE) Urine Yeast MODERATE 12/22/19 Range/Units 11:55 WBC (4.0-11.0) K/uL RBC (4.50-5.90) M/uL Hgb (13.0-17.0) g/dL Hct (38.0-50.0) % MCV (80.0-98.0) fL MCH (27.0-32.0) pg MCHC (31.0-37.0) g/dL RDW Std Deviation (28.0-62.0) fl RDW Coeff of Danilo (11.0-15.0) % Plt Count (150-400) K/uL MPV (7.40-12.00) fL Neut % (Auto) (48.0-80.0) % Lymph % (Auto) (16.0-40.0) % [place] % (Auto) (0.0-15.0) % Eos % (Auto) (0.0-7.0) % Baso % (Auto) (0.0-1.5) % Neut # (Auto) (1.4-5.7) K/uL Lymph # (Auto) (0.6-2.4) K/uL [place] # (Auto) (0.0-0.8) K/uL Eos # (Auto) (0.0-0.7) K/uL Baso # (Auto) (0.0-0.1) K/uL Nucleated RBC % /100WBC Nucleated RBCs # K/uL Lactate 12.6 H* (0.20-2.00) mmol/L Sodium (136-148) mmol/L Potassium (3.5-5.1) mmol/L Chloride (98-107) mmol/L Carbon Dioxide (21.0-32.0) mmol/L BUN (7.0-18.0) mg/dL Creatinine (0.8-1.3) mg/dL Est Cr Clr Drug Dosing mL/min Estimated GFR (MDRD) ml/min Glucose (74-106) mg/dL Calcium (8.5-10.1) mg/dL Total Bilirubin (0.2-1.0) mg/dL AST (15-37) IU/L ALT (14-63) IU/L Alkaline Phosphatase (46-116) U/L Total Protein (6.4-8.2) g/dL Albumin (3.4-5.0) g/dL Globulin (2.6-4.0) g/dL Albumin/Globulin Ratio (0.9-1.6) Urine Color Urine Appearance Urine pH (5.0-8.0) Ur Specific Dana (1.001-1.035) Urine Protein (NEGATIVE) mg/dL Urine Glucose (UA) (NEGATIVE) mg/dL Urine Ketones (NEGATIVE) mg/dL Urine Occult Blood (NEGATIVE) Urine Nitrite (NEGATIVE) Urine Bilirubin (NEGATIVE) Urine Urobilinogen (<2.0) EU/dL Ur Leukocyte Esterase (NEGATIVE) Urine RBC (0-2/HPF) Urine WBC (0-5/HPF) Ur Epithelial Cells (NONE-FEW) Urine Bacteria (NEGATIVE) Urine Yeast Result Diagrams: 12/22/19 11:03 12/22/19 13:18 De Results Last 24 hrs: Microbiology 12/22/19 12:10 Anaerobic Blood Culture - Final Blood - Venous - Lab Draw Sepsis Event Note - Evaluation Sepsis Screening Result: No Definite Risk - Focused Exam Vital Signs: Vital Signs Temp Pulse Resp BP Pulse Ox 12/22/19 13:30 97.2 F 73 18 90/42 L 97 12/22/19 13:00 73 17 97/48 L 96 12/22/19 12:00 74 18 98/42 L 97 12/22/19 11:30 71 17 89/38 L 96 12/22/19 10:27 97.2 F 73 16 89/44 L 97 Date Exam was Performed: 12/22/19 Time Exam was Performed: 15:42 - Problem List (1) Palliative care status SNOMED Code(s): 709404077 ICD Code: Z51.5 - ENCOUNTER FOR PALLIATIVE CARE Status: Acute Current Visit: Yes (2) Sepsis SNOMED Code(s): 56188945 ICD Code: A41.9 - SEPSIS, UNSPECIFIED ORGANISM Status: Acute Current Visit: Yes Qualifiers: Sepsis acute organ dysfunction status: with acute organ dysfunction Severe sepsis acute organ dysfunction type: acute renal failure (3) Metabolic encephalopathy SNOMED Code(s): 20942360 ICD Code: G93.41 - METABOLIC ENCEPHALOPATHY Status: Acute Current Visit: Yes (4) VIK (acute kidney injury) SNOMED Code(s): 24093073, 97253061 ICD Code: N17.9 - ACUTE KIDNEY FAILURE, UNSPECIFIED Status: Acute Current Visit: Yes (5) Colon cancer SNOMED Code(s): 237226690 ICD Code: C18.9 - MALIGNANT NEOPLASM OF COLON, UNSPECIFIED Status: Acute Current Visit: Yes (6) Testicular cancer Status: Acute Current Visit: Yes (7) UTI (urinary tract infection) SNOMED Code(s): 56648121 ICD Code: N39.0 - URINARY TRACT INFECTION, SITE NOT SPECIFIED Status: Acute Current Visit: Yes (8) Chronic osteomyelitis SNOMED Code(s): 69115043 ICD Code: M86.60 - OTHER CHRONIC OSTEOMYELITIS, UNSPECIFIED SITE Status: Acute Current Visit: No (9) Colostomy in place SNOMED Code(s): 785767149, 920793696 ICD Code: Z93.3 - COLOSTOMY STATUS Status: Chronic Current Visit: No Problem List Initiated/Reviewed/Updated: Yes Orders Last 24hrs: Active Orders 24 hr Category Date Time Status Admission Status [Patient Status] [ADT] Stat ADT 12/22/19 13:57 Active EKG Documentation Completion [RC] STAT Care 12/22/19 10:38 Active CULTURE BLOOD [BC] Stat Lab 12/22/19 11:55 Received CULTURE BLOOD [BC] Stat Lab 12/22/19 12:10 Results CULTURE URINE [RM] Stat Lab 12/22/19 10:42 Received MAGNESIUM [CHEM] Stat Lab 12/22/19 13:18 Received POTASSIUM,K [CHEM] Stat Lab 12/22/19 13:18 Received Sodium Chloride 0.9% [Normal Saline] 1,000 ml Med 12/22/19 13:08 Active IV STAT Sodium Chloride 0.9% [Normal Saline] 500 ml Med 12/22/19 10:45 Active IV STAT Sodium Chloride 0.9% [Saline Flush] Med 12/22/19 10:38 Active 10 ml FLUSH ASDIRECTED PRN Sodium Chloride 0.9% [Saline Flush] Med 12/22/19 10:38 Active 2.5 ml FLUSH ASDIRECTED PRN Blood Culture x2 Reflex Set [OM.PC] Stat Oth 12/22/19 11:39 Ordered Saline Lock Insert [OM.PC] Stat Oth 12/22/19 10:38 Ordered Medication Orders Sodium Chloride (Normal Saline) 500 mls @ 999 mls/hr IV STAT ELVIS Last Admin: 12/22/19 11:05 Dose: 999 mls/hr Sodium Chloride (Normal Saline) 1,000 mls @ 125 mls/hr IV STAT ONE Stop: 12/22/19 21:07 Last Admin: 12/22/19 13:48 Dose: 125 mls/hr Sodium Chloride (Saline Flush) 10 ml FLUSH ASDIRECTED PRN PRN Reason: Keep Vein Open Last Admin: 12/22/19 11:05 Dose: 10 ml Sodium Chloride (Saline Flush) 2.5 ml FLUSH ASDIRECTED PRN PRN Reason: Keep Vein Open Last Admin: 12/22/19 12:36 Dose: 2.5 ml Assessment/Plan Comment:: This 84 year old male admitted with sepsis secondary to UTI and VIK. 1. Severe sepsis secondary to UTI with multi-organ failure: Given Vancomycin in ED, will continue this for MRSA coverage. Will add Meropenem to cover any gram negative infection including ESBL organisms. Will add Ampicillin as previous urine cultures returned with E. facaelis. Was discharged home on Levaquin for pneumonia. No pneumonia noted on CXR. NPO for now as Yobani continues to be unresponsive. Had long discussion with . She is not wanting aggressive treatment at this time. She continued to decline transfer and does not want vasopressors. She would like to try IVFs and antibiotics only. She understands at this time prognosis is poor. Son is coming from [place] tomorrow. if Yobani does not show improvement in a day or so, they are wanting to consult Hospice. Currently she agrees with palliative measures to include IVFs, antibiotics, Morphine PRN for pain. She is agreeable to change out sung. Code Status: DNR/DNI, palliative care - Mortality Measure Prognosis:: Poor
[2019-12-22] MEDS ORDERED: Acetaminophen 650 MG Supp RECTAL PRN (14:18)
[2019-12-22] MEDS ORDERED: Ondansetron 4 MG/2 ML SDV IVPUSH PRN (14:18)
[2019-12-22] MEDS ORDERED: Meropenem Premix 1 GM in Premix Bag 1 BAG IV SCH (14:30)
[2019-12-22] MEDS: Ampicillin 2 GM in Sodium Chloride 0.9% 100 ML IV SCH ×2 (17:41→22:19)
[2019-12-22] MEDS ORDERED: Sodium Chloride 0.9% 1,000 ML IV SCH (21:00)
[2019-12-22] MEDS: Morphine 2 MG/ML Syringe IVPUSH PRN (21:05)
[2019-12-22 21:22] VITALS: BP 75/33; PULSE 40
[2019-12-23] MEDS: Morphine 2 MG/ML Syringe IVPUSH PRN (00:58)
--- NOTE | 2019-12-23 11:14 | PCM.DCSUM1 ---
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 reports he was nauseated and vomited yesterday and overall didn't feel well, but he was alert. She reports this morning she got there and he was completely out of it. She denies he complained of pain and no fevers noted. He was recently discharged from the hospital after being treated for pneumonia, he remained on Rocephin for sacral osteomyelitis as well as Levaquin for pneumonia. In the ED leukocytosis noted at 21,000, lactic acid 12.6, Bi carb 7.1 BUN 69, Cr 6.2. Nakia MILLS discussed transfer with in ED due to Urosepsis with multiorgan failure. At this time and family declined transfer and wanted patient to have antibiotics and IVFs for palliative care. Code status is DNR/DNI. He was given Vancomycin and IVFs in the ED along with D50 and insulin for hyperkalemia. - Discharge Data Discharge Date: 12/23/19 Discharge Disposition: 20 Condition: - Referral to Home Health Primary Care Physician: Adama Torres MD - Discharge Diagnosis/Problem(s) (1) Palliative care status SNOMED Code(s): 001512819 ICD Code: Z51.5 - ENCOUNTER FOR PALLIATIVE CARE Status: Acute (2) Sepsis SNOMED Code(s): 25265427 ICD Code: A41.9 - SEPSIS, UNSPECIFIED ORGANISM Status: Acute Qualifiers: Sepsis acute organ dysfunction status: with acute organ dysfunction Severe sepsis acute organ dysfunction type: acute renal failure (3) Metabolic encephalopathy SNOMED Code(s): 95986569 ICD Code: G93.41 - METABOLIC ENCEPHALOPATHY Status: Acute (4) VIK (acute kidney injury) SNOMED Code(s): 99384089, 05045982 ICD Code: N17.9 - ACUTE KIDNEY FAILURE, UNSPECIFIED Status: Acute (5) Colon cancer SNOMED Code(s): 428170403 ICD Code: C18.9 - MALIGNANT NEOPLASM OF COLON, UNSPECIFIED Status: Acute (6) Testicular cancer Status: Acute (7) UTI (urinary tract infection) SNOMED Code(s): 91276797 ICD Code: N39.0 - URINARY TRACT INFECTION, SITE NOT SPECIFIED Status: Acute (8) Chronic osteomyelitis SNOMED Code(s): 40256162 ICD Code: M86.60 - OTHER CHRONIC OSTEOMYELITIS, UNSPECIFIED SITE Status: Acute (9) Colostomy in place SNOMED Code(s): 372628763, 765409203 ICD Code: Z93.3 - COLOSTOMY STATUS Status: Chronic - Discharge Plan Home Medications: Home Meds Aspirin 81 mg PO DAILY 01/03/17 [History] amLODIPine [Norvasc] 5 mg PO DAILY 01/03/17 [History] atorvaSTATin [Lipitor] 40 mg PO BEDTIME 01/03/17 [History] Acetaminophen [Acetaminophen 8 Hour] 650 mg PO Q8H PRN 06/11/18 [History] QUEtiapine Fumarate [Quetiapine Fumarate] 100 mg PO BID 06/11/18 [History] Rivastigmine [Exelon] 13.3 mg TRDERM DAILY 06/11/18 [History] valACYclovir HCl [Valtrex] 500 mg PO BID 06/11/18 [History] Dextran 70/Hypromellose [Artificial Tears] 1 drop EYEBOTH QID 08/01/18 [History] Insulin Lispro [Humalog] 0 unit SQ TIDAC 08/01/18 [History] bisacodyL [Dulcolax] 10 mg RC Q24H PRN 08/01/18 [History] Tamsulosin HCl [Flomax] 0.4 mg PO BEDTIME 12/04/18 [History] Lifitegrast [Xiidra] 1 each EYERT BID 11/01/19 [History] Sertraline [Zoloft] 25 mg PO DAILY 11/01/19 [History] Amino Acids/Protein Hydrolys [Prosource No Carb Liquid Pkt] 1 oz PO BID [History] Hydrocodone/Acetaminophen [Hydrocodon-Acetaminophen 5-325] 1 tab PO Q8HR PRN [History] Insulin Glarg,Human.Rec.Analog [Lantus] 15 units SUBCUT BEDTIME 12/22/19 [ History] Levofloxacin 750 mg PO DAILY 12/22/19 [History] Levothyroxine Sodium [Levo-T] 25 mcg PO DAILY 12/22/19 [History] Mag Hydrox/Al Hydrox/Simeth [Maalox Maximum Strength Susp] 30 ml PO Q1H PRN [History] Magnesium Hydroxide [Milk of Magnesia] 30 ml PO Q24H PRN 12/22/19 [History] Mineral Oil/Petrolatum,White [Akwa Tears Ointment] 1 applic EYEBOTH BEDTIME [History] Multivitamin [Multi-Vitamin Daily] 1 tab PO DAILY 12/22/19 [History] Nut.Sup,Spec.Frm,L-Fr,Iron/Fos [Twocal HN] 3 oz PO BID 12/22/19 [History] Ondansetron [Zofran] 8 mg PO Q6H PRN 12/22/19 [History] Prednisolone Acetate/Pf [Prednisolone Acet 1% Eye Drop] 1 drop EYELF BID [History] Propranolol HCl 160 mg PO BEDTIME 12/22/19 [History] metFORMIN HCl [Metformin HCl] 1,000 mg PO BID 12/22/19 [History] metFORMIN HCl [Metformin HCl] 1,000 mg PO DAILY 12/22/19 [History] Referrals: Adama Torres MD [Primary Care Provider] - - Discharge Summary/Plan Comment DC Time >30 min.: No Discharge Summary/Plan Comment: Cause of : Septic Shock Multi organ failure Admitting Diagnoses: Palliative care Sepsis Multi organ failure Suspected gram negative infection UTI Hyperkalemia Discharge Diagnoses: Palliative care Sepsis Multi organ failure UTI Hyperkalemia Other PMH: sacral pressure ulcer chronic osteomyelitis of the sacrum Hx colon cancer testicular ca HTN Dementia Yobani was admitted secondary to septic shock and multiorgan failure. He was noted to have renal injury, lactic acid of 12.6 and Bicarb of 7.1. In the ED and son via phone was explained poor prognosis. They at that time requested palliative care, allowing antibiotics and IVFs only. They declined transfer to higher level of care and declined vasopressors for hypotension. I discussed with the , Stephanie, grave prognosis. She continued to agree with palliative care. We continued Meropenem, Ampicillin due to recent E faecalis in urine along with Vancomycin. IVFs were continued. Yobani continued to be unresponsive. Hypotension continued. at bedside and at 0248 no further cardiac or respiratory effort was noted. Nursing staff notified Dr Vigil of patient . - Patient Data Vitals - Most Recent: Last Vital Signs Temp 96.7 F 12/22/19 20:00 Pulse 40 L 12/22/19 20:00 Resp 12 12/22/19 20:00 BP 75/33 L 12/22/19 20:00 Pulse Ox 84 L 12/22/19 20:00 Weight - Most Recent: 88 kg I&O - Last 24 hours: Intake & Output 12/22/19 12/23/19 12/23/19 22:59 06:59 14:59 Output Total 200 Balance -200 Lab Results - Last 24 hrs: Laboratory Results - last 24 hr 12/22/19 12/22/19 12/22/19 Range/Units 10:42 11:03 11:55 WBC 21.12 H (4.0-11.0) K/uL RBC 4.04 L (4.50-5.90) M/uL Hgb 11.6 L (13.0-17.0) g/dL Hct 37.5 L (38.0-50.0) % MCV 92.8 (80.0-98.0) fL MCH 28.7 (27.0-32.0) pg MCHC 30.9 L (31.0-37.0) g/dL RDW Std Deviation 53.1 (28.0-62.0) fl RDW Coeff of Danilo 16 H (11.0-15.0) % Plt Count 480 H (150-400) K/uL MPV 9.50 (7.40-12.00) fL Neut % (Auto) 86.7 H (48.0-80.0) % Lymph % (Auto) 8.5 L (16.0-40.0) % Creek % (Auto) 4.7 (0.0-15.0) % Eos % (Auto) 0.0 (0.0-7.0) % Baso % (Auto) 0.1 (0.0-1.5) % Neut # (Auto) 18.3 H (1.4-5.7) K/uL Lymph # (Auto) 1.8 (0.6-2.4) K/uL Creek # (Auto) 1.0 H (0.0-0.8) K/uL Eos # (Auto) 0.0 (0.0-0.7) K/uL Baso # (Auto) 0.0 (0.0-0.1) K/uL Nucleated RBC % 0.0 /100WBC Nucleated RBCs # 0 K/uL Lactate (0.20-2.00) mmol/L Sodium 144 (136-148) mmol/L Potassium 6.2 H (3.5-5.1) mmol/L Chloride 101 (98-107) mmol/L Carbon Dioxide 7.1 L (21.0-32.0) mmol/L BUN 69 H (7.0-18.0) mg/dL Creatinine 6.2 H (0.8-1.3) mg/dL Est Cr Clr Drug Dosing 10.08 mL/min Estimated GFR (MDRD) 8.7 ml/min Glucose 72 L (74-106) mg/dL POC Glucose (60-110) mg/dL Calcium 8.6 (8.5-10.1) mg/dL Magnesium (1.8-2.4) mg/dL Total Bilirubin 0.4 (0.2-1.0) mg/dL AST 23 (15-37) IU/L ALT 26 (14-63) IU/L Alkaline Phosphatase 69 (46-116) U/L Total Protein 6.1 L (6.4-8.2) g/dL Albumin 2.1 L (3.4-5.0) g/dL Globulin 4.0 (2.6-4.0) g/dL Albumin/Globulin Ratio 0.5 L (0.9-1.6) Urine Color YELLOW Urine Appearance CLOUDY Urine pH 6.0 (5.0-8.0) Ur Specific [place] 1.025 (1.001-1.035) Urine Protein 100 H (NEGATIVE) mg/dL Urine Glucose (UA) NEGATIVE (NEGATIVE) mg/dL Urine Ketones TRACE H (NEGATIVE) mg/dL Urine Occult Blood MODERATE H (NEGATIVE) Urine Nitrite NEGATIVE (NEGATIVE) Urine Bilirubin NEGATIVE (NEGATIVE) Urine Urobilinogen 0.2 (<2.0) EU/dL Ur Leukocyte Esterase LARGE H (NEGATIVE) Urine RBC 3-5 (0-2/HPF) Urine WBC 80-100 (0-5/HPF) Ur Epithelial Cells FEW (NONE-FEW) Urine Bacteria FEW (NEGATIVE) Urine Yeast MODERATE 12/22/19 12/22/1920 Range/Units 11:55 13:18 14:18 WBC (4.0-11.0) K/uL RBC (4.50-5.90) M/uL Hgb (13.0-17.0) g/dL Hct (38.0-50.0) % MCV (80.0-98.0) fL MCH (27.0-32.0) pg MCHC (31.0-37.0) g/dL RDW Std Deviation (28.0-62.0) fl RDW Coeff of Danilo (11.0-15.0) % Plt Count (150-400) K/uL MPV (7.40-12.00) fL Neut % (Auto) (48.0-80.0) % Lymph % (Auto) (16.0-40.0) % Creek % (Auto) (0.0-15.0) % Eos % (Auto) (0.0-7.0) % Baso % (Auto) (0.0-1.5) % Neut # (Auto) (1.4-5.7) K/uL Lymph # (Auto) (0.6-2.4) K/uL Creek # (Auto) (0.0-0.8) K/uL Eos # (Auto) (0.0-0.7) K/uL Baso # (Auto) (0.0-0.1) K/uL Nucleated RBC % /100WBC Nucleated RBCs # K/uL Lactate 12.6 H* (0.20-2.00) mmol/L Sodium (136-148) mmol/L Potassium 6.3 H (3.5-5.1) mmol/L Chloride (98-107) mmol/L Carbon Dioxide (21.0-32.0) mmol/L BUN (7.0-18.0) mg/dL Creatinine (0.8-1.3) mg/dL Est Cr Clr Drug Dosing mL/min Estimated GFR (MDRD) ml/min Glucose (74-106) mg/dL POC Glucose 148 H (60-110) mg/dL Calcium (8.5-10.1) mg/dL Magnesium 2.0 (1.8-2.4) mg/dL Total Bilirubin (0.2-1.0) mg/dL AST (15-37) IU/L ALT (14-63) IU/L Alkaline Phosphatase (46-116) U/L Total Protein (6.4-8.2) g/dL Albumin (3.4-5.0) g/dL Globulin (2.6-4.0) g/dL Albumin/Globulin Ratio (0.9-1.6) Urine Color Urine Appearance Urine pH (5.0-8.0) Ur Specific Frederick (1.001-1.035) Urine Protein (NEGATIVE) mg/dL Urine Glucose (UA) (NEGATIVE) mg/dL Urine Ketones (NEGATIVE) mg/dL Urine Occult Blood (NEGATIVE) Urine Nitrite (NEGATIVE) Urine Bilirubin (NEGATIVE) Urine Urobilinogen (<2.0) EU/dL Ur Leukocyte Esterase (NEGATIVE) Urine RBC (0-2/HPF) Urine WBC (0-5/HPF) Ur Epithelial Cells (NONE-FEW) Urine Bacteria (NEGATIVE) Urine Yeast KIARA Results - Last 24 hrs: Microbiology 12/22/19 12:10 Anaerobic Blood Culture - Final Blood - Venous - Lab Draw Med Orders - Current: Current Medications Discontinued Medications Acetaminophen (Tylenol) 650 mg RECTAL Q4H PRN PRN Reason: Pain (mild 1-3) Ampicillin Sodium (Pharmacy To Dose - Ampicillin) 1 dose .XX ASDIRECTED [facility] Calcium Gluconate (Calcium Gluconate) 1 gm IVPUSH ONETIME ONE Stop: 12/22/19 12:57 Last Admin: 12/22/19 13:48 Dose: 1 gm Dextrose/Water (Dextrose 50% In Water) 50 ml IVPUSH ONETIME ONE Stop: 12/22/19 13:07 Last Admin: 12/22/19 13:48 Dose: 50 ml Sodium Chloride (Normal Saline) 500 mls @ 999 mls/hr IV STAT ELVIS Last Admin: 12/22/19 11:05 Dose: 999 mls/hr Vancomycin HCl 1.25 gm/ Sodium (Chloride) 250 mls @ 167 mls/hr IV ONETIME ONE Stop: 12/22/19 13:49 Last Infusion: 12/22/19 13:18 Dose: 167 mls/hr Piperacillin Sod/Tazobactam (Sod 2.25 gm/ Sodium Chloride) 50 mls @ 100 mls/hr IV ONETIME ONE Stop: 12/22/19 13:35 Last Admin: 12/22/19 16:56 Dose: Not Given Sodium Chloride (Normal Saline) 1,000 mls @ 125 mls/hr IV STAT ONE Stop: 12/22/19 21:07 Last Infusion: 12/22/19 16:56 Dose: 125 mls/hr Meropenem/Sodium Chloride 1 gm (/ Premix) 50 mls @ 50 mls/hr IV Q12H [facility] Last Admin: 12/22/19 16:22 Dose: 50 mls/hr Ampicillin Sodium 2 gm/ Sodium (Chloride) 100 mls @ 200 mls/hr IV Q6H [facility] Last Admin: 12/22/19 22:19 Dose: 200 mls/hr Sodium Chloride (Normal Saline) 1,000 mls @ 999 mls/hr IV .Bolus ONE Stop: 12/22/19 16:13 Last Admin: 12/22/19 15:47 Dose: 999 mls/hr Sodium Chloride (Normal Saline) 1,000 mls @ 125 [facility]ls[facility] Human Regular (Novolin R) 5 unit SUBCUT NOW STA; Protocol Stop: 12/22/19 12:58 Last Admin: 12/22/19 13:48 Dose: 5 unit Morphine Sulfate (Morphine) 2 mg IVPUSH Q2H PRN PRN Reason: pain/agitation Last Admin: 12/23/19 00:58 Dose: 2 mg Ondansetron HCl (Zofran) 4 mg IVPUSH Q4H PRN PRN Reason: Nausea Sodium Chloride (Saline Flush) 10 ml FLUSH ASDIRECTED PRN PRN Reason: Keep Vein Open Last Admin: 12/22/19 11:05 Dose: 10 ml Sodium Chloride (Saline Flush) 2.5 ml FLUSH ASDIRECTED PRN PRN Reason: Keep Vein Open Last Admin: 12/22/19 12:36 Dose: 2.5 ml Vancomycin HCl (Pharmacy To Dose - Vancomycin) 1 dose .XX ASDIRECTED [facility]
== END 2019-12-23 05:01 | disposition expired | DRG 871 ==
LOC: MW.ED 10:17 → MW.MS 14:13
PROVIDERS: ADMIT Student in an Organized Health Care Education/Training Program; ATTEND Student in an Organized Health Care Education/Training Program
DX: A41.9 Sepsis, unspecified organism (principal); G93.41 Metabolic encephalopathy; N39.0 Urinary tract infection, site not specified; N19 Unspecified kidney failure; N17.9 Acute kidney failure, unspecified; C18.9 Malignant neoplasm of colon, unspecified; M46.28 Osteomyelitis of vertebra, sacral and sacrococcygeal region; Z51.5 Encounter for palliative care; Z66 Do not resuscitate; R65.20 Severe sepsis without septic shock; G31.83 Neurocognitive disorder with Lewy bodies; F02.80 Dementia in other diseases classified elsewhere, unspecified severity, without behavioral disturbance, psychotic disturbance, mood disturbance, and anxiety; H54.7 Unspecified visual loss; E78.00 Pure hypercholesterolemia, unspecified; B95.2 Enterococcus as the cause of diseases classified elsewhere; I10 Essential (primary) hypertension; N40.0 Benign prostatic hyperplasia without lower urinary tract symptoms; L89.159 Pressure ulcer of sacral region, unspecified stage; E11.9 Type 2 diabetes mellitus without complications; E87.5 Hyperkalemia; F22 Delusional disorders; C62.90 Malignant neoplasm of unspecified testis, unspecified whether descended or undescended; Z85.048 Personal history of other malignant neoplasm of rectum, rectosigmoid junction, and anus; Z86.19 Personal history of other infectious and parasitic diseases; Z93.3 Colostomy status; Z79.82 Long term (current) use of aspirin; Z79.4 Long term (current) use of insulin; Z86.73 Personal history of transient ischemic attack (TIA), and cerebral infarction without residual deficits; Z79.899 Other long term (current) drug therapy; Z88.8 Allergy status to other drugs, medicaments and biological substances; Z87.01 Personal history of pneumonia (recurrent); Z91.83 Wandering in diseases classified elsewhere
CPT/HCPCS: 36415; 71045; 80053; 81001; 83605; 83735; 84132; 85025; 87040 ×2; 87086; 93005; J0610; J3370; J7030; J7040; J7050; 51702; 82962; 96365; 96375; 99284; 99285-25; J0290; J1815-GY; J2185; J2270